=== PATIENT | female | born 1955 | race Caucasian/White ===

== ENCOUNTER → 2020-08-25 08:43 | Outpatient (BNVA) | payer MEDICARE, MEDICAID, SELFPAY | PROVIDERS: PCP Internal Medicine; Referring Provider Internal Medicine; Visit Provider Nurse Practitioner | DX: K27.9 Peptic ulcer, site unspecified, unspecified as acute or chronic, without hemorrhage or perforation (principal); K21.9 Gastro-esophageal reflux disease without esophagitis; I25.2 Old myocardial infarction | CPT/HCPCS: Q3014 ==

== ENCOUNTER → 2020-10-30 09:21 | Outpatient (BNVA) | payer MEDICARE, MEDICAID, SELFPAY | PROVIDERS: PCP Internal Medicine; Visit Provider Nurse Practitioner | DX: Z76.89 Persons encountering health services in other specified circumstances (principal) | CPT/HCPCS: Q3014 ==

== ENCOUNTER 2021-04-25 12:48 | Outpatient (REF) | payer MEDICARE, MEDICAID, SELFPAY ==
--- NOTE | ~2021-04-25 | US_ITS ---
EXAMINATION: US SOFT TISSUE NECK CLINICAL INFORMATION: Facial swelling COMPARISON: None TECHNIQUE: Ultrasound of the soft tissues of the right face/parotid area. Comparison imaging on the left was performed. Performed. FINDINGS: There is a 3 x 3 x 2 mm echogenic density in the right parotid gland with acoustic shadowing suggestive of a stone. This is continuous with and elongation tubular structure probably representing a dilated parotid duct. No fluid collection in or around the right parotid gland is seen. There is adjacent lymph node adjacent to the right parotid gland measuring 5 x 3 x 5 mm. The left parotid gland is unremarkable. US/US soft tiss head and/or neck IMPRESSION: Probable stone in the right parotid gland obstructing the right parotid duct.
== END 2021-04-25 12:49 | disposition home or self-care (01) ==
LOC: HO.US 12:48
PROVIDERS: Visit Provider Internal Medicine
DX: R22.0 Localized swelling, mass and lump, head (principal)
CPT/HCPCS: 76536

== ENCOUNTER → 2021-05-07 12:51 | Outpatient (BNVA) | payer MEDICARE, MEDICAID, SELFPAY | PROVIDERS: PCP Internal Medicine; Referring Provider Internal Medicine; Visit Provider Internal Medicine | DX: I25.10 Atherosclerotic heart disease of native coronary artery without angina pectoris (principal); I73.9 Peripheral vascular disease, unspecified; I10 Essential (primary) hypertension; F17.200 Nicotine dependence, unspecified, uncomplicated | CPT/HCPCS: 93005; 99202 ==

== ENCOUNTER 2021-05-17 09:27 | Outpatient (REF) | payer MEDICARE, MEDICAID, SELFPAY ==
--- NOTE | ~2021-05-17 | US_ITS ---
EXAMINATION: ARTERIAL DUPLEX BILATERAL LEGS CLINICAL INFORMATION: Peripheral vascular disease COMPARISON: None TECHNIQUE: Duplex Doppler of the bilateral lower extremity arterial systems was performed. FINDINGS: RIGHT: Common femoral: PSV 151 cm/s. Biphasic waveform. Deep femoral: PSV 63.8 cm/s. Biphasic waveform. Proximal superficial femoral: PSV 79.9 cm/s. Biphasic waveform. Mid superficial femoral: PSV 71.5 cm/s. Biphasic waveform. Distal superficial femoral: PSV 82.0 cm/s. Biphasic waveform. Popliteal: PSV 44.7 cm/s. Biphasic waveform. Posterior tibial artery: PSV 47.0 cm/s. Biphasic waveform. Calcified atherosclerotic plaque throughout the SFA. LEFT: Common femoral: PSV 82.3 cm/s. Triphasic waveform. Deep femoral: PSV 61.5 cm/s. Biphasic waveform. Proximal superficial femoral: PSV 120 cm/s. Biphasic waveform. Mid superficial femoral: PSV 57.1 cm/s. Biphasic waveform. Distal superficial femoral: PSV 40.0 cm/s. Biphasic waveform. Popliteal: PSV 33.9 cm/s. Biphasic waveform. Posterior tibial artery: PSV 43.4 cm/s. Biphasic waveform. Calcified atherosclerotic plaque throughout the SFA. US/US arterial duplex LE BI IMPRESSION: Normal velocities throughout the bilateral lower extremities, however there is atherosclerotic plaque throughout the bilateral SFAs and biphasic waveforms suggesting mild stenosis.
== END 2021-05-17 09:28 | disposition home or self-care (01) ==
LOC: HO.US 09:27
PROVIDERS: PCP Internal Medicine; Visit Provider Internal Medicine
DX: I73.9 Peripheral vascular disease, unspecified (principal)
CPT/HCPCS: 93925

== ENCOUNTER → 2021-07-12 14:01 | Outpatient (BNVA) | payer MEDICARE, MEDICAID, SELFPAY | PROVIDERS: PCP Internal Medicine; Visit Provider Internal Medicine | DX: J44.9 Chronic obstructive pulmonary disease, unspecified (principal); F17.200 Nicotine dependence, unspecified, uncomplicated | CPT/HCPCS: Q3014 ==

== ENCOUNTER → 2021-07-17 14:04 | Outpatient (REF) | payer MEDICARE, MEDICAID, SELFPAY ==
--- NOTE | 2021-07-17 14:08 | CA_ITS ---
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 Normal LV systolic function with grade 1 diastolic dysfunction 2. Normal cardiac valvular Doppler 3. Normal RV systolic pressure 4. No pericardial effusion Findings Left Ventricle Normal left ventricular size, thickness, and systolic function. The visually estimated ejection fraction is between 60-65%. Spectral Doppler is indicative of an impaired relaxation filling pattern. E/E prime ratio is <8, consistent with normal filling pressures. Evidence suggests grade I (mild) diastolic dysfunction. Right Ventricle Normal right ventricular cavity size and systolic function. Atria Both atria are normal in size. Interatrial shunt cannot be excluded. Aortic Valve Normal aortic valve structure and function. There is no aortic valve stenosis. There is no aortic valve regurgitation. Mitral Valve Normal mitral valve structure and function. There is trace mitral valve regurgitation. There is no mitral valve stenosis. Pulmonic Valve The pulmonic valve is likely normal. There is trace pulmonic valve regurgitation. Tricuspid Valve Normal tricuspid valve structure. The right ventricular systolic pressure is normal. The right ventricular systolic pressure is 30 mmHg. Normal right atrial pressure. There is no evidence of pulmonary hypertension. Great Vessels All visible segments of the aorta are normal in size. The pulmonary artery was not well visualized. Venous The inferior vena cava is normal in size and collapses greater than 50% with inspiration. Pericardium/Pleural There is no evidence of pericardial effusion. Prior Study Comparison No prior study available for comparison. Measurements 2D Linear Measurements IVSd: 0.94 0.6-0.9/0.6-1.0 cm LVIDd: 3.73 3.9-5.3/4.2-5.9 cm LVIDd Index: 2.85 2.4-3.2/2.2-3.1 cm/m2 LVIDs: 1.86 2.0-3.6 cm LVPWd: 0.95 0.7-1.1 cm Ao Root: 2.80 2.1-3.5 cm LA Diam: 2.90 2.7-3.8/3.0-4.0 cm LAIDs Index: 2.21 1.5-2.3 cm/m2 LV Mass: 131.03 67-162/88-224 g LV Mass Index: 100.02 43-95/49-115 g/m2 LVOT Diam: 2.10 3.0+(-)1.3 cm Mitral Valve MV Pk E: 0.46 MV PK A: 0.64 MV Decel Time: 205.00 E/A: 0.70 E'Lateral: 16.40 E'Medial: 6.64 E/E' Med: 6.90 E/E' Lat: 2.80 PHT: 60.00 MVA PHT: 3.67 Decel Coles: 2.24 Aortic Valve AoV Pk Kevin: 1.09 AoV Mn Kevin: 0.70 AoV VTI: 0.22 AoV Pk Grad: 5.00 Aov Mn Grad: 2.00 PELON Cont.VTI: 2.43 LVOT LVOT Pk Kevin: 0.68 LVOT Mn Kevin: 0.41 LVOT VTI: 0.15 LVOT Pk Grad: 2.00 LVOT Mn Grad: 1.00 LVOT Diam: 2.10 LVOT Area: 3.46 Diastolic Function MV Pk E: 0.46 MV Pk A: 0.64 E/A: 0.70 E'Medial: 6.64 E/E' Med: 6.90 E' Laterial: 16.40 E/E' Lat: 2.80 Tricuspid Valve TR Pk Kevin: 2.61 TR Pk Grad: 27.00 RA Press: 3.00 RVSP: 30.00 Great Vessels Aorta Ao Root-2D: 2.80 2.0-3.7 cm Ao Asc: 2.60 2.1-3.4 cm Pulmonary Valve PV Pk Kevin: 0.87 Peak PV Grad: 3.00 Updated in Other Vendor System with Status of Final Steve Su MD electronically signed on 07/19/2021 2:36:36 PM with status of Final
== END ==
LOC: HO.CARD 14:04
PROVIDERS: Visit Provider Internal Medicine
DX: I25.10 Atherosclerotic heart disease of native coronary artery without angina pectoris (principal)
CPT/HCPCS: 93306

== ENCOUNTER 2021-07-26 13:02 | Outpatient (REF) | payer MEDICARE, MEDICAID, SELFPAY | END 2021-07-26 13:03 | disposition home or self-care (01) | LOC: HO.CT 13:02 | PROVIDERS: PCP Internal Medicine; Visit Provider Physician Assistant Medical | DX: F17.210 Nicotine dependence, cigarettes, uncomplicated (principal); I25.10 Atherosclerotic heart disease of native coronary artery without angina pectoris; I10 Essential (primary) hypertension; I73.9 Peripheral vascular disease, unspecified | CPT/HCPCS: 99212 ==

== ENCOUNTER 2021-11-20 13:00 | Outpatient (REF) | payer MEDICARE, MEDICAID, SELFPAY ==
--- NOTE | ~2021-11-20 | MM_ITS ---
EXAMINATION: BONE DENSITOMETRY CLINICAL INDICATION: Menopausal. COMPARISON: Previous BD dated 02/13/2010 and baseline BD dated 10/23/2007. TECHNIQUE: Using a [employer] DXA System (software version: 13.1) manufactured by [employer], dual-energy x-ray absorptiometry was performed of the lumbar spine and left hip. The images are of good technical quality. Summary results are attached. FINDINGS: AP SPINE L1-L4: Current: BMD 0.862 g/cm2, Z-score -0.3, T-score -2.7, osteoporosis, 3.0% decrease from previous, 6.8% decrease from baseline (<5% change is not significant). Prior: BMD 0.889 g/cm2. Baseline: BMD 0.925 g/cm2. LEFT FEMUR, NECK: Current: BMD 0.561 g/cm2, Z-score -1.4, T-score -3.4, osteoporosis. Prior: BMD 0.678 g/cm2. Baseline: BMD 0.726 g/cm2. LEFT FEMUR, TOTAL: Current: BMD 0.550 g/cm2, Z-score -1.8, T-score -3.6, osteoporosis, 19.2% decrease from previous, 29.8% decrease from baseline (<5% change is not significant). Prior: BMD 0.681 g/cm2. Baseline: BMD 0.784 g/cm2. IDENTIFIED RISK FACTORS: Low body weight, tobacco use (current smoker), menopause. HISTORY OF FRACTURE: None listed. MEDICATIONS: Vitamin D. MM/XR DEXA axial skeleton IMPRESSION: 1. DIAGNOSIS: Osteoporosis based on the lowest T-score value of -3.6 in the total femur applying World Health Organization criteria. 2. 10-YEAR FRACTURE RISK PREDICTION, FRAX: According to the guidelines, FRAX calculation should only be performed on patients in the osteopenia bone density category. Therefore, FRAX was not performed on this patient. 3. Treatment Recommendations: NOF guidelines recommend consideration for treatment in postmenopausal women and men age 50 and older presenting with the following: -A hip or vertebral (clinical or morphometric) fracture. -T-score less than or equal to -2.5 at the femoral neck or spine after appropriate evaluation to exclude secondary causes. -Low bone mass at the hip or spine and a 10-year fracture probability by FRAX of greater than or equal to 3% for hip fracture or greater than or equal to 20% for major osteoporotic fracture based on the [place] adapted WHO algorithm. 4. Other Recommendations: All treatment decisions require clinical judgment and consideration of individual patient factors, including patient preferences, comorbidities, previous drug use, risk factors not captured in the FRAX model (e.g. frailty, falls, vitamin D deficiency, increased bone turnover, interval significant decline in bone density) and possible under or overestimation of fracture risk by FRAX. Additional medical evaluation for secondary cause of low bone mineral density may be appropriate. FUTURE SCAN RECOMMENDATION: People with diagnosed cases of osteoporosis or at high risk for fracture should have regular bone mineral density tests. For patients eligible for Medicare, routine testing is allowed once every 2 years. The testing frequency can be increased to one year for patients who have rapidly progressing disease, those who are receiving or discontinuing medical therapy to restore bone mass, or have additional risk factors.
--- NOTE | ~2021-11-20 | MM_ITS ---
EXAMINATION: MM SCREENING DIGITAL BREAST TOMOSYNTHESIS, BILATERAL CLINICAL INFORMATION: Screening. Asymptomatic. The lifetime risk of breast cancer based on the Tyrer-Cuzick Model is 3%. COMPARISON: Mammography: 07/19/2016, 10/19/2011 (baseline). TECHNIQUE: Digital breast tomosynthesis is performed in both the craniocaudal and mediolateral oblique views along with computer-aided detection (CAD). Synthesized 2D images are generated from the tomosynthesis. FINDINGS: The breasts are heterogeneously dense, which may obscure small masses (ACR BI-RADS breast composition Category c). Breast tissue composition borders on extremely dense. There is fibronodular pattern similar to prior studies. No interval significant mass or architectural abnormality. There are scattered benign round and benign grouped coarse calcifications. The axilla and skin contours are unremarkable. The left MLO has new grouped calcifications upper breast 8.5 cm from nipple, beyond field of view on CC projection. Patient will be recalled to further characterize this area. MM/MM tomosynthesis screening BI IMPRESSION: 1. Left: Calcifications upper breast on MLO view 8.5 cm from nipple. 2. Right: No mammographic evidence of malignancy. ASSESSMENT: BI-RADS 0: Incomplete - Need Additional Imaging Evaluation RECOMMENDATION: 1. Additional views of the left breast (magnification ML, magnification exaggerated CC). 2. Radiology department staff will contact the patient for additional imaging. This patient's information was entered into a reminder system with a target due date for their next mammogram.
== END 2021-11-20 13:01 | disposition home or self-care (01) ==
LOC: HO.MAMMO 13:00
PROVIDERS: PCP Internal Medicine; Visit Provider Internal Medicine
DX: Z12.31 Encounter for screening mammogram for malignant neoplasm of breast (principal); Z13.820 Encounter for screening for osteoporosis; Z78.0 Asymptomatic menopausal state; F17.200 Nicotine dependence, unspecified, uncomplicated; M81.0 Age-related osteoporosis without current pathological fracture; Z79.899 Other long term (current) drug therapy
CPT/HCPCS: 77063; 77067; 77080

== ENCOUNTER 2021-11-29 14:29 | Outpatient (REF) | payer MEDICARE, MEDICAID, SELFPAY ==
--- NOTE | ~2021-11-29 | MM_ITS ---
EXAMINATION: MM DIAGNOSTIC DIGITAL MAMMOGRAPHY, LEFT CLINICAL INFORMATION: Recall from screening for calcifications upper breast on MLO view. COMPARISON: Mammography: 11/20/2021, 07/19/2016 TECHNIQUE: Digital mammography is performed in the following views: Magnification exaggerated CC, magnification MLx2, magnification MLO. FINDINGS: The breasts are heterogeneously dense, which may obscure small masses (ACR BI-RADS breast composition Category c). The calcifications anterior upper left breast approximately 8-9 cm from nipple for additional imaging have probable benign appearance. They are relatively coarse, similar to other clearly benign grouped calcifications in the left breast. Appearance suggests early fibroadenomatous calcification. Results are discussed with the patient at time of visit.Patient confirms there are no additional mammographic exams since 2016. MM/MM added views LT IMPRESSION: Probable benign calcifications upper left breast, suspect early fibroadenomatous change. ASSESSMENT: BI-RADS 3: Probably Benign RECOMMENDATION: Diagnostic left mammography in 6 months to include magnification views. This patient's information was entered into a reminder system with a target due date for their next mammogram.
== END 2021-11-29 14:30 | disposition home or self-care (01) ==
LOC: HO.MAMMO 14:29
PROVIDERS: PCP Internal Medicine; Visit Provider Internal Medicine
DX: R92.1 Mammographic calcification found on diagnostic imaging of breast (principal)
CPT/HCPCS: 77065

== ENCOUNTER 2022-02-12 14:00 | Outpatient (RCR) | payer MEDICARE, MEDICAID, SELFPAY | END 2022-03-18 11:51 | disposition home or self-care (01) | LOC: HO.WCC 14:00 | PROVIDERS: Visit Provider Surgery | DX: S81.811D Laceration without foreign body, right lower leg, subsequent encounter (principal) | CPT/HCPCS: 11042; 99212 ==

== ENCOUNTER 2022-04-02 11:33 | Emergency (ER) | payer MEDICARE, MEDICAID, SELFPAY ==
--- NOTE | ~2022-04-02 | XR_ITS ---
EXAMINATION: XR CHEST CLINICAL INFORMATION: Covid positive. Low oxygen saturation. COMPARISON: Most recent chest radiograph dated 06/09/2020. TECHNIQUE: 2 views of the chest were obtained. FINDINGS: Diffuse, patchy bilateral airspace opacities which are new when compared to the prior examination. No large, confluent airspace consolidation. No pleural effusion or pneumothorax. Stable cardiomediastinal silhouette. XR/XR chest 2V IMPRESSION: Mild, diffuse patchy bilateral airspace opacities. Findings can be seen in the setting of an infectious or inflammatory process, including viral pneumonia.
[2022-04-02 11:46] VITALS: BP 130/78; PULSE 105
[2022-04-02 12:01] VITALS: BP 141/79; PULSE 109; RESP 20; TEMP 36.9; O2SAT 96; BMI 17.1
--- NOTE | 2022-04-02 12:07 | PC.NURSE ---
patient a&ox3 monitoring specialist sinus tach, vss, pt speaking in full sentences, pt awaiting provider, will continue to monitor.
--- NOTE | 2022-04-02 12:16 | ED_ITS ---
HPI - URI/Sore Throat General Chief Complaint: General Medical Stated Complaint: LOW O2 88% RA FROM MD OFFICE PER EMS Time Seen by Provider: 04/02/22 12:04 Source: patient Mode of arrival: EMS Limitations: no limitations History of Present Illness HPI Narrative: Patient presents emergency department via EMS coming from her doctor's office. She reports on 03/27/2022 she was diagnosed with COVID-19, has been vaccinated x4 with Pfizer, reports that she took ?a pill? 4 days ago for COVID, it caused her to be delirious and confused. She was at her doctor's office today for a follow-up visit, when she was noted to be hypoxic with room air saturation around 88%. Overall she reports feeling much better since the onset of her symptoms, initially she was having worsening of her shortness of breath, but currently is denying any shortness of breath, wheezing. Denies fevers, chills, dizziness, lightheadedness, chest pain, palpitations, difficulty breathing, dyspnea on exertion, orthopnea, nausea, vomiting, abdominal pain. Related Data Home Medications Medication Instructions Recorded Confirmed aspirin 81 mg tablet,delayed 81 mg PO DAILY 08/25/20 07/26/21 release atorvastatin 80 mg tablet 80 mg PO BEDTIME 08/25/20 07/26/21 cholecalciferol (vitamin D3) 50 50 mcg PO DAILY 08/25/20 07/26/21 mcg (2,000 unit) capsule metoprolol succinate 50 mg 50 mg PO DAILY 08/25/20 07/26/21 tablet,extended release 24 hr oxycodone 10 mg tablet 10 mg PO TID PRN 08/25/20 07/26/21 isosorbide mononitrate 30 mg 30 mg PO DAILY 05/07/21 07/26/21 tablet,extended release 24 hr omeprazole 40 mg capsule,delayed 40 mg PO BID 05/07/21 07/26/21 release albuterol sulfate 90 mcg/actuation 2 puff inhalation .6 HRS PRN PRN 07/12/21 07/26/21 aerosol inhaler (ProAir HFA) budesonide-formoterol HFA 80 2 puff PO 07/12/21 07/26/21 mcg-4.5 mcg/actuation aerosol inhaler (Symbicort) gabapentin 100 mg capsule 200 mg PO BEDTIME 07/12/21 07/26/21 tiotropium bromide 18 mcg capsule 1 cap inhalation DAILY 07/12/21 07/26/21 with inhalation device (Spiriva with HandiHaler) Previous Rx's Medication Instructions Recorded famotidine 20 mg tablet (Pepcid) 20 mg PO BEDTIME 30 days #30 tabs 04/24/21 nicotine 14 mg/24 hr daily 1 patch transdermal DAILY 28 days 07/12/21 transdermal patch #28 ea albuterol sulfate 90 mcg/actuation 2 puff PO Q4-6H PRN shortness of 02/08/22 aerosol inhaler breath or wheezing #8.5 ea Allergies Allergy/AdvReac Type Severity Reaction Status Date / Time No Known Allergies Allergy Verified 04/02/22 12:01 Review of Systems Review of Systems: Constitutional : No Fever, No Chills ENT/Mouth : No sore throat, No Rhinorrhea, No Swallowing Difficulty Eyes: No Eye Pain, No Swelling, No Redness Cardiovascular : No Chest Pain, no SOB, No Orthopnea, positive Edema Respiratory : No Cough, No Sputum, No Wheezing, positive dyspnea Gastrointestinal : No Nausea, No Vomiting, No Diarrhea, No abdominal Pain, No Hematochezia, No Melena Genitourinary : No Dysuria, No Urinary Frequency, No Hematuria Musculoskeletal : No joint pain, No Myalgias Skin : No Skin Lesions, No rash Neuro : No Weakness, No Numbness, No Dizziness, No Headache Psych : No Anxiety/Panic, No Depression Heme/Lymph: No Bruising, No Lymphadenopathy Endocrine : No Polyuria, No Polydipsia Yes all other systems are reviewed and are negative [facility] Past Medical History Attestation statement: The following information was validated with the patient. Source: old records reviewed Medical History History of ARDS Surgical History History of cardiac cath History of exploratory laparotomy (~2019) History of heart artery stent (~2015) Family History Family History Father No problems noted. Mother Diabetes Brother Heart problem Social History Social History Household Members: Spouse Alcohol intake: never Patient Tobacco Use Status: Current everyday Tobacco user Cigarettes Per Day: 10 Use of substances other than those prescribed or required for medical reasons: No Advance Directives: No Advance Directives Information Provided: Yes Physical Exam Vital Signs: Vital Signs: Last Vital Signs Temp 99.1 F 04/02/22 12:20 Pulse 94 04/02/22 12:20 Resp 19 04/02/22 12:20 BP 137/81 04/02/22 12:20 Pulse Ox 95 04/02/22 12:20 O2 Del Method 04/02/22 12:20 O2 Flow Rate 2 04/02/22 12:20 Oxygen Flow Rate 2 04/02/22 12:01 BMI result Body Mass Index 17.1 Vital signs have been reviewed as normal and appeared to be correct. Blood pressure normal.? Mild tachycardia? Respiration rate normal. Temperature normal.? Oxygen saturation normal on O2 via nasal cannula Appearance: Alert.?Oriented to person, place and time. No acute d istress.?Normal affect. Eyes: Pupils equal, round and reactive to light.? ENT: Pharynx normal.?? Neck: Normal inspection.? Neck supple.?? CVS: Heart sounds normal. Normal heart rate and rhythm.? Pulses normal.?? Respiratory: No respiratory distress.? Lung sounds clear to auscultation bilaterally, slightly diminished, no wheezing. Respirations are regular even nonlabored. Managing secretions. No hoarseness. Abdomen: Soft and non-tender. Normoactive bowel sounds. ?? Skin: Skin warm and dry.? Normal skin color.? Extremities: 2+ bilateral pedal edema? No calf ttp? Neuro: Moves all extremities spontaneously. Sensation intact bilaterally. CN II- XII intact. No focal neuro deficits. Ambulates with normal steady gait. Course Course Course Narrative: Patient is a 67-year-old female with a past medical history of ASCVD, myocardial infarction, catheterization with stenting, peripheral vascular disease, ARDS, COPD, hypertension, GERD, peptic ulcer disease, neuropathy. She continues to smoke cigarettes, is taking Spiriva, Symbicort, and albuterol ProAir as needed. Last seen by pulmonology Dr. Cleary 07/26 moderate-severe COPD. At this time patient has no overall complaints, she actually reports feeling much improved since symptom onset with COVID-19. Given her noted room-air hypoxia, history of COPD, ARDS, an ASCVD will obtain basic labs including CBC, CMP, troponin, EKG, chest x-ray. Patient will have ambulatory O2 trial. At time no indication for nebulizer treatment or steroids. Reevaluation(s) Reevaluation #1: CBC is overall unremarkable. BMP unremarkable. Troponin is elevated, 17.4, EKG reveals sinus tachycardia, but no acute ischemic findings, given her history will obtain delta troponin. Chest x-ray is pending at this time. Discussed with patient that if she is able to ambulate without hypoxia or significant tachycardia/tachypnea, her repeat troponin is negative she would be able to be discharged home. Patient at this time declines to have ambulatory O2 trial, declines to have repeat troponin obtained. Discussed patient but cannot completely exclude the possibility of myocardial infarction, or persistnet hypoxia given history of severe COPD with the additional COVID-19 infection. Discussed this with patient that she is leaving against medical advice at this time, she may be a risk for complications or life-threatening events. She verbalizes understanding of this, and states that she would like to leave. Patient to sign against medical advice forms. Time: 13:29 MDM - URI/Sore Throat Medical Records Attestation: I reviewed the patient's medical records. Lab Data Attestation: I reviewed the patient's lab results. Result diagrams: 04/02/22 12:27 04/02/22 12:26 Labs: Lab Results 04/02/22 04/02/22 04/02/22 Range/Units 12:26 12:26 12:27 WBC 7.7 (4.8-10.8) X10*3/uL RBC 5.50 (4.20-5.50) X10*6/uL Hgb 16.0 (12.0-16.0) g/dl Hct 50.7 H (37.0-47.0) % MCV 92.2 (80.0-98.0) fL MCH 29.1 (27.0-33.0) pg MCHC 31.6 (31.0-35.0) g/dl RDW 15.4 (11.0-16.0) % Plt Count 187 (160-400) X10*3/uL MPV 9.8 (9.4-12.3) fL Immature Gran % (Auto) 0.8 H (0.0-0.4) % Neut % (Auto) 81.4 H (45-73) % Lymph % (Auto) 9.4 L (20-40) % Bureau % (Auto) 8.2 (2-11) % Eos % (Auto) 0.1 (0-4) % Baso % (Auto) 0.1 (0-2) % Lymph # (Auto) 0.7 L (1.2-4.9) X10*3/uL Bureau # (Auto) 0.6 (0.1-1.2) X10*3/uL Eos # (Auto) 0.0 (0.0-0.4) X10*3/uL Baso # (Auto) 0.0 (0.0-0.2) X10*3/uL Abs Immat Gran (auto) 0.06 H (0.00-0.03) X10*3/uL Absolute Neuts (auto) 6.3 (2.0-8.3) x10*3/uL Absolute Nucleated RBC 0.000 (0.0-0.012) X10*3/uL Nucleated RBC % (auto) 0.0 (0.0-0.2) /100WBC Sodium 143 (135-145) mmol/L Potassium 4.9 (3.3-5.1) mmol/L Chloride 98 (96-108) mmol/L Carbon Dioxide 39 H (22-29) mmol/L Anion Gap 11 L (12-20) BUN 12 (9-16) mg/dL Creatinine 0.68 (0.5-1.4) mg/dL Estim Creat Clear Calc 48.1 Estimated GFR > 60 Random Glucose 100 (60-115) mg/dL Calcium 8.5 (8.4-10.2) mg/dL Troponin I High Sens (<3.5-17.0) ng/L B-Natriuretic Peptide (<100) pg/mL COVID-19 ([facility]OB[facility]) Positive A (Negative) COVID-19 Clin Com See Note 04/02/22 04/02/22 Range/Units 12:27 12:28 WBC (4.8-10.8) X10*3/uL RBC (4.20-5.50) X10*6/uL Hgb (12.0-16.0) g/dl Hct (37.0-47.0) % MCV (80.0-98.0) fL MCH (27.0-33.0) pg MCHC (31.0-35.0) g/dl RDW (11.0-16.0) % Plt Count (160-400) X10*3/uL MPV (9.4-12.3) fL Immature Gran % (Auto) (0.0-0.4) % Neut % (Auto) (45-73) % Lymph % (Auto) (20-40) % Bureau % (Auto) (2-11) % Eos % (Auto) (0-4) % Baso % (Auto) (0-2) % Lymph # (Auto) (1.2-4.9) X10*3/uL Bureau # (Auto) (0.1-1.2) X10*3/uL Eos # (Auto) (0.0-0.4) X10*3/uL Baso # (Auto) (0.0-0.2) X10*3/uL Abs Immat Gran (auto) (0.00-0.03) X10*3/uL Absolute Neuts (auto) (2.0-8.3) x10*3/uL Absolute Nucleated RBC (0.0-0.012) X10*3/uL Nucleated RBC % (auto) (0.0-0.2) /100WBC Sodium (135-145) mmol/L Potassium (3.3-5.1) mmol/L Chloride (96-108) mmol/L Carbon Dioxide (22-29) mmol/L Anion Gap (12-20) BUN (9-16) mg/dL Creatinine (0.5-1.4) mg/dL Estim Creat Clear Calc Estimated GFR Random Glucose (60-115) mg/dL Calcium (8.4-10.2) mg/dL Troponin I High Sens 17.4 H (<3.5-17.0) ng/L B-Natriuretic Peptide 78 (<100) pg/mL COVID-19 ([facility]) (Negative) COVID-19 Clin Com Discharge Plan Discharge Clinical Impression: COVID-19, Hypoxia, Left against medical advice Patient Disposition: Left Against Medical Advice Additional Instructions: As we discussed, it is recommended that you remain in the hospital to have repeat blood work as well as monitor your oxygen while you are walking, you declined to have either performed. It is possible that you could be dropping your oxygen, which can be life- threatening, it was advised that you have your repeat blood work done to assure that you are not having heart attack but you declined. Please return to emergency department with any new or worsening symptoms or concerns Prescriptions: No Action famotidine [Pepcid] 20 mg tablet 20 mg PO BEDTIME 30 Days Qty: 30 6RF albuterol sulfate 90 mcg/actuation HFA aerosol inhaler 2 puff PO Q4-6H PRN (Reason: shortness of breath or wheezing) Qty: 8.5 5RF omeprazole 40 mg capsule,delayed release(DR/EC) 40 mg PO BID isosorbide mononitrate 30 mg tablet extended release 24 hr 30 mg PO DAILY budesonide-formoterol [Symbicort] 80-4.5 mcg/actuation HFA aerosol inhaler 2 puff PO Spiriva with HandiHaler 18 mcg capsule, w/inhalation device 1 cap inhalation DAILY albuterol sulfate [ProAir HFA] 90 mcg/actuation HFA aerosol inhaler 2 puff inhalation .6 HRS PRN PRN nicotine 14 mg/24 hr patch 24 hour 1 patch transdermal DAILY 28 Days Qty: 28 2RF cholecalciferol (vitamin D3) 50 mcg (2,000 unit) capsule 50 mcg PO DAILY atorvastatin 80 mg tablet 80 mg PO BEDTIME aspirin 81 mg tablet,delayed release (DR/EC) 81 mg PO DAILY oxycodone 10 mg tablet 10 mg PO TID PRN metoprolol succinate 50 mg tablet extended release 24 hr 50 mg PO DAILY gabapentin 100 mg capsule 200 mg PO BEDTIME Interventions: ED Discharge Assessment Last Done: 04/02/22 14:17 Discharge Date/Time: 04/02/22 14:25
--- NOTE | 2022-04-02 12:18 | ECG_ITS ---
Test Reason : Shortness of breath Blood Pressure : / mmHG Vent. Rate : 102 BPM Atrial Rate : 102 BPM P-R Int : 128 ms QRS Dur : 082 ms QT Int : 330 ms P-R-T Axes : 070 101 050 degrees QTc Int : 430 ms Sinus tachycardia Rightward axis Low voltage QRS Septal infarct (cited on or before 09-JUN-2020) Abnormal ECG When compared with ECG of 09-JUN-2020 06:19, Vent. rate has increased BY 37 BPM Referred By: Mary Rivers Electronically Signed By:MACARIO CARSON
[2022-04-02 12:20] VITALS: BP 137/81; PULSE 94; RESP 19; TEMP 37.3; O2SAT 95
[2022-04-02 12:36] LABS: MANUAL DIFF FLAG NO
[2022-04-02 12:40] LABS: Basophils Percent Auto 0.1 % (0-2); Eosinophils Percent Auto 0.1 % (0-4); Hematocrit 50.7 % (37.0-47.0); Imm Gran Abs Auto 0.06 X10*3/uL (0.00-0.03); Imm Gran Pct Auto 0.8 % (0.0-0.4); Lymphocytes Absolute Auto 0.7 X10*3/uL (1.2-4.9); Lymphocytes Percent Auto 9.4 % (20-40); Mean Corpuscular HGB Conc 31.6 g/dl (31.0-35.0); Mean Corpuscular Hemoglobin 29.1 pg (27.0-33.0); Mean Corpuscular Volume 92.2 fL (80.0-98.0); Mean Platelet Volume 9.8 fL (9.4-12.3); Monocytes Absolute Auto 0.6 X10*3/uL (0.1-1.2); Monocytes Percent Auto 8.2 % (2-11); Neutrophils Absolute Auto 6.3 x10*3/uL (2.0-8.3); Neutrophils Percent Auto 81.4 % (45-73); Platelet Count 187 X10*3/uL (160-400); Red Cell Distribution Width 15.4 % (11.0-16.0); White Blood Count 7.7 X10*3/uL (4.8-10.8)
[2022-04-02 12:50] LABS: COVID-19 Test Positive (Negative); IDNOW Serial# 16C4AD1C
[2022-04-02 12:53] LABS: Anion Gap 11 (12-20); Blood Urea Nitrogen 12 mg/dL (9-16); Calcium 8.5 mg/dL (8.4-10.2); Carbon Dioxide 39 mmol/L (22-29); Chloride 98 mmol/L (96-108); Creatinine Clr Calc Pharmacy 48.1; Estimated Glomerular Filt Rate > 60; Glucose Random 100 mg/dL (60-115); Potassium 4.9 mmol/L (3.3-5.1); Sodium 143 mmol/L (135-145)
[2022-04-02 13:01] LABS: B Type Natriuretic Peptide 78 pg/mL (<100)
[2022-04-02 13:02] LABS: Troponin-I High Sensitivity 17.4 ng/L (<3.5-17.0)
--- NOTE | 2022-04-02 14:18 | PC.NURSE ---
pt refusing repeat labs, refusing ambulation trial and now refusing oxygyn and wants to discharge, patient is leaving [facility].
== END 2022-04-02 14:25 | disposition left against medical advice (07) ==
PROVIDERS: Nurse Practitioner Family; Emergency Provider Emergency Medicine
DX: U07.1 COVID-19 (principal); R09.02 Hypoxemia; J44.9 Chronic obstructive pulmonary disease, unspecified; I10 Essential (primary) hypertension; I25.10 Atherosclerotic heart disease of native coronary artery without angina pectoris; F17.210 Nicotine dependence, cigarettes, uncomplicated; I25.2 Old myocardial infarction; Z79.899 Other long term (current) drug therapy; Z95.5 Presence of coronary angioplasty implant and graft
CPT/HCPCS: 36415; 71046; 80048; 83880; 84484; 85025; 87635; 93005; 99283; 99284

== ENCOUNTER → 2022-09-16 13:23 | Outpatient (BNVA) | payer MEDICARE, MEDICAID, SELFPAY | PROVIDERS: PCP Internal Medicine; Referring Provider Internal Medicine; Visit Provider Internal Medicine | DX: I25.10 Atherosclerotic heart disease of native coronary artery without angina pectoris (principal); I10 Essential (primary) hypertension; I73.9 Peripheral vascular disease, unspecified; I65.23 Occlusion and stenosis of bilateral carotid arteries; I71.40 Abdominal aortic aneurysm, without rupture, unspecified; F17.210 Nicotine dependence, cigarettes, uncomplicated; Z79.82 Long term (current) use of aspirin; Z79.899 Other long term (current) drug therapy | CPT/HCPCS: 93005; 99212 ==

== ENCOUNTER 2022-10-16 14:19 | Outpatient (REF) | payer MEDICARE, MEDICAID, SELFPAY ==
--- NOTE | ~2022-10-16 | US_ITS ---
EXAMINATION: US EXTRACRANIAL CAROTID DUPLEX, BILATERAL CLINICAL INFORMATION: Occlusion and stenosis of the bilateral carotid arteries COMPARISON: None TECHNIQUE: Real-time ultrasound and Doppler techniques (integrating B-mode 2-D vascular images, Doppler spectral analysis and color-flow Doppler imaging) were utilized to interrogate the extracranial carotid arteries, the vertebral arteries and proximal subclavian arteries bilaterally. The degree of stenosis is determined by criteria similar to NASCET. FINDINGS: Right Side: 1. There is moderate atherosclerotic plaque seen in the bifurcation/proximal ICA region. 2. The common carotid artery PSV proximally is 80 cm/s and distally 81 cm/s. 3. The proximal internal carotid artery velocities are 81 cm/s systolic and 35 cm/s diastolic. 4. The proximal external carotid artery PSV is 69 cm/s. 5. The vertebral artery shows antegrade flow. 6. The subclavian artery waveforms are normal. Left Side: 1. There is moderate atherosclerotic plaque seen in the bifurcation/proximal ICA region. 2. The common carotid artery PSV proximally is 69 cm/s and distally 70 cm/s. 3. The proximal internal carotid artery velocities are 106 cm/s systolic and 53 cm/s diastolic. 4. The proximal external carotid artery PSV is 168 cm/s. 5. The vertebral artery shows antegrade flow. 6. The subclavian artery waveforms are normal. US/US carotid duplex BI IMPRESSION: 1. RIGHT: Minimal, non-hemodynamically significant stenosis of the proximal right internal carotid artery corresponding to a 0-49% stenosis by velocity criteria. 2. LEFT: Minimal, non-hemodynamically significant stenosis of the proximal left internal carotid artery corresponding to a 0-49% stenosis by velocity criteria.
--- NOTE | ~2022-10-16 | US_ITS ---
EXAMINATION: US RETROPERITONEAL LIMITED (AORTA) CLINICAL INFORMATION: Abdominal aortic aneurysm without rupture, unspecified. COMPARISON: Abdominal ultrasound on 03/12/2016 TECHNIQUE: Grimaldo-scale, color Doppler and spectral Doppler evaluation of the abdominal aorta. FINDINGS: There is atherosclerotic disease. The measurements of the aorta in maximum AP and transverse dimensions respectively are as follows: Proximal: 2.8 x 2.6 cm. Mid: 1.8 x 1.9 cm. Distal: 1.5 x 1.9 cm. PSV: 68.8 cm/s. The measurements of the common iliac arteries in maximum AP and TRV dimensions are as follows: Right Common Iliac Artery: 0.9 x 1.1 cm. Left Common Iliac Artery: 0.9 x 0.9 cm. US/US abdominal aortic aneurysm IMPRESSION: No abdominal aortic or iliac artery aneurysm.
== END 2022-10-16 14:20 | disposition home or self-care (01) ==
LOC: HO.US 14:19
PROVIDERS: Visit Provider Internal Medicine
DX: I71.40 Abdominal aortic aneurysm, without rupture, unspecified (principal); I65.23 Occlusion and stenosis of bilateral carotid arteries
CPT/HCPCS: 76706; 93880

== ENCOUNTER 2023-05-16 12:06 | Outpatient (REF) | payer MEDICARE, MEDICAID, SELFPAY ==
[2023-05-16 13:50] LABS: MANUAL DIFF FLAG NO
[2023-05-16 14:05] LABS: Basophils Absolute Auto 0.1 X10*3/uL (0.0-0.2); Basophils Percent Auto 0.7 % (0-2); Eosinophils Absolute Auto 0.1 X10*3/uL (0.0-0.4); Eosinophils Percent Auto 1.8 % (0-4); Hematocrit 49.4 % (37.0-47.0); Hemoglobin 15.4 g/dl (12.0-16.0); Imm Gran Abs Auto 0.02 X10*3/uL (0.00-0.03); Imm Gran Pct Auto 0.3 % (0.0-0.4); Lymphocytes Absolute Auto 1.7 X10*3/uL (1.2-4.9); Lymphocytes Percent Auto 24.1 % (20-40); Mean Corpuscular HGB Conc 31.2 g/dl (31.0-35.0); Mean Corpuscular Hemoglobin 29.3 pg (27.0-33.0); Mean Corpuscular Volume 93.9 fL (80.0-98.0); Mean Platelet Volume 11.1 fL (9.4-12.3); Monocytes Absolute Auto 0.7 X10*3/uL (0.1-1.2); Monocytes Percent Auto 10.1 % (2-11); Neutrophils Absolute Auto 4.5 x10*3/uL (2.0-8.3); Platelet Count 165 X10*3/uL (160-400); Red Blood Count 5.26 X10*6/uL (4.20-5.50); Red Cell Distribution Width 15.3 % (11.0-16.0); White Blood Count 7.2 X10*3/uL (4.8-10.8)
[2023-05-16 15:11] LABS: Folate 4.2 ng/mL (> or = 4.0); Vitamin B12 1083 pg/mL (200-900)
[2023-05-16 15:20] LABS: Alanine Aminotransferase 16 U/L (0-31); Albumin Level 3.2 g/dL (3.5-5.0); Alkaline Phosphatase 149 U/L (39-117); Anion Gap 11 (12-20); Aspartate Amino Transferase 27 U/L (5-31); Bilirubin Total 0.4 mg/dL (0.0-1.0); Blood Urea Nitrogen 12 mg/dL (9-16); Calcium 9.4 mg/dL (8.4-10.2); Carbon Dioxide 35 mmol/L (22-29); Chloride 98 mmol/L (96-108); Cholesterol 179 mg/dL; Estimated Glomerular Filt Rate > 60; Glucose Random 69 mg/dL (60-115); HDL Cholesterol 54 mg/dL; LDL Cholesterol Calculated 106 mg/dl; Potassium 4.2 mmol/L (3.3-5.1); Sodium 140 mmol/L (135-145); Total Protein 6.3 g/dL (6.5-8.0); Triglycerides 97 mg/dL
[2023-05-16 15:22] LABS: TSH reflex Free T4 2.94 uIU/mL (0.32-4.0)
[2023-05-17 03:26] LABS: Estimated Average Glucose 97 mg/dL
[2023-05-17 03:30] LABS: Syphilis Screen Nonreactive (Nonreactive)
[2023-05-19 17:48] LABS: Lyme Abs Screen <0.90 index
== END 2023-05-16 12:07 | disposition home or self-care (01) ==
LOC: HO.HHCL 12:06
PROVIDERS: Visit Provider Registered Nurse
DX: Z00.00 Encounter for general adult medical examination without abnormal findings (principal); R41.3 Other amnesia; J44.9 Chronic obstructive pulmonary disease, unspecified; E78.5 Hyperlipidemia, unspecified; R63.6 Underweight
CPT/HCPCS: 36415; 80053; 80061; 82607; 82746; 83036; 84443; 85025; 86617; 86618; 86780

== ENCOUNTER 2023-06-17 09:52 | Outpatient (REF) | payer MEDICARE, MEDICAID, SELFPAY ==
--- NOTE | ~2023-06-17 | CT_ITS ---
EXAMINATION: CT CHEST WITHOUT CONTRAST CLINICAL INFORMATION: Lung nodule. COMPARISON: CTA chest 12/21/2018. TECHNIQUE: Multidetector volumetric CT imaging of the chest was done. Axial MIP volume rendering provided. Sagittal and coronal reformatted images were obtained. This CT examination was performed using dose optimization techniques as appropriate, variously including the following: *Automated exposure control *Adjustment of mA and/or kV according to patient size (this includes techniques or standardized protocols for targeted exams where dose is matched to indication/reason for exam; i.e. extremities or head) *Use of iterative reconstruction technique DLP: 63 mGy-cm FINDINGS: LUNGS: Severe emphysematous changes are again seen throughout the lungs. Biapical pleural-parenchymal scarring is again noted. Rounded area of infiltrate in the right upper lobe abutting the major fissure seen previously (6:148) has resolved. Other scattered areas of infiltrate throughout the lungs have also resolved since the prior study. A 3 mm right upper lobe lung nodule is unchanged (5:207, compare prior 6:195). A 3 mm left upper lobe nodule is unchanged (5:226, compare prior 6:228). No new worrisome lung mass is seen. MEDIASTINUM: There is a 1.8 x 1.9 cm precarinal lymph node which was more difficult to see at the time of the prior study but appears unchanged (5:184, compare prior 4:21). Some other smaller lymph nodes are also unchanged. CORONARY ARTERY CALCIFICATION: Present. PLEURA: There is no pleural effusion. No pleural mass or thickening. AXILLA: No lymphadenopathy. UPPER ABDOMEN: Unremarkable. OSSEOUS STRUCTURES: Unremarkable. CT/CT chest wo IV con IMPRESSION: 1. Previously seen areas of multifocal infiltrates have resolved. 2. Small lung micronodules are unchanged. 3. Severe emphysema. 4. Mediastinal lymph nodes are unchanged. 5. A worrisome finding is not present. Fleischner guidelines were followed.
== END 2023-06-17 09:53 | disposition home or self-care (01) ==
LOC: HO.CT 09:52
PROVIDERS: PCP Internal Medicine; Visit Provider Registered Nurse
DX: R91.1 Solitary pulmonary nodule (principal); R63.4 Abnormal weight loss
CPT/HCPCS: 71250

== ENCOUNTER 2023-07-09 09:34 | Emergency (ER) | payer MEDICARE, MEDICAID, SELFPAY ==
[2023-07-09] VITALS (20 sets, daily range): BP systolic 72–113; BP diastolic 31–79; PULSE 68–123; RESP 18–22; TEMP 37.1–38.9; O2SAT 78–95; BMI 16.8
--- NOTE | ~2023-07-09 | XR_ITS ---
EXAMINATION: XR CHEST CLINICAL INFORMATION: Cough COMPARISON: CT of the chest 06/17/2023 TECHNIQUE: Frontal view of the chest was obtained. FINDINGS: Fibrotic changes noted. No acute consolidations. Marked COPD noted. Heart and pulmonary vessels normal. XR/XR chest 1V IMPRESSION: Chronic changes observed. No active disease. COPD.
--- NOTE | 2023-07-09 09:40 | ED_ITS ---
HPI - General Adult General Chief complaint: Weakness Stated complaint: CAT BITE T-1,MARTHAKEY,LETHARGIC,O2 78% 3LPM,HOT Time Seen by Provider: 07/09/23 09:39 Source: patient and EMS Mode of arrival: EMS Limitations: no limitations History of Present Illness HPI narrative: Patient is a 68 year old assigned female at with a history of COPD, CAD, [place], GERD, and HTN presenting to the emergency department today with weakness and a cat bite to her left lower leg. Patient states that she thinks she was bit yesterday and her cat is up to date on all shots. Patient states over the last few days she has been short of breath and feeling generally unwell. Patient denies any dizziness, lightheadedness, abdominal pain, nausea, vomiting, chills, blurry vision, double vision, loss of vision, chest pain, back pain, night sweats, pain with urination, increased urinary frequency, increased urinary urgency, blood in her urine or stool, syncope or a near syncopal episode, recent trauma or falls, bowel incontinence, bladder incontinence, bowel retention, bladder retention, or any other complaints at this time. Onset (ago): day(s) Severity: moderate Severity scale (1-10): 6 Relieving factors: none Exacerbating factors: none Associated symptoms: fever/chills and weakness Treatments prior to arrival: none Related Data Home Medications Medication Instructions Recorded Confirmed aspirin 81 mg tablet,delayed 81 mg PO DAILY 08/25/20 09/16/22 release atorvastatin 80 mg tablet 80 mg PO BEDTIME 08/25/20 09/16/22 cholecalciferol (vitamin D3) 50 50 mcg PO DAILY 08/25/20 09/16/22 mcg (2,000 unit) capsule metoprolol succinate 50 mg 50 mg PO DAILY 08/25/20 09/16/22 tablet,extended release 24 hr oxycodone 10 mg tablet 10 mg PO TID PRN 08/25/20 09/16/22 isosorbide mononitrate 30 mg 30 mg PO DAILY 05/07/21 09/16/22 tablet,extended release 24 hr omeprazole 40 mg capsule,delayed 40 mg PO BID 05/07/21 09/16/22 release albuterol sulfate 90 mcg/actuation 2 puff inhalation .6 HRS PRN PRN 07/12/21 09/16/22 aerosol inhaler (ProAir HFA) budesonide-formoterol HFA 80 2 puff PO 07/12/21 09/16/22 mcg-4.5 mcg/actuation aerosol inhaler (Symbicort) Previous Rx's Medication Instructions Recorded famotidine 20 mg tablet (Pepcid) 20 mg PO BEDTIME 30 days #30 tabs 04/24/21 albuterol sulfate 90 mcg/actuation 2 puff PO Q4-6H PRN shortness of 02/08/22 aerosol inhaler breath or wheezing #8.5 ea Allergies Allergy/AdvReac Type Severity Reaction Status Date / Time No Known Allergies Allergy Verified 09/16/22 13:54 Review of Systems 2 Constitutional: Constitutional: Reports no additional constitutional complaints, Denies chills, Reports fever(s), Denies night sweats and Reports weakness Eyes: Eyes: Reports no additional eye complaints, Denies blurry vision, Denies change in vision, Denies diplopia, Denies eye discharge, Denies loss of vision and Denies eye pain ENT: Denies dizziness Cardiovascular: Cardiovascular: Reports no additional cardiovascular complaints, Denies chest pain, Denies lightheadedness, Denies Loss of Consciousness and Reports dyspnea Respiratory: Respiratory: Reports no additional respiratory complaints and Reports dyspnea Gastrointestinal: Gastrointestinal: Reports no additional gastrointestinal complaints, Denies abdominal pain, Denies melena, Denies hematochezia, Denies change in bowel habits and Denies change in stool character Genitourinary: Genitourinary: Denies hematuria, Denies urinary frequency, Denies dysuria, Denies urinary incontinence, Denies urinary hesitancy and Denies urinary urgency Musculoskeletal: Musculoskeletal: Reports no additional musculoskeletal complaints, Denies numbness and Denies tingling Integumentary/Breasts: Comments: cat bite to left lower extremity Neurologic: Denies dizziness, Denies loss of vision, Denies numbness, Denies tingling and Reports weakness Psychiatric: Psychiatric: Reports no additional psychiatric complaints Endocrine: Endocrine: Reports no additional endocrine complaints Hematologic/Lymphatic: Hematologic/Lymphatic: Reports no additional hematologic/lymphatic complaints Allergic/Immunologic: Allergic/Immunologic: Reports no additional allergic/immunologic complaints PMFSH Past Medical History Attestation statement: The following information was validated with the patient. Source: old records reviewed and nursing notes reviewed Medical History Nicotine dependence, cigarettes, uncomplicated History of COVID-19 History of ARDS Osteoporosis COPD (chronic obstructive pulmonary disease) Essential hypertension Atherosclerotic cardiovascular disease History of [place] (myocardial infarction) (~2015) Coronary artery disease GERD (gastroesophageal reflux disease) Peptic ulcer disease Surgical History History of cardiac cath History of heart artery stent (~2015) History of exploratory laparotomy (~2019) Family History Family History Father No problems noted. Mother Diabetes Brother Heart problem Social History Social History Household Members: Spouse Alcohol intake: never Patient Tobacco Use Status: Current everyday Tobacco user Cigarettes Per Day: 10 Smoked in Last 30 Days: Yes Use of substances other than those prescribed or required for medical reasons: No Advance Directives: No Advance Directives Information Provided: Yes Physical Exam ED Vital Signs: Vital Signs - 24 hr 07/09/23 09:53 07/09/23 10:06 07/09/23 10:10 Temperature 102.1 F H Pulse Rate 117 H 108 H Respiratory Rate 18 20 Blood Pressure 113/61 Pulse Oximetry 90 L 89 L Oxygen Delivery Method Nasal Cannula Nasal Cannula Oxygen Flow Rate 2 07/09/23 10:51 07/09/23 11:01 07/09/23 11:23 Temperature 99.9 F Pulse Rate 123 H 109 H Respiratory Rate 22 H 22 H 20 Blood Pressure 99/79 77/31 L Pulse Oximetry 91 L 93 Oxygen Delivery Method Nasal Cannula Nasal Cannula Oxygen Flow Rate 2 2 07/09/23 12:03 07/09/23 12:49 07/09/23 13:09 Temperature Pulse Rate 107 H 99 100 Respiratory Rate 20 18 Blood Pressure 86/45 L 84/61 L 77/40 L Pulse Oximetry 93 91 L Oxygen Delivery Method Nasal Cannula Nasal Cannula Oxygen Flow Rate 1 1 07/09/23 13:46 07/09/23 13:55 07/09/23 13:56 Temperature Pulse Rate 96 94 94 Respiratory Rate 22 H Blood Pressure 82/46 L 72/41 L 72/41 L Pulse Oximetry 92 Oxygen Delivery Method Nasal Cannula Oxygen Flow Rate 1 BMI result Body Mass Index 16.8 Const General: cooperative, no acute distress, alert and awake Nutritional Appearance: well nourished Orientation/consciousness: patient oriented x3 Limitations: no limitations HENMT Head: Yes normal to inspection and Yes atraumatic Ears: hearing grossly normal bilaterally and external ears normal General nose exam: Normal external nose present, no nasal discharge noted and no epistaxis Face and sinus: Yes normal facial exam, No abrasion and No laceration Mouth: Normal oral and palatal mucosa present, no drooling and no muffled voice Eyes General: appearance normal, both eyes and all related structures Periorbital: periorbital findings normal Eyelids: Yes eyelids normal Conjunctivae: conjunctivae normal Pupils: Equal, round and reactive pupils present EOM: EOMs intact bilaterally Neck Neck: Yes normal visual inspection, Yes full ROM and Yes no lymphadenopathy Chest Chest palpation & inspection: normal inspection of the chest Resp Effort & Inspection: normal respiratory effort and able to speak in complete sentences GI Inspection: Yes normal to inspection Neuro General: patient oriented x3 and moves all extremities Cranial nerves: Yes Equal, round and reactive pupils present Cognition (Neuro): normal cognition Motor exam (neuro): 5/5 motor strength present throughout Sensory Exam: Normal double simultaneous stimulation for sensation Coordination: [id number] test normal Extrem Other: left lower extremity redness, warmth, and swelling present with a small puncture wound General: Yes full ROM and Yes capillary refill normal Psych Appearance: grossly normal Mental Status: mental status grossly normal Affect: normal affect Attitude: cooperative Thought process: Normal thought process present Thought content: Normal thought content present Insight: Good insight present (Psych) Course Reevaluation(s) Reevaluation #1: Sepsis focus exam completed. Patient re-evaluated after finishing fluids. Patient continues to have hypotension. Will order leveophed and admit to ICU. Time: 13:45 Medications Administered Generic Name Dose Route Start Last Admin Trade Name Freq PRN Reason Stop Dose Admin Albumin Human 100 mls @ 100 mls/hr 07/09/23 12:30 07/09/23 13:47 Kedbumin 25 % IV 07/09/23 14:29 100 mls/hr Q1H CHANELLE Administration Norepinephrine Bitartrate 8 mg in 250 mls @ 0 mls/hr 07/09/23 13:30 07/09/23 13:56 Levophed IV 0.1 mcg/kg/min .Q0M CHANELLE 7.07 mls/hr Titration Protocol Per Protocol Discontinued Medications Generic Name Dose Route Start Last Admin Trade Name Rodney PRN Reason Stop Dose Admin Acetaminophen 650 mg 07/09/23 10:31 07/09/23 10:47 Acetaminophen 325 Mg Tablet PO 07/09/23 10:32 Not Given ONCE ONE Acetaminophen 650 mg 07/09/23 10:45 07/09/23 10:48 Acetaminophen Oral Liquid 650 Mg/20.3 Ml Solution PO 07/09/23 10:46 650 mg ONCE ONE Administration Albuterol Sulfate 2.5 mg/ 5 mg 07/09/23 10:03 07/09/23 10:06 Albuterol Sulfate 2.5 mg INHALE 07/09/23 10:04 5 mg ONCE ONE Administration Piperacillin Sod/Tazobactam 50 mls @ 100 mls/hr 07/09/23 09:45 07/09/23 11:11 Sod 3.375 gm/ Sodium Chloride IV 07/09/23 10:14 Infused ONCE ONE Infusion Sodium Chloride 1,131 mls @ 1,131 mls/hr 07/09/23 10:31 07/09/23 11:31 Ns 30 ml/kg infuse over 1 hr (1131 ml) 07/09/23 11:30 Infused IV Infusion .Q1H STA Sodium Chloride 1,000 mls @ 999 mls/hr 07/09/23 11:30 07/09/23 12:24 Ns IV 07/09/23 12:30 Infused .Q1H1M CHANELLE Infusion Sodium Chloride 500 mls @ 500 mls/hr 07/09/23 12:30 07/09/23 13:47 Ns IV 07/09/23 13:29 Infused .Q1H CHANELLE Infusion Medical Decision Making Medical Decision Making MDM Narrative: Patient is a 68 year old assigned female at with a history of COPD, PVD, GERD, [place], and CAD presenting to the emergency department today with weakness and a cat bite to the left lower extremity. Patient's physical exam was as noted in the physical exam portion of this note. Patient's blood work showed an elevated WBC count of 14.3. Patient's urine showed no acute process. Patient's EKG was unremarkable. Patient's chest x-ray showed no acute process. Patient was febrile and tachycardic upon arrival. Patient became hypotensive at 1051. Concern for sepsis at 1051. Patient given IV antibiotics at 0945. Patient given 1,131ml of NS at 1031. Patient given PO Tylenol at 1045. Patient remained hypotensive after initial fluids finished. Patient given an additional liter of NS at 1127. Patient continued to be hypotensive and was given an additional 500ml of NS and albumin. Patient's hypotension persisted. Levophed started. I called and spoke to the seed yeast operator who agreed to admission. I explained my physical exam findings as well as all test results to the patient. I answered all questions asked by the patient. Patient verbalized agreement and understanding with this treatment plan and admission. Differential Diagnosis Differential Diagnoses: The differential diagnosis associated with the presentation includes Septic shock Sepsis Cat bite to the left lower extremity Hypotension Admission/Observation Consideration of admission/observation: Escalation of care including admission/observation considered Patient admitted to the ICU. Consult Healthcare Provider Management of the patient was discussed with: Founder And President (spoke to the seed yeast operator who agreed to admission.) Lab Data [facility] Lab Attestation statement: I reviewed the patient's lab results. My interpretation of these results are in the MDM rationale portion of this note. 07/09/23 10:13 07/09/23 10:13 Labs: Lab Results 07/09/23 07/09/23 07/09/23 Range/Units 10:13 10:43 12:05 WBC 14.3 H (4.8-10.8) X10*3/uL RBC 5.20 (4.20-5.50) X10*6/uL Hgb 15.6 (12.0-16.0) g/dl Hct 47.9 H (37.0-47.0) % MCV 92.1 (80.0-98.0) fL MCH 30.0 (27.0-33.0) pg MCHC 32.6 (31.0-35.0) g/dl RDW 15.2 (11.0-16.0) % Plt Count 187 (160-400) X10*3/uL MPV 10.3 (9.4-12.3) fL Immature Gran % (Auto) 0.5 H (0.0-0.4) % Neut % (Auto) 88.3 H (45-73) % Lymph % (Auto) 4.8 L (20-40) % [place] % (Auto) 5.7 (2-11) % Eos % (Auto) 0.2 (0-4) % Baso % (Auto) 0.5 (0-2) % Lymph # (Auto) 0.7 L (1.2-4.9) X10*3/uL [place] # (Auto) 0.8 (0.1-1.2) X10*3/uL Eos # (Auto) 0.0 (0.0-0.4) X10*3/uL Baso # (Auto) 0.1 (0.0-0.2) X10*3/uL Abs Immat Gran (auto) 0.07 H (0.00-0.03) X10*3/uL Absolute Neuts (auto) 12.6 H (2.0-8.3) x10*3/uL Absolute Nucleated RBC 0.000 (0.0-0.012) X10*3/uL Nucleated RBC % (auto) 0.0 (0.0-0.2) /100WBC PT 11.5 (11.1-13.3) SEC INR 0.9 (0.9-1.1) APTT 29.0 (26.0-36.4) SEC Sodium 137 (135-145) mmol/L Potassium 3.6 (3.3-5.1) mmol/L Chloride 98 (96-108) mmol/L Carbon Dioxide 30 H (22-29) mmol/L Anion Gap 13 (12-20) BUN 12 (9-16) mg/dL Creatinine 0.71 (0.5-1.4) mg/dL Estim Creat Clear Calc 44.5 Estimated GFR > 60 Random Glucose 106 (60-115) mg/dL Lactic Acid 0.9 (0.5-2.0) mmol/L Calcium 9.1 (8.4-10.2) mg/dL Magnesium 1.7 (1.6-2.6) mg/dL Total Bilirubin 0.7 (0.0-1.0) mg/dL AST 25 (5-31) U/L ALT 13 (0-31) U/L Alkaline Phosphatase 149 H (39-117) U/L Troponin I High Sens < 2.7 (<3.5-17.0) ng/L Total Protein 6.0 L (6.5-8.0) g/dL Albumin 3.1 L (3.5-5.0) g/dL Urine Color Yellow Urine Appearance Clear Urine pH 7.0 (5.0-9.0) Ur Specific [place] 1.020 (1.005-1.025) Urine Protein Negative (Neg-Trace) mg/dL Urine Glucose (UA) Negative (Negative) mg/dL Urine Ketones Negative (Negative) mg/dL Urine Blood Negative (Negative) Urine Nitrite Negative (Negative) Ur Leukocyte Esterase Trace H (Negative) Urine RBC 3-5 H (0-2) /HPF Urine WBC 0-5 (0-5) /HPF Ur Squamous Epith Cells 0-2 (0-2) /HPF Urine Bacteria None Seen (None Seen) Hyaline Casts 0-2 (0-2) /LPF Influenza Type A (PCR) NEGATIVE (Negative) Influenza Type B (PCR) NEGATIVE (Negative) RSV RNA Qual (PCR) NEGATIVE (Negative) SARS-CoV-2 RNA (RT-PCR) NEGATIVE (Negative) Independent Interpretation I performed an independent interpretation of an: EKG, Plain X-Ray and CT Scan Interpretation: My interpretation is in agreement with the radiologist's impression of this imaging study. - EXAMINATION: XR CHEST CLINICAL INFORMATION: Cough COMPARISON: CT of the chest 06/17/2023 TECHNIQUE: Frontal view of the chest was obtained. FINDINGS: Fibrotic changes noted. No acute consolidations. Marked COPD noted. Heart and pulmonary vessels normal. XR/XR chest 1V IMPRESSION: Chronic changes observed. No active disease. COPD. Dictated By: Alvino Oliver MD Signed By: Electronically signed by Avlino Oliver MD 07/09/23 1151 - Vent. Rate: 124 BPM Atrial Rate: 124 BPM P-R Int: 132 ms QRS Dur: 072 ms QT Int: 294 ms P-R-T Axes: 074 115 073 degrees QTc Int: 422 ms Sinus tachycardia Right axis deviation Septal infarct (cited on or before 09-JUN-2020) Abnormal ECG When compared with ECG of 02-APR-2022 12:26, No significant change was found DD/ 1025 Radiology Impression Discussion of test interpretation with radiology: I have reviewed the radiologist's reading. Independent Historian Clinical information obtained from an independent historian. History obtained from or confirmed by: EMS (EMS provided additional history and confirmed the history provided by the patient.) Chronic Conditions Patient?s care impacted by: Hypertension and Other (CAD, COPD) Critical Care Time Critical Care Time Critical Care Time: Yes Total Critical Care Time: 60 Attestation: I spent 60 minutes of Critical Care Time with this patient. This does not include time spent on separately reported billable procedures. Discharge Plan Discharge Clinical Impression: Septic shock, Sepsis, Cat bite Patient Disposition: Admitted As Inpatient
--- NOTE | 2023-07-09 09:44 | ECG_ITS ---
Test Reason : WEAKNESS Blood Pressure : / mmHG Vent. Rate : 124 BPM Atrial Rate : 124 BPM P-R Int : 132 ms QRS Dur : 072 ms QT Int : 294 ms P-R-T Axes : 074 115 073 degrees QTc Int : 422 ms Sinus tachycardia Right axis deviation Septal infarct (cited on or before 09-JUN-2020) Abnormal ECG When compared with ECG of 02-APR-2022 12:26, Heart rate has increased Referred By: Shannon Vang Electronically Signed By:DAMIAN MAZA
[2023-07-09] MEDS: Albuterol Sulfate 2.5 MG, Albuterol Sulfate (0.083%) 2.5 MG 5 MG INHALE (10:06)
[2023-07-09 10:19] LABS: MANUAL DIFF FLAG NO
[2023-07-09 10:23] LABS: Basophils Absolute Auto 0.1 X10*3/uL (0.0-0.2); Basophils Percent Auto 0.5 % (0-2); Eosinophils Percent Auto 0.2 % (0-4); Hematocrit 47.9 % (37.0-47.0); Hemoglobin 15.6 g/dl (12.0-16.0); Imm Gran Abs Auto 0.07 X10*3/uL (0.00-0.03); Imm Gran Pct Auto 0.5 % (0.0-0.4); Lymphocytes Absolute Auto 0.7 X10*3/uL (1.2-4.9); Lymphocytes Percent Auto 4.8 % (20-40); Mean Corpuscular HGB Conc 32.6 g/dl (31.0-35.0); Mean Corpuscular Volume 92.1 fL (80.0-98.0); Mean Platelet Volume 10.3 fL (9.4-12.3); Monocytes Absolute Auto 0.8 X10*3/uL (0.1-1.2); Monocytes Percent Auto 5.7 % (2-11); Neutrophils Absolute Auto 12.6 x10*3/uL (2.0-8.3); Neutrophils Percent Auto 88.3 % (45-73); Platelet Count 187 X10*3/uL (160-400); Red Cell Distribution Width 15.2 % (11.0-16.0); White Blood Count 14.3 X10*3/uL (4.8-10.8)
[2023-07-09 10:29] LABS: INTERNATIONAL NORM RATIO 0.9 (0.9-1.1); Prothrombin Time 11.5 SEC (11.1-13.3)
[2023-07-09 10:34] LABS: Lactic Acid 0.9 mmol/L (0.5-2.0)
[2023-07-09 10:39] LABS: Alanine Aminotransferase 13 U/L (0-31); Albumin Level 3.1 g/dL (3.5-5.0); Alkaline Phosphatase 149 U/L (39-117); Anion Gap 13 (12-20); Aspartate Amino Transferase 25 U/L (5-31); Bilirubin Total 0.7 mg/dL (0.0-1.0); Blood Urea Nitrogen 12 mg/dL (9-16); Calcium 9.1 mg/dL (8.4-10.2); Carbon Dioxide 30 mmol/L (22-29); Chloride 98 mmol/L (96-108); Creatinine Clr Calc Pharmacy 44.5; Estimated Glomerular Filt Rate > 60; Glucose Random 106 mg/dL (60-115); Magnesium 1.7 mg/dL (1.6-2.6); Potassium 3.6 mmol/L (3.3-5.1); Sodium 137 mmol/L (135-145)
[2023-07-09] MEDS: Piperacillin Sodium/Tazobactam 3.375 GM in 0.9 % Sodium Chloride 50 ML IV (10:44)
[2023-07-09 10:46] LABS: Troponin-I High Sensitivity < 2.7 ng/L (<3.5-17.0)
[2023-07-09] MEDS: Acetaminophen Oral Liquid 650 MG/20.3 ML SOLUTION PO (10:48)
[2023-07-09] MEDS: 0.9 % Sodium Chloride 1,000 ML 999 ML IV (11:29)
--- NOTE | 2023-07-09 11:29 | PC.NURSE ---
CONNIE singh notified of BP 77/31, 2nd liter hung per order.
[2023-07-09 11:33] LABS: Influenza A PCR NEGATIVE (Negative); Influenza B PCR NEGATIVE (Negative); Resp Syncy Virus RNA Qual PCR NEGATIVE (Negative); SARS COV2 PCR INHOUSE NEGATIVE (Negative)
--- NOTE | 2023-07-09 12:08 | PC.NURSE ---
Pt assisted to commode, urine sample collected. pt states she is feeling better. repositioned in bed for comfort.
[2023-07-09 12:13] LABS: Appearance Urine Clear; Color Urine Yellow; Glucose Urine UA Negative (Negative); Leukocyte Esterase Urine Trace (Negative); Nitrite Urine Negative (Negative); UMIC TRIGGER UACC YES; Urine Blood Negative (Negative); Urine Ketones Negative (Negative); Urine Protein Negative (Neg-Trace)
[2023-07-09 12:15] LABS: Bacteria Urine None Seen (None Seen); Hyaline Casts Urine 0-2 /LPF (0-2); Squamous Epithelial Cell Urine 0-2 /HPF (0-2); WBC Urine 0-5 /HPF (0-5)
[2023-07-09] MEDS: Albumin Human 25 % 100 ML IV ×2 (12:29→13:47)
[2023-07-09] MEDS: 0.9 % Sodium Chloride 500 ML IV (12:30)
[2023-07-09] MEDS: Norepinephrine Bitartrate/D5W 8 MG/250 ML PLAST..BAG 3.53 MG IV (13:46)
--- NOTE | 2023-07-09 16:05 | PHA.MEDREC ---
Pharmacy Consult ? Medication Reconciliation Pharmacy has completed the medication reconciliation. Patient confirmed medications. Yvonne Almaraz, RoselineD
[2023-07-09] MEDS: vancomycin HCL 1,000 MG in 0.9 % Sodium Chloride 250 ML 270 MG IV (16:37)
--- NOTE | 2023-07-09 17:09 | PC.NURSE ---
Report to Thea EMMANUEL at [facility]
--- NOTE | 2023-07-09 17:25 | ED.GENADULT ---
HPI - General Adult General Chief complaint: Weakness Stated complaint: CAT BITE T-1,SHAKEY,LETHARGIC,O2 78% 3LPM,HOT Time Seen by Provider: 07/09/23 09:39 Source: patient and EMS Mode of arrival: EMS Limitations: no limitations History of Present Illness Severity scale (1-10): 6 Relieving factors: none Exacerbating factors: none Associated symptoms: fever/chills and weakness Treatments prior to arrival: none Related Data Home Medications Medication Instructions Recorded Confirmed aspirin 81 mg tablet,delayed 81 mg PO DAILY 08/25/20 07/09/23 release atorvastatin 80 mg tablet 80 mg PO BEDTIME 08/25/20 07/09/23 metoprolol succinate 50 mg 50 mg PO DAILY 08/25/20 07/09/23 tablet,extended release 24 hr oxycodone 10 mg tablet 10 mg PO TID PRN Pain 08/25/20 07/09/23 omeprazole 40 mg capsule,delayed 40 mg PO BID 05/07/21 07/09/23 release budesonide-formoterol HFA 80 2 puff PO BID 07/12/21 07/09/23 mcg-4.5 mcg/actuation aerosol inhaler (Symbicort) bupropion HCl (smoking deter) 150 150 mg PO BID 07/09/23 07/09/23 mg tablet,12 hr sustained-release(smoking deterrent) famotidine 20 mg tablet (Pepcid) 20 mg PO BID 07/09/23 07/09/23 nitroglycerin 0.4 mg sublingual 0.4 mg sublingual Q5M PRN Chest 07/09/23 07/09/23 tablet Pain Previous Rx's Medication Instructions Recorded albuterol sulfate 90 mcg/actuation 2 puff PO Q4-6H PRN shortness of 02/08/22 aerosol inhaler breath or wheezing #8.5 ea Allergies Allergy/AdvReac Type Severity Reaction Status Date / Time No Known Allergies Allergy Verified 09/16/22 13:54 [facility] Past Medical History Medical History Nicotine dependence, cigarettes, uncomplicated History of COVID-19 History of ARDS Osteoporosis COPD (chronic obstructive pulmonary disease) Essential hypertension Atherosclerotic cardiovascular disease History of HI (myocardial infarction) (~2015) Coronary artery disease GERD (gastroesophageal reflux disease) Peptic ulcer disease Surgical History History of cardiac cath History of heart artery stent (~2015) History of exploratory laparotomy (~2019) Family History Family History Father No problems noted. Mother Diabetes Brother Heart problem Social History Social History Household Members: Spouse Alcohol intake: never Patient Tobacco Use Status: Current everyday Tobacco user Cigarettes Per Day: 10 Smoked in Last 30 Days: Yes Use of substances other than those prescribed or required for medical reasons: No Advance Directives: No Advance Directives Information Provided: Yes Physical Exam ED Vital Signs: Vital Signs - 24 hr 07/09/23 09:53 07/09/23 10:06 07/09/23 10:10 Temperature 102.1 F H Pulse Rate 117 H 108 H Respiratory Rate 18 20 Blood Pressure 113/61 Pulse Oximetry 90 L 89 L Oxygen Delivery Method Nasal Cannula Nasal Cannula Oxygen Flow Rate 2 07/09/23 10:51 07/09/23 11:01 07/09/23 11:23 Temperature 99.9 F Pulse Rate 123 H 109 H Respiratory Rate 22 H 22 H 20 Blood Pressure 99/79 77/31 L Pulse Oximetry 91 L 93 Oxygen Delivery Method Nasal Cannula Nasal Cannula Oxygen Flow Rate 2 2 07/09/23 12:03 07/09/23 12:49 07/09/23 13:09 Temperature Pulse Rate 107 H 99 100 Respiratory Rate 20 18 Blood Pressure 86/45 L 84/61 L 77/40 L Pulse Oximetry 93 91 L Oxygen Delivery Method Nasal Cannula Nasal Cannula Oxygen Flow Rate 1 1 07/09/23 13:46 07/09/23 13:55 07/09/23 13:56 Temperature Pulse Rate 96 94 94 Respiratory Rate 22 H Blood Pressure 82/46 L 72/41 L 72/41 L Pulse Oximetry 92 Oxygen Delivery Method Nasal Cannula Oxygen Flow Rate 1 07/09/23 14:12 07/09/23 14:30 07/09/23 15:01 Temperature 98.8 F Pulse Rate 76 89 86 Respiratory Rate 20 18 Blood Pressure 81/39 L 92/46 L 90/47 L Pulse Oximetry 91 L 93 Oxygen Delivery Method Nasal Cannula Nasal Cannula Oxygen Flow Rate 1 1 07/09/23 15:02 07/09/23 15:45 07/09/23 16:43 Temperature Pulse Rate 68 69 69 Respiratory Rate 20 Blood Pressure 90/47 L 89/47 L 106/55 L Pulse Oximetry 95 Oxygen Delivery Method Nasal Cannula Oxygen Flow Rate 1 BMI result Body Mass Index 16.8 Medications Administered Generic Name Dose Route Start Last Admin Trade Name Freq PRN Reason Stop Dose Admin Norepinephrine Bitartrate 8 mg in 250 mls @ 0 mls/hr 07/09/23 13:30 07/09/23 15:45 Levophed IV 0.16 mcg/kg/min .Q0M CHANELLE 11.31 mls/hr Titration Protocol Per Protocol Discontinued Medications Generic Name Dose Route Start Last Admin Trade Name Freq PRN Reason Stop Dose Admin Acetaminophen 650 mg 07/09/23 10:31 07/09/23 10:47 Acetaminophen 325 Mg Tablet PO 07/09/23 10:32 Not Given ONCE ONE Acetaminophen 650 mg 07/09/23 10:45 07/09/23 10:48 Acetaminophen Oral Liquid 650 Mg/20.3 Ml Solution PO 07/09/23 10:46 650 mg ONCE ONE Administration Albuterol Sulfate 2.5 mg/ 5 mg 07/09/23 10:03 07/09/23 10:06 Albuterol Sulfate 2.5 mg INHALE 07/09/23 10:04 5 mg ONCE ONE Administration Piperacillin Sod/Tazobactam 50 mls @ 100 mls/hr 07/09/23 09:45 07/09/23 11:11 Sod 3.375 gm/ Sodium Chloride IV 07/09/23 10:14 Infused ONCE ONE Infusion Sodium Chloride 1,131 mls @ 1,131 mls/hr 07/09/23 10:31 07/09/23 11:31 Ns 30 ml/kg infuse over 1 hr (1131 ml) 07/09/23 11:30 Infused IV Infusion .Q1H STA Sodium Chloride 1,000 mls @ 999 mls/hr 07/09/23 11:30 07/09/23 12:24 Ns IV 07/09/23 12:30 Infused .Q1H1M CHANELLE Infusion Sodium Chloride 500 mls @ 500 mls/hr 07/09/23 12:30 07/09/23 13:47 Ns IV 07/09/23 13:29 Infused .Q1H CHANELLE Infusion Albumin Human 100 mls @ 100 mls/hr 07/09/23 12:30 07/09/23 15:01 Kedbumin 25 % IV 07/09/23 14:29 Infused Q1H CHANELLE Infusion Vancomycin HCl 1,000 mg/ 270 mls @ 270 mls/hr 07/09/23 16:25 07/09/23 16:37 Sodium Chloride IV 07/09/23 17:24 270 mls/hr ONCE ONE Administration Procedures Central Line Placement Right Femoral: Time Out Performed: Yes Patient Placed on Monitor/Pulse Ox: Yes MD Prep: mask, gown and gloves Central Line Prep: Chlorhexidine scrub Local Anesthetic: lidocaine 1% Amount of anesthesia used (mL): 5 Ultrasound Used for Placement: No Central Line Lumen Inserted: triple Post Procedure: sutured in place, good blood return, all ports aspirated, flushed, capped and sterile dressing applied Patient Tolerated Procedure: well Complications: none Medical Decision Making Lab Data 07/09/23 10:13 07/09/23 10:13 Labs: Lab Results 07/09/23 07/09/23 07/09/23 Range/Units 10:13 10:43 12:05 WBC 14.3 H (4.8-10.8) X10*3/uL RBC 5.20 (4.20-5.50) X10*6/uL Hgb 15.6 (12.0-16.0) g/dl Hct 47.9 H (37.0-47.0) % MCV 92.1 (80.0-98.0) fL MCH 30.0 (27.0-33.0) pg MCHC 32.6 (31.0-35.0) g/dl RDW 15.2 (11.0-16.0) % Plt Count 187 (160-400) X10*3/uL MPV 10.3 (9.4-12.3) fL Immature Gran % (Auto) 0.5 H (0.0-0.4) % Neut % (Auto) 88.3 H (45-73) % Lymph % (Auto) 4.8 L (20-40) % [place] % (Auto) 5.7 (2-11) % Eos % (Auto) 0.2 (0-4) % Baso % (Auto) 0.5 (0-2) % Lymph # (Auto) 0.7 L (1.2-4.9) X10*3/uL [place] # (Auto) 0.8 (0.1-1.2) X10*3/uL Eos # (Auto) 0.0 (0.0-0.4) X10*3/uL Baso # (Auto) 0.1 (0.0-0.2) X10*3/uL Abs Immat Gran (auto) 0.07 H (0.00-0.03) X10*3/uL Absolute Neuts (auto) 12.6 H (2.0-8.3) x10*3/uL Absolute Nucleated RBC 0.000 (0.0-0.012) X10*3/uL Nucleated RBC % (auto) 0.0 (0.0-0.2) /100WBC PT 11.5 (11.1-13.3) SEC INR 0.9 (0.9-1.1) APTT 29.0 (26.0-36.4) SEC Sodium 137 (135-145) mmol/L Potassium 3.6 (3.3-5.1) mmol/L Chloride 98 (96-108) mmol/L Carbon Dioxide 30 H (22-29) mmol/L Anion Gap 13 (12-20) BUN 12 (9-16) mg/dL Creatinine 0.71 (0.5-1.4) mg/dL Estim Creat Clear Calc 44.5 Estimated GFR > 60 Random Glucose 106 (60-115) mg/dL Lactic Acid 0.9 (0.5-2.0) mmol/L Calcium 9.1 (8.4-10.2) mg/dL Magnesium 1.7 (1.6-2.6) mg/dL Total Bilirubin 0.7 (0.0-1.0) mg/dL AST 25 (5-31) U/L ALT 13 (0-31) U/L Alkaline Phosphatase 149 H (39-117) U/L Troponin I High Sens < 2.7 (<3.5-17.0) ng/L Total Protein 6.0 L (6.5-8.0) g/dL Albumin 3.1 L (3.5-5.0) g/dL Urine Color Yellow Urine Appearance Clear Urine pH 7.0 (5.0-9.0) Ur Specific [place] 1.020 (1.005-1.025) Urine Protein Negative (Neg-Trace) mg/dL Urine Glucose (UA) Negative (Negative) mg/dL Urine Ketones Negative (Negative) mg/dL Urine Blood Negative (Negative) Urine Nitrite Negative (Negative) Ur Leukocyte Esterase Trace H (Negative) Urine RBC 3-5 H (0-2) /HPF Urine WBC 0-5 (0-5) /HPF Ur Squamous Epith Cells 0-2 (0-2) /HPF Urine Bacteria None Seen (None Seen) Hyaline Casts 0-2 (0-2) /LPF Influenza Type A (PCR) NEGATIVE (Negative) Influenza Type B (PCR) NEGATIVE (Negative) RSV RNA Qual (PCR) NEGATIVE (Negative) SARS-CoV-2 RNA (RT-PCR) NEGATIVE (Negative) Discharge Plan Discharge Clinical Impression: Septic shock, Sepsis, Cat bite Patient Disposition: Xfer Other Transfer Details: To [facility] ICU Prescriptions: No Action albuterol sulfate 90 mcg/actuation HFA aerosol inhaler 2 puff PO Q4-6H PRN (Reason: shortness of breath or wheezing) Qty: 8.5 5RF nitroglycerin 0.4 mg tablet, sublingual 0.4 mg sublingual Q5M PRN (Reason: Chest Pain) bupropion HCl (smoking deter) 150 mg tablet extended release 12 hr 150 mg PO BID famotidine [Pepcid] 20 mg tablet 20 mg PO BID omeprazole 40 mg capsule,delayed release(DR/EC) 40 mg PO BID budesonide-formoterol [Symbicort] 80-4.5 mcg/actuation HFA aerosol inhaler 2 puff PO BID atorvastatin 80 mg tablet 80 mg PO BEDTIME aspirin 81 mg tablet,delayed release (DR/EC) 81 mg PO DAILY oxycodone 10 mg tablet 10 mg PO TID PRN (Reason: Pain) metoprolol succinate 50 mg tablet extended release 24 hr 50 mg PO DAILY
--- NOTE | 2023-07-09 18:31 | PC.NURSE ---
Pt dc'd with [facility], transferred to [facility] ICU verbal report and handover of care to jony Ricardo
== END 2023-07-09 18:38 | disposition other institution (70) ==
PROVIDERS: Physician Assistant Medical; Emergency Provider Emergency Medicine
DX: S81.852A Open bite, left lower leg, initial encounter (principal); A41.9 Sepsis, unspecified organism; R00.0 Tachycardia, unspecified; R05.9 Cough, unspecified; R53.1 Weakness; I25.10 Atherosclerotic heart disease of native coronary artery without angina pectoris; I95.9 Hypotension, unspecified; R50.9 Fever, unspecified; W55.01XA Bitten by cat, initial encounter; Y93.9 Activity, unspecified; Y92.9 Unspecified place or not applicable; Y99.9 Unspecified external cause status; Z20.822 Contact with and (suspected) exposure to COVID-19; Z11.52 Encounter for screening for COVID-19; Z79.899 Other long term (current) drug therapy; F17.210 Nicotine dependence, cigarettes, uncomplicated; Z71.6 Tobacco abuse counseling
CPT/HCPCS: 0241U; 36556; 71045; 80053; 81001; 83605; 83735; 84484; 85025; 85610; 85730; 87040; 93005; 94640; 96361; 96365; 96366; 96367; 96375; 99285; J2543; J3370; P9047

== ENCOUNTER 2023-08-29 16:26 | Outpatient (REF) | payer MEDICARE, MEDICAID, SELFPAY | END 2023-08-29 16:27 | disposition home or self-care (01) | LOC: HO.MRI 16:26 | PROVIDERS: Visit Provider Registered Nurse | DX: Z13.89 Encounter for screening for other disorder (principal) ==

== ENCOUNTER 2023-09-15 10:22 | Outpatient (AMB) | payer MEDICARE, MEDICAID, SELFPAY ==
--- NOTE | 2023-09-15 10:28 | A.OFFVIS_ITS ---
Intake Vital Signs 09/15/23 10:29 Height 4 ft 11 in Weight 80 lb 11.027 oz BMI 16.3 BP 108/66 Blood Pressure Location Lt brachial Position Sitting Pulse 102 H Intake Visit Reasons: 1 year follow up Intake Note: 1 year follow up [employer] Required: No Accompanied by: Family/Other Allergies No Known Allergies Allergy (Verified 09/15/23 10:30) Medication List - Last Reconciled 09/15/23 by Ivan Morton MD albuterol sulfate 90 mcg/actuation 2 puffs PO Q4-6H PRN aspirin 81 mg PO DAILY atorvastatin 80 mg PO BEDTIME budesonide-formoterol 80-4.5 mcg/actuation (Symbicort) 2 puffs PO BID bupropion HCl (smoking deter) 150 mg PO BID famotidine (Pepcid) 20 mg PO BID metoprolol succinate ER 50 mg PO DAILY nitroglycerin 0.4 mg sublingual Q5M PRN omeprazole 40 mg PO BID oxycodone 10 mg PO TID PRN HPI HPI Comments History of Present Illness Details Tammy returns for follow-up regarding coronary artery disease. Patient used to see , but discharged due to noncompliance. Chronic smoker and she continues to smoke. Also has hypertension, dyslipidemia on appropriate medications. According to her, she is generally doing fine. No symptoms like angina or shortness of breath or in fact anything cardiac sounding. She seems to be getting along fine. Unfortunately, she still smoking and states she just cannot stop it. [facility] Medical History Nicotine dependence, cigarettes, uncomplicated History of COVID-19 History of ARDS Osteoporosis COPD (chronic obstructive pulmonary disease) Essential hypertension Atherosclerotic cardiovascular disease History of PR (myocardial infarction) (~2015) Coronary artery disease GERD (gastroesophageal reflux disease) Peptic ulcer disease Surgical History History of cardiac cath History of heart artery stent (~2015) History of exploratory laparotomy (~2019) Family History Father No problems noted. Mother Diabetes Brother Heart problem Social History Household Members: Spouse Alcohol intake: never Patient Tobacco Use Status: Current everyday Tobacco user Cigarettes Per Day: 10 Review of Systems Const Denies weakness ENT Denies dizziness Card Denies chest pain, Denies chest pain with activity, Denies syncope, Denies rapid heart rate, Denies pedal edema, Denies edema, Denies leg edema, Denies lightheadedness, Denies palpitations, Denies dyspnea on exertion and Denies orthopnea Resp Denies cough and Denies dyspnea on exertion GI Denies hematochezia and Denies change in stool character Musc Denies abnormal gait, Denies muscle cramps, Denies muscle weakness, Denies numbness, Denies radiating pain into limb and Denies tingling Neuro Denies abnormal gait, Denies dizziness, Denies syncope, Denies numbness, Denies tingling and Denies weakness Endo Denies palpitations Physical Exam Vital Signs: Last Vital Signs Pulse 102 H 09/15/23 10:29 BP 108/66 09/15/23 10:29 BMI result Body Mass Index 16.3 Const General: comfortable and no acute distress Orientation/consciousness: patient oriented x3 HEENT Other: Unremarkable Head: Yes normal to inspection Neck Neck: Yes normal visual inspection Chest Chest palpation & inspection: normal inspection of the chest Resp Auscultation: clear to auscultation bilaterally Cardio Palpation: normal PMI Heart sounds: S1 normal heart sound present, S2 normal heart sound present, no gallops, no murmurs and no rubs GI Palpation (GI): Soft to palpation Back/Spine/Pelvis Other: unremarkable Skin General skin exam: no rashes or lesions noted Neuro General: patient oriented x3 Extrem General: Yes normal to inspection Psych Mental Status: mental status grossly normal Assessment & Plan Assessment & Plan (1) Atherosclerotic cardiovascular disease: Code(s): I25.10 - Atherosclerotic heart disease of [place] coronary artery without angina pectoris Plan: Cardiac catheterization 2016 showed 95% stenosis in the mid RCA. No significant disease elsewhere. Continue with medical therapy for stable coronary disease including aspirin, beta-blockers, nitrates, statins. LDL cholesterol last year was 37 mg/dL. Most recently 106 mg/dL. She is already on high-dose statins. Her body weight is also quite low. No further changes for now. (2) PVD (peripheral vascular disease): Code(s): I73.9 - Peripheral vascular disease, unspecified Plan: Vascular ultrasound shows atherosclerotic plaque in bilateral SFA, but no significant stenosis. Carotid ultrasound does not show any significant stenosis. No evidence of AAA on abdominal ultrasound. She may continue statins as above. (3) Smoking: Code(s): F17.200 - Nicotine dependence, unspecified, uncomplicated Plan: Discussed last time as well as today. She states she just cannot stop smoking and that is just the way she is. May pursue this further with PCP. Coding Level of Care Code Est Pt Level 4 (15985) Diagnoses Atherosclerotic cardiovascular disease I25.10 PVD (peripheral vascular disease) I73.9 Smoking F17.200
[2023-09-15 10:29] VITALS: BP 108/66; PULSE 102; BMI 16.3
== END 2023-09-15 10:41 | disposition home or self-care (01) ==
PROVIDERS: PCP Internal Medicine; Visit Provider Internal Medicine
DX: I25.10 Atherosclerotic heart disease of native coronary artery without angina pectoris (principal); I73.9 Peripheral vascular disease, unspecified; F17.200 Nicotine dependence, unspecified, uncomplicated
CPT/HCPCS: 99214

== ENCOUNTER → 2023-09-15 10:22 | Outpatient (BNVA) | payer MEDICARE, MEDICAID, SELFPAY | PROVIDERS: PCP Internal Medicine; Visit Provider Internal Medicine | DX: I25.10 Atherosclerotic heart disease of native coronary artery without angina pectoris (principal); I73.9 Peripheral vascular disease, unspecified; F17.210 Nicotine dependence, cigarettes, uncomplicated | CPT/HCPCS: 99212 ==

== ENCOUNTER 2024-01-12 16:16 | Outpatient (REF) | payer MEDICARE, MEDICAID, SELFPAY ==
[2024-01-12 17:43] LABS: Alanine Aminotransferase 17 U/L (0-31); Albumin Level 3.4 g/dL (3.5-5.0); Alkaline Phosphatase 161 U/L (39-117); Anion Gap 11 (12-20); Aspartate Amino Transferase 23 U/L (5-31); Bilirubin Total 0.2 mg/dL (0.0-1.0); Blood Urea Nitrogen 12 mg/dL (9-16); C Reactive Protein 1.06 mg/dL (< or = 0.50); Calcium 9.4 mg/dL (8.4-10.2); Carbon Dioxide 34 mmol/L (22-29); Chloride 102 mmol/L (96-108); Estimated Glomerular Filt Rate > 60; Glucose Random 86 mg/dL (60-115); Lactate Dehydrogenase 226 U/L (122-220); Potassium 4.6 mmol/L (3.3-5.1); Sodium 142 mmol/L (135-145); Total Protein 6.6 g/dL (6.5-8.0)
[2024-01-12 18:16] LABS: Erythrocyte Sedimentation Rate 5 MM/HR (0-20)
== END 2024-01-12 16:17 | disposition home or self-care (01) ==
LOC: HO.HHCL 16:16
PROVIDERS: Visit Provider General Practice
DX: R51.9 Headache, unspecified (principal)
CPT/HCPCS: 36415; 80053; 83615; 85652; 86140

== ENCOUNTER 2024-05-04 13:32 | Inpatient (IN) | payer MEDICARE, MEDICAID, SELFPAY ==
[2024-05-04] VITALS (10 sets, daily range): BP systolic 125–151; BP diastolic 50–73; PULSE 73–84; RESP 20–35; TEMP 36.7–37.3; O2SAT 87–97; BMI 19.6; BMI 16.7
--- NOTE | ~2024-05-04 | CT_ITS ---
EXAMINATION: CT ANGIOGRAM OF THE CHEST WITH AND WITHOUT CONTRAST (CT PULMONARY ANGIOGRAM FOR PE) CLINICAL INFORMATION: Chest pain COMPARISON: Portions of a previous chest CT 06/17/23 TECHNIQUE: Prior to contrast administration, noncontrast localization images were obtained. Subsequently, multidetector volumetric imaging was performed from the thoracic inlet to below the diaphragms following the administration of 85 mL Omnipaque 350 intravenous contrast. No contrast reaction reported Sagittal, coronal, and MIP oblique sagittal reformatted images were obtained on the CT workstation, uploaded to PACS, and reviewed. This CT examination was performed using dose optimization techniques as appropriate, variously including the following: *Automated exposure control *Adjustment of mA and/or kV according to patient size (this includes techniques or standardized protocols for targeted exams where dose is matched to indication/reason for exam; i.e. extremities or head) *Use of iterative reconstruction technique Total exam dose-length product 143 mGy-cm FINDINGS: QUALITY OF STUDY/CONTRAST BOLUS: Satisfactory. PULMONARY ARTERIES: No pulmonary emboli. THORACIC AORTA: The aorta is not optimally opacified. No thoracic aortic aneurysm. There is arterial calcification LUNG: There is no suspicious abnormality of the trachea or mainstem bronchi. There is severe emphysema. There is biapical thickening likely postinflammatory. No new suspicious mass or nodule. There is inspissated material within moderate and small airways. PLEURA: Biapical thickening. No pleural fluid. No pneumothorax. MEDIASTINUM: Limited by high density contrast artifact. No definite enlarged lymph nodes. No suspicious abnormality of the esophagus. No evidence of septal bowing or right heart strain. CORONARY ARTERY CALCIFICATION: There is moderate to marked coronary calcification. CHEST WALL/AXILLA: No axillary or internal mammary lymphadenopathy. OSSEOUS STRUCTURES: No acute or suspicious osseous abnormality. UPPER ABDOMEN: Please see report from same day. There is biliary obstruction. No reflux of contrast into the hepatic veins to suggest elevated right heart pressures. CT/CT angio chest PE protocol IMPRESSION: No pulmonary embolus. Underlying emphysema. Inspissated material within small airways. Biapical thickening consistent with postinflammatory scarring. Biliary obstruction VTE: negative
--- NOTE | ~2024-05-04 | XR_ITS ---
EXAMINATION: XR CHEST CLINICAL INFORMATION: Chest pain COMPARISON: 07/09/2023 TECHNIQUE: Frontal view of the chest was obtained. FINDINGS: Fibrotic changes observed throughout the lungs but this is stable. Lungs hyperaerated, but are otherwise clear. Heart and pulmonary vessels are normal. No congestive change. XR/XR chest 1V IMPRESSION: Chronic changes observed with no active disease.
--- NOTE | ~2024-05-04 | IR_ITS ---
History: Patient with choledocholithiasis. PROCEDURE: 1. Fluoroscopic guided placement of an internal/external biliary drain Physician: Moises Guerrero MD FSIR Anesthesia: IV moderate sedation with intravenous Fentanyl and Versed was administered under my direct supervision for a total of 45 minutes. 8 mL of 1% lidocaine was administered for local anesthesia. Drain: 8.5 Macedonian biliary drain Specimen: None Estimated blood loss: Minimal Complications: None Procedure in detail: Informed and written consent was obtained. The patient was positioned supine on the angiography table with sterile preparation of the right abdomen. 1% lidocaine was injected at an intercostal space at the planned access site. The local anesthesia was extended to the hepatic capsule. A small incision was made in the skin with a #11 blade. Through the incision and under fluoroscopic guidance, a 21-gauge 15 cm Chiba needle was advanced into the liver. The needle was then carefully withdrawn while dilute contrast was injected using magnified views. We identified a left biliary duct. We used the access to opacify the biliary tree. The needle was then fully retracted and directed towards the main right biliary duct. A wire was then threaded centrally to the ampulla over which the transitional dilator was placed. We then navigated a stiff Glidewire through the ampulla and into the duodenum and subsequently the proximal jejunum. Over this wire, an 8.5 Macedonian internal/external biliary drain was placed. A repeat cholangiogram confirmed marked dilatation of the biliary ducts as well as stones in the distal common bile duct. The newly placed drain was secured at the skin with 2-0 Surgipro as well as a Percufix device. An overlying sterile dressing was applied. The drain was connected to gravity drainage. Summary: Successful fluoroscopic guided placement of an 8.5 Macedonian internal/external biliary drain. The patient will be brought back shortly for upsizing and a Spyglass procedure to attempt removal of her stones.
--- NOTE | ~2024-05-04 | CT_ITS ---
EXAMINATION: CT ABDOMEN AND PELVIS WITH CONTRAST CLINICAL INFORMATION: Abdomen pain COMPARISON: Portions of a previous 06/09/20 TECHNIQUE: Multidetector volumetric images were obtained from the superior aspect of the liver through the pubic symphysis following administration 85 mL of Omnipaque 350 intravenous contrast. Sagittal and coronal reformatted images were obtained on the technologist's workstation. Oral contrast: No This CT examination was performed using dose optimization techniques as appropriate, variously including the following: *Automated exposure control *Adjustment of mA and/or kV according to patient size (this includes techniques or standardized protocols for targeted exams where dose is matched to indication/reason for exam; i.e. extremities or head) *Use of iterative reconstruction technique DLP: 285 mGy-cm FINDINGS: LUNG BASES: There is coronary calcification. The lower chest will be reported upon separately. LIVER, GALLBLADDER, AND BILIARY TREE: There is intra and extrahepatic biliary dilation. No suspicious liver mass the gallbladder is distended. There is a calculus likely in or near the cystic duct. There is a 1.4 cm calculus at the ampulla. There is marked biliary dilation. The common duct measures at least 17 mm. Obstructing choledocholithiasis is suspected. PANCREAS: The pancreatic duct is prominent. Tiny droplets of gas near the pancreatic neck are likely within the duodenum. SPLEEN: No suspicious abnormality ADRENAL GLANDS: No suspicious mass KIDNEYS AND URETERS: No significant dilation of the urinary collecting system on either side. There are multiple bilateral varying sized round and oval fluid attenuating masses consistent with cysts. These do not require any specific imaging follow-up. BLADDER: No suspicious abnormality GASTROINTESTINAL TRACT: No evidence of bowel obstruction. No evidence of pneumoperitoneum. The stomach wall is slightly thickened. ABDOMINAL WALL: No significant hernia is appreciated. LYMPH NODES: No measurably enlarged abdominal or pelvic lymph nodes. VASCULAR: Extensive atherosclerotic calcification. The portal vein enhances. PELVIC VISCERA: No suspicious abnormality OSSEOUS STRUCTURES: No suspicious focal lesion CT/CT abdomen pelvis w IV con IMPRESSION: Marked intra and extrahepatic biliary dilation with choledocholithiasis. There is an obstructing calculus at the ampulla. Fleischner guidelines were followed.
--- NOTE | 2024-05-04 13:39 | ECG_ITS ---
Test Reason : CHEST PAIN Blood Pressure : / mmHG Vent. Rate : 082 BPM Atrial Rate : 082 BPM P-R Int : 126 ms QRS Dur : 078 ms QT Int : 340 ms P-R-T Axes : 075 107 047 degrees QTc Int : 397 ms Normal sinus rhythm Rightward axis Pulmonary disease pattern Nonspecific T wave abnormality Abnormal ECG When compared with ECG of 09-JUL-2023 10:25, Vent. rate has decreased BY 42 BPM Nonspecific T wave abnormality now evident in Inferior leads Nonspecific T wave abnormality, worse in Anterior leads Referred By: Generic ED Physician Electronically Signed By:Andry Pak
--- NOTE | 2024-05-04 14:32 | ED_ITS ---
HPI - Chest Pain General Chief Complaint: Chest Pain Stated Complaint: CP X 2 DAYS Time Seen by Provider: 05/04/24 14:19 Source: patient Mode of arrival: ambulatory Limitations: no limitations History of Present Illness HPI narrative: This is a 69-year-old woman with a past medical history of COPD, CAD, [place], hypertension, PVD, GERD, peptic ulcer disease who presents for evaluation of epigastric abdominal pain and chest pain for the last 2 days. She states pain comes and goes. She states pain radiates to her back. She states no specific exacerbating or alleviating factors. She states no trauma or falls. She states myalgias. She states dry cough. She states no sputum production or hemoptysis. She states no fevers. She states associated nausea. She states no changes to bowel habits. She states no dysuria or urinary frequency/urgency. Related Data Home Medications ?Medication ?Instructions ?Recorded ?Confirmed aspirin 81 mg tablet,delayed 81 mg PO DAILY 08/25/20 09/15/23 release atorvastatin 80 mg tablet 80 mg PO BEDTIME 08/25/20 09/15/23 metoprolol succinate 50 mg 50 mg PO DAILY 08/25/20 09/15/23 tablet,extended release 24 hr oxycodone 10 mg tablet 10 mg PO TID PRN Pain 08/25/20 09/15/23 omeprazole 40 mg capsule,delayed 40 mg PO BID 05/07/21 09/15/23 release budesonide-formoterol HFA 80 2 puff PO BID 07/12/21 09/15/23 mcg-4.5 mcg/actuation aerosol inhaler (Symbicort) bupropion HCl (smoking deter) 150 150 mg PO BID 07/09/23 09/15/23 mg tablet,12 hr sustained-release(smoking deterrent) famotidine 20 mg tablet (Pepcid) 20 mg PO BID 07/09/23 09/15/23 nitroglycerin 0.4 mg sublingual 0.4 mg sublingual Q5M PRN Chest 07/09/23 09/15/23 tablet Pain Previous Rx's ?Medication ?Instructions ?Recorded albuterol sulfate 90 mcg/actuation 2 puff PO Q4-6H PRN shortness of 02/08/22 aerosol inhaler breath or wheezing #8.5 ea Allergies Allergy/AdvReac Type Severity Reaction Status Date / Time No Known Allergies Allergy Verified 05/04/24 13:42 Review of Systems 2 Review of Systems: ROS as per HPI [facility] Past Medical History Medical History Nicotine dependence, cigarettes, uncomplicated History of COVID-19 History of ARDS Osteoporosis COPD (chronic obstructive pulmonary disease) Essential hypertension Atherosclerotic cardiovascular disease History of [place] (myocardial infarction) (~2015) Coronary artery disease GERD (gastroesophageal reflux disease) Peptic ulcer disease Surgical History History of cardiac cath History of heart artery stent (~2015) History of exploratory laparotomy (~2019) Family History Family History Father No problems noted. Mother Diabetes Brother Heart problem Social History Social History Household Members: Spouse Alcohol intake: never Patient Tobacco Use Status: Current everyday Tobacco user Cigarettes Per Day: 10 Smoked in Last 30 Days: Yes Use of substances other than those prescribed or required for medical reasons: No Advance Directives: No Advance Directives Information Provided: Yes Do you have a plan to hurt others: No Plan Physical Exam 2 Vital Signs: Vital Signs: Last Vital Signs Temp 98.4 F 05/04/24 17:03 Pulse 84 05/04/24 17:03 Resp 22 H 05/04/24 17:03 BP 127/64 05/04/24 17:03 Pulse Ox 93 05/04/24 17:03 O2 Del Method Nasal Cannula 05/04/24 17:03 O2 Flow Rate 2 05/04/24 17:03 Oxygen Flow Rate 2 05/04/24 13:40 BMI result Body Mass Index 19.6 Gen: NAD, AOx3 HEENT: NCAT, EOMI, + scleral icterus CV: RRR Pulm: CTAB, no increased work of breathing GI: Soft, positive right upper quadrant epigastric tenderness to palpation with voluntary guarding, no peritoneal rigidity Skin: + jaundice Neuro: Grossly non focal Medications Administered Discontinued Medications Generic Name Dose Route Start Last Admin Trade Name Freq PRN Reason Stop Dose Admin Iohexol 100 ml 05/04/24 16:41 05/04/24 16:41 Iohexol 350 Mg/Ml 100 Ml Infus..Btl IV 05/04/24 16:42 85 ml ONCE ONE Administration Morphine Sulfate 2 mg 05/04/24 14:50 05/04/24 14:58 Morphine Sulfate 2 Mg/Ml Cartridge IVPUSH 05/04/24 14:51 2 mg ONCE ONE Administration Protocol Oxycodone HCl 10 mg 05/04/24 15:53 05/04/24 16:01 Oxycodone Hcl Immed Release 5 Mg Tablet PO 05/04/24 15:54 10 mg ONCE ONE Administration Medical Decision Making Medical Decision Making [facility] Narrative: Differential diagnosis includes, but is not limited to pancreatitis, gastritis, choledocholithiasis, cholecystitis, acute coronary syndrome, pulmonary embolism, gallstone pancreatitis, ascending cholangitis. Patient is afebrile and hemodynamically stable on room air. I have low suspicion for sepsis at this time and given hemodynamic stability patient has not provided 30 cc/kilo IV fluid bolus. However, despite lack of fever there is notably elevated leukocytosis, which may be reactive in nature and is certainly nonspecific I will regardless treat empirically with Zosyn. Patient is provided supportive care with morphine oxycodone and IV fluids. Exam is notable for epigastric and right upper quadrant tenderness to palpation. Patient is notably jaundiced. I reviewed and interpreted labs, which are notable for leukocytosis with a white blood cell count 15.2, elevated total bilirubin 8.7, elevated direct bilirubin 7.0, transaminitis with AST 126 and ALT 101 respectively, alkaline phosphatase 518, lipase 422. I reviewed and interpreted EKG, which is unremarkable for any acute findings. CT imaging is obtained and demonstrates no pulmonary embolism, but is notable for obstructing calculus at the ampulla. There are no CT findings to suggest pancreatitis despite elevated lipase. Given the aforementioned diagnostic imaging and laboratory, I discussed case and management with wardrobe consultant injection molder Dr. Diez who agree with current management and plan for admission. I discussed case and management with hospitalist Dr. Bruce/Keyonna. Admission/Observation Consideration of admission/observation: Escalation of care including admission/observation considered Consult Healthcare Provider Management of the patient was discussed with: Hospitalist and Needle Loom Operator Helper Lab Data [facility] Lab Attestation statement: I reviewed the patient's lab results. 05/04/24 14:48 05/04/24 14:48 Labs: Lab Results 05/04/24 05/04/24 05/04/24 Range/Units 14:48 15:01 15:30 WBC 15.2 H (4.8-10.8) X10*3/uL RBC 5.54 H (4.20-5.50) X10*6/uL Hgb 13.9 (12.0-16.0) g/dl Hct 43.4 (37.0-47.0) % MCV 78.3 L (80.0-98.0) fL MCH 25.1 L (27.0-33.0) pg MCHC 32.0 (31.0-35.0) g/dl RDW 21.3 H (11.0-16.0) % Plt Count 271 D (160-400) X10*3/uL MPV 10.2 (9.4-12.3) fL Immature Gran % (Auto) 0.6 H (0.0-0.4) % Neut % (Auto) 95.3 H (45-73) % Lymph % (Auto) 1.2 L (20-40) % [place] % (Auto) 2.6 (2-11) % Eos % (Auto) 0.1 (0-4) % Baso % (Auto) 0.2 (0-2) % Lymph # (Auto) 0.2 L (1.2-4.9) X10*3/uL [place] # (Auto) 0.4 (0.1-1.2) X10*3/uL Eos # (Auto) 0.0 (0.0-0.4) X10*3/uL Baso # (Auto) 0.0 (0.0-0.2) X10*3/uL Abs Immat Gran (auto) 0.09 H (0.00-0.03) X10*3/uL Absolute Neuts (auto) 14.4 H (2.0-8.3) x10*3/uL Absolute Nucleated RBC 0.000 (0.0-0.012) X10*3/uL Nucleated RBC % (auto) 0.0 (0.0-0.2) /100WBC Smear Tech's Comments VERIFIED Sodium 140 (135-145) mmol/L Potassium 3.9 (3.3-5.1) mmol/L Chloride 102 (96-108) mmol/L Carbon Dioxide 27 (22-29) mmol/L Anion Gap 15 (12-20) BUN 19 H (9-16) mg/dL Creatinine 0.73 (0.5-1.4) mg/dL Estim Creat Clear Calc 48.9 Estimated GFR > 60 Random Glucose 95 (60-115) mg/dL Calcium 9.6 (8.4-10.2) mg/dL Total Bilirubin 8.7 H (0.0-1.0) mg/dL Direct Bilirubin 7.0 H (0.0-0.5) mg/dL AST 126 H (5-31) U/L ALT 101 H (0-31) U/L Alkaline Phosphatase 518 H (39-117) U/L Troponin I High Sens 2.7 (<3.5-17.0) ng/L Total Protein 6.2 L (6.5-8.0) g/dL Albumin 3.1 L (3.5-5.0) g/dL Lipase 422 H (8-78) U/L Urine Color Dark Yellow Urine Appearance Cloudy Urine pH 8.0 (5.0-9.0) Ur Specific [place] >= 1.030 H (1.005-1.025) Urine Protein 100 (2+) H (Neg-Trace) mg/dL Urine Glucose (UA) Negative (Negative) mg/dL Urine Ketones Negative (Negative) mg/dL Urine Blood Negative (Negative) Urine Nitrite Negative (Negative) Ur Leukocyte Esterase Trace H (Negative) Urine RBC 0-2 (0-2) /HPF Urine WBC 0-5 (0-5) /HPF Ur Squamous Epith Cells 6-10 (0-2) /HPF Other Crystals Present Urine Bacteria 1+ (None Seen) Hyaline Casts 0-2 (0-2) /LPF Influenza Type A (PCR) NEGATIVE (Negative) Influenza Type B (PCR) NEGATIVE (Negative) RSV RNA Qual (PCR) NEGATIVE (Negative) SARS-CoV-2 RNA (RT-PCR) NEGATIVE (Negative) Independent Interpretation I performed an independent interpretation of an: EKG Interpretation: I reviewed and independently interpreted the patient's EKG was demonstrates sinus rhythm at 82 beats per minute, KS 126, QRS 78, QTC 397, T-wave inversions in the inferolateral leads, no STEMI (compared to prior EKG the T-wave inversions are new) Radiology Impression Discussion of test interpretation with radiology: I have reviewed the radiologist's reading. Radiologist Impression: CT/CT angio chest PE protocol IMPRESSION: No pulmonary embolus. Underlying emphysema. Inspissated material within small airways. Biapical thickening consistent with postinflammatory scarring. Biliary obstruction VTE: negative Dictated By: Pedro Ruiz MD Signed By: <Electronically signed by Pedro Ruiz MD in [place]> 05/04/[address]/CT abdomen pelvis w IV con IMPRESSION: Marked intra and extrahepatic biliary dilation with choledocholithiasis. There is an obstructing calculus at the ampulla. Fleischner guidelines were followed. Dictated By: Pedro Ruiz MD Signed By: <Electronically signed by Pedro Ruiz MD in [place]> 05/04/24 1711 Discharge Plan Discharge Clinical Impression: Choledocholithiasis with obstruction Prescriptions: No Action albuterol sulfate 90 mcg/actuation HFA aerosol inhaler 2 puff PO Q4-6H PRN (Reason: shortness of breath or wheezing) Qty: 8.5 5RF nitroglycerin 0.4 mg tablet, sublingual 0.4 mg sublingual Q5M PRN (Reason: Chest Pain) bupropion HCl (smoking deter) 150 mg tablet extended release 12 hr 150 mg PO BID famotidine [Pepcid] 20 mg tablet 20 mg PO BID omeprazole 40 mg capsule,delayed release(DR/EC) 40 mg PO BID budesonide-formoterol [Symbicort] 80-4.5 mcg/actuation HFA aerosol inhaler 2 puff PO BID atorvastatin 80 mg tablet 80 mg PO BEDTIME aspirin 81 mg tablet,delayed release (DR/EC) 81 mg PO DAILY oxycodone 10 mg tablet 10 mg PO TID PRN (Reason: Pain) metoprolol succinate 50 mg tablet extended release 24 hr 50 mg PO DAILY Print Language: Colombian
--- NOTE | 2024-05-04 14:37 | MHC.EDTECH ---
This tech went to draw blood. Per RN Michelle pauseat this time for RN to place IV.
[2024-05-04 14:58] LABS: Basophils Percent Auto 0.2 % (0-2); Eosinophils Percent Auto 0.1 % (0-4); Hematocrit 43.4 % (37.0-47.0); Hemoglobin 13.9 g/dl (12.0-16.0); Imm Gran Abs Auto 0.09 X10*3/uL (0.00-0.03); Imm Gran Pct Auto 0.6 % (0.0-0.4); Lymphocytes Absolute Auto 0.2 X10*3/uL (1.2-4.9); Lymphocytes Percent Auto 1.2 % (20-40); MANUAL DIFF FLAG SCAN; Mean Corpuscular Hemoglobin 25.1 pg (27.0-33.0); Mean Corpuscular Volume 78.3 fL (80.0-98.0); Mean Platelet Volume 10.2 fL (9.4-12.3); Monocytes Absolute Auto 0.4 X10*3/uL (0.1-1.2); Monocytes Percent Auto 2.6 % (2-11); Neutrophils Absolute Auto 14.4 x10*3/uL (2.0-8.3); Neutrophils Percent Auto 95.3 % (45-73); Platelet Count 271 X10*3/uL (160-400); Red Blood Count 5.54 X10*6/uL (4.20-5.50); Red Cell Distribution Width 21.3 % (11.0-16.0); SCAN SMEAR FLAG 1; White Blood Count 15.2 X10*3/uL (4.8-10.8)
[2024-05-04] MEDS: Morphine Sulfate 2 MG/ML CARTRIDGE IVPUSH (14:58)
[2024-05-04 15:07] LABS: Anion Gap 15 (12-20); Blood Urea Nitrogen 19 mg/dL (9-16); Calcium 9.6 mg/dL (8.4-10.2); Carbon Dioxide 27 mmol/L (22-29); Chloride 102 mmol/L (96-108); Creatinine Clr Calc Pharmacy 48.9; Estimated Glomerular Filt Rate > 60; Glucose Random 95 mg/dL (60-115); Potassium 3.9 mmol/L (3.3-5.1); Sodium 140 mmol/L (135-145)
[2024-05-04 15:12] LABS: Alanine Aminotransferase 101 U/L (0-31); Albumin Level 3.1 g/dL (3.5-5.0); Alkaline Phosphatase 518 U/L (39-117); Aspartate Amino Transferase 126 U/L (5-31); Bilirubin Total 8.7 mg/dL (0.0-1.0); Total Protein 6.2 g/dL (6.5-8.0)
[2024-05-04 15:15] LABS: Troponin-I High Sensitivity 2.7 ng/L (<3.5-17.0)
[2024-05-04 15:19] LABS: Lipase 422 U/L (8-78)
--- NOTE | 2024-05-04 15:34 | MHC.EDTECH ---
This tech responded to call phu. Patient had removed her bed elkins from under her and told me to take it away . This tech collected U/A sample and sent to lab.
--- NOTE | 2024-05-04 15:34 | MHC.EDTECH ---
Patient asked this tech for a drink. Patient relayed information provided by CHOLO Martinez that patient would be having another test and we would have to wait until after those results before we could assess if she could have anything to drink. Patient then asked for pain medicine. This tech relayed the request to CHOLO Martinez.
[2024-05-04 15:37] LABS: Appearance Urine Cloudy; Color Urine Dark Yellow; Glucose Urine UA Negative (Negative); Leukocyte Esterase Urine Trace (Negative); Nitrite Urine Negative (Negative); Specific Gravity - Urine >= 1.030 (1.005-1.025); UMIC TRIGGER UACC YES; Urine Blood Negative (Negative); Urine Ketones Negative (Negative); Urine Protein 100 (2+) mg/dL (Neg-Trace)
--- NOTE | 2024-05-04 15:48 | PC.NURSE ---
Patient very difficult stick, unable to get 20G IV, provider aware, to attempt US line.
[2024-05-04 15:51] LABS: Bacteria Urine 1+ (None Seen); Hyaline Casts Urine 0-2 /LPF (0-2); Other Crystals Urine Present; RBC Urine 0-2 /HPF (0-2); WBC Urine 0-5 /HPF (0-5)
[2024-05-04 15:54] LABS: Influenza A PCR NEGATIVE (Negative); Influenza B PCR NEGATIVE (Negative); Resp Syncy Virus RNA Qual PCR NEGATIVE (Negative); SARS COV2 PCR INHOUSE NEGATIVE (Negative)
[2024-05-04] MEDS: oxyCODONE HCl Immed Release 5 MG TABLET 10 MG PO (16:01)
[2024-05-04] MEDS: iohexoL 350 MG/ML 100 ML INFUS..BTL IV (16:41)
[2024-05-04 16:47] LABS: SLIDE REVIEW VERIFIED
--- NOTE | 2024-05-04 18:14 | PC.NURSE ---
BC to be drawn before abx hung, abx delayed.
[2024-05-04] MEDS: Piperacillin Sodium/Tazobactam 3.375 GM in 0.9 % Sodium Chloride 50 ML IV (18:57)
[2024-05-04] MEDS: Lactated Ringers 1,000 ML 999 ML IV (18:58)
[2024-05-04] MEDS: Morphine Sulfate 4 MG/ML CARTRIDGE IVPUSH ×3 (18:58→22:23)
--- NOTE | 2024-05-04 19:30 | PHA.MEDREC ---
Pharmacy Consult ? Medication Reconciliation Pharmacy has completed the medication reconciliation. Patient and do not know medications, said they gave a list to EMS, however list could not be located. Used pharmacy claims. Patient has not picked up Atorvastatin since 07/18/23
--- NOTE | 2024-05-04 20:11 | PM.IMHP ---
History of Present Illness Date of Service: 05/04/24 Attending physician on admission: Colette Amador Chief Complaint: abd pain 69-year-old female with history of COPD not on home O2, hypertension, coronary artery disease, GERD, peptic ulcer disease, osteoporosis who is a current 1 pack per day cigarette smoker presented to the ED earlier today for evaluation of epigastric pain that started 2 days ago and has been worsening. Denies any radiation of the pain though does reports she felt some chest pain earlier today as well. Denies any fevers but has had chills. No nausea, vomiting, diarrhea, melena, hematochezia. She has experienced anorexia but has been tolerating small sips of clear liquids. Her reported he did note jaundice earlier today prompting representation to the ED. since arrival, has been tachypneic but afebrile and no hypotension. She has a leukocytosis of 15.2. Renal function and electrolyte levels normal. Total bilirubin 8.7, direct bilirubin 7.0, AST 126, ALT 101, alkaline phosphatase 518. Troponin 2.7. Lipase 422 urinalysis unremarkable. Negative for COVID-19, RSV, influenza. CTA of the chest obtained due to reported chest pain which was negative for PE but shows underlying emphysema and inspissated material within the small airways with biapical thickening consistent with both inflammatory scarring. CT of the abdomen/pelvis showed marked intra and extrahepatic biliary dilatation with choledocholithiasis as well as an obstructing calculus at the ampulla. EKG shows NSR, rate 82 with nonspecific T-wave abnormalities in V1, V4 but no ST or depressions. In the ED has received multiple doses of IV morphine, IV Zosyn, oxycodone, and IV LR. Review of Systems Review of Systems: Yes all other systems are reviewed and are negative [facility] Medical History Nicotine dependence, cigarettes, uncomplicated History of COVID-19 History of ARDS Osteoporosis COPD (chronic obstructive pulmonary disease) Essential hypertension Atherosclerotic cardiovascular disease History of [place] (myocardial infarction) (~2016) Coronary artery disease GERD (gastroesophageal reflux disease) Peptic ulcer disease Family History Father No problems noted. Mother Diabetes Brother Heart problem Surgical History History of cardiac cath History of heart artery stent (~2015) History of exploratory laparotomy (~2019) Social History Household Members: Spouse Alcohol intake: never Patient Tobacco Use Status: Current everyday Tobacco user Cigarettes Per Day: 10 Smoked in Last 30 Days: Yes Use of substances other than those prescribed or required for medical reasons: No Advance Directives: No Advance Directives Information Provided: Yes Do you have a plan to hurt others: No Plan Meds Allergies Allergy/AdvReac Type Severity Reaction Status Date / Time No Known Allergies Allergy Verified 05/04/24 13:42 Active Medications: Current Medications Acetaminophen (Acetaminophen 325 Mg Tablet) 650 mg PO Q6H PRN PRN Reason: Pain, Mild (Pain Scale 1-3), fever or headache Albuterol Sulfate (Albuterol Sulfate 90 Mcg 8 Gm Inhaler) 2 puff INHALE Q4-6H PRN PRN Reason: shortness of breath or wheezing Aspirin (Aspirin Enteric Coated 81 Mg Tablet.Dr) 81 mg PO DAILY CHANELLE Calcium Carbonate (Calcium Carbonate 750 Mg Tab.Chew) 750 mg PO Q4H PRN PRN Reason: Heartburn Donepezil HCl (Donepezil Hcl 5 Mg Tablet) 5 mg PO BEDTIME CHANELLE Enoxaparin Sodium (Enoxaparin Sodium 40 Mg/0.4 Ml Syringe) 40 mg SUBCUT Q24H CHANELLE Sodium Chloride (Ns) 1,000 mls @ 100 mls/hr IVCONT .Q10H CHANELLE Piperacillin Sod/Tazobactam (Sod 4.5 gm/ Sodium Chloride) 100 mls @ 200 mls/hr IV Q6H CHANELLE Magnesium Hydroxide (Milk Of Magnesia 30 Ml Oral.Susp) 30 ml PO DAILY PRN PRN Reason: Constipation Melatonin (Melatonin 3 Mg Tablet) 6 mg PO BEDTIME PRN PRN Reason: Insomnia Metoprolol Succinate (Metoprolol Succinate Er 50 Mg Tab.Er.24h) 50 mg PO DAILY CHANELLE; Protocol Morphine Sulfate (Morphine Sulfate 4 Mg/Ml Cartridge) 4 mg IVPUSH Q4H PRN; Protocol PRN Reason: Pain, Severe (Pain Scale 7-10) Nicotine (Nicotine 21 Mg Patch.Td24) 21 mg TRANSDERMA DAILY CHANELLE Nitroglycerin (Nitroglycerin 0.4 Mg Tab.Subl) 0.4 mg SUBLINGUAL Q5M PRN PRN Reason: Chest Pain Non-Formulary Medication (Budesonide-Formoterol [Symbicort]) 2 puff PO BID REPLACED BY [facility] Non-Formulary Medication (Bupropion Hcl (Smoking Deter)) 150 mg PO BID REPLACED BY [facility] Omeprazole (Omeprazole 40 Mg Capsule.Dr) 40 mg PO BID REPLACED BY [facility] Ondansetron HCl (Ondansetron Hcl 4 Mg/2 Ml Vial) 4 mg IVPUSH Q8H PRN PRN Reason: Nausea and Vomiting Oxycodone HCl (Oxycodone Hcl Immed Release 5 Mg Tablet) 5 mg PO Q6H PRN PRN Reason: Pain, Severe (Pain Scale 7-10) Sodium Chloride (0.9 % Sodium Chloride Flush 3 Ml Syringe) 3 ml IVFLUSH QSHIFT REPLACED BY [facility] Home Medications ?Medication ?Instructions ?Recorded ?Confirmed ?Last Taken ?Type aspirin 81 mg tablet,delayed 81 mg PO DAILY 08/25/20 05/04/24 Unknown History release metoprolol succinate 50 mg 50 mg PO DAILY 08/25/20 05/04/24 Unknown History tablet,extended release 24 hr oxycodone 10 mg tablet 10 mg PO TID PRN Pain 08/25/20 05/04/24 Unknown History omeprazole 40 mg capsule,delayed 40 mg PO BID 05/07/21 05/04/24 Unknown History release budesonide-formoterol HFA 80 2 puff PO BID 07/12/21 05/04/24 Unknown History mcg-4.5 mcg/actuation aerosol inhaler (Symbicort) bupropion HCl (smoking deter) 150 150 mg PO BID 07/09/23 05/04/24 Unknown History mg tablet,12 hr sustained-release(smoking deterrent) nitroglycerin 0.4 mg sublingual 0.4 mg sublingual Q5M PRN Chest 07/09/23 05/04/24 Unknown History tablet Pain donepezil 5 mg tablet 5 mg PO BEDTIME 05/04/24 05/04/24 Unknown History Physical Exam Vital Signs and Narrative: Vital Signs: Last Vital Signs Temp 98.1 F 05/04/24 19:18 Pulse 74 05/04/24 19:18 Resp 26 H 05/04/24 19:18 BP 125/59 L 05/04/24 19:18 Pulse Ox 91 L 05/04/24 19:18 O2 Del Method Room Air 05/04/24 19:18 O2 Flow Rate 2 05/04/24 17:03 Oxygen Flow Rate 2 05/04/24 13:40 BMI result Body Mass Index 19.6 Constitutional - lethargic, unwell appearing but No apparent distress Eyes - PERRLA, EOMI Cardiovascular - S1S2, RRR, No edema Respiratory - Normal lung expansion, Normal respiratory effort, No respiratory distress, CTA bilaterally Gastrointestinal - diffuse abd ttp greatest in epigastrium with guarding. ND; +BS; No rebound/peritoneal signs Extremities - no calf tenderness bilaterally, no swelling Skin - Warm/Dry Neurological - Alert & oriented x3 Psychological - Appropriate affect Results Labs 05/04/24 14:48 05/04/24 14:48 Labs: Laboratory Results - last 24 hr 05/04/24 05/04/24 05/04/24 14:48 15:01 15:30 MCV 78.3 L MCH 25.1 L MCHC 32.0 RDW 21.3 H Plt Count 271 D MPV 10.2 Immature Gran % (Auto) 0.6 H Neut % (Auto) 95.3 H Lymph % (Auto) 1.2 L [place] % (Auto) 2.6 Eos % (Auto) 0.1 Baso % (Auto) 0.2 Lymph # (Auto) 0.2 L [place] # (Auto) 0.4 Eos # (Auto) 0.0 Baso # (Auto) 0.0 Abs Immat Gran (auto) 0.09 H Absolute Neuts (auto) 14.4 H Absolute Nucleated RBC 0.000 Nucleated RBC % (auto) 0.0 Smear Tech's Comments VERIFIED Anion Gap 15 Estim Creat Clear Calc 48.9 Estimated GFR > 60 Random Glucose 95 Calcium 9.6 Total Bilirubin 8.7 H Direct Bilirubin 7.0 H AST 126 H ALT 101 H Alkaline Phosphatase 518 H Troponin I High Sens 2.7 Total Protein 6.2 L Albumin 3.1 L Lipase 422 H Urine Color Dark Yellow Urine Appearance Cloudy Urine pH 8.0 Ur Specific [place] >= 1.030 H Urine Protein 100 (2+) H Urine Glucose (UA) Negative Urine Ketones Negative Urine Blood Negative Urine Nitrite Negative Ur Leukocyte Esterase Trace H Urine RBC 0-2 Urine WBC 0-5 Ur Squamous Epith Cells 6-10 Other Crystals Present Urine Bacteria 1+ Hyaline Casts 0-2 Influenza Type A (PCR) NEGATIVE Influenza Type B (PCR) NEGATIVE RSV RNA Qual (PCR) NEGATIVE SARS-CoV-2 RNA (RT-PCR) NEGATIVE Imaging Radiologist's Impressions: Impressions Chest X-Ray 05/04/24 14:57 IMPRESSION: Chronic changes observed with no active disease. Abdomen/Pelvis CT 05/04/24 16:50 IMPRESSION: Marked intra and extrahepatic biliary dilation with choledocholithiasis. There is an obstructing calculus at the ampulla. Fleischner guidelines were followed. Chest CTA 05/04/24 16:50 IMPRESSION: No pulmonary embolus. Underlying emphysema. Inspissated material within small airways. Biapical thickening consistent with postinflammatory scarring. Biliary obstruction VTE: negative Assessment and Plan (1) Choledocholithiasis with obstruction: Status: Acute Plan 69-year-old female with history of COPD not on home O2, hypertension, coronary artery disease, GERD, peptic ulcer disease, osteoporosis who is a current 1 pack per day cigarette smoker admitted for further management of acute choledocolithiasis with possible cholangitis #Acute choledocolithiasis and possible cholangitis with sepsis -leukocytosis 15, tachypneic. Acute hyperbilirubinemia due to choledocholithiasis, not severe sepsis. Lactic acid level pending, blood cultures pending -CT abdomen/pelvis shows marked intra and extrahepatic biliary dilatation with choledocholithiasis and obstructing calculus at the ampulla. -case discussed with Gastroenterology with plan for ERCP tomorrow. Can continue clear liquids for now, NPO after midnight -pain management p.r.n. using pain scale -antiemetics p.r.n. -IV Zosyn to cover empirically for cholangitis (initiated 05/04) -GI consult -follow CBC, cultures. Trend LFTs #COPD -no exacerbation -continue home inhalers, albuterol p.r.n. # CAD -troponin within normal limits, EKG without any acute ischemic changes -continue ASA, beta-deepika # GERD -PPI # cigarette smoking -smoking cessation advised -continue bupropion, nicotine patch for replacement therapy DVT prophylaxis-Lovenox Full code Patient requires inpatient stay at least 2 midnights for management of acute choledocholithiasis with suspected underlying cholangitis and sepsis requiring IV antibiotics, expert consultation and ERCP with close monitoring of hemodynamics to monitor for and prevent decompensation Quality Stroke Does the patient have a stroke diagnosis?: No VTE Prior VTE?: No VTE Risk Level:: Medical - moderate - high VTE Device Contraindication: Treatment Not Indicated VTE Drug Contraindication: N/A - Med Ordered
[2024-05-04 21:59] LABS: Lactic Acid 1.9 mmol/L (0.5-2.0)
[2024-05-04] MEDS: Enoxaparin Sodium 40 MG/0.4 ML SYRINGE SUBCUT (22:23)
[2024-05-04] MEDS: Donepezil HCl 5 MG TABLET PO (22:23)
[2024-05-04] MEDS: Nicotine 21 MG PATCH.TD24 TRANSDERMA (22:24)
[2024-05-04] MEDS: oxyCODONE HCl Immed Release 5 MG TABLET PO (22:24)
[2024-05-04] MEDS: ondansetron HCL 4 MG/2 ML VIAL IVPUSH (22:24)
[2024-05-04] MEDS: 0.9 % Sodium Chloride Flush 3 ML SYRINGE IVFLUSH (22:25)
[2024-05-04] MEDS: 0.9 % Sodium Chloride 1,000 ML 100 ML IVCONT (22:38)
[2024-05-04] MEDS: Piperacillin Sodium/Tazobactam 4.5 GM in 0.9 % Sodium Chloride 100 ML IV (23:04)
[2024-05-05] VITALS (8 sets, daily range): BP systolic 96–118; BP diastolic 53–59; PULSE 63–120; RESP 16–20; TEMP 36.2–37.1; O2SAT 92–98; BMI 19.3
--- NOTE | 2024-05-05 00:04 | P.CNGI_ITS ---
History of Present Illness Data of Consult Service Date: 05/04/24 Requesting physician: Britta Coles Primary Care Provider: Unknown Physician HPI Reason for consult: choledocholithiasis 69-year-old female with history of COPD not on home O2, hypertension, coronary artery disease, GERD, peptic ulcer disease, osteoporosis who I am seeing for bile duct obstruction. Patient noted 10/10 RUq constant pain going into the back, for last 2 days which made her uncomfortable, with nausea and non bloody emesis. sx worse with food, no relieving factors Denies any fevers but has had chills. No diarrhea, melena, hematochezia. noted jaundice. She has poor appetite, denies weight loss. She does admit having on and off attacks over months but not as bad as this. LABS: Total bilirubin 8.7, direct bilirubin 7.0, AST 126, ALT 101, alkaline phosphatase 518. Troponin 2.7. Lipase 422 urinalysis unremarkable. Negative for COVID-19, RSV, influenza. IMAGING: CT of the abdomen/pelvis: marked intra and extrahepatic biliary dilatation with choledocholithiasis as well as an obstructing calculus at the ampulla Review of Systems 2 Review of Systems: Constitutional : No Weight loss, No Fever, + Chills ENT/Mouth : No sore throat, No Rhinorrhea Eyes: No Swelling, No Redness Cardiovascular : No Chest Pain, + SOB, No Edema Respiratory : No Cough, No Sputum, No Wheezing Gastrointestinal : see HPI Genitourinary : NO Dysuria, No Urinary Frequency, No Hematuria, No Urgency Musculoskeletal : No joint pain, No Myalgias, No Joint Swelling Skin : No Skin Lesions, No rash Neuro : No Weakness, No Numbness, No Dizziness, No Headache Psych : No Anxiety/Panic, No Depression Heme/Lymph: No Bruising, No Lymphadenopathy Endocrine : No Polyuria, No Polydipsia All other systems reviewed and are negative. [facility] Past Medical History Medical History Nicotine dependence, cigarettes, uncomplicated History of COVID-19 History of ARDS Osteoporosis COPD (chronic obstructive pulmonary disease) Essential hypertension Atherosclerotic cardiovascular disease History of ND (myocardial infarction) (~2016) Coronary artery disease GERD (gastroesophageal reflux disease) Peptic ulcer disease Family History Family History Father No problems noted. Mother Diabetes Brother Heart problem Surgical History Surgical History History of cardiac cath History of heart artery stent (~2015) History of exploratory laparotomy (~2019) Social History Social History Household Members: Significant Other Household Members Other:: 2 Housing: House Do you presently have visiting nurse or other home services: Yes Alcohol intake: never Patient Tobacco Use Status: Current everyday Tobacco user Tobacco use type: Cigarette Cigarette Packs Per Day: 10 Cigarettes Per Day: 200.0 Second Hand Smoke Exposure: Yes service: No Meds Allergies Allergy/AdvReac Type Severity Reaction Status Date / Time No Known Allergies Allergy Verified 05/04/24 13:42 Active Medications: Current Medications Acetaminophen (Acetaminophen 325 Mg Tablet) 650 mg PO Q6H PRN PRN Reason: Pain, Mild (Pain Scale 1-3), fever or headache Albuterol Sulfate (Albuterol Sulfate 90 Mcg 8 Gm Inhaler) 2 puff INHALE Q4H PRN PRN Reason: shortness of breath or wheezing Aspirin (Aspirin Enteric Coated 81 Mg Tablet.Dr) 81 mg PO DAILY CHANELLE Bupropion HCl (Bupropion Hcl Xl 300 Mg Tab.Er.24h) 300 mg PO DAILY [facility] Calcium Carbonate (Calcium Carbonate 750 Mg Tab.Chew) 750 mg PO Q4H PRN PRN Reason: Heartburn Donepezil HCl (Donepezil Hcl 5 Mg Tablet) 5 mg PO BEDTIME [facility] Last Admin: 05/04/24 22:23 Dose: 5 mg Enoxaparin Sodium (Enoxaparin Sodium 40 Mg/0.4 Ml Syringe) 40 mg SUBCUT Q24H [facility] Last Admin: 05/04/24 22:23 Dose: 40 mg Fluticasone/Vilanterol (Fluticasone/Vilanterol 100/25 Blst.W.Dev) 1 puff INHALE RDAILY [facility] Sodium Chloride (Ns) 1,000 mls @ 100 mls/hr IVCONT .Q10H [facility] Last Admin: 05/04/24 22:38 Dose: 100 mls/hr Piperacillin Sod/Tazobactam (Sod 4.5 gm/ Sodium Chloride) 100 mls @ 200 mls/hr IV Q6H [facility] Last Infusion: 05/04/24 23:40 Dose: Infused Magnesium Hydroxide (Milk Of Magnesia 30 Ml Oral.Susp) 30 ml PO DAILY PRN PRN Reason: Constipation Melatonin (Melatonin 3 Mg Tablet) 6 mg PO BEDTIME PRN PRN Reason: Insomnia Metoprolol Succinate (Metoprolol Succinate Er 50 Mg Tab.Er.24h) 50 mg PO DAILY [facility]; Protocol Morphine Sulfate (Morphine Sulfate 4 Mg/Ml Cartridge) 4 mg IVPUSH Q4H PRN; Protocol PRN Reason: Pain, Severe (Pain Scale 7-10) Last Admin: 05/04/24 22:23 Dose: 4 mg Nicotine (Nicotine 21 Mg Patch.Td24) 21 mg TRANSDERMA DAILY [facility] Last Admin: 05/04/24 22:24 Dose: 21 mg Nitroglycerin (Nitroglycerin 0.4 Mg Tab.Subl) 0.4 mg SUBLINGUAL Q5M PRN PRN Reason: Chest Pain Omeprazole (Omeprazole 40 Mg Capsule.Dr) 40 mg PO BID@0630,1630 [facility] Ondansetron HCl (Ondansetron Hcl 4 Mg/2 Ml Vial) 4 mg IVPUSH Q8H PRN PRN Reason: Nausea and Vomiting Last Admin: 05/04/24 22:24 Dose: 4 mg Oxycodone HCl (Oxycodone Hcl Immed Release 5 Mg Tablet) 5 mg PO Q6H PRN PRN Reason: Pain, Severe (Pain Scale 7-10) Last Admin: 05/04/24 22:24 Dose: 5 mg Sodium Chloride (0.9 % Sodium Chloride Flush 3 Ml Syringe) [facility] Last Admin: 05/04/24 22:25 Dose: 3 ml Home Medications ?Medication ?Instructions ?Recorded ?Confirmed ?Last Taken ?Type aspirin 81 mg tablet,delayed 81 mg PO DAILY 08/25/20 05/04/24 Unknown History release metoprolol succinate 50 mg 50 mg PO DAILY 08/25/20 05/04/24 Unknown History tablet,extended release 24 hr oxycodone 10 mg tablet 10 mg PO TID PRN Pain 08/25/20 05/04/24 Unknown History omeprazole 40 mg capsule,delayed 40 mg PO BID 05/07/21 05/04/24 Unknown History release budesonide-formoterol HFA 80 2 puff PO BID 07/12/21 05/04/24 Unknown History mcg-4.5 mcg/actuation aerosol inhaler (Symbicort) bupropion HCl (smoking deter) 150 150 mg PO BID 07/09/23 05/04/24 Unknown History mg tablet,12 hr sustained-release(smoking deterrent) nitroglycerin 0.4 mg sublingual 0.4 mg sublingual Q5M PRN Chest 07/09/23 05/04/24 Unknown History tablet Pain donepezil 5 mg tablet 5 mg PO BEDTIME 05/04/24 05/04/24 Unknown History Physical Exam 2 Vital Signs: Vital Signs: Last Vital Signs Temp 98.1 F 05/04/24 22:04 Pulse 73 05/04/24 22:04 Resp 20 05/04/24 22:35 BP 151/73 H 05/04/24 22:04 Pulse Ox 92 05/04/24 22:42 O2 Del Method Oxymask 05/04/24 22:42 O2 Flow Rate 3 05/04/24 22:42 Oxygen Flow Rate 2 05/04/24 13:40 BMI result Body Mass Index 16.7 EXAM: GENERAL: The patient is frail, on oxygen VITAL SIGNS:see workflow HEENT: Nonicteric sclerae, PERRLA, EOMI. Oropharynx clear. Moist mucous membranes. Conjunctivae appear well perfused. No thyroid mass. CHEST: Chest wall is nontender. HEART: Regular rate and rhythm without murmurs. LUNGS: Clear to auscultation bilaterally. ABDOMEN: Soft, positive bowel sounds, tender ruq, no organomegaly.no flank tenderness SKIN: No rash, no excessive bruising, petechiae, or purpura. NEUROLOGIC: Cranial nerves II-XII intact without motor/sensory deficit. Psych: normal affect Results Labs 05/05/24 06:06 05/05/24 06:06 Labs: Short CBC 05/04/24 Range/Units 14:48 WBC 15.2 H (4.8-10.8) X10*3/uL Hgb 13.9 (12.0-16.0) g/dl Hct 43.4 (37.0-47.0) % Plt Count 271 D (160-400) X10*3/uL BMP 05/04/24 14:48 Sodium 140 Potassium 3.9 Chloride 102 Carbon Dioxide 27 BUN 19 H Creatinine 0.73 Calcium 9.6 Liver Function 05/04/24 Range/Units 14:48 Total Bilirubin 8.7 H (0.0-1.0) mg/dL Direct Bilirubin 7.0 H (0.0-0.5) mg/dL AST 126 H (5-31) U/L ALT 101 H (0-31) U/L Alkaline Phosphatase 518 H (39-117) U/L Albumin 3.1 L (3.5-5.0) g/dL Urine 05/04/24 Range/Units 15:30 Urine Color Dark Yellow Urine Appearance Cloudy Urine pH 8.0 (5.0-9.0) Ur Specific [place] >= 1.030 H (1.005-1.025) Urine Protein 100 (2+) H (Neg-Trace) mg/dL Urine Glucose (UA) Negative (Negative) mg/dL Imaging CT scan - abdomen: Attestation: I personally reviewed and interpreted this imaging study as follows: (lung scarring, dilated CBD with sludge and stone noted, dilated intra hepatic bile ducts ) Assessment and Plan (1) Choledocholithiasis with obstruction: Qualifiers: Cholangitis acuity: unspecified acuity Status: Acute Plan 1/ CBd obstruction, possible pancreatitis as well, with possible early cholangitis. PLAN: /1- ABx as doing 2/ fluid resus with LR 3/ ERCP for decompression and stone removal. Procedures Date of Service Date of Service: 05/05/24
[2024-05-05] MEDS: Morphine Sulfate 4 MG/ML CARTRIDGE IVPUSH ×2 (02:51→08:07)
[2024-05-05] MEDS: Piperacillin Sodium/Tazobactam 4.5 GM in 0.9 % Sodium Chloride 100 ML IV ×3 (05:14→19:19)
[2024-05-05] MEDS: oxyCODONE HCl Immed Release 5 MG TABLET PO ×2 (05:15→22:07)
[2024-05-05] MEDS: Omeprazole 40 MG CAPSULE.DR PO ×2 (05:15→17:08)
[2024-05-05 06:44] LABS: Hematocrit 36.9 % (37.0-47.0); Hemoglobin 11.4 g/dl (12.0-16.0); Mean Corpuscular HGB Conc 30.9 g/dl (31.0-35.0); Mean Corpuscular Hemoglobin 24.3 pg (27.0-33.0); Mean Corpuscular Volume 78.5 fL (80.0-98.0); Mean Platelet Volume 10.5 fL (9.4-12.3); Platelet Count 167 X10*3/uL (160-400); White Blood Count 6.7 X10*3/uL (4.8-10.8)
[2024-05-05 07:30] LABS: Alanine Aminotransferase 65 U/L (0-31); Albumin Level 2.3 g/dL (3.5-5.0); Alkaline Phosphatase 424 U/L (39-117); Anion Gap 13 (12-20); Aspartate Amino Transferase 69 U/L (5-31); Bilirubin Direct 6.6 mg/dL (0.0-0.5); Blood Urea Nitrogen 14 mg/dL (9-16); Calcium 8.3 mg/dL (8.4-10.2); Carbon Dioxide 23 mmol/L (22-29); Chloride 106 mmol/L (96-108); Creatinine Clr Calc Pharmacy 55.4; Estimated Glomerular Filt Rate > 60; Glucose Random 73 mg/dL (60-115); Potassium 2.8 mmol/L (3.3-5.1); Sodium 139 mmol/L (135-145); Total Protein 4.7 g/dL (6.5-8.0)
[2024-05-05] MEDS: Fluticasone/Vilanterol 100/25 BLST.W.DEV 1 PUFF INHALE (07:34)
[2024-05-05 08:01] LABS: Magnesium 1.5 mg/dL (1.6-2.6)
[2024-05-05] MEDS: buPROPion HCl XL 300 MG TAB.ER.24H PO (08:06)
[2024-05-05] MEDS: Aspirin Enteric Coated 81 MG TABLET.DR PO (08:06)
[2024-05-05] MEDS: Nicotine 21 MG PATCH.TD24 TRANSDERMA (08:06)
[2024-05-05] MEDS: Metoprolol Succinate ER 50 MG TAB.ER.24H PO (08:06)
[2024-05-05] MEDS: 0.9 % Sodium Chloride Flush 3 ML SYRINGE IVFLUSH (08:07)
[2024-05-05] MEDS: ondansetron HCL 4 MG/2 ML VIAL IVPUSH (08:07)
[2024-05-05] MEDS: Potassium Chloride/H20 10 MEQ/100 ML PIGGYBACK 100 MEQ IV ×4 (08:22→15:27)
[2024-05-05 08:31] LABS: Band Neutrophils Percent 7 % (3-5); Lymphocytes Absolute Manual 0.1 X10*3/uL (1.2-4.9); Lymphocytes Percent Manual 2 % (20-40); Metamyelocytes Absolute 0.1 X10*3/uL; Metamyelocytes Percent 2 %; Myelocytes Absolute 0.1 X10*/uL; Myelocytes Percent 1 %; Neutrophils Absolute Manual 6.4 X10*3/uL (2.0-8.3); Neutrophils Percent Manual 88 % (45-73)
[2024-05-05 08:45] LABS: Burr Cells 1+ (0-2) /OIF; Microcytosis 1+ (5-14) /OIF; RBC Morphology NOTED
[2024-05-05 08:46] LABS: Hypochromasia 1+ (5-14) /OIF; Platelet Estimate NORMAL (NORMAL); Platelet Morphology Comment NORMAL
--- NOTE | 2024-05-05 08:48 | MHC.CM.PN ---
CM met with Patient at bedside and addressed IMM with her, providing Patient with the original and a copy loretta been placed on the chart. Patient lives in a house with her /HCP and she required no home O2 nor services [employer]. Patient uses a cane at times. Home vs new [facility] is the tentative plan and CM has initiated and will follow for dc planning. PCP is from [facility].
--- NOTE | 2024-05-05 09:52 | HO.PM.IMPN ---
Subjective Subjective Date of Service: 05/05/24 Interval History: Jaundiced. Abd pain improved. No N/V. K low at 2.8. Coughing up sputum but no wheezing. Review of Systems Review of Systems: Yes all other systems are reviewed and are negative Physical Exam Vital Signs: Vital Signs: Last Vital Signs Temp 98.8 F 05/05/24 06:55 Pulse 102 H 05/05/24 07:35 Resp 17 05/05/24 07:35 BP 108/58 L 05/05/24 06:55 Pulse Ox 92 05/05/24 06:55 O2 Del Method Oxymask 05/05/24 06:55 O2 Flow Rate 3 05/05/24 06:55 Oxygen Flow Rate 2 05/04/24 13:40 BMI result Body Mass Index 16.7 Gen: in no acute distress HEENT: sclera icteric, moist mucus membranes Neck: supple Lungs: wet crackles that clear with coughing Heart: regular rate and rhythm, no murmurs Abd: soft, RUQ tender, non-distended Ext: no edema Skin: warm/well-perfused, jaundiced Neuro: alert and oriented x3, no focal findings Psych: appropriate affect Objective Data Active Medications Acetaminophen (Acetaminophen 325 Mg Tablet) 650 mg PO Q6H PRN PRN Reason: Pain, Mild (Pain Scale 1-3), fever or headache Albuterol Sulfate (Albuterol Sulfate 90 Mcg 8 Gm Inhaler) 2 puff INHALE Q4H PRN PRN Reason: shortness of breath or wheezing Aspirin (Aspirin Enteric Coated 81 Mg Tablet.) 81 mg PO DAILY [facility] Last Admin: 05/05/24 08:06 Dose: 81 mg Documented By: CLARISSA Bupropion HCl (Bupropion Hcl Xl 300 Mg Tab.Er.24h) 300 mg PO DAILY [facility] Last Admin: 05/05/24 08:06 Dose: 300 mg Documented By: CLARISSA Calcium Carbonate (Calcium Carbonate 750 Mg Tab.Chew) 750 mg PO Q4H PRN PRN Reason: Heartburn Donepezil HCl (Donepezil Hcl 5 Mg Tablet) 5 mg PO BEDTIME [facility] Last Admin: 05/04/24 22:23 Dose: 5 mg Documented By: CADY Enoxaparin Sodium (Enoxaparin Sodium 40 Mg/0.4 Ml Syringe) 40 mg SUBCUT Q24H [facility] Last Admin: 05/04/24 22:23 Dose: 40 mg Documented By: CADY Fluticasone/Vilanterol (Fluticasone/Vilanterol 100/25 Blst.W.Dev) 1 puff INHALE RDAILY [facility] Last Admin: 05/05/24 07:34 Dose: 1 puff Documented By: KENNY Sodium Chloride (Ns) 1,000 mls @ 100 mls/hr IVCONT .Q10H [facility] Last Admin: 05/04/24 22:38 Dose: 100 mls/hr Documented By: CADY Piperacillin Sod/Tazobactam (Sod 4.5 gm/ Sodium Chloride) 100 mls @ 200 mls/hr IV Q6H [facility] Last Infusion: 05/05/24 05:46 Dose: Infused Documented By: CADY Potassium Chloride (Potassium Chloride/H20) 10 meq in 100 mls @ 100 mls/hr IV Q1H [facility] Stop: 05/05/24 11:29 Last Admin: 05/05/24 08:22 Dose: 100 mls/hr Documented By: CLARISSA Magnesium Hydroxide (Milk Of Magnesia 30 Ml Oral.Susp) 30 ml PO DAILY PRN PRN Reason: Constipation Melatonin (Melatonin 3 Mg Tablet) 6 mg PO BEDTIME PRN PRN Reason: Insomnia Metoprolol Succinate (Metoprolol Succinate Er 50 Mg Tab.Er.24h) 50 mg PO DAILY [facility]; Protocol Last Admin: 05/05/24 08:06 Dose: 50 mg Documented By: CLARISSA Morphine Sulfate (Morphine Sulfate 4 Mg/Ml Cartridge) 4 mg IVPUSH Q4H PRN; Protocol PRN Reason: Pain, Severe (Pain Scale 7-10) Last Admin: 05/05/24 08:07 Dose: 4 mg Documented By: CLARISSA Nicotine (Nicotine 21 Mg Patch.Td24) 21 mg TRANSDERMA DAILY [facility] Last Admin: 05/05/24 08:06 Dose: 21 mg Documented By: CLARISSA Nitroglycerin (Nitroglycerin 0.4 Mg Tab.Subl) 0.4 mg SUBLINGUAL Q5M PRN PRN Reason: Chest Pain Omeprazole (Omeprazole 40 Mg Capsule.Dr) 40 mg PO BID@0630,1630 [facility] Last Admin: 05/05/24 05:15 Dose: 40 mg Documented By: CADY Ondansetron HCl (Ondansetron Hcl 4 Mg/2 Ml Vial) 4 mg IVPUSH Q8H PRN PRN Reason: Nausea and Vomiting Last Admin: 05/05/24 08:07 Dose: 4 mg Documented By: CLARISSA Oxycodone HCl (Oxycodone Hcl Immed Release 5 Mg Tablet) 5 mg PO Q6H PRN PRN Reason: Pain, Severe (Pain Scale 7-10) Last Admin: 05/05/24 05:15 Dose: 5 mg Documented By: CADY Sodium Chloride (0.9 % Sodium Chloride Flush 3 Ml Syringe) [facility] Last Admin: 05/05/24 08:07 Dose: 3 ml Documented By: CLARISSA Labs 05/05/24 06:06 05/05/24 06:06 Labs: Laboratory Results - last 24 hr 05/04/24 05/04/24 05/04/24 14:48 15:01 15:30 MCV 78.3 L MCH 25.1 L MCHC 32.0 RDW 21.3 H Plt Count 271 D MPV 10.2 Immature Gran % (Auto) 0.6 H Neut % (Auto) 95.3 H Lymph % (Auto) 1.2 L [place] % (Auto) 2.6 Eos % (Auto) 0.1 Baso % (Auto) 0.2 Lymph # (Auto) 0.2 L [place] # (Auto) 0.4 Eos # (Auto) 0.0 Baso # (Auto) 0.0 Abs Immat Gran (auto) 0.09 H Absolute Neuts (auto) 14.4 H Absolute Nucleated RBC 0.000 Nucleated RBC % (auto) 0.0 Neutrophils % (Manual) Band Neutrophils % Lymphocytes % (Manual) Metamyelocytes % Myelocytes % Abs Neuts (Manual) Lymphocytes # (Manual) Metamyelocytes # Myelocytes # Platelet Estimate Plt Morphology Comment RBC Morphology Hypochromasia Microcytosis [place] Cells Smear Tech's Comments VERIFIED Anion Gap 15 Estim Creat Clear Calc 48.9 Estimated GFR > 60 Random Glucose 95 Lactic Acid Calcium 9.6 Magnesium Total Bilirubin 8.7 H Direct Bilirubin 7.0 H AST 126 H ALT 101 H Alkaline Phosphatase 518 H Troponin I High Sens 2.7 Total Protein 6.2 L Albumin 3.1 L Lipase 422 H Urine Color Dark Yellow Urine Appearance Cloudy Urine pH 8.0 Ur Specific [place] >= 1.030 H Urine Protein 100 (2+) H Urine Glucose (UA) Negative Urine Ketones Negative Urine Blood Negative Urine Nitrite Negative Ur Leukocyte Esterase Trace H Urine RBC 0-2 Urine WBC 0-5 Ur Squamous Epith Cells 6-10 Other Crystals Present Urine Bacteria 1+ Hyaline Casts 0-2 Influenza Type A (PCR) NEGATIVE Influenza Type B (PCR) NEGATIVE RSV RNA Qual (PCR) NEGATIVE SARS-CoV-2 RNA (RT-PCR) NEGATIVE 05/04/24 05/05/24 21:36 06:06 MCV 78.5 L MCH 24.3 L MCHC 30.9 L RDW 21.0 H Plt Count 167 D MPV 10.5 Immature Gran % (Auto) Cancelled Neut % (Auto) Cancelled Lymph % (Auto) Cancelled [place] % (Auto) Cancelled Eos % (Auto) Cancelled Baso % (Auto) Cancelled Lymph # (Auto) Cancelled [place] # (Auto) Cancelled Eos # (Auto) Cancelled Baso # (Auto) Cancelled Abs Immat Gran (auto) Cancelled Absolute Neuts (auto) Cancelled Absolute Nucleated RBC 0.000 Nucleated RBC % (auto) 0.0 Neutrophils % (Manual) 88 H Band Neutrophils % 7 H Lymphocytes % (Manual) 2 L Metamyelocytes % 2 Myelocytes % 1 Abs Neuts (Manual) 6.4 Lymphocytes # (Manual) 0.1 L Metamyelocytes # 0.1 Myelocytes # 0.1 Platelet Estimate NORMAL Plt Morphology Comment NORMAL RBC Morphology NOTED Hypochromasia 1+ (5-14) Microcytosis 1+ (5-14) [place]inta Cells 1+ (0-2) Smear Tech's Comments Anion Gap 13 Estim Creat Clear Calc 55.4 Estimated GFR > 60 Random Glucose 73 Lactic Acid 1.9 Calcium 8.3 L D Magnesium 1.5 L Total Bilirubin 8.0 H Direct Bilirubin 6.6 H AST 69 H ALT 65 H Alkaline Phosphatase 424 H Troponin I High Sens Total Protein 4.7 L Albumin 2.3 L Lipase Urine Color Urine Appearance Urine pH Ur Specific [place] Urine Protein Urine Glucose (UA) Urine Ketones Urine Blood Urine Nitrite Ur Leukocyte Esterase Urine RBC Urine WBC Ur Squamous Epith Cells Other Crystals Urine Bacteria Hyaline Casts Influenza Type A (PCR) Influenza Type B (PCR) RSV RNA Qual (PCR) SARS-CoV-2 RNA (RT-PCR) Assessment and Plan (1) Choledocholithiasis with obstruction: Status: Acute Plan d2 69yo F with COPD not home O2, HTN, CAD, GERD, tobacco abuse presenting with d2 of epigastric pain and jaundice and found to have obstructing calculus at ampulla; concern for sepsis with leukocytosis + tachypnea. choledocholithiasis possible cholangitis with sepsis - NPO for ERCP today, continue pip-scarlet 05/04-, follow BCx hypoK - replete IV, recheck level in AM COPD without acute exac - Breo, prn albuterol CAD - ASA + metoprolol succinate GERD - PPI tobacco abuse - NRT + bupropion VTE ppx - hold enoxaparin given planned ERCP dispo - eventually home In my clinical judgment, the patient requires continued inpatient hospitalization for the following reasons: ERCP, IV ABX Total time managing care of this patient today: 45 minutes. Quality Stroke Does the patient have a stroke diagnosis?: No VTE Prior VTE?: No VTE Risk Level:: Medical - moderate - high VTE Device Contraindication: Treatment Not Indicated VTE Drug Contraindication: N/A - Med Ordered
[2024-05-05] MEDS: 0.9 % Sodium Chloride 1,000 ML 100 ML IVCONT ×2 (10:59→17:08)
--- NOTE | 2024-05-05 12:21 | MHC.CLN ---
RE: CONSULT FOR WT LOSS REVIEWED PREVIOUS WT HX CURRENT WT COMPLETED BY THIS [employer] 43.3KG ADMIT WT 37.6KG 09/15/23 36.6KG PT WITH 18% SIGNIFICANT WT GAIN X 6 MONTHS BMI 19 WNL PT APPEARS THIN WITHIN IBW AND NO S/S MALNUTRITION AT THIS TIME CURRENTLY NPO AWAITING PROCEDURE CONTINUE CURRENT CARE PLAN RD TO FOLLOW WEEKLY
--- NOTE | 2024-05-05 12:32 | P.CONAN_ITS ---
HPI - Anesthesia Eval Consult details Narrative: for ERCP [facility] Active Problems Active Problems: All Active Problems Choledocholithiasis with obstruction (Acute) Nicotine dependence, cigarettes, uncomplicated (Acute) Coronary artery disease (Acute) Atherosclerotic cardiovascular disease (Acute) History of MS (myocardial infarction) (Acute ~2016) Essential hypertension (Acute) PVD (peripheral vascular disease) (Acute) Claudication of lower extremity (Acute) COPD (chronic obstructive pulmonary disease) (Acute) GERD (gastroesophageal reflux disease) (Acute) Peptic ulcer disease (Acute) Chronic pain (Acute) Neuropathy (Acute) Osteoporosis (Acute) Past Medical History Medical History Nicotine dependence, cigarettes, uncomplicated History of COVID-19 History of ARDS Osteoporosis COPD (chronic obstructive pulmonary disease) Essential hypertension Atherosclerotic cardiovascular disease History of MS (myocardial infarction) (~2015) Coronary artery disease GERD (gastroesophageal reflux disease) Peptic ulcer disease Family History Family History Father No problems noted. Mother Diabetes Brother Heart problem Surgical History Surgical History History of cardiac cath History of heart artery stent (~2015) History of exploratory laparotomy (~2019) Social History Social History Household Members: Significant Other Household Members Other:: 2 Housing: House Do you presently have visiting nurse or other home services: Yes Alcohol intake: never Patient Tobacco Use Status: Current everyday Tobacco user Tobacco use type: Cigarette Cigarette Packs Per Day: 10 Cigarettes Per Day: 200.0 Second Hand Smoke Exposure: Yes service: No Meds Allergies Allergy/AdvReac Type Severity Reaction Status Date / Time No Known Allergies Allergy Verified 05/04/24 13:42 Active Medications: Current Medications Acetaminophen (Acetaminophen 325 Mg Tablet) 650 mg PO Q6H PRN PRN Reason: Pain, Mild (Pain Scale 1-3), fever or headache Albuterol Sulfate (Albuterol Sulfate 90 Mcg 8 Gm Inhaler) 2 puff INHALE Q4H PRN PRN Reason: shortness of breath or wheezing Aspirin (Aspirin Enteric Coated 81 Mg Tablet.) 81 mg PO DAILY [facility] Last Admin: 05/05/24 08:06 Dose: 81 mg Bupropion HCl (Bupropion Hcl Xl 300 Mg Tab.Er.24h) 300 mg PO DAILY [facility] Last Admin: 05/05/24 08:06 Dose: 300 mg Calcium Carbonate (Calcium Carbonate 750 Mg Tab.Chew) 750 mg PO Q4H PRN PRN Reason: Heartburn Donepezil HCl (Donepezil Hcl 5 Mg Tablet) 5 mg PO BEDTIME [facility] Last Admin: 05/04/24 22:23 Dose: 5 mg Enoxaparin Sodium (Enoxaparin Sodium 40 Mg/0.4 Ml Syringe) 40 mg SUBCUT Q24H [facility] Last Admin: 05/04/24 22:23 Dose: 40 mg Fluticasone/Vilanterol (Fluticasone/Vilanterol 100/25 Blst.W.Dev) 1 puff INHALE RDAILY [facility] Last Admin: 05/05/24 07:34 Dose: 1 puff Sodium Chloride (Ns) 1,000 mls @ 100 mls/hr IVCONT .Q10H [facility] Last Admin: 05/05/24 10:59 Dose: 100 mls/hr Piperacillin Sod/Tazobactam (Sod 4.5 gm/ Sodium Chloride) 100 mls @ 200 mls/hr IV Q6H [facility] Last Infusion: 05/05/24 05:46 Dose: Infused Magnesium Hydroxide (Milk Of Magnesia 30 Ml Oral.Susp) 30 ml PO DAILY PRN PRN Reason: Constipation Melatonin (Melatonin 3 Mg Tablet) 6 mg PO BEDTIME PRN PRN Reason: Insomnia Metoprolol Succinate (Metoprolol Succinate Er 50 Mg Tab.Er.24h) 50 mg PO DAILY [facility]; Protocol Last Admin: 05/05/24 08:06 Dose: 50 mg Morphine Sulfate (Morphine Sulfate 4 Mg/Ml Cartridge) 4 mg IVPUSH Q4H PRN; Protocol PRN Reason: Pain, Severe (Pain Scale 7-10) Last Admin: 05/05/24 08:07 Dose: 4 mg Nicotine (Nicotine 21 Mg Patch.Td24) 21 mg TRANSDERMA DAILY [facility] Last Admin: 05/05/24 08:06 Dose: 21 mg Nitroglycerin (Nitroglycerin 0.4 Mg Tab.Subl) 0.4 mg SUBLINGUAL Q5M PRN PRN Reason: Chest Pain Omeprazole (Omeprazole 40 Mg Capsule.Dr) 40 mg PO BID@0630,1630 [facility] Last Admin: 05/05/24 05:15 Dose: 40 mg Ondansetron HCl (Ondansetron Hcl 4 Mg/2 Ml Vial) 4 mg IVPUSH Q8H PRN PRN Reason: Nausea and Vomiting Last Admin: 05/05/24 08:07 Dose: 4 mg Oxycodone HCl (Oxycodone Hcl Immed Release 5 Mg Tablet) 5 mg PO Q6H PRN PRN Reason: Pain, Severe (Pain Scale 7-10) Last Admin: 05/05/24 05:15 Dose: 5 mg Sodium Chloride (0.9 % Sodium Chloride Flush 3 Ml Syringe) 3 ml IVFLUSH QSHIFT [facility] Last Admin: 05/05/24 08:07 Dose: 3 ml Home Medications ?Medication ?Instructions ?Recorded ?Confirmed ?Last Taken ?Type aspirin 81 mg tablet,delayed 81 mg PO DAILY 08/25/20 05/04/24 Unknown History release metoprolol succinate 50 mg 50 mg PO DAILY 08/25/20 05/04/24 Unknown History tablet,extended release 24 hr oxycodone 10 mg tablet 10 mg PO TID PRN Pain 08/25/20 05/04/24 Unknown History omeprazole 40 mg capsule,delayed 40 mg PO BID 05/07/21 05/04/24 Unknown History release budesonide-formoterol HFA 80 2 puff PO BID 07/12/21 05/04/24 Unknown History mcg-4.5 mcg/actuation aerosol inhaler (Symbicort) bupropion HCl (smoking deter) 150 150 mg PO BID 07/09/23 05/04/24 Unknown History mg tablet,12 hr sustained-release(smoking deterrent) nitroglycerin 0.4 mg sublingual 0.4 mg sublingual Q5M PRN Chest 07/09/23 05/04/24 Unknown History tablet Pain donepezil 5 mg tablet 5 mg PO BEDTIME 05/04/24 05/04/24 Unknown History Exam Height,Weight and Vital Signs: Height 4 ft 11 in Weight 43.3 kg Last Vital Signs Temp 98.7 F 05/05/24 10:50 Pulse 77 05/05/24 10:50 Resp 20 05/05/24 10:50 BP 105/56 L 05/05/24 10:50 Pulse Ox 97 05/05/24 10:50 O2 Del Method Oxymask 05/05/24 10:50 O2 Flow Rate 3 05/05/24 10:50 Oxygen Flow Rate 2 05/04/24 13:40 Pertinent Lab Results Pertinent Lab Results: Laboratory Tests 05/04/24 05/04/24 05/04/24 14:48 15:01 15:30 WBC 15.2 H RBC 5.54 H Hgb 13.9 Hct 43.4 MCV 78.3 L MCH 25.1 L MCHC 32.0 RDW 21.3 H Plt Count 271 D MPV 10.2 Immature Gran % (Auto) 0.6 H Neut % (Auto) 95.3 H Lymph % (Auto) 1.2 L [place] % (Auto) 2.6 Eos % (Auto) 0.1 Baso % (Auto) 0.2 Lymph # (Auto) 0.2 L [place] # (Auto) 0.4 Eos # (Auto) 0.0 Baso # (Auto) 0.0 Abs Immat Gran (auto) 0.09 H Absolute Neuts (auto) 14.4 H Absolute Nucleated RBC 0.000 Nucleated RBC % (auto) 0.0 Neutrophils % (Manual) Band Neutrophils % Lymphocytes % (Manual) Metamyelocytes % Myelocytes % Abs Neuts (Manual) Lymphocytes # (Manual) Metamyelocytes # Myelocytes # Platelet Estimate Plt Morphology Comment RBC Morphology Hypochromasia Microcytosis [place] Cells Smear Tech's Comments VERIFIED Sodium 140 Potassium 3.9 Chloride 102 Carbon Dioxide 27 Anion Gap 15 BUN 19 H Creatinine 0.73 Estim Creat Clear Calc 48.9 Estimated GFR > 60 Random Glucose 95 Lactic Acid Calcium 9.6 Magnesium Total Bilirubin 8.7 H Direct Bilirubin 7.0 H AST 126 H ALT 101 H Alkaline Phosphatase 518 H Troponin I High Sens 2.7 Total Protein 6.2 L Albumin 3.1 L Lipase 422 H Urine Color Dark Yellow Urine Appearance Cloudy Urine pH 8.0 Ur Specific [place] >= 1.030 H Urine Protein 100 (2+) H Urine Glucose (UA) Negative Urine Ketones Negative Urine Blood Negative Urine Nitrite Negative Ur Leukocyte Esterase Trace H Urine RBC 0-2 Urine WBC 0-5 Ur Squamous Epith Cells 6-10 Other Crystals Present Urine Bacteria 1+ Hyaline Casts 0-2 Influenza Type A (PCR) NEGATIVE Influenza Type B (PCR) NEGATIVE RSV RNA Qual (PCR) NEGATIVE SARS-CoV-2 RNA (RT-PCR) NEGATIVE 05/04/24 05/05/24 21:36 06:06 WBC 6.7 RBC 4.70 Hgb 11.4 L Hct 36.9 L MCV 78.5 L MCH 24.3 L MCHC 30.9 L RDW 21.0 H Plt Count 167 D MPV 10.5 Immature Gran % (Auto) Cancelled Neut % (Auto) Cancelled Lymph % (Auto) Cancelled [place] % (Auto) Cancelled Eos % (Auto) Cancelled Baso % (Auto) Cancelled Lymph # (Auto) Cancelled [place] # (Auto) Cancelled Eos # (Auto) Cancelled Baso # (Auto) Cancelled Abs Immat Gran (auto) Cancelled Absolute Neuts (auto) Cancelled Absolute Nucleated RBC 0.000 Nucleated RBC % (auto) 0.0 Neutrophils % (Manual) 88 H Band Neutrophils % 7 H Lymphocytes % (Manual) 2 L Metamyelocytes % 2 Myelocytes % 1 Abs Neuts (Manual) 6.4 Lymphocytes # (Manual) 0.1 L Metamyelocytes # 0.1 Myelocytes # 0.1 Platelet Estimate NORMAL Plt Morphology Comment NORMAL RBC Morphology NOTED Hypochromasia 1+ (5-14) Microcytosis 1+ (5-14) Binta Cells 1+ (0-2) Smear Tech's Comments Sodium 139 Potassium 2.8 L* D Chloride 106 Carbon Dioxide 23 Anion Gap 13 BUN 14 Creatinine 0.56 Estim Creat Clear Calc 55.4 Estimated GFR > 60 Random Glucose 73 Lactic Acid 1.9 Calcium 8.3 L D Magnesium 1.5 L Total Bilirubin 8.0 H Direct Bilirubin 6.6 H AST 69 H ALT 65 H Alkaline Phosphatase 424 H Troponin I High Sens Total Protein 4.7 L Albumin 2.3 L Lipase Urine Color Urine Appearance Urine pH Ur Specific [place] Urine Protein Urine Glucose (UA) Urine Ketones Urine Blood Urine Nitrite Ur Leukocyte Esterase Urine RBC Urine WBC Ur Squamous Epith Cells Other Crystals Urine Bacteria Hyaline Casts Influenza Type A (PCR) Influenza Type B (PCR) RSV RNA Qual (PCR) SARS-CoV-2 RNA (RT-PCR)
--- NOTE | 2024-05-05 12:54 | PM.ANESCN ---
History of Present Illness Consult details Consult date: 05/05/24 Requesting physician: Buffy Diez Narrative: I was asked by Dr. Diez to see Mrs. Davies preop for ERCP. The patient's hx is notable for mod-severe COPD (not on home O2, but not ambulatory at baseline, she uses a wheelchair), and two episodes of ARDS requiring intubation, last in 2019, and CAD. On my exam in her room on the 4th floor, the patient was wearing 3L oxymask with SpO2 98%. According to the bedside nurse, earlier on [place] oxygen, her Sat had dropped below 90%, and on room air, her Sat had been down to 86%. When I saw her, even though her Sat was 98%, she was tachypneic at rest, with mild-mod increased WOB. We took the oxymask off and she dropped to 86% on room air. So the oxymask was replaced. I discussed the situation with the patient, telling her that the ERCP would require general anesthesia with a breathing tube, and that there was a definite chance that we would not be able to take the breathing tube out right away at the end of the procedure, and that she might have to stay intubated in the ICU. In response, she told me in no uncertain terms that she didn't want that. I discussed it with her three times, and each time she told me that she didn't want that. (She has full code status, and I did not explore with her whether if intubation was necessary to save her life, would that be OK with her.) Discussed the above with Dr. Diez and he elected to cancel the procedure, for further d/w IR to see if they could address the patient's problem. [facility] Past Medical History Medical History Nicotine dependence, cigarettes, uncomplicated History of COVID-19 History of ARDS Osteoporosis COPD (chronic obstructive pulmonary disease) Essential hypertension Atherosclerotic cardiovascular disease History of SD (myocardial infarction) (~2016) Coronary artery disease GERD (gastroesophageal reflux disease) Peptic ulcer disease Family History Family History Father No problems noted. Mother Diabetes Brother Heart problem Surgical History Surgical History History of cardiac cath History of heart artery stent (~2015) History of exploratory laparotomy (~2019) Social History Social History Household Members: Significant Other Household Members Other:: 2 Housing: House Do you presently have visiting nurse or other home services: Yes Alcohol intake: never Patient Tobacco Use Status: Current everyday Tobacco user Tobacco use type: Cigarette Cigarette Packs Per Day: 10 Cigarettes Per Day: 200.0 Second Hand Smoke Exposure: Yes service: No Meds Allergies Allergy/AdvReac Type Severity Reaction Status Date / Time No Known Allergies Allergy Verified 05/04/24 13:42 Active Medications: Current Medications Acetaminophen (Acetaminophen 325 Mg Tablet) 650 mg PO Q6H PRN PRN Reason: Pain, Mild (Pain Scale 1-3), fever or headache Albuterol Sulfate (Albuterol Sulfate 90 Mcg 8 Gm Inhaler) 2 puff INHALE Q4H PRN PRN Reason: shortness of breath or wheezing Aspirin (Aspirin Enteric Coated 81 Mg Tablet.Dr) 81 mg PO DAILY [facility] Last Admin: 05/05/24 08:06 Dose: 81 mg Bupropion HCl (Bupropion Hcl Xl 300 Mg Tab.Er.24h) 300 mg PO DAILY [facility] Last Admin: 05/05/24 08:06 Dose: 300 mg Calcium Carbonate (Calcium Carbonate 750 Mg Tab.Chew) 750 mg PO Q4H PRN PRN Reason: Heartburn Donepezil HCl (Donepezil Hcl 5 Mg Tablet) 5 mg PO BEDTIME [facility] Last Admin: 05/04/24 22:23 Dose: 5 mg Enoxaparin Sodium (Enoxaparin Sodium 40 Mg/0.4 Ml Syringe) 40 mg SUBCUT Q24H [facility] Last Admin: 05/04/24 22:23 Dose: 40 mg Fluticasone/Vilanterol (Fluticasone/Vilanterol 100/25 Blst.W.Dev) 1 puff INHALE RDAILY [facility] Last Admin: 05/05/24 07:34 Dose: 1 puff Sodium Chloride (Ns) 1,000 mls @ 100 mls/hr IVCONT .Q10H [facility] Last Admin: 05/05/24 10:59 Dose: 100 mls/hr Piperacillin Sod/Tazobactam (Sod 4.5 gm/ Sodium Chloride) 100 mls @ 200 mls/hr IV Q6H [facility] Last Infusion: 05/05/24 05:46 Dose: Infused Magnesium Hydroxide (Milk Of Magnesia 30 Ml Oral.Susp) 30 ml PO DAILY PRN PRN Reason: Constipation Melatonin (Melatonin 3 Mg Tablet) 6 mg PO BEDTIME PRN PRN Reason: Insomnia Metoprolol Succinate (Metoprolol Succinate Er 50 Mg Tab.Er.24h) 50 mg PO DAILY [facility]; Protocol Last Admin: 05/05/24 08:06 Dose: 50 mg Morphine Sulfate (Morphine Sulfate 4 Mg/Ml Cartridge) 4 mg IVPUSH Q4H PRN; Protocol PRN Reason: Pain, Severe (Pain Scale 7-10) Last Admin: 05/05/24 08:07 Dose: 4 mg Nicotine (Nicotine 21 Mg Patch.Td24) 21 mg TRANSDERMA DAILY [facility] Last Admin: 05/05/24 08:06 Dose: 21 mg Nitroglycerin (Nitroglycerin 0.4 Mg Tab.Subl) 0.4 mg SUBLINGUAL Q5M PRN PRN Reason: Chest Pain Omeprazole (Omeprazole 40 Mg Capsule.Dr) 40 mg PO BID@0630,1630 [facility] Last Admin: 05/05/24 05:15 Dose: 40 mg Ondansetron HCl (Ondansetron Hcl 4 Mg/2 Ml Vial) 4 mg IVPUSH Q8H PRN PRN Reason: Nausea and Vomiting Last Admin: 05/05/24 08:07 Dose: 4 mg Oxycodone HCl (Oxycodone Hcl Immed Release 5 Mg Tablet) 5 mg PO Q6H PRN PRN Reason: Pain, Severe (Pain Scale 7-10) Last Admin: 05/05/24 05:15 Dose: 5 mg Sodium Chloride (0.9 % Sodium Chloride Flush 3 Ml Syringe) 3 ml IVFLUSH QSHIFT [facility] Last Admin: 05/05/24 08:07 Dose: 3 ml Home Medications ?Medication ?Instructions ?Recorded ?Confirmed ?Last Taken ?Type aspirin 81 mg tablet,delayed 81 mg PO DAILY 08/25/20 05/04/24 Unknown History release metoprolol succinate 50 mg 50 mg PO DAILY 08/25/20 05/04/24 Unknown History tablet,extended release 24 hr oxycodone 10 mg tablet 10 mg PO TID PRN Pain 08/25/20 05/04/24 Unknown History omeprazole 40 mg capsule,delayed 40 mg PO BID 05/07/21 05/04/24 Unknown History release budesonide-formoterol HFA 80 2 puff PO BID 07/12/21 05/04/24 Unknown History mcg-4.5 mcg/actuation aerosol inhaler (Symbicort) bupropion HCl (smoking deter) 150 150 mg PO BID 07/09/23 05/04/24 Unknown History mg tablet,12 hr sustained-release(smoking deterrent) nitroglycerin 0.4 mg sublingual 0.4 mg sublingual Q5M PRN Chest 07/09/23 05/04/24 Unknown History tablet Pain donepezil 5 mg tablet 5 mg PO BEDTIME 05/04/24 05/04/24 Unknown History Physical Exam Vital Signs: Vital Signs: Last Vital Signs Temp 98.7 F 05/05/24 10:50 Pulse 77 05/05/24 10:50 Resp 20 05/05/24 10:50 BP 105/56 L 05/05/24 10:50 Pulse Ox 97 05/05/24 10:50 O2 Del Method Oxymask 05/05/24 10:50 O2 Flow Rate 3 05/05/24 10:50 Oxygen Flow Rate 2 05/04/24 13:40 BMI result Body Mass Index 19.3 Results Labs 05/06/24 06:10 05/06/24 06:10 Labs: Abnormal lab results 05/04/24 05/04/24 05/05/24 Range/Units 14:48 15:30 06:06 WBC 15.2 H (4.8-10.8) X10*3/uL RBC 5.54 H (4.20-5.50) X10*6/uL Hgb 11.4 L (12.0-16.0) g/dl Hct 36.9 L (37.0-47.0) % MCV 78.3 L 78.5 L (80.0-98.0) fL MCH 25.1 L 24.3 L (27.0-33.0) pg MCHC 30.9 L (31.0-35.0) g/dl RDW 21.3 H 21.0 H (11.0-16.0) % Immature Gran % (Auto) 0.6 H (0.0-0.4) % Neut % (Auto) 95.3 H (45-73) % Lymph % (Auto) 1.2 L (20-40) % Lymph # (Auto) 0.2 L (1.2-4.9) X10*3/uL Abs Immat Gran (auto) 0.09 H (0.00-0.03) X10*3/uL Absolute Neuts (auto) 14.4 H (2.0-8.3) x10*3/uL Neutrophils % (Manual) 88 H (45-73) % Band Neutrophils % 7 H (3-5) % Lymphocytes % (Manual) 2 L (20-40) % Lymphocytes # (Manual) 0.1 L (1.2-4.9) X10*3/uL Potassium 2.8 L* D (3.3-5.1) mmol/L BUN 19 H (9-16) mg/dL Calcium 8.3 L D (8.4-10.2) mg/dL Magnesium 1.5 L (1.6-2.6) mg/dL Total Bilirubin 8.7 H 8.0 H (0.0-1.0) mg/dL Direct Bilirubin 7.0 H 6.6 H (0.0-0.5) mg/dL AST 126 H 69 H (5-31) U/L ALT 101 H 65 H (0-31) U/L Alkaline Phosphatase 518 H 424 H (39-117) U/L Total Protein 6.2 L 4.7 L (6.5-8.0) g/dL Albumin 3.1 L 2.3 L (3.5-5.0) g/dL Lipase 422 H (8-78) U/L Ur Specific Oriental >= 1.030 H (1.005-1.025) Urine Protein 100 (2+) H (Neg-Trace) mg/dL Ur Leukocyte Esterase Trace H (Negative) Short CBC 05/04/24 05/05/24 Range/Units 14:48 06:06 WBC 15.2 H 6.7 (4.8-10.8) X10*3/uL Hgb 13.9 11.4 L (12.0-16.0) g/dl Hct 43.4 36.9 L (37.0-47.0) % Plt Count 271 D 167 D (160-400) X10*3/uL BMP 05/04/24 05/05/24 14:48 06:06 Sodium 140 139 Potassium 3.9 2.8 L* D Chloride 102 106 Carbon Dioxide 27 23 BUN 19 H 14 Creatinine 0.73 0.56 Calcium 9.6 8.3 L D Liver Function 05/04/24 05/05/24 Range/Units 14:48 06:06 Total Bilirubin 8.7 H 8.0 H (0.0-1.0) mg/dL Direct Bilirubin 7.0 H 6.6 H (0.0-0.5) mg/dL AST 126 H 69 H (5-31) U/L ALT 101 H 65 H (0-31) U/L Alkaline Phosphatase 518 H 424 H (39-117) U/L Albumin 3.1 L 2.3 L (3.5-5.0) g/dL Urine 05/04/24 Range/Units 15:30 Urine Color Dark Yellow Urine Appearance Cloudy Urine pH 8.0 (5.0-9.0) Ur Specific Oriental >= 1.030 H (1.005-1.025) Urine Protein 100 (2+) H (Neg-Trace) mg/dL Urine Glucose (UA) Negative (Negative) mg/dL All other labs normal. Procedures Date of Service Date of Service: 05/06/24
--- NOTE | 2024-05-05 13:13 | P.CDIM_ITS ---
PROVIDER RESPONSE TEXT: To clarify, the appropriate diagnosis supported by the clinical indicators: Malnourished QUERY TEXT: PHYSICIAN'S DOCUMENTATION REQUEST Date of Query: 05/05/2024 11:43 AM EDT Patient Name: Tammy Davies Admit Date: 05/05/2024 Dear Ely Felipe MD, A review of the medical record indicates additional documentation may be needed. Please review below and update the documentation accordingly. Clinical Indicators: Height: 4ft 11in Weight: 37.6kg BMI: 16.7 Other Clinical Notes Supporting Significance of the BMI: Nursing notes Height and Weight: Underweight at 37.6kg If possible, please provide an associated diagnosis related to the abnormal BMI, such as: Underweight Weight loss Malnourished Anorexia Other (explain) Clinically unable to determine (explain) Thank you, Rachael Dudley, CCS, CDIS Use of terms such as suspected, likely, concern for, or probable (associated with a specific diagnosi s that is being evaluated, monitored, or treated as if it exists) are acceptable and can be coded in the inpatient se tting, when documented at the time of discharge. Please use your independent medical judgment in providing your response. THIS QUERY IS PART OF THE PERMANENT MEDICAL RECORD
--- NOTE | 2024-05-05 14:28 | HO.WOUND ---
Wound Consult: Initial 69yr old?female admitted to [facility] on 05/04/24 - See progress notes and H&P for detailed history.? Wound consult placed for sacrum redness - POA.? Patient agreeable to assessment and photo documentation.? Patient reports she has chronic incontinence and that she uses barrier creams at home at times. She reports as far as she is aware she does not have open tissue and there is not pain. She denies open tissue in the past however evidence is noted for scar tissue and irrugular healing - she reports not that she is aware of. Sacrum Etiology: ??MASD (Moisture Associated Skin Damage) Present on Admission Wound Bed: Intact pink blanchable tissue Drainage / Odor: None Edges: irregular [place] wound: ? Intact No Induration, Fluctuance or Warmth noted Pain: denies Goals of Treatment: ? barrier cream to protect from friction and moisture with foam. Recommendations: 1. Turn and Reposition every 2 hours and as needed for patient comfort.? Use pillows or wedges to support off loading positions. 2. Off Load all bony prominences with use of pillows and heel boots if needed.? Apply Preventative foams where needed. ? 3. Monitor for incontinence and moisture control, use barrier creams when needed for prevention and treatment. 4. Provide adequate and supplemental nutrition.? 5. Order low air loss mattress. 6. When applicable maintain blood glucose levels per Providers order. 7. Sacrum and buttock - Off Load Pressure? - Cleanse with PH balance spray or wipes, pat dry. ?Apply foam dressing to aid in off loading and protection from friction. Change every 5 days. May apply barrier cream to exposed skin from incontinence. . Re-consult wound care Nurse for wound deterioration or wound changes.
[2024-05-05] MEDS: Donepezil HCl 5 MG TABLET PO (20:48)
[2024-05-06] VITALS (9 sets, daily range): BP systolic 97–139; BP diastolic 53–70; PULSE 51–76; RESP 16–20; TEMP 36.1–37.2; O2SAT 92–98
[2024-05-06] MEDS: Piperacillin Sodium/Tazobactam 4.5 GM in 0.9 % Sodium Chloride 100 ML IV ×4 (01:01→22:12)
[2024-05-06] MEDS: 0.9 % Sodium Chloride Flush 3 ML SYRINGE IVFLUSH ×2 (01:01→17:22)
[2024-05-06] MEDS: 0.9 % Sodium Chloride 1,000 ML 100 ML IVCONT ×2 (02:33→17:22)
[2024-05-06] MEDS: Morphine Sulfate 4 MG/ML CARTRIDGE IVPUSH ×2 (03:36→19:49)
[2024-05-06] MEDS: Omeprazole 40 MG CAPSULE.DR PO ×2 (06:05→17:22)
[2024-05-06 06:57] LABS: Hematocrit 32.5 % (37.0-47.0); Hemoglobin 10.2 g/dl (12.0-16.0); Mean Corpuscular HGB Conc 31.4 g/dl (31.0-35.0); Mean Corpuscular Volume 79.7 fL (80.0-98.0); Platelet Count 154 X10*3/uL (160-400); Red Blood Count 4.08 X10*6/uL (4.20-5.50); Red Cell Distribution Width 20.7 % (11.0-16.0)
[2024-05-06 07:09] LABS: Alanine Aminotransferase 42 U/L (0-31); Albumin Level 2.1 g/dL (3.5-5.0); Alkaline Phosphatase 334 U/L (39-117); Anion Gap 11 (12-20); Aspartate Amino Transferase 31 U/L (5-31); Bilirubin Total 2.3 mg/dL (0.0-1.0); Blood Urea Nitrogen 15 mg/dL (9-16); Calcium 8.3 mg/dL (8.4-10.2); Carbon Dioxide 24 mmol/L (22-29); Chloride 109 mmol/L (96-108); Creatinine Clr Calc Pharmacy 68.6; Estimated Glomerular Filt Rate > 60; Glucose Random 94 mg/dL (60-115); Magnesium 1.5 mg/dL (1.6-2.6); Potassium 3.2 mmol/L (3.3-5.1); Sodium 141 mmol/L (135-145); Total Protein 4.4 g/dL (6.5-8.0)
[2024-05-06] MEDS: Fluticasone/Vilanterol 100/25 BLST.W.DEV 1 PUFF INHALE (07:16)
[2024-05-06] MEDS: Metoprolol Succinate ER 50 MG TAB.ER.24H PO (08:20)
[2024-05-06] MEDS: Nicotine 21 MG PATCH.TD24 TRANSDERMA (08:21)
[2024-05-06] MEDS: buPROPion HCl XL 300 MG TAB.ER.24H PO (08:21)
[2024-05-06] MEDS: Aspirin Enteric Coated 81 MG TABLET.DR PO (08:21)
[2024-05-06 08:58] LABS: INTERNATIONAL NORM RATIO 1.1 (0.9-1.1); Prothrombin Time 13.1 SEC (11.1-13.3)
--- NOTE | 2024-05-06 12:13 | HO.PM.IMPN ---
Subjective Subjective Date of Service: 05/06/24 Interval History: Essentially no change since admission per patient. No acute issues overnight Review of Systems Denies chest pain Denies shortness of breath Denies nausea vomiting diarrhea Denies fever chills Physical Exam Vital Signs: Vital Signs: Last Vital Signs Temp 98.1 F 05/06/24 11:00 Pulse 75 05/06/24 11:00 Resp 20 05/06/24 11:00 BP 117/57 L 05/06/24 11:00 Pulse Ox 95 05/06/24 11:00 O2 Del Method Oxymask 05/06/24 11:00 O2 Flow Rate 2 05/06/24 11:00 Oxygen Flow Rate 2 05/04/24 13:40 BMI result Body Mass Index 19.3 Const: Other: Awake alert no acute distress Resp: Other: Clear to auscultation bilaterally no rales rhonchi or wheezes Cardio: Other: No S4; positive S1-S2; no S3 murmurs rubs or gallops GI: Other: Soft nontender nondistended normoactive bowel sounds Skin: Other: Jaundice Extrem: Other: No edema bilaterally Objective Data Active Medications Acetaminophen (Acetaminophen 325 Mg Tablet) 650 mg PO Q6H PRN PRN Reason: Pain, Mild (Pain Scale 1-3), fever or headache Albuterol Sulfate (Albuterol Sulfate 90 Mcg 8 Gm Inhaler) 2 puff INHALE Q4H PRN PRN Reason: shortness of breath or wheezing Aspirin (Aspirin Enteric Coated 81 Mg Tablet.) 81 mg PO DAILY [facility] Last Admin: 05/06/24 08:21 Dose: 81 mg Documented By: LIZZY Bupropion HCl (Bupropion Hcl Xl 300 Mg Tab.Er.24h) 300 mg PO DAILY [facility] Last Admin: 05/06/24 08:21 Dose: 300 mg Documented By: LIZZY Calcium Carbonate (Calcium Carbonate 750 Mg Tab.Chew) 750 mg PO Q4H PRN PRN Reason: Heartburn Donepezil HCl (Donepezil Hcl 5 Mg Tablet) 5 mg PO BEDTIME [facility] Last Admin: 05/05/24 20:48 Dose: 5 mg Documented By: MINAL Enoxaparin Sodium (Enoxaparin Sodium 40 Mg/0.4 Ml Syringe) 40 mg SUBCUT Q24H [facility] Last Admin: 05/04/24 22:23 Dose: 40 mg Documented By: KELSEY-RIVBOBO Fluticasone/Vilanterol (Fluticasone/Vilanterol 100/25 Blst.W.Dev) 1 puff INHALE RDAILY [facility] Last Admin: 05/06/24 07:16 Dose: 1 puff Documented By: KENNY Sodium Chloride (Ns) 1,000 mls @ 100 mls/hr IVCONT .Q10H [facility] Last Admin: 05/06/24 02:33 Dose: 100 mls/hr Documented By: MINAL Piperacillin Sod/Tazobactam (Sod 4.5 gm/ Sodium Chloride) 100 mls @ 200 mls/hr IV Q6H [facility] Last Infusion: 05/06/24 06:38 Dose: Infused Documented By: MINAL Magnesium Hydroxide (Milk Of Magnesia 30 Ml Oral.Susp) 30 ml PO DAILY PRN PRN Reason: Constipation Melatonin (Melatonin 3 Mg Tablet) 6 mg PO BEDTIME PRN PRN Reason: Insomnia Metoprolol Succinate (Metoprolol Succinate Er 50 Mg Tab.Er.24h) 50 mg PO DAILY [facility]; Protocol Last Admin: 05/06/24 08:20 Dose: 50 mg Documented By: LIZZY Morphine Sulfate (Morphine Sulfate 4 Mg/Ml Cartridge) 4 mg IVPUSH Q4H PRN; Protocol PRN Reason: Pain, Severe (Pain Scale 7-10) Last Admin: 05/06/24 03:36 Dose: 4 mg Documented By: MINAL Nicotine (Nicotine 21 Mg Patch.Td24) 21 mg TRANSDERMA DAILY [facility] Last Admin: 05/06/24 08:21 Dose: 21 mg Documented By: LIZZY Nitroglycerin (Nitroglycerin 0.4 Mg Tab.Subl) 0.4 mg SUBLINGUAL Q5M PRN PRN Reason: Chest Pain Omeprazole (Omeprazole 40 Mg Capsule.Dr) 40 mg PO BID@0630,1630 [facility] Last Admin: 05/06/24 06:05 Dose: 40 mg Documented By: MINAL Ondansetron HCl (Ondansetron Hcl 4 Mg/2 Ml Vial) 4 mg IVPUSH Q8H PRN PRN Reason: Nausea and Vomiting Last Admin: 05/05/24 08:07 Dose: 4 mg Documented By: CLARISSA Oxycodone HCl (Oxycodone Hcl Immed Release 5 Mg Tablet) 5 mg PO Q6H PRN PRN Reason: Pain, Severe (Pain Scale 7-10) Last Admin: 05/05/24 22:07 Dose: 5 mg Documented By: MINAL Sodium Chloride (0.9 % Sodium Chloride Flush 3 Ml Syringe) 3 ml IVFLUSH QSHIFT [facility] Last Admin: 05/06/24 08:34 Dose: Not Given Documented By: LIZZY Non-Admin Reason: IV Running Labs 05/06/24 06:10 05/06/24 06:10 Labs: Laboratory Results - last 24 hr 05/06/24 05/06/24 06:10 08:33 MCV 79.7 L MCH 25.0 L MCHC 31.4 RDW 20.7 H Plt Count 154 L MPV 11.0 Absolute Nucleated RBC 0.000 Nucleated RBC % (auto) 0.0 PT 13.1 INR 1.1 Anion Gap 11 L Estim Creat Clear Calc 68.6 Estimated GFR > 60 Random Glucose 94 Calcium 8.3 L Magnesium 1.5 L Total Bilirubin 2.3 H AST 31 ALT 42 H Alkaline Phosphatase 334 H Total Protein 4.4 L Albumin 2.1 L Microbiology Microbiology Results: Microbiology 05/04/24 18:35 Blood Culture - Preliminary Blood - Venous No growth after 24 hours. 05/04/24 18:41 Blood Culture - Preliminary Blood - Venous No growth after 24 hours. Assessment and Plan (1) Choledocholithiasis with obstruction: Status: Acute (2) Coronary artery disease: Status: Acute Plan 69yo F with COPD not home O2, HTN, CAD, GERD, tobacco abuse presenting with d2 of epigastric pain and jaundice and found to have obstructing calculus at ampulla; concern for sepsis with leukocytosis + tachypnea. 1.Choledocholithiasis - NPO percutaneous gallbladder drain per IR -Ashley(3) 2. Hypokalemia -repleted -follow renal/divalent 3.COPD -stable and well compensated 4.CAD - ASA + metoprolol succinate Resume Lovenox when appropriate by IR Full code In my clinical judgment, the patient requires continued inpatient hospitalization for the following reasons: ERCP, IV ABX Quality Stroke Does the patient have a stroke diagnosis?: No VTE Prior VTE?: No VTE Risk Level:: Medical - moderate - high VTE Device Contraindication: Treatment Not Indicated VTE Drug Contraindication: N/A - Med Ordered
--- NOTE | 2024-05-06 14:49 | MHC.SHP ---
Pre-Procedural Eval Section A - 24 Hr Update-Section A only Date of Service: 05/06/24 The patient is an INPATIENT: Yes The patient has been examined within 24 hours of the surgical procedure. The History & Physical has been completed within 30 days and I have reviewed it.: Yes Section B - Complete if H&P > 30 days Chief Complaint: choledocolithiasis, cholangitis, sepsis Allergies: Allergies Allergy/AdvReac Type Severity Reaction Status Date / Time No Known Allergies Allergy Verified 05/04/24 13:42 Plan I have reviewed the history and physical and performed a pertinent physical examination on my patient. No changes have occurred unless specified. Time Spent With Patient Time: Total time managing care of this patient today ____ minutes.
[2024-05-06] MEDS: Acetaminophen 325 MG TABLET 650 MG PO (16:48)
[2024-05-06] MEDS: oxyCODONE HCl Immed Release 5 MG TABLET PO (16:49)
[2024-05-06] MEDS: Donepezil HCl 5 MG TABLET PO (19:49)
[2024-05-07] MEDS: oxyCODONE HCl Immed Release 5 MG TABLET PO (01:23)
[2024-05-07 03:30] VITALS: BP 113/58; PULSE 74; RESP 19; TEMP 35.7; O2SAT 94
[2024-05-07] MEDS: Morphine Sulfate 4 MG/ML CARTRIDGE IVPUSH ×2 (03:51→08:59)
[2024-05-07] MEDS: Piperacillin Sodium/Tazobactam 4.5 GM in 0.9 % Sodium Chloride 100 ML IV ×2 (05:33→08:49)
[2024-05-07] MEDS: Omeprazole 40 MG CAPSULE.DR PO (05:33)
[2024-05-07 06:16] LABS: MANUAL DIFF FLAG NO
[2024-05-07 06:26] LABS: Basophils Percent Auto 0.3 % (0-2); Eosinophils Absolute Auto 0.1 X10*3/uL (0.0-0.4); Eosinophils Percent Auto 1.5 % (0-4); Hematocrit 32.6 % (37.0-47.0); Imm Gran Abs Auto 0.03 X10*3/uL (0.00-0.03); Imm Gran Pct Auto 0.5 % (0.0-0.4); Lymphocytes Absolute Auto 0.6 X10*3/uL (1.2-4.9); Lymphocytes Percent Auto 10.3 % (20-40); Mean Corpuscular HGB Conc 30.7 g/dl (31.0-35.0); Mean Corpuscular Hemoglobin 24.3 pg (27.0-33.0); Mean Corpuscular Volume 79.1 fL (80.0-98.0); Mean Platelet Volume 10.3 fL (9.4-12.3); Monocytes Absolute Auto 0.4 X10*3/uL (0.1-1.2); Monocytes Percent Auto 7.4 % (2-11); Neutrophils Absolute Auto 4.8 x10*3/uL (2.0-8.3); Platelet Count 158 X10*3/uL (160-400); Red Blood Count 4.12 X10*6/uL (4.20-5.50); Red Cell Distribution Width 20.4 % (11.0-16.0)
[2024-05-07 06:49] LABS: Alanine Aminotransferase 37 U/L (0-31); Albumin Level 2.2 g/dL (3.5-5.0); Alkaline Phosphatase 299 U/L (39-117); Anion Gap 8 (12-20); Aspartate Amino Transferase 26 U/L (5-31); Bilirubin Total 1.6 mg/dL (0.0-1.0); Blood Urea Nitrogen 15 mg/dL (9-16); Calcium 7.8 mg/dL (8.4-10.2); Carbon Dioxide 29 mmol/L (22-29); Chloride 107 mmol/L (96-108); Creatinine Clr Calc Pharmacy 64.9; Estimated Glomerular Filt Rate > 60; Glucose Fasting 96 mg/dL (60-99); Sodium 141 mmol/L (135-145); Total Protein 4.7 g/dL (6.5-8.0)
[2024-05-07 06:56] LABS: Potassium 2.7 mmol/L (3.3-5.1)
[2024-05-07 07:10] VITALS: BP 109/59; PULSE 57; RESP 20; TEMP 36.8; O2SAT 95
[2024-05-07] MEDS: Fluticasone/Vilanterol 100/25 BLST.W.DEV 1 PUFF INHALE (08:08)
[2024-05-07] MEDS: Nicotine 21 MG PATCH.TD24 TRANSDERMA (08:55)
[2024-05-07] MEDS: buPROPion HCl XL 300 MG TAB.ER.24H PO (08:56)
[2024-05-07] MEDS: Metoprolol Succinate ER 50 MG TAB.ER.24H PO (08:56)
[2024-05-07] MEDS: Aspirin Enteric Coated 81 MG TABLET.DR PO (08:56)
[2024-05-07] MEDS: 0.9 % Sodium Chloride Flush 3 ML SYRINGE IVFLUSH (09:01)
--- NOTE | 2024-05-07 10:25 | MHC.CM.PN ---
Per ROUNDS discussion, Patient has a Biliary Drain and is not yet medically cleared for dc. Home is the goal and CM will continue to follow.
--- NOTE | 2024-05-07 10:35 | P.PNGS_ITS ---
Subjective Subjective Date of Service: 05/07/24 Interval history: Reports soreness at biliary drain site. No nausea or vomiting. No signigicant events overnight Physical Exam 2 Vital Signs: Vital Signs: Last Vital Signs Temp 98.3 F 05/07/24 07:10 Pulse 57 05/07/24 07:10 Resp 20 05/07/24 07:10 BP 109/59 L 05/07/24 07:10 Pulse Ox 95 05/07/24 07:10 O2 Del Method Nasal Cannula 05/07/24 07:10 O2 Flow Rate 3 05/07/24 07:10 Oxygen Flow Rate 2 05/04/24 13:40 BMI result Body Mass Index 19.3 Const: General: no acute distress GI: Other: soft, flat, appropriately ttp at right drain site. Right biliary draining with dark bile and some debri present Skin: Other: Dressing c/d/i Objective Data Active Medications Acetaminophen (Acetaminophen 325 Mg Tablet) 650 mg PO Q6H PRN PRN Reason: Pain, Mild (Pain Scale 1-3), fever or headache Last Admin: 05/06/24 16:48 Dose: 650 mg Documented By: CHERI Albuterol Sulfate (Albuterol Sulfate 90 Mcg 8 Gm Inhaler) 2 puff INHALE Q4H PRN PRN Reason: shortness of breath or wheezing Aspirin (Aspirin Enteric Coated 81 Mg Tablet.Dr) 81 mg PO DAILY [facility] Last Admin: 05/07/24 08:56 Dose: 81 mg Documented By: LIZZY Bupropion HCl (Bupropion Hcl Xl 300 Mg Tab.Er.24h) 300 mg PO DAILY [facility] Last Admin: 05/07/24 08:56 Dose: 300 mg Documented By: LIZZY Calcium Carbonate (Calcium Carbonate 750 Mg Tab.Chew) 750 mg PO Q4H PRN PRN Reason: Heartburn Donepezil HCl (Donepezil Hcl 5 Mg Tablet) 5 mg PO BEDTIME [facility] Last Admin: 05/06/24 19:49 Dose: 5 mg Documented By: SARAH Enoxaparin Sodium (Enoxaparin Sodium 40 Mg/0.4 Ml Syringe) 40 mg SUBCUT Q24H [facility] Last Admin: 05/04/24 22:23 Dose: 40 mg Documented By: KELSEY-EDGAR Fluticasone/Vilanterol (Fluticasone/Vilanterol 100/25 Blst.W.Dev) 1 puff INHALE RDAILY [facility] Last Admin: 05/07/24 08:08 Dose: 1 puff Documented By: EVELIA Piperacillin Sod/Tazobactam (Sod 4.5 gm/ Sodium Chloride) 100 mls @ 200 mls/hr IV Q6H [facility] Last Admin: 05/07/24 08:49 Dose: 200 mls/hr Documented By: LIZZY Magnesium Hydroxide (Milk Of Magnesia 30 Ml Oral.Susp) 30 ml PO DAILY PRN PRN Reason: Constipation Melatonin (Melatonin 3 Mg Tablet) 6 mg PO BEDTIME PRN PRN Reason: Insomnia Metoprolol Succinate (Metoprolol Succinate Er 50 Mg Tab.Er.24h) 50 mg PO DAILY [facility]; Protocol Last Admin: 05/07/24 08:56 Dose: 50 mg Documented By: LIZZY Morphine Sulfate (Morphine Sulfate 4 Mg/Ml Cartridge) 4 mg IVPUSH Q4H PRN; Protocol PRN Reason: Pain, Severe (Pain Scale 7-10) Last Admin: 05/07/24 08:59 Dose: 4 mg Documented By: LIZZY Nicotine (Nicotine 21 Mg Patch.Td24) 21 mg TRANSDERMA DAILY [facility] Last Admin: 05/07/24 08:55 Dose: 21 mg Documented By: LIZZY Nitroglycerin (Nitroglycerin 0.4 Mg Tab.Subl) 0.4 mg SUBLINGUAL Q5M PRN PRN Reason: Chest Pain Omeprazole (Omeprazole 40 Mg Capsule.Dr) 40 mg PO BID@0630,1630 [facility] Last Admin: 05/07/24 05:33 Dose: 40 mg Documented By: SARAH Ondansetron HCl (Ondansetron Hcl 4 Mg/2 Ml Vial) 4 mg IVPUSH Q8H PRN PRN Reason: Nausea and Vomiting Last Admin: 05/05/24 08:07 Dose: 4 mg Documented By: CLARISSA Oxycodone HCl (Oxycodone Hcl Immed Release 5 Mg Tablet) 5 mg PO Q6H PRN PRN Reason: Pain, Severe (Pain Scale 7-10) Last Admin: 05/07/24 01:23 Dose: 5 mg Documented By: HO.KUDRYAD Potassium Chloride (Potassium Chloride Packet 20 Meq Packet) 40 meq PO BID [facility] Stop: 05/07/24 21:01 Last Admin: 05/07/24 09:06 Dose: Not Given Documented By: LIZZY Non-Admin Reason: Patient Refused Sodium Chloride (0.9 % Sodium Chloride Flush 3 Ml Syringe) 3 ml IVFLUSH QSHIFT [facility] Last Admin: 05/07/24 09:01 Dose: 3 ml Documented By: LIZZY Labs 05/07/24 05:32 05/07/24 05:32 Labs: Laboratory Results - last 24 hr 05/07/24 05:32 MCV 79.1 L MCH 24.3 L MCHC 30.7 L RDW 20.4 H Plt Count 158 L MPV 10.3 Immature Gran % (Auto) 0.5 H Neut % (Auto) 80.0 H Lymph % (Auto) 10.3 L [place] % (Auto) 7.4 Eos % (Auto) 1.5 Baso % (Auto) 0.3 Lymph # (Auto) 0.6 L [place] # (Auto) 0.4 Eos # (Auto) 0.1 Baso # (Auto) 0.0 Abs Immat Gran (auto) 0.03 Absolute Neuts (auto) 4.8 Absolute Nucleated RBC 0.000 Nucleated RBC % (auto) 0.0 Anion Gap 8 L Estim Creat Clear Calc 64.9 Estimated GFR > 60 Fasting Glucose 96 Calcium 7.8 L D Total Bilirubin 1.6 H AST 26 ALT 37 H Alkaline Phosphatase 299 H Total Protein 4.7 L Albumin 2.2 L Microbiology Microbiology Results: Microbiology 05/04/24 18:35 Blood Culture - Preliminary Blood - Venous No growth after 48 hours. 05/04/24 18:41 Blood Culture - Preliminary Blood - Venous No growth after 48 hours. Procedures Date of Service Date of Service: 05/07/24 Progress Note: A&P Assessment and plan (1) Choledocholithiasis with obstruction: Status: Acute Plan 69 y/o female with biliary obstruction due to obstructing choledocholithiasis s/p right internal/external biliary drainage on 05/06 -Bilirubins improving -Bile still appears concentrated, will keep to gravity drainage for now -Discussed custodial plan with patient. She can have the biliary drain for the rest of her life with q 3 month maintenance changes. The other option is biliary endoscopy and stone removal, however, this requires general anesthesia. Patient understands she is high risk for general anesthesia and risk for prolonged intubation post procedure from her COPD, as she declined ERCP for this reason. She states she wishes to proceed with biliary endoscopy as she does not want the drain for the rest of her life. Will arrange this as an outpatient procedure in the upcoming weeks. -D/W Dr. Guerrero Time Spent With Patient Time: Total time managing care of this patient today __30__ minutes. Quality Stroke Does the patient have a stroke diagnosis?: No VTE Prior VTE?: No VTE Risk Level:: Medical - moderate - high VTE Device Contraindication: Treatment Not Indicated VTE Drug Contraindication: N/A - Med Ordered
[2024-05-07 11:06] VITALS: BP 121/63; PULSE 79; RESP 18; TEMP 36.8; O2SAT 97
--- NOTE | 2024-05-07 13:57 | PM.DS ---
DS: Providers Provider Date of Service: 05/07/24 Date of admission: 05/04/24 20:05 Date of discharge: 05/07/24 Primary care physician: Unknown Physician Consults: 05/04/24 20:05 Consult to Gastroenterology Routine Consulting Provider: Buffy Diez Reason for consultation: choledocolithiasis, cholangitis 05/04/24 22:51 Consult to Wound Care Routine Reason for consultation: coccyx red DS: Diagnosis Discharge Diagnosis (1) Choledocholithiasis with obstruction: Status: Acute DS: Summary Hospital Course Hospital Course: 69-year-old female with history of COPD not on home O2, hypertension, coronary artery disease, GERD, peptic ulcer disease, osteoporosis who is a current 1 pack per day cigarette smoker presented to the ED earlier today for evaluation of epigastric pain that started 2 days ago and has been worsening. Denies any radiation of the pain though does reports she felt some chest pain earlier today as well. Denies any fevers but has had chills. No nausea, vomiting, diarrhea, melena, hematochezia. She has experienced anorexia but has been tolerating small sips of clear liquids. Her reported he did note jaundice earlier today prompting representation to the ED. since arrival, has been tachypneic but afebrile and no hypotension. She has a leukocytosis of 15.2. Renal function and electrolyte levels normal. Total bilirubin 8.7, direct bilirubin 7.0, AST 126, ALT 101, alkaline phosphatase 518. Troponin 2.7. Lipase 422 urinalysis unremarkable. Negative for COVID-19, RSV, influenza. CTA of the chest obtained due to reported chest pain which was negative for PE but shows underlying emphysema and inspissated material within the small airways with biapical thickening consistent with both inflammatory scarring. CT of the abdomen/pelvis showed marked intra and extrahepatic biliary dilatation with choledocholithiasis as well as an obstructing calculus at the ampulla. EKG shows NSR, rate 82 with nonspecific T-wave abnormalities in V1, V4 but no ST or depressions. In the ED has received multiple doses of IV morphine, IV Zosyn, oxycodone, and IV LR. Hospital course Admitted to general medical floor and started on IV Zosyn. Seen by GI who felt given patient's advanced COPD and tobacco history she was a high risk for ERCP. Interventional Radiology was consulted. On 05/06/2024 patient underwent percutaneous drainage of her gallbladder without issue. Overnight she was well controlled as far as her pain and this a.m. wishes discharge. She was seen in consultation by Interventional who felt she could be sent home to gravity drainage and followed up as an outpatient. Patient is adamant that she wishes to go home today. After examined discussion I feel patient is medically appropriate to do same. She will be sent home on a course of Augmentin and given oxycodone 10 mg 15. She will follow-up with PCP and interventional as scheduled Time Attestation Discharge Coordination Time (in mins): 35 Quality: Safe Use of Opioids Does Pt have an Active Cancer Diagnosis on the Problem List?: No Quality: Stroke Does the patient have a stroke diagnosis?: No Physical Exam Vital Signs: Vital Signs: Last Vital Signs Temp 98.2 F 05/07/24 11:06 Pulse 79 05/07/24 11:06 Resp 18 05/07/24 11:06 BP 121/63 05/07/24 11:06 Pulse Ox 97 05/07/24 11:06 O2 Del Method Nasal Cannula 05/07/24 11:06 O2 Flow Rate 2 05/07/24 11:06 Oxygen Flow Rate 2 05/04/24 13:40 BMI result Body Mass Index 19.3 Const: Other: Awake alert no acute distress Resp: Other: Clear to auscultation bilaterally no rales rhonchi or wheezes Cardio: Other: No S4; positive S1-S2; no S3 murmurs rubs or gallops GI: Other: Soft nontender nondistended normoactive bowel sounds.Right biliary draining with dark bile and some debri present Skin: Other: Jaundice Extrem: Other: No edema bilaterally DS: Data Data Completed and Pending Labs on day of discharge: Laboratory Results - last 24 hr 05/07/24 05:32 WBC 6.0 RBC 4.12 L Hgb 10.0 L Hct 32.6 L MCV 79.1 L MCH 24.3 L MCHC 30.7 L RDW 20.4 H Plt Count 158 L MPV 10.3 Immature Gran % (Auto) 0.5 H Neut % (Auto) 80.0 H Lymph % (Auto) 10.3 L [place] % (Auto) 7.4 Eos % (Auto) 1.5 Baso % (Auto) 0.3 Lymph # (Auto) 0.6 L [place] # (Auto) 0.4 Eos # (Auto) 0.1 Baso # (Auto) 0.0 Abs Immat Gran (auto) 0.03 Absolute Neuts (auto) 4.8 Absolute Nucleated RBC 0.000 Nucleated RBC % (auto) 0.0 Sodium 141 Potassium 2.7 L* Chloride 107 Carbon Dioxide 29 Anion Gap 8 L BUN 15 Creatinine 0.55 Estim Creat Clear Calc 64.9 Estimated GFR > 60 Fasting Glucose 96 Calcium 7.8 L D Total Bilirubin 1.6 H AST 26 ALT 37 H Alkaline Phosphatase 299 H Total Protein 4.7 L Albumin 2.2 L Preliminary micro results at discharge 05/04/24 18:35 Blood Culture - Preliminary Blood - Venous No growth after 48 hours. 05/04/24 18:41 Blood Culture - Preliminary Blood - Venous No growth after 48 hours. Discharge Plan Discharge Anticipated Discharge Date/Time: 05/07/24 13:50 Patient Disposition: Home Health Service Discharge Diagnosis: Choledocholithiasis with obstruction Referrals: Veronica HARRIS [Outside] - 1 Week Physician,Cm J [Primary Care Provider] - 1 Week Discharge Medications: New amoxicillin-pot clavulanate 875-125 mg tablet 1 tab PO BID Qty: 20 0RF oxycodone 10 mg tablet 10 mg PO Q6H MDD 30 PRN (Reason: pain (scale score 4-6)) Qty: 15 0RF Rx Instructions: Partial Fill upon patient request. Continued albuterol sulfate 90 mcg/actuation HFA aerosol inhaler 2 puff PO Q4-6H PRN (Reason: shortness of breath or wheezing) Qty: 8.5 5RF donepezil 5 mg tablet 5 mg PO BEDTIME nitroglycerin 0.4 mg tablet, sublingual 0.4 mg sublingual Q5M PRN (Reason: Chest Pain) bupropion HCl (smoking deter) 150 mg tablet extended release 12 hr 150 mg PO BID omeprazole 40 mg capsule,delayed release(DR/EC) 40 mg PO BID budesonide-formoterol [Symbicort] 80-4.5 mcg/actuation HFA aerosol inhaler 2 puff PO BID aspirin 81 mg tablet,delayed release (DR/EC) 81 mg PO DAILY oxycodone 10 mg tablet 10 mg PO TID PRN (Reason: Pain) metoprolol succinate 50 mg tablet extended release 24 hr 50 mg PO DAILY Discharge Orders: Discharge Order (Routine); Ordered 05/07/24 Ordered By: Dashawn Riddle Diet: Advance to usual diet Activity on Discharge: As tolerated Stand Alone Forms: Patient Portal Discharge page Print Language: American Care Plan Goals: Resume all medicines as taken prior to hospitalization Health Concerns: Interventional radiology will follow up with you to arrange further care of your drainage tube. VNA will visit at home to assist with dressing changes Plan of Treatment: Take Augmentin twice daily for 10 days and use oxycodone as needed for pain Assessment: See discharge summary
--- NOTE | 2024-05-07 14:01 | MHC.CM.PN ---
Patient has been medically cleared for dc to home today, with services. A referral was made to [facility], who has been made aware of today's dc.Last IMM addressed on 05/05/2024.
--- NOTE | 2024-05-07 14:02 | W.MHC.F2F ---
Service Date Service Date: 05/07/24 Encounter Date of encounter: 05/07/24 Encounter: Acute hospitalization Reasons for Services Signs and symptoms assessed: Manage right biliary drainage tube and monitor patient's overall well being Reason for detention: wound care, postoperative assessment and/or care, medication management and teach disease management Homebound: Leaving the home is medically contraindicated at this time without the asist of a device and/or another person due th the listed conditions above and below. Reason homebound: unsteady gait / fall risk and unable to drive Certification: Based on the above findings, I certify that this patient is confined to the home and needs intermittent detention care, physical therapy and/or speech therapy, or continues to need occupational therapy. The patient is under my care, and I have initiated the establishment of the plan of care. The patient will be followed by a physician who will periodically review the plan of care. Time Spent With Patient Time: Total time managing care of this patient today ____ minutes.
--- NOTE | 2024-05-07 14:34 | MHC.CM.PN ---
Per MD, Patient will dc home tomorrow, rather than today; [facility] change.CM will follow.
--- NOTE | 2024-05-18 18:52 | P.CDIM_ITS ---
PROVIDER RESPONSE TEXT: To clarify, the appropriate diagnosis supported by the clinical indicators: Sepsis: suspected QUERY TEXT: PHYSICIAN'S DOCUMENTATION REQUEST Date of Query: 05/12/2024 09:55 AM EDT Patient Name: Tammy Davies Admit Date: 05/05/2024 Dear Dashawn Riddle DO, RETROSPECTIVE QUERY A review of the medical record indicates additional documentation may be needed. Please review below and update the documentation accordingly. Clinical indicators: H&P 05/04 - Obstructing calculus at ampulla, concern for Sepsis with leukocytosis 15 and tachypnea 35, HR 120. Progress notes within the Plan: Choledocolithiasis and possible cholangitis with Sepsis. IV Abx Sepsis Systemic manifestations of infection, with 2 or more SIRS criteria which include: Fever > 100.4?F or hypothermia < 96.8?F Leukocytosis - WBC > 12,000 or leukopenia, WBC < 4,000, or > 10% bands Tachycardia- > 90 beats/minute Tachypnea- RR > 20 breaths/minute or PaCO2 < 32mmHg Based on the above information and the recognized standard for sepsis, could you please clarify if th is diagnoses is still accurate and reflective of the patient's condition to ensure quality of the medical record. Sepsis possible, probable, suspected, resolved, etc. After study (the condition) has been ruled out Other (explain) Clinically unable to determine (explain) Thank you, Rachael Dudley, CCS, CDIS Use of terms such as suspected, likely, concern for, or probable (associated with a specific diagnosi s that is being evaluated, monitored, or treated as if it exists) are acceptable and can be coded in the inpatient se tting, when documented at the time of discharge. Please use your independent medical judgment in providing your response. THIS QUERY IS PART OF THE PERMANENT MEDICAL RECORD
== END 2024-05-07 15:38 | disposition home health service (06) | DRG 872 ==
LOC: HO.ED 15:23 → HO.EDOVER 20:13 → HO.IMC 20:31
PROVIDERS: Family Medicine; Physician Assistant Surgical; Radiology Vascular & Interventional Radiology; Admitting Provider Physician Assistant; Emergency Provider Emergency Medicine; PCP General Practice; Visit Provider Hospitalist
PROC: 0F9530Z Drainage of Right Hepatic Duct with Drainage Device, Percutaneous Approach (ICD-10-PCS; principal; 2024-05-06 15:00)
DX: A41.9 Sepsis, unspecified organism (principal); E46 Unspecified protein-calorie malnutrition; Z68.1 Body mass index [BMI] 19.9 or less, adult; K80.31 Calculus of bile duct with cholangitis, unspecified, with obstruction; E87.6 Hypokalemia; J44.9 Chronic obstructive pulmonary disease, unspecified; K21.9 Gastro-esophageal reflux disease without esophagitis; I25.10 Atherosclerotic heart disease of native coronary artery without angina pectoris; Z95.5 Presence of coronary angioplasty implant and graft; F17.210 Nicotine dependence, cigarettes, uncomplicated; Z20.822 Contact with and (suspected) exposure to COVID-19; Z79.82 Long term (current) use of aspirin; Z79.899 Other long term (current) drug therapy
CPT/HCPCS: 0241U; 36415; 47533; 71045; 71275; 74177; 80048; 80053; 80076; 81001; 83605; 83690; 83735; 84484; 85007; 85025; 85027; 85610; 87040; 93005; 94640; 99152; 99153; 99285; C1729; C1769; C1894; J1610; J1650; J2270; J2405; J2543; J2704; J3010; J3480; J7120; Q9967

== ENCOUNTER → 2024-05-04 13:39 | Outpatient (BNV) | payer MEDICARE, MEDICAID, SELFPAY | PROVIDERS: Admitting Provider Physician Assistant; Emergency Provider Emergency Medicine; Visit Provider Internal Medicine Cardiovascular Disease | DX: R94.31 Abnormal electrocardiogram [ECG] [EKG] (principal) | CPT/HCPCS: 93010 ==

== ENCOUNTER 2024-05-04 20:05 | Outpatient (BNV) | payer MEDICARE, MEDICAID, SELFPAY | END 2024-05-06 14:30 | PROVIDERS: Admitting Provider Physician Assistant; Emergency Provider Emergency Medicine; Visit Provider Radiology Vascular & Interventional Radiology | DX: K80.51 Calculus of bile duct without cholangitis or cholecystitis with obstruction (principal) | CPT/HCPCS: 47533; 99152 ==

== ENCOUNTER → 2024-05-04 20:05 | Outpatient (BNV) | payer MEDICARE, MEDICAID, SELFPAY | PROVIDERS: Admitting Provider Physician Assistant; Emergency Provider Emergency Medicine; Visit Provider Physician Assistant Surgical | DX: K80.51 Calculus of bile duct without cholangitis or cholecystitis with obstruction (principal) | CPT/HCPCS: 99232 ==

== ENCOUNTER → 2024-05-04 20:05 | Outpatient (BNV) | payer MEDICARE, MEDICAID, SELFPAY | PROVIDERS: Admitting Provider Physician Assistant; Emergency Provider Emergency Medicine; Visit Provider Physician Assistant | DX: K80.51 Calculus of bile duct without cholangitis or cholecystitis with obstruction (principal); I25.10 Atherosclerotic heart disease of native coronary artery without angina pectoris | CPT/HCPCS: 99223; 99232; 99239; G0180 ==

== ENCOUNTER → 2024-05-04 20:05 | Outpatient (BNV) | payer MEDICARE, MEDICAID, SELFPAY | PROVIDERS: Admitting Provider Physician Assistant; Emergency Provider Emergency Medicine; Visit Provider Internal Medicine Gastroenterology | DX: K80.51 Calculus of bile duct without cholangitis or cholecystitis with obstruction (principal) | CPT/HCPCS: 99223 ==

== ENCOUNTER 2024-07-15 15:38 | Outpatient (AMB) | payer MEDICARE, MEDICAID, SELFPAY ==
[2024-07-15 15:43] VITALS: BP 120/60; PULSE 99; O2SAT 92; BMI 15.4
--- NOTE | 2024-07-15 15:43 | A.OFFVIS_ITS ---
Vital Signs 07/15/24 15:43 Height 4 ft 11 in Weight 76 lb 0.952 oz BMI 15.4 BP 120/60 Blood Pressure Location Lt brachial Position Sitting Pulse 99 Pulse Source Pulse Oximeter Pulse Oximetry (%) 92 Oxygen Delivery Method Room Air Intake Visit Reasons: Pre Op/Lung Nodule/COPD Intake Note: pt is here for follow up and states she always coughs, some short of breath with stairs/walking. pre-op not scheduled yet. Buffing Machine Tender Required: No Allergies No Known Allergies Allergy (Verified 07/15/24 15:58) Medication List - Last Reconciled 07/15/24 by Flor Cleary MD albuterol sulfate 90 mcg/actuation 2 puffs PO Q4-6H PRN aspirin 81 mg PO DAILY atorvastatin 80 mg PO DAILY bupropion HCl (smoking deter) 150 mg PO BID donepezil 5 mg PO BEDTIME metoprolol succinate ER 50 mg PO DAILY nitroglycerin 0.4 mg sublingual Q5M PRN omeprazole 40 mg PO BID oxycodone 10 mg PO Q6H PRN MDD 30 Do you need a note to return to daycare/school/sports/work: No HPI HPI Pre Op/Lung Nodule/COPD: Details: This 69 years old female was last seen by me in 2020. Today she comes for evaluation because she will be undergoing surgical procedure/ cholecystectomy. She continues to smoke 1 pack of cigarettes a day. Complains of mild intermittent cough. Does get short of breath when she walks up hill or climbs stairs but she denies having any attacks of wheezing or shortness of breath at rest. Patient has cognitive impairment, and her has to correct her statements. She claims that she does not have any lung problem at this time. She is supposed to be having annual lung CT scan, for screening. Last CT scan of the chest on 06/17/2023, showed pulmonary emphysema and multiple micro nodules, but non with any significant size. [facility] Medical History Admission for biliary drainage tube placement Nicotine dependence, cigarettes, uncomplicated History of COVID-19 History of ARDS Osteoporosis COPD (chronic obstructive pulmonary disease) Essential hypertension Atherosclerotic cardiovascular disease History of AK (myocardial infarction) (~2016) Coronary artery disease GERD (gastroesophageal reflux disease) Peptic ulcer disease Surgical History History of heart artery stent (~2015) History of exploratory laparotomy (~2019) Family History Father No problems noted. Mother Diabetes Brother Heart problem Social History Household Members: Significant Other Household Members Other:: 2 Housing: House Housing Other:: 2 family hopuse Do you presently have visiting nurse or other home services: Yes (VNA) Alcohol intake: never Patient Tobacco Use Status: Current everyday Tobacco user Tobacco use type: Cigarette Cigarette Packs Per Day: 1 Cigarettes Per Day: 20.0 Years Smoked: 54 Second Hand Smoke Exposure: Yes Advance Directives Date on File: 11/27/16 service: No Review of Systems Const All systems reviewed & are unremarkable except as noted in HPI and below Physical Exam Vital Signs: Last Vital Signs Pulse 99 07/15/24 15:43 BP 120/60 07/15/24 15:43 Pulse Ox 92 07/15/24 15:43 Oxygen Delivery Method Room Air 07/15/24 15:43 BMI result Body Mass Index 15.4 She is of a thin build, skinny , not in any distress. Const General: comfortable, no acute distress, alert and awake; No healthy appearing (Except for being very skinny.) Orientation/consciousness: patient oriented x3 HEENT Head: Yes normal to inspection General nose exam: No nasal polyps present and No nasal discharge present Face and sinus: Yes sinuses nontender Mouth: oropharynx normal Throat: Yes posterior oropharynx normal Eyes General: appearance normal, both eyes and all related structures Neck Neck: Yes normal visual inspection, Yes no lymphadenopathy, Yes trachea midline and Yes no JVD Thyroid: Thyroid normal Chest Chest palpation & inspection: normal inspection of the chest, normal palpation of entire chest wall and no tenderness Resp Other: Percussion note is hyper-resonant, breath sounds are distant with prolonged expiratory phase but equal on both sides. No wheezes or rhonchi are heard. No crepitations. Cardio Palpation: normal PMI Rate: regular rate Rhythm: regular rhythm Heart sounds: no gallops and no murmurs Peripheral pulses: Peripheral pulses 2+ throughout GI Other: Has biliary drainage tube in place . Palpation (GI): Soft to palpation, nontender, No hepatosplenomegaly present and no masses Auscultation: normal bowel sounds Back/Spine/Pelvis Thoracic/Lumbar Spine: thoracic and lumbar spine normal to inspection Skin General skin exam: no rashes or lesions noted Neuro General: patient oriented x3 and no focal motor deficits Cranial nerves: Yes CN's II-XII intact bilaterally Extrem General: Yes normal to inspection, Yes no clubbing, cyanosis or edema and Yes no calf tenderness Psych Appearance: grossly normal Speech and movement: Normal speech and movement present Results Reviewed Results Reviewed: SPIROMETRY IN THE OFFICE DONE TODAY SHOWS MILD OBSTRUCTIVE AIRWAY DISORDER, IT REMAINS UNCHANGED WHEN COMPARED TO THE RESULTS ON 07/12/2021 Assessment & Plan Assessment & Plan (1) Smoking: Comment: THIS PATIENT IS [employer] SMO[employer], CURRENTLY SMOKING 1 PACK OF CIGARETTES A DAY. NOT MOTIVATED TO QUIT, SAY IS THIS IS THE ONLY PLEASURE THAT SHE HAS IN HER LIFE. Code(s): F17.200 - Nicotine dependence, unspecified, uncomplicated Category: Social Hx Plan: I DID TALKED TO HER ABOUT COPD AND BEING AGGRAVATED BY SMOKING, BUT SHE IS NOT READY TO QUIT I DID ADVISE THAT SHE CAN AT LEAST CUT IT DOWN TO HALF PACK A DAY . SHE SAID SHE WILL TRY. I DID ENCOURAGE HER TO PARTICIPATE IN ANNUAL LUNG SCREENING PROGRAM. (2) COPD (chronic obstructive pulmonary disease): Comment: SHE HAS MILD OBSTRUCTIVE AIRWAY DISORDER, ACTUALLY SOMEWHAT LESS THAN EXPECTED. DENIES ANY SIGNIFICANT SYMPTOMS FROM IT AT PRESENT. SHE IS NOT USING SYMBICORT. Code(s): J44.9 - Chronic obstructive pulmonary disease, unspecified Category: Medical Plan: ALBUTEROL HFA 2 PUFFS Q 4-6 HOURS P.R.N. IF SHE HAS SUSTAINED COUGH OR WHEEZING. Plan * PULMONARY CLEARANCE FOR GENERAL ANESTHESIA AND SURGERY THE PATIENT IS A SMOKER AND DOES HAVE MILD OBSTRUCTIVE AIRWAY DISORDER BUT SHE IS STABLE AND HAS MINIMAL SYMPTOMS AT THIS TIME. THERE IS NO CONTRAINDICATION TO UNDERGOING SURGERY UNDER GENERAL ANESTHESIA. POSTOPERATIVELY SHE WOULD NEED TREATMENT WITH ALBUTEROL SOLUTION IN THE NEBULIZER Q 6 HOURS P.R.N. FOR RESPIRATORY DISTRESS.. TO AVOID NICOTINE WITHDRAWAL SYMPTOMS, SHE MAY BE TREATED WITH NICOTINE PATCH 20 MG A DAY. Coding Level of Care Code Est Pt Level 4 (97743) Diagnoses Smoking F17.200 COPD (chronic obstructive pulmonary disease) J44.9
== END 2024-07-15 16:10 | disposition home or self-care (01) ==
PROVIDERS: PCP General Practice; Visit Provider Internal Medicine
DX: F17.200 Nicotine dependence, unspecified, uncomplicated (principal); J44.9 Chronic obstructive pulmonary disease, unspecified
CPT/HCPCS: 99214

== ENCOUNTER → 2024-07-15 15:38 | Outpatient (BNVA) | payer MEDICARE, MEDICAID, SELFPAY | PROVIDERS: PCP General Practice; Visit Provider Internal Medicine | DX: J44.9 Chronic obstructive pulmonary disease, unspecified (principal); R91.8 Other nonspecific abnormal finding of lung field; F17.210 Nicotine dependence, cigarettes, uncomplicated | CPT/HCPCS: 99212 ==

== ENCOUNTER 2024-07-27 13:24 | Inpatient (IN) | payer MEDICARE, MEDICAID, SELFPAY ==
--- NOTE | ~2024-07-27 | IR_ITS ---
IR biliary drain replacement/size History: Biliary obstruction due to choledocholithiasis status post right internal/external biliary drain. Transverse, partially dislodged and there is leaking around the drain. Procedure: Fluoroscopic replacement and upsize of right internal/external biliary drain MEDICATIONS: - Fentanyl 75 mcg, Lidocaine 1% 10 mL SQ -Antibiotics: None -For additional details, please see nursing flowsheet. Complications: None. Estimated blood loss: <5 ml Specimens: None. Contrast: 20 mL Omnipaque 300 Risks and benefits and possible complications were discussed with the patient and consent form was signed. The abdomen was prepped and draped in usual sterile fashion. The catheter was cut, and a 0.035 Glidewire was advanced through the catheter advanced into the duodenum. The catheter was removed over the wire. The Glidewire was exchanged for an Amplatz wire. [id number], a new 10 Brazilian biliary drain was advanced with the tip coiled in the duodenum. A cholangiogram was performed, demonstrating proper position of drain, as well as the presence of the large common bile duct stone. A permanent fluoroscopic image of the abdomen was saved and sent to PACS.The biliary drain was secured to the skin with a 2-0 nylon suture. A dry sterile dressing was applied. The patient tolerated the procedure well. This procedure was performed by Geo Tiwari PA-C, and directly supervised by Dr. Marie. IR/IR Biliary Drainage Exchange Impression: Fluoroscopic replacement/upsize of right internal/external biliary drain. Patient will be scheduled for biliary endoscopy and stone removal as an outpatient in the upcoming weeks. Electronically signed by: Valentin Guerrero MD 08/02/2024 02:33 PM EDT
--- NOTE | ~2024-07-27 | US_ITS ---
EXAMINATION: US ABDOMEN LIMITED CLINICAL INFORMATION: Right upper quadrant pain. History of percutaneous cholecystostomy tube COMPARISON: Biliary drainage placement 05/06/2024. TECHNIQUE: Real-time imaging of the right upper quadrant abdominal viscera. FINDINGS: PANCREAS: The patient is obscured by bowel gas. The body and tail the pancreas appear normal. LIVER: The liver appears to be normal in size and echotexture. Intrahepatic biliary air is present, consistent with prior instrumentation and procedure. Prominence to the intrahepatic ducts noted. No focal hepatic mass. GALLBLADDER: The gallbladder is distended. The cholecystostomy tube is observed, within the gallbladder and the patient does report some tenderness at the tube site. No discrete gallstones. No gallbladder wall thickening or pericholecystic fluid. COMMON BILE DUCT: Normal in caliber measuring 0.6 cm in diameter. RIGHT KIDNEY: The right kidney is unremarkable at 9.0 cm in length. There is an upper pole cyst at 13 x 8 x 13 mm with intrinsic septation. Nonshadowing echogenic foci are observed adjacent to the cyst and in the right kidney. No hydronephrosis or suspicious mass or perinephric collection. FREE FLUID: None. US/US abdomen limited IMPRESSION: Distended gallbladder. Persistent biliary ductal dilatation with biliary air present. I do not see any drainable collections or fluid around the liver. Electronically signed by: Alvino Oliver MD 07/27/2024 03:49 PM EDT
[2024-07-27 13:30] VITALS: BP 128/82; PULSE 115; O2SAT 97
[2024-07-27 13:36] VITALS: BP 138/77; PULSE 105; RESP 16; TEMP 36.8; O2SAT 93; BMI 15.3
--- NOTE | 2024-07-27 13:40 | ED_ITS ---
HPI - General Adult General Chief complaint: General Medical Stated complaint: ABD PAIN, GALBLADDER CATH UNCHANGED Time Seen by Provider: 07/27/24 13:40 Source: patient and EMS Mode of arrival: EMS Limitations: no limitations History of Present Illness ED Provider: Deniz Frazier PA-C HPI narrative: 69-year-old female with history of severe COPD, HTN, CAD, GERD, PUD, PVD, osteoporosis, active smoker, with history of choledocholithiasis and cholangitis status post percutaneous cholecystostomy tube on 05/06/2024 who presents to the ER via EMS from Urgent Care for evaluation of pain at the perc rashad tube site and vomiting that started today. She states she has been having visiting nurses come to the house and change the dressing. She states she change the bag every day and has not noticed differences in the output. She denies any fever or chills. She reports pain is at the site of the tube insertion. She developed dry heaving today. MD complaint: Right upper quadrant pain at percutaneous cholecystostomy tube site Onset (ago): hour(s) Location: abdomen Radiation: non-radiation Severity: moderate Quality: burning and aching Pain Consistency: constant Relieving factors: none Exacerbating factors: none Associated symptoms: nausea/vomiting Treatments prior to arrival: none Related Data Home Medications ?Medication ?Instructions ?Recorded ?Confirmed aspirin 81 mg tablet,delayed 81 mg PO DAILY 08/25/20 07/15/24 release metoprolol succinate 50 mg 50 mg PO DAILY 08/25/20 07/15/24 tablet,extended release 24 hr omeprazole 40 mg capsule,delayed 40 mg PO BID 05/07/21 07/15/24 release bupropion HCl (smoking deter) 150 150 mg PO BID 07/09/23 07/15/24 mg tablet,12 hr sustained-release(smoking deterrent) nitroglycerin 0.4 mg sublingual 0.4 mg sublingual Q5M PRN Chest 07/09/23 07/15/24 tablet Pain donepezil 5 mg tablet 5 mg PO BEDTIME 05/04/24 07/15/24 atorvastatin 80 mg tablet 80 mg PO DAILY 05/19/24 07/15/24 Previous Rx's ?Medication ?Instructions ?Recorded albuterol sulfate 90 mcg/actuation 2 puff PO Q4-6H PRN shortness of 05/06/22 aerosol inhaler breath or wheezing #8.5 ea oxycodone 10 mg tablet 10 mg PO Q6H PRN pain (scale score 05/07/24 4-6) #15 tabs Allergies Allergy/AdvReac Type Severity Reaction Status Date / Time No Known Allergies Allergy Verified 07/27/24 13:38 Review of Systems 2 Review of Systems: Yes all other systems are reviewed and are negative [facility] Past Medical History Medical History Admission for biliary drainage tube placement Nicotine dependence, cigarettes, uncomplicated History of COVID-19 History of ARDS Osteoporosis COPD (chronic obstructive pulmonary disease) Essential hypertension Atherosclerotic cardiovascular disease History of SC (myocardial infarction) (~2015) Coronary artery disease GERD (gastroesophageal reflux disease) Peptic ulcer disease Surgical History History of heart artery stent (~2015) History of exploratory laparotomy (~2019) Family History Family History Father No problems noted. Mother Diabetes Brother Heart problem Social History Social History Household Members: Significant Other Household Members Other:: 2 Housing: House Housing Other:: 2 family hopuse Do you presently have visiting nurse or other home services: Yes ([facility]) Alcohol intake: never Patient Tobacco Use Status: Current everyday Tobacco user Tobacco use type: Cigarette Cigarette Packs Per Day: 1 Cigarettes Per Day: 20.0 Years Smoked: 54 Second Hand Smoke Exposure: Yes Advance Directives: Yes Advance Directives on File: Yes Advance Directives Date on File: 11/27/16 service: No Physical Exam ED Vital Signs: Vital Signs - 24 hr 07/27/24 13:36 Temperature 98.2 F Pulse Rate 105 H Respiratory Rate 16 Blood Pressure 138/77 Pulse Oximetry 93 Oxygen Delivery Method Room Air BMI result Body Mass Index 15.3 Appearance: Alert, frail, cachectic elderly female. Oriented X3. No acute distress. Head: normocephalic, atraumatic. Eyes: Pupils equal, round and reactive to light. ENT: Pharynx normal. No tonsillar swelling or exudate. Neck: Normal inspection. Neck supple. CVS: Normal heart rate and rhythm. Pulses normal. Respiratory: No respiratory distress. Breath sounds coarse throughout, no wheezing Abdomen: RUQ perc rashad tube in place with moderate surrounding erythema and tenderness, no fluctuance, light brown drainage from the site. Flat, Soft and nontender. +BS x4 Skin: Skin warm and dry. Normal skin color. Normal skin turgor. No rashes. Extremities: No lower extremity edema. No joint swelling. Neuro/psych: Oriented X 3. No motor deficit. No sensory deficit. CN II-XII intact. Normal speech and cognition. Medical Decision Making Medical Decision Making [facility] Narrative: 69-year-old female with a history of choledocholithiasis s/p perc rashad tube on 05/06, history of severe COPD, active smoker who presents via EMS for evaluation of pain at the PTC site and dry heaving that started today. Patient is afebrile on arrival, slightly tachycardic to 105. There is some light brown drainage at the site with some surrounding cellulitic changes, no palpable abscess. There is drainage in the bag it does not appear purulent. Spoke with staff in Radiology who reports patient has been needing to get a procedure done regarding her per rashad tube. Either a spyglass procedure with Interventional Radiology or a tube exchange. The tube has been present for over 2 months and patient has been noncompliant with her follow-up. She has been pending a pulmonary assessment prior to getting anesthesia for these procedures. She just saw her senior web services developer on July 15. Ultrasound today does not show any drainable collection. She has distended gallbladder and biliary duct dilatation. Will plan to admit for IR intervention. Differential Diagnosis Differential Diagnoses: The differential diagnosis associated with the presentation includes Cellulitis, abscess, tube dysfunction, tube dislodgement, ongoing choledocholithiasis, cholangitis, Admission/Observation Consideration of admission/observation: Escalation of care including admission/observation considered Consult Healthcare Provider Management of the patient was discussed with: Hospitalist Lab Data [facility] Lab Attestation statement: I reviewed the patient's lab results. Mild leukocytosis 07/27/24 14:23 07/27/24 14:23 Labs: Lab Results 07/27/24 Range/Units 14:23 WBC 11.3 H (4.8-10.8) X10*3/uL RBC 5.62 H D (4.20-5.50) X10*6/uL Hgb 14.4 D (12.0-16.0) g/dl Hct 45.1 D (37.0-47.0) % MCV 80.2 (80.0-98.0) fL MCH 25.6 L (27.0-33.0) pg MCHC 31.9 (31.0-35.0) g/dl RDW 18.4 H (11.0-16.0) % Plt Count 276 D (160-400) X10*3/uL MPV 9.2 L (9.4-12.3) fL Immature Gran % (Auto) 0.4 (0.0-0.4) % Neut % (Auto) 81.6 H (45-73) % Lymph % (Auto) 8.4 L (20-40) % [place] % (Auto) 9.1 (2-11) % Eos % (Auto) 0.2 (0-4) % Baso % (Auto) 0.3 (0-2) % Lymph # (Auto) 1.0 L (1.2-4.9) X10*3/uL [place] # (Auto) 1.0 (0.1-1.2) X10*3/uL Eos # (Auto) 0.0 (0.0-0.4) X10*3/uL Baso # (Auto) 0.0 (0.0-0.2) X10*3/uL Abs Immat Gran (auto) 0.05 H (0.00-0.03) X10*3/uL Absolute Neuts (auto) 9.3 H (2.0-8.3) x10*3/uL Absolute Nucleated RBC 0.000 (0.0-0.012) X10*3/uL Nucleated RBC % (auto) 0.0 (0.0-0.2) /100WBC Sodium 142 (135-145) mmol/L Potassium 3.9 D (3.3-5.1) mmol/L Chloride 103 (96-108) mmol/L Carbon Dioxide 31 H (22-29) mmol/L Anion Gap 12 (12-20) BUN 15 (9-16) mg/dL Creatinine 0.64 (0.5-1.4) mg/dL Estim Creat Clear Calc 44.4 Estimated GFR > 60 Random Glucose 110 (60-115) mg/dL Calcium 9.7 D (8.4-10.2) mg/dL Magnesium 1.9 (1.6-2.6) mg/dL Total Bilirubin 0.4 (0.0-1.0) mg/dL Direct Bilirubin 0.1 (0.0-0.5) mg/dL AST 41 H (5-31) U/L ALT 29 (0-31) U/L Alkaline Phosphatase 150 H (39-117) U/L Total Protein 6.6 (6.5-8.0) g/dL Albumin 3.5 (3.5-5.0) g/dL Lipase 11 (8-78) U/L Independent Interpretation I performed an independent interpretation of an: Ultrasound Interpretation: no visible GB wall thickening or pericholecystic fluid Radiology Impression Discussion of test interpretation with radiology: I have reviewed the radiologist's reading. Radiologist Impression: US/US abdomen limited IMPRESSION: Distended gallbladder. Persistent biliary ductal dilatation with biliary air present. I do not see any drainable collections or fluid around the liver. Independent Historian Clinical information obtained from an independent historian. History obtained from or confirmed by: EMS External Record Review External record reviewed: Inpatient record, Outpatient record, Prior outpatient labs and Prior outpatient radiology Prescription Management I considered prescription management with: Pain Medication and Antibiotic Chronic Conditions Patient?s care impacted by: Other (Severe COPD) Social Determinants Patient?s care significantly limited by Social Determinants of Health including: Other Social Determinant of Health (noncompliance) Discharge Plan Discharge Clinical Impression: Cellulitis Patient Disposition: Still a Patient Prescriptions: No Action albuterol sulfate 90 mcg/actuation HFA aerosol inhaler 2 puff PO Q4-6H PRN (Reason: shortness of breath or wheezing) Qty: 8.5 5RF donepezil 5 mg tablet 5 mg PO BEDTIME oxycodone 10 mg tablet 10 mg PO Q6H MDD 30 PRN (Reason: pain (scale score 4-6)) Qty: 15 0RF Rx Instructions: Partial Fill upon patient request. atorvastatin 80 mg tablet 80 mg PO DAILY nitroglycerin 0.4 mg tablet, sublingual 0.4 mg sublingual Q5M PRN (Reason: Chest Pain) bupropion HCl (smoking deter) 150 mg tablet extended release 12 hr 150 mg PO BID omeprazole 40 mg capsule,delayed release(DR/EC) 40 mg PO BID aspirin 81 mg tablet,delayed release (DR/EC) 81 mg PO DAILY metoprolol succinate 50 mg tablet extended release 24 hr 50 mg PO DAILY Print Language: Czech
--- NOTE | 2024-07-27 14:02 | PC.NURSE ---
patient gall bladder drain uncovered by this RN, brown pus draining around tube onto dressing. site noted to be red and swollen, provider at bedside to assess. site redressed by this RN.
[2024-07-27 14:27] LABS: MANUAL DIFF FLAG NO
[2024-07-27 14:34] LABS: Basophils Percent Auto 0.3 % (0-2); Eosinophils Percent Auto 0.2 % (0-4); Hematocrit 45.1 % (37.0-47.0); Hemoglobin 14.4 g/dl (12.0-16.0); Imm Gran Abs Auto 0.05 X10*3/uL (0.00-0.03); Imm Gran Pct Auto 0.4 % (0.0-0.4); Lymphocytes Percent Auto 8.4 % (20-40); Mean Corpuscular HGB Conc 31.9 g/dl (31.0-35.0); Mean Corpuscular Hemoglobin 25.6 pg (27.0-33.0); Mean Corpuscular Volume 80.2 fL (80.0-98.0); Mean Platelet Volume 9.2 fL (9.4-12.3); Monocytes Percent Auto 9.1 % (2-11); Neutrophils Absolute Auto 9.3 x10*3/uL (2.0-8.3); Neutrophils Percent Auto 81.6 % (45-73); Platelet Count 276 X10*3/uL (160-400); Red Blood Count 5.62 X10*6/uL (4.20-5.50); Red Cell Distribution Width 18.4 % (11.0-16.0); White Blood Count 11.3 X10*3/uL (4.8-10.8)
[2024-07-27 14:46] LABS: Alanine Aminotransferase 29 U/L (0-31); Albumin Level 3.5 g/dL (3.5-5.0); Alkaline Phosphatase 150 U/L (39-117); Anion Gap 12 (12-20); Aspartate Amino Transferase 41 U/L (5-31); Bilirubin Direct 0.1 mg/dL (0.0-0.5); Bilirubin Total 0.4 mg/dL (0.0-1.0); Blood Urea Nitrogen 15 mg/dL (9-16); Calcium 9.7 mg/dL (8.4-10.2); Carbon Dioxide 31 mmol/L (22-29); Chloride 103 mmol/L (96-108); Creatinine Clr Calc Pharmacy 44.4; Estimated Glomerular Filt Rate > 60; Glucose Random 110 mg/dL (60-115); Lipase 11 U/L (8-78); Magnesium 1.9 mg/dL (1.6-2.6); Potassium 3.9 mmol/L (3.3-5.1); Sodium 142 mmol/L (135-145); Total Protein 6.6 g/dL (6.5-8.0)
--- NOTE | 2024-07-27 16:22 | P.HPHOSP_ITS ---
History of Present Illness Date of Service: 07/27/24 Chief Complaint: Cellulitis around percutaneous drain 69-year-old female presents with pain and redness around percutaneous gallbladder drain. She had been scheduled multiple times removal however failed to make any of these appointments. Was recently admitted 05/04/2024 through 05/07/2024 with acute cholecystitis. Patient's respiratory status precluded surgery and a percutaneous tube was placed. Patient was discharged on antibiotics and the plan was for reversal by Interventional Radiology. This was never accomplished; patient developed redness and pain around the insertion site and returns back to ER. In ER, noted to have an erythematous site painful to touch with white count. Admission requested Review of Systems 2 Review of Systems: Denies chest pain Denies shortness of breath Denies nausea vomiting diarrhea Denies fever chills PMFSH Medical History Admission for biliary drainage tube placement Nicotine dependence, cigarettes, uncomplicated History of COVID-19 History of ARDS Osteoporosis COPD (chronic obstructive pulmonary disease) Essential hypertension Atherosclerotic cardiovascular disease History of [place] (myocardial infarction) (~2015) Coronary artery disease GERD (gastroesophageal reflux disease) Peptic ulcer disease Family History Father No problems noted. Mother Diabetes Brother Heart problem Surgical History History of heart artery stent (~2015) History of exploratory laparotomy (~2019) Social History Household Members: Significant Other Household Members Other:: 2 Housing: House Housing Other:: 2 family hopuse Do you presently have visiting nurse or other home services: Yes ([facility]) Alcohol intake: never Patient Tobacco Use Status: Current everyday Tobacco user Tobacco use type: Cigarette Cigarette Packs Per Day: 1 Cigarettes Per Day: 20.0 Years Smoked: 54 Second Hand Smoke Exposure: Yes Advance Directives: Yes Advance Directives on File: Yes Advance Directives Date on File: 11/27/16 service: No Meds Allergies Allergy/AdvReac Type Severity Reaction Status Date / Time No Known Allergies Allergy Verified 07/27/24 13:38 Active Medications: Current Medications Acetaminophen (Acetaminophen 325 Mg Tablet) 650 mg PO Q6H PRN PRN Reason: Pain, Mild (Pain Scale 1-3), fever or headache Albuterol/Ipratropium (Albuterol/Iprat 2.5/0.5mg 3 Ml Ampul.Neb) 3 ml INHALE Q4H PRN PRN Reason: wheeze Calcium Carbonate (Calcium Carbonate 750 Mg Tab.Chew) 750 mg PO Q4H PRN PRN Reason: Heartburn Magnesium Hydroxide (Milk Of Magnesia 30 Ml Oral.Susp) 30 ml PO DAILY PRN PRN Reason: Constipation Melatonin (Melatonin 3 Mg Tablet) 6 mg PO BEDTIME PRN PRN Reason: Insomnia Oxycodone HCl (Oxycodone Hcl Immed Release 5 Mg Tablet) 5 mg PO Q4H PRN PRN Reason: Pain, Moderate(Pain Scale 4-6) Sodium Chloride (0.9 % Sodium Chloride Flush 3 Ml Syringe) [facility] Medications ?Medication ?Instructions ?Recorded ?Confirmed ?Last Taken ?Type aspirin 81 mg tablet,delayed 81 mg PO DAILY 08/25/20 07/15/24 Unknown History release metoprolol succinate 50 mg 50 mg PO DAILY 08/25/20 07/15/24 Unknown History tablet,extended release 24 hr omeprazole 40 mg capsule,delayed 40 mg PO BID 05/07/21 07/15/24 Unknown History release bupropion HCl (smoking deter) 150 150 mg PO BID 07/09/23 07/15/24 Unknown History mg tablet,12 hr sustained-release(smoking deterrent) nitroglycerin 0.4 mg sublingual 0.4 mg sublingual Q5M PRN Chest 07/09/23 07/15/24 Unknown History tablet Pain donepezil 5 mg tablet 5 mg PO BEDTIME 05/04/24 07/15/24 Unknown History atorvastatin 80 mg tablet 80 mg PO DAILY 05/19/24 07/15/24 Unknown History budesonide-formoterol HFA 80 2 puff inhalation 07/27/24 Unknown History mcg-4.5 mcg/actuation aerosol inhaler (Symbicort) Physical Exam 2 Vital Signs and Narrative: Vital Signs: Last Vital Signs Temp 98.2 F 07/27/24 13:36 Pulse 105 H 07/27/24 13:36 Resp 16 07/27/24 13:36 BP 138/77 07/27/24 13:36 Pulse Ox 93 07/27/24 13:36 O2 Del Method Room Air 07/27/24 13:36 BMI result Body Mass Index 15.3 Const: Other: Cachectic; awake alert no acute distress Resp: Other: Diminished at bases with diffuse coarse rhonchi that clear with cough Cardio: Other: No S4; positive S1-S2; no S3 murmurs rubs or gallops GI: Other: Soft nontender nondistended normoactive bowel sounds Extrem: Other: No edema bilaterally Results Labs 07/27/24 14:23 07/27/24 14:23 Labs: Laboratory Results - last 24 hr 07/27/24 14:23 MCV 80.2 MCH 25.6 L MCHC 31.9 RDW 18.4 H Plt Count 276 D MPV 9.2 L Immature Gran % (Auto) 0.4 Neut % (Auto) 81.6 H Lymph % (Auto) 8.4 L [place] % (Auto) 9.1 Eos % (Auto) 0.2 Baso % (Auto) 0.3 Lymph # (Auto) 1.0 L [place] # (Auto) 1.0 Eos # (Auto) 0.0 Baso # (Auto) 0.0 Abs Immat Gran (auto) 0.05 H Absolute Neuts (auto) 9.3 H Absolute Nucleated RBC 0.000 Nucleated RBC % (auto) 0.0 Anion Gap 12 Estim Creat Clear Calc 44.4 Estimated GFR > 60 Random Glucose 110 Calcium 9.7 D Magnesium 1.9 Total Bilirubin 0.4 Direct Bilirubin 0.1 AST 41 H ALT 29 Alkaline Phosphatase 150 H Total Protein 6.6 Albumin 3.5 Lipase 11 Imaging Radiologist's Impressions: Impressions Abdomen Ultrasound 07/27/24 14:47 IMPRESSION: Distended gallbladder. Persistent biliary ductal dilatation with biliary air present. I do not see any drainable collections or fluid around the liver. Electronically signed by: Alvino Oliver MD 07/27/2024 03:49 PM EDT Assessment and Plan (1) Cellulitis: Qualifiers: Site of cellulitis: trunk Site of cellulitis of trunk: abdominal wall Qualified Code(s): L03.311 - Cellulitis of abdominal wall Status: Acute (2) PVD (peripheral vascular disease): Status: Acute (3) COPD (chronic obstructive pulmonary disease): Qualifiers: COPD type: unspecified COPD Qualified Code(s): J44.9 - Chronic obstructive pulmonary disease, unspecified Status: Acute Plan 69-year-old female admitted May 2024 and diagnosed with cholecystitis. Given poor functional status a T-tube was placed at that time to facilitate biliary drainage. The original plan was to be read seen in IR for removal and/or changing of tube. Patient was not able to make any of these appointments; states she developed pain and redness around the area which prompted her to seek treatment in the emergency room. In the emergency room, she was found to have a white count and an angry-looking tube site 1. Cellulitis (around percutaneous drain) -ceftriaxone (1).. Await formal culture -consult interventional radiology a.m. to assist with plan (spyglass procedure versus change of tube) -follow daily CBC 2. Hypertension -acceptable control on current therapies -adjust as indicated 3. Nicotine dependence -nicotine patch -adamantly refuses to quit cigarettes Full code Pneumatics Requires at least 2 midnights going forward of inpatient stay to treat cellulitis associated with drainage tube insertion site. This can not be achieved a lesser acute setting. High risk for outpatient failure Quality Stroke Does the patient have a stroke diagnosis?: No VTE Prior VTE?: No VTE Risk Level:: Medical - moderate - high VTE Device Contraindication: N/A - Device Ordered VTE Drug Contraindication: Treatment Not Indicated
--- NOTE | 2024-07-27 16:25 | PC.NURSE ---
20# started in patient right wrist
[2024-07-27 16:27] VITALS: BP 136/80; PULSE 92; RESP 16; TEMP 37; O2SAT 92
[2024-07-27 16:35] LABS: Lactic Acid 1.1 mmol/L (0.5-2.0)
--- NOTE | 2024-07-27 16:36 | PHA.MEDREC ---
Addendum entered by Prabhu Aguilar [facility] 07/27/24 17:04: Med rec verified Original Note: Pharmacy Consult ? Medication Reconciliation Pharmacy has completed the medication reconciliation. Confirmed medications with patient and at bedside. They confirmed the patient is not compliant with the medications lately. The patient stated his is not taking the Buproion 150mg tabs BID anymore and states she has not in a long time I asked more on it since it was just filled 07/20 and he exclaimed just because she got it filled and we have it at home does not mean she is taking them. The patient confirmed she is not taking the Omeprazole 40mg tab that much and will take it when she remembers but states she has not taken it in a little bit . The was able to confirm the Oxycodone 10mg tab every 6 hours as needed for pain, he states she took one of those today. The patient and her claims she took all her medications yesterday.
[2024-07-27] MEDS: cefTRIAXone sodium 1 GM VIAL IVPUSH (16:39)
--- NOTE | 2024-07-27 18:56 | PC.NURSE ---
received report from Marybeth Charlton RN, assume care of pt at this time
[2024-07-27] MEDS: oxyCODONE HCl Immed Release 5 MG TABLET PO (19:01)
[2024-07-27 19:21] VITALS: BP 112/65; PULSE 92; RESP 18; TEMP 37; O2SAT 90
[2024-07-27] MEDS: Nicotine 21 MG PATCH.TD24 TRANSDERMA (19:44)
[2024-07-27 20:16] VITALS: BP 123/63; PULSE 98; RESP 18; TEMP 36.2; O2SAT 90
[2024-07-27] MEDS: Acetaminophen 325 MG TABLET 650 MG PO (21:08)
[2024-07-27] MEDS: 0.9 % Sodium Chloride Flush 3 ML SYRINGE IVFLUSH (21:09)
[2024-07-28] MEDS: oxyCODONE HCl Immed Release 5 MG TABLET PO ×2 (02:01→08:03)
[2024-07-28 03:06] VITALS: BP 133/80; PULSE 97; RESP 16; TEMP 36.1; O2SAT 94
[2024-07-28] MEDS: Acetaminophen 325 MG TABLET 650 MG PO (05:03)
[2024-07-28 06:23] LABS: Basophils Percent Auto 0.3 % (0-2); Eosinophils Absolute Auto 0.1 X10*3/uL (0.0-0.4); Eosinophils Percent Auto 1.4 % (0-4); Imm Gran Abs Auto 0.04 X10*3/uL (0.00-0.03); Imm Gran Pct Auto 0.4 % (0.0-0.4); Lymphocytes Absolute Auto 1.3 X10*3/uL (1.2-4.9); Lymphocytes Percent Auto 12.5 % (20-40); Mean Corpuscular HGB Conc 31.7 g/dl (31.0-35.0); Mean Corpuscular Hemoglobin 25.8 pg (27.0-33.0); Mean Corpuscular Volume 81.3 fL (80.0-98.0); Mean Platelet Volume 9.3 fL (9.4-12.3); Monocytes Absolute Auto 1.2 X10*3/uL (0.1-1.2); Monocytes Percent Auto 11.4 % (2-11); Neutrophils Absolute Auto 7.5 x10*3/uL (2.0-8.3); Platelet Count 254 X10*3/uL (160-400); Red Blood Count 5.04 X10*6/uL (4.20-5.50); Red Cell Distribution Width 18.4 % (11.0-16.0); White Blood Count 10.1 X10*3/uL (4.8-10.8)
[2024-07-28 06:33] LABS: INTERNATIONAL NORM RATIO 0.9 (0.9-1.1)
[2024-07-28 07:55] VITALS: BP 121/70; PULSE 90; RESP 18; TEMP 36.6; O2SAT 90
[2024-07-28] MEDS: Nicotine 21 MG PATCH.TD24 TRANSDERMA (08:04)
[2024-07-28] MEDS: Aspirin Enteric Coated 81 MG TABLET.DR PO (08:29)
[2024-07-28] MEDS: Metoprolol Succinate ER 50 MG TAB.ER.24H PO (08:30)
[2024-07-28] MEDS: 0.9 % Sodium Chloride Flush 3 ML SYRINGE IVFLUSH ×3 (08:30→20:48)
[2024-07-28 08:32] LABS: Alanine Aminotransferase 30 U/L (0-31); Albumin Level 3.2 g/dL (3.5-5.0); Alkaline Phosphatase 130 U/L (39-117); Anion Gap 12 (12-20); Aspartate Amino Transferase 37 U/L (5-31); Bilirubin Total 0.4 mg/dL (0.0-1.0); Blood Urea Nitrogen 15 mg/dL (9-16); Calcium 9.1 mg/dL (8.4-10.2); Carbon Dioxide 30 mmol/L (22-29); Chloride 103 mmol/L (96-108); Creatinine Clr Calc Pharmacy 45.1; Estimated Glomerular Filt Rate > 60; Glucose Fasting 102 mg/dL (60-99); Potassium 3.5 mmol/L (3.3-5.1); Sodium 141 mmol/L (135-145); Total Protein 6.1 g/dL (6.5-8.0)
--- NOTE | 2024-07-28 09:17 | MHC.CM.PN ---
pt lives with is active with [facility] has own ride home dc plan home with teresa
[2024-07-28] MEDS: cefTRIAXone sodium 1 GM VIAL IVPUSH (09:55)
--- NOTE | 2024-07-28 11:05 | PCN2_ITS ---
Brief Operative Note Date of procedure: 07/28/24 Pre-op diagnosis: Pain and leakage at biliary drain entry site. Biliary obstru ction Post-op diagnosis: same Procedure: 8.5 fr internal/external biliary drain noted to be partially dislodged with tip located in proximal CBD. Drain was replaced/upsized to an 10 fr internal/external drain with tip positioned in the duodenum. The obstructing CBD stone is still present. Will arrange for outpatient biliary endoscopy with anesthesia given recent pulmonary clearance for anesthesia. Will keep to gravity drainage x 24 hr and then cap drain afterwards.
--- NOTE | 2024-07-28 13:08 | HO.PM.IMPN ---
Subjective Subjective Date of Service: 07/28/24 Interval History: No acute issues overnight. Biliary drainage tube change today. (see IR note) Review of Systems Denies chest pain Denies shortness of breath Denies nausea vomiting diarrhea Denies fever chills Physical Exam Vital Signs: Vital Signs: Last Vital Signs Temp 98 F 07/28/24 07:55 Pulse 90 07/28/24 07:55 Resp 18 07/28/24 07:55 BP 121/70 07/28/24 07:55 Pulse Ox 90 L 07/28/24 07:55 O2 Del Method Room Air 07/28/24 07:55 BMI result Body Mass Index 15.3 Const: Other: Cachectic; awake alert no acute distress Resp: Other: Diminished at bases with diffuse coarse rhonchi that clear with cough Cardio: Other: No S4; positive S1-S2; no S3 murmurs rubs or gallops GI: Other: Soft nontender nondistended normoactive bowel sounds Extrem: Other: No edema bilaterally Objective Data Active Medications Acetaminophen (Acetaminophen 325 Mg Tablet) 650 mg PO Q6H PRN PRN Reason: Pain, Mild (Pain Scale 1-3), fever or headache Last Admin: 07/28/24 05:03 Dose: 650 mg Documented By: CYNTHIA Albuterol Sulfate (Albuterol Sulfate 90 Mcg 8 Gm Inhaler) 2 puff INHALE RQ4H PRN PRN Reason: shortness of breath or wheezing Albuterol/Ipratropium (Albuterol/Iprat 2.5/0.5mg 3 Ml Ampul.Neb) 3 ml INHALE Q4H PRN PRN Reason: wheeze Aspirin (Aspirin Enteric Coated 81 Mg Tablet.) 81 mg PO DAILY [facility] Last Admin: 07/28/24 08:29 Dose: 81 mg Documented By: GARETT Calcium Carbonate (Calcium Carbonate 750 Mg Tab.Chew) 750 mg PO Q4H PRN PRN Reason: Heartburn Ceftriaxone Sodium (Ceftriaxone Sodium 1 Gm Vial) 1 gm IVPUSH Q24H [facility] Last Admin: 07/28/24 09:55 Dose: 1 gm Documented By: GARETT Donepezil HCl (Donepezil Hcl 5 Mg Tablet) 5 mg PO BEDTIME [facility] Fluticasone/Vilanterol (Fluticasone/Vilanterol 100/25 Blst.W.Dev) 1 puff INHALE RDAILY [facility] Last Admin: 07/28/24 11:06 Dose: Not Given Documented By: KENNY Non-Admin Reason: Med Not Available Magnesium Hydroxide (Milk Of Magnesia 30 Ml Oral.Susp) 30 ml PO DAILY PRN PRN Reason: Constipation Melatonin (Melatonin 3 Mg Tablet) 6 mg PO BEDTIME PRN PRN Reason: Insomnia Metoprolol Succinate (Metoprolol Succinate Er 50 Mg Tab.Er.24h) 50 mg PO DAILY [facility]; Protocol Last Admin: 07/28/24 08:30 Dose: 50 mg Documented By: GARETT Nicotine (Nicotine 21 Mg Patch.Td24) 21 mg TRANSDERMA DAILY [facility] Last Admin: 07/28/24 08:04 Dose: 21 mg Documented By: GARETT Omeprazole (Omeprazole 40 Mg Capsule.Dr) 40 mg PO BID PRN PRN Reason: Heart Burn Oxycodone HCl (Oxycodone Hcl Immed Release 5 Mg Tablet) 10 mg PO Q4H PRN PRN Reason: Pain, Moderate(Pain Scale 4-6) Sodium Chloride (0.9 % Sodium Chloride Flush 3 Ml Syringe) 3 ml IVFLUSH QSHIFT [facility] Last Admin: 07/28/24 08:30 Dose: 3 ml Documented By: GARETT Labs 07/28/24 05:46 07/28/24 05:46 Labs: Laboratory Results - last 24 hr 07/27/24 07/27/24 07/27/24 14:23 16:17 16:35 MCV 80.2 MCH 25.6 L MCHC 31.9 RDW 18.4 H Plt Count 276 D MPV 9.2 L Immature Gran % (Auto) 0.4 Neut % (Auto) 81.6 H Lymph % (Auto) 8.4 L [place] % (Auto) 9.1 Eos % (Auto) 0.2 Baso % (Auto) 0.3 Lymph # (Auto) 1.0 L [place] # (Auto) 1.0 Eos # (Auto) 0.0 Baso # (Auto) 0.0 Abs Immat Gran (auto) 0.05 H Absolute Neuts (auto) 9.3 H Absolute Nucleated RBC 0.000 Nucleated RBC % (auto) 0.0 Hold Purple Top SEE NOTE PT INR Hold Blue Top Anion Gap 12 Estim Creat Clear Calc 44.4 Estimated GFR > 60 Random Glucose 110 Fasting Glucose Lactic Acid 1.1 Calcium 9.7 D Magnesium 1.9 Total Bilirubin 0.4 Direct Bilirubin 0.1 AST 41 H ALT 29 Alkaline Phosphatase 150 H Total Protein 6.6 Albumin 3.5 Lipase 11 07/28/24 05:46 MCV 81.3 MCH 25.8 L MCHC 31.7 RDW 18.4 H Plt Count 254 MPV 9.3 L Immature Gran % (Auto) 0.4 Neut % (Auto) 74.0 H Lymph % (Auto) 12.5 L [place] % (Auto) 11.4 H Eos % (Auto) 1.4 Baso % (Auto) 0.3 Lymph # (Auto) 1.3 [place] # (Auto) 1.2 Eos # (Auto) 0.1 Baso # (Auto) 0.0 Abs Immat Gran (auto) 0.04 H Absolute Neuts (auto) 7.5 Absolute Nucleated RBC 0.000 Nucleated RBC % (auto) 0.0 Hold Purple Top PT 11.0 INR 0.9 Hold Blue Top SEE NOTE Anion Gap 12 Estim Creat Clear Calc 45.1 Estimated GFR > 60 Random Glucose Fasting Glucose 102 H Lactic Acid Calcium 9.1 D Magnesium Total Bilirubin 0.4 Direct Bilirubin AST 37 H ALT 30 Alkaline Phosphatase 130 H Total Protein 6.1 L Albumin 3.2 L Lipase Microbiology Microbiology Results: Microbiology 07/27/24 13:56 Gram Stain - Final Abdominal Fluid Routine Culture - Preliminary Culture in progress. Assessment and Plan (1) Cellulitis: Status: Acute Plan 69-year-old female admitted May 2024 and diagnosed with cholecystitis. Given poor functional status a T-tube was placed at that time to facilitate biliary drainage. The original plan was to be read seen in IR for removal and/or changing of tube. Patient was not able to make any of these appointments; states she developed pain and redness around the area which prompted her to seek treatment in the emergency room. In the emergency room, she was found to have a white count and an angry-looking tube site 1. Cellulitis (around percutaneous drain) -ceftriaxone (2) -successful change by IR -follow cultures -follow daily CBC 2. Hypertension -acceptable control on current therapies -adjust as indicated 3. Nicotine dependence -nicotine patch -adamantly refuses to quit cigarettes Full code Pneumatics Patient requires ongoing hospitalization for maintenance and follow-through in change in biliary to Quality Stroke Does the patient have a stroke diagnosis?: No VTE Prior VTE?: No VTE Risk Level:: Medical - moderate - high VTE Device Contraindication: N/A - Device Ordered VTE Drug Contraindication: Treatment Not Indicated
[2024-07-28 13:57] VITALS: BMI 15.3
--- NOTE | 2024-07-28 14:07 | MHC.CLN ---
NUTRITION DIET=REGULAR. MODERATE WEIGHT LOSS X ONE YEAR -8.7%. REPORTS THAT DOES NOT USUALLY EAT A LOT. BMI=15.3. QUALIFIES MODERATELY MALNOURISHED IN THE CONTEXT OF CHRONIC ILLNESS. DOES NOT WANT ENSURE SUPPLEMENT. ENCOURAGE PATIENT TO SELECT FOODS/DESSERTS THAT SHE LIKES. FOLLOW FOR PO INTAKE AND DIET TOLERANCE. SEE CLINICAL NUTRITION ASSESSMENT 07/28/24.
[2024-07-28] MEDS: oxyCODONE HCl Immed Release 5 MG TABLET 10 MG PO ×2 (15:35→22:37)
[2024-07-28 15:48] VITALS: BP 109/58; PULSE 81; RESP 16; TEMP 36.8; O2SAT 91
[2024-07-28 18:18] LABS: Appearance Urine Clear; Color Urine Dark Yellow; Glucose Urine UA Negative (Negative); Leukocyte Esterase Urine Negative (Negative); Nitrite Urine Negative (Negative); PH 6.5 (5.0-9.0); Specific Gravity - Urine >= 1.030 (1.005-1.025); UMIC TRIGGER UACC YES; Urine Blood Negative (Negative); Urine Ketones Negative (Negative); Urine Protein 30 (1+) mg/dL (Neg-Trace)
[2024-07-28 18:29] LABS: Bacteria Urine None Seen (None Seen); Hyaline Casts Urine 0-2 /LPF (0-2); RBC Urine 0-2 /HPF (0-2); WBC Urine 0-5 /HPF (0-5)
[2024-07-28 19:45] VITALS: BP 100/57; PULSE 83; RESP 15; TEMP 36.1; O2SAT 91
[2024-07-28] MEDS: Donepezil HCl 5 MG TABLET PO (20:47)
[2024-07-29 04:00] VITALS: BP 119/69; PULSE 76; RESP 15; TEMP 36.9; O2SAT 91
[2024-07-29] MEDS: oxyCODONE HCl Immed Release 5 MG TABLET 10 MG PO ×2 (05:31→11:33)
[2024-07-29 07:11] VITALS: BP 118/62; PULSE 82; RESP 16; TEMP 36.9; O2SAT 92
[2024-07-29] MEDS: 0.9 % Sodium Chloride Flush 3 ML SYRINGE IVFLUSH (07:40)
[2024-07-29] MEDS: cefTRIAXone sodium 1 GM VIAL IVPUSH (07:40)
[2024-07-29] MEDS: Nicotine 21 MG PATCH.TD24 TRANSDERMA (07:40)
[2024-07-29] MEDS: Metoprolol Succinate ER 50 MG TAB.ER.24H PO (07:40)
[2024-07-29] MEDS: Aspirin Enteric Coated 81 MG TABLET.DR PO (07:40)
[2024-07-29] MEDS: Fluticasone/Vilanterol 100/25 BLST.W.DEV 1 PUFF INHALE (07:41)
[2024-07-29 09:11] LABS: MANUAL DIFF FLAG NO
[2024-07-29 09:13] LABS: Basophils Absolute Auto 0.1 X10*3/uL (0.0-0.2); Basophils Percent Auto 0.8 % (0-2); Eosinophils Absolute Auto 0.2 X10*3/uL (0.0-0.4); Eosinophils Percent Auto 2.8 % (0-4); Hematocrit 43.3 % (37.0-47.0); Hemoglobin 13.7 g/dl (12.0-16.0); Imm Gran Abs Auto 0.04 X10*3/uL (0.00-0.03); Imm Gran Pct Auto 0.5 % (0.0-0.4); Lymphocytes Absolute Auto 1.4 X10*3/uL (1.2-4.9); Lymphocytes Percent Auto 19.4 % (20-40); Mean Corpuscular HGB Conc 31.6 g/dl (31.0-35.0); Mean Corpuscular Hemoglobin 25.7 pg (27.0-33.0); Mean Corpuscular Volume 81.1 fL (80.0-98.0); Monocytes Absolute Auto 0.7 X10*3/uL (0.1-1.2); Monocytes Percent Auto 9.4 % (2-11); Neutrophils Percent Auto 67.1 % (45-73); Platelet Count 237 X10*3/uL (160-400); Red Blood Count 5.34 X10*6/uL (4.20-5.50); White Blood Count 7.4 X10*3/uL (4.8-10.8)
[2024-07-29 09:28] LABS: Alanine Aminotransferase 26 U/L (0-31); Albumin Level 3.2 g/dL (3.5-5.0); Alkaline Phosphatase 120 U/L (39-117); Anion Gap 13 (12-20); Aspartate Amino Transferase 29 U/L (5-31); Bilirubin Total 0.2 mg/dL (0.0-1.0); Blood Urea Nitrogen 13 mg/dL (9-16); Carbon Dioxide 31 mmol/L (22-29); Chloride 102 mmol/L (96-108); Creatinine Clr Calc Pharmacy 49.8; Estimated Glomerular Filt Rate > 60; Glucose Fasting 97 mg/dL (60-99); Potassium 3.6 mmol/L (3.3-5.1); Sodium 142 mmol/L (135-145); Total Protein 5.9 g/dL (6.5-8.0)
--- NOTE | 2024-07-29 10:59 | P.DS_ITS ---
DS: Providers Provider Date of Service: 07/29/24 Date of admission: 07/27/24 16:17 Date of discharge: 07/29/24 Primary care physician: Zoey Colby MD DS: Diagnosis Discharge Diagnosis (1) Cellulitis: Status: Acute (2) Cholecystostomy drain infection: Status: Acute DS: Summary Hospital Course Hospital Course: Admission note HPI 69-year-old female presents with pain and redness around percutaneous gallbladder drain. She had been scheduled multiple times removal however failed to make any of these appointments. Was recently admitted 05/04/2024 through 05/07/2024 with acute cholecystitis. Patient's respiratory status precluded surgery and a percutaneous tube was placed. Patient was discharged on antibiotics and the plan was for reversal by Interventional Radiology. This was never accomplished; patient developed redness and pain around the insertion site and returns back to ER. In ER, noted to have an erythematous site painful to touch with white count. Admission requested Hospital course The patient was admitted and treated for Cellulitis around percutaneous cholecystostomy drain that responded well to IV antibiotic of IV Ceftriaxone as IR changed the tube. blood cultures remained negative as cellulitis improved. she was able to ambulate in room without the need of support or walker. To be followed as outpatient with IR for the new drain and to finish 5 more days of PO Doxycycline. Discharge plan Finish 5 mroe days of antibiotics Zofran as needed for nausea Physical therapy at home Follow with Interventional radiology as outpatient Time Attestation Discharge Coordination Time (in mins): 38 Quality: Safe Use of Opioids Does Pt have an Active Cancer Diagnosis on the Problem List?: No Quality: Stroke Does the patient have a stroke diagnosis?: No Physical Exam Vital Signs: Vital Signs: Last Vital Signs Temp 98.5 F 07/29/24 07:11 Pulse 82 07/29/24 07:11 Resp 16 07/29/24 07:11 BP 118/62 07/29/24 07:11 Pulse Ox 92 07/29/24 07:11 O2 Del Method Room Air 07/29/24 07:11 BMI result Body Mass Index 15.3 Const: Other: Constitutional : Awake, interactive, not in distress Neck : Normal inspection, Supple Cardiovascular : RRR, no JVP, no lower extremity edema Respiratory : good bilateral air entry, no crackles, wheezes or rhonchi Gastrointestinal: soft, lax, Normal bowel sounds, Drain in place with no surrounding erythema or drainage, no tenderness Skin : Warm, Dry Neurological : Alert & oriented x3, No focal deficit DS: Data Data Completed and Pending Completed studies during hospitalization [Text1]: Procedures Drainage of Right Hepatic Duct with Drainage Device, Percutaneous Approach (05/04/24) Labs on day of discharge: Laboratory Results - last 24 hr 07/28/24 07/29/24 Unknown 08:51 WBC 7.4 RBC 5.34 Hgb 13.7 Hct 43.3 MCV 81.1 MCH 25.7 L MCHC 31.6 RDW 18.0 H Plt Count 237 MPV 9.0 L Immature Gran % (Auto) 0.5 H Neut % (Auto) 67.1 Lymph % (Auto) 19.4 L [place] % (Auto) 9.4 Eos % (Auto) 2.8 Baso % (Auto) 0.8 Lymph # (Auto) 1.4 [place] # (Auto) 0.7 Eos # (Auto) 0.2 Baso # (Auto) 0.1 Abs Immat Gran (auto) 0.04 H Absolute Neuts (auto) 5.0 Absolute Nucleated RBC 0.000 Nucleated RBC % (auto) 0.0 Sodium 142 Potassium 3.6 Chloride 102 Carbon Dioxide 31 H Anion Gap 13 BUN 13 Creatinine 0.57 Estim Creat Clear Calc 49.8 Estimated GFR > 60 Fasting Glucose 97 Calcium 9.0 Total Bilirubin 0.2 AST 29 ALT 26 Alkaline Phosphatase 120 H Total Protein 5.9 L Albumin 3.2 L Urine Color Dark Yellow Urine Appearance Clear Urine pH 6.5 Ur Specific [place] >= 1.030 H Urine Protein 30 (1+) H Urine Glucose (UA) Negative Urine Ketones Negative Urine Blood Negative Urine Nitrite Negative Ur Leukocyte Esterase Negative Urine RBC 0-2 Urine WBC 0-5 Ur Squamous Epith Cells 3-5 Urine Bacteria None Seen Hyaline Casts 0-2 Preliminary micro results at discharge 07/27/24 13:56 Routine Culture - Preliminary Abdominal Fluid Gram negative maryana 07/27/24 16:35 Blood Culture - Preliminary Blood - Venous No growth after 24 hours. 07/27/24 16:17 Blood Culture - Preliminary Blood - Venous No growth after 24 hours. Imaging Chest x-ray: Radiologist's impression: ITS Impressions Abdomen Ultrasound 07/27/24 14:47 IMPRESSION: Distended gallbladder. Persistent biliary ductal dilatation with biliary air present. I do not see any drainable collections or fluid around the liver. Electronically signed by: Alvino Oliver MD 07/27/2024 03:49 PM EDT RP Discharge Plan Discharge Anticipated Discharge Date/Time: 07/29/24 10:56 Patient Disposition: Home Health Service Discharge Diagnosis: Cellulitis Referrals: Zoey Colby MD [Primary Care Provider] - 1 Week Discharge Medications: New nicotine 21 mg/24 hr Patch 24 Hour 21 mg transdermal DAILY Qty: 28 0RF doxycycline monohydrate 100 mg capsule 100 mg PO BID Qty: 10 0RF ondansetron 4 mg tablet,disintegrating 4 mg PO Q8H PRN (Reason: nausea and vomiting) Qty: 14 0RF Continued albuterol sulfate 90 mcg/actuation HFA aerosol inhaler 2 puff PO Q4-6H PRN (Reason: shortness of breath or wheezing) Qty: 8.5 5RF donepezil 5 mg tablet 5 mg PO BEDTIME budesonide-formoterol [Symbicort] 80-4.5 mcg/actuation HFA aerosol inhaler 2 puff INHALATION DAILY acetaminophen 500 mg Tablet 1,000 mg PO BID PRN (Reason: Pain/Migraine) omeprazole 40 mg capsule,delayed release(DR/EC) 40 mg PO BID PRN (Reason: Heart Burn) oxycodone 10 mg tablet 10 mg PO Q6H MDD 30 PRN (Reason: pain (scale score 4-6)) Qty: 15 0RF Rx Instructions: Partial Fill upon patient request. nitroglycerin 0.4 mg tablet, sublingual 0.4 mg sublingual Q5M PRN (Reason: Chest Pain) aspirin 81 mg tablet,delayed release (DR/EC) 81 mg PO DAILY metoprolol succinate 50 mg tablet extended release 24 hr 50 mg PO DAILY Discharge Orders: Discharge Order (Routine); Ordered 07/29/24 Ordered By: Vikash Bruce Diet: Advance to usual diet Activity on Discharge: As tolerated Stand Alone Forms: Patient Portal Discharge page Print Language: Hungarian Care Plan Goals: Finish 5 mroe days of antibiotics Zofran as needed for nausea Physical therapy at home Follow with Interventional radiology as outpatient Health Concerns: Cellulitis Plan of Treatment: Antibiotics Assessment: as above
--- NOTE | 2024-07-29 11:19 | MHC.CM.PN ---
PT WILL DC HOME TODAY WITH RESUMPTION OF [facility] SERVICES VIA PRIVATE TRANSPORT
--- NOTE | 2024-07-29 15:04 | P.CDIM_ITS ---
PROVIDER RESPONSE TEXT: To clarify, the appropriate diagnosis supported by the clinical indicators: Moderate Protein Calorie Malnutrition QUERY TEXT: PHYSICIAN'S DOCUMENTATION REQUEST Date of Query: 07/29/2024 10:41 AM EDT Patient Name: Tammy Davies Admit Date: 07/27/2024 Dear Vikash Bruce MD, A review of the medical record indicates additional documentation may be needed. Please review below and update the documentation accordingly. Clinical Indicators: Height: ( ) 4'11 Weight: ( ) 34.4 kg BMI: ( ) 15.3 Other Clinical Notes Supporting Significance of the BMI: Per Clinical Nutrition Assessment 07/28/24: diet regular, moderate weight loss x 1 year, qualifies as moderately malnourished in the context of c hronic illness If possible, please provide an associated diagnosis related to the abnormal BMI, such as: Underweight Weight loss Cachexia Anorexia Moderate Protein Calorie Malnutrition Other (explain) Clinically unable to determine (explain) Thank you, Juana Purcell RN Use of terms such as suspected, likely, concern for, or probable (associated with a specific diagnosi s that is being evaluated, monitored, or treated as if it exists) are acceptable and can be coded in the inpatient se tting, when documented at the time of discharge. Please use your independent medical judgment in providing your response. THIS QUERY IS PART OF THE PERMANENT MEDICAL RECORD
== END 2024-07-29 11:38 | disposition home health service (06) | DRG 920 ==
LOC: HO.ED 14:59 → HO.EDOVER 16:52 → HO.S3 19:11
PROVIDERS: Physician Assistant; Radiology Vascular & Interventional Radiology; Admitting Provider Hospitalist; Emergency Provider Emergency Medicine; PCP General Practice; Visit Provider Student in an Organized Health Care Education/Training Program
DX: T85.79XA Infection and inflammatory reaction due to other internal prosthetic devices, implants and grafts, initial encounter (principal); E44.0 Moderate protein-calorie malnutrition; L03.311 Cellulitis of abdominal wall; Z68.1 Body mass index [BMI] 19.9 or less, adult; R64 Cachexia; Y73.1 Therapeutic (nonsurgical) and rehabilitative gastroenterology and urology devices associated with adverse incidents; I25.10 Atherosclerotic heart disease of native coronary artery without angina pectoris; F17.210 Nicotine dependence, cigarettes, uncomplicated; I10 Essential (primary) hypertension; Z91.199 Patient's noncompliance with other medical treatment and regimen due to unspecified reason; Z71.6 Tobacco abuse counseling; Z79.899 Other long term (current) drug therapy
CPT/HCPCS: 36415; 47536; 76705; 80048; 80053; 80076; 81001; 83605; 83690; 83735; 85025; 85610; 87040; 87070; 87077; 87186; 87205; 99285; C1729; C1769; C1894; J0696

== ENCOUNTER → 2024-07-27 14:27 | Outpatient (BNV) | payer MEDICARE, MEDICAID, SELFPAY | PROVIDERS: Emergency Provider Emergency Medicine; Visit Provider Hospitalist | DX: L03.311 Cellulitis of abdominal wall (principal); T85.79XA Infection and inflammatory reaction due to other internal prosthetic devices, implants and grafts, initial encounter | CPT/HCPCS: 99223; 99233; 99239 ==

== ENCOUNTER → 2024-07-27 16:17 | Outpatient (BNV) | payer MEDICARE, MEDICAID, SELFPAY | PROVIDERS: Admitting Provider Hospitalist; Emergency Provider Emergency Medicine; Visit Provider Physician Assistant Surgical | DX: T85.520A Displacement of bile duct prosthesis, initial encounter (principal) | CPT/HCPCS: 47536 ==

== ENCOUNTER 2024-07-30 14:17 | Emergency (ER) | payer MEDICARE, MEDICAID, SELFPAY ==
--- NOTE | 2024-07-30 14:20 | ED.GENADULT ---
HPI - General Adult General Chief complaint: Abdominal Pain Stated complaint: tube problem Time Seen by Provider: 07/30/24 15:13 Source: patient Mode of arrival: ambulatory Limitations: no limitations History of Present Illness ED Provider: Deniz Frazier PA-C HPI narrative: 69-year-old female with history of severe COPD, HTN, CAD, GERD, PUD, PVD, osteoporosis, active smoker, with history of choledocholithiasis and cholangitis status post percutaneous cholecystostomy tube on 05/06/2024 who had recent tube exchange and upsizing in IR on 07/28/24 presents back to the ER for evaluation for decreased tube output. He was sent in by her visiting nurse for decreased output, concerned that the to be kinked. Patient has had 10-15 cc of yellow, bilious drainage in the bag since 08:00. This is decreased from prior to her last admission. She denies any associated pain at the site or in her abdomen. No nausea or vomiting. No fevers. MD complaint: decreased perc rashad tube output Onset (ago): hour(s) Location: abdomen Relieving factors: none Exacerbating factors: none Associated symptoms: denies other symptoms Treatments prior to arrival: none Related Data Home Medications ?Medication ?Instructions ?Recorded ?Confirmed aspirin 81 mg tablet,delayed 81 mg PO DAILY 08/25/20 07/27/24 release metoprolol succinate 50 mg 50 mg PO DAILY 08/25/20 07/27/24 tablet,extended release 24 hr nitroglycerin 0.4 mg sublingual 0.4 mg sublingual Q5M PRN Chest 07/09/23 07/27/24 tablet Pain donepezil 5 mg tablet 5 mg PO BEDTIME 05/04/24 07/27/24 acetaminophen 500 mg tablet 1,000 mg PO BID PRN Pain/Migraine 07/27/24 07/27/24 budesonide-formoterol HFA 80 2 puff inhalation DAILY 07/27/24 07/27/24 mcg-4.5 mcg/actuation aerosol inhaler (Symbicort) omeprazole 40 mg capsule,delayed 40 mg PO BID PRN Heart Burn 07/27/24 07/27/24 release Previous Rx's ?Medication ?Instructions ?Recorded albuterol sulfate 90 mcg/actuation 2 puff PO Q4-6H PRN shortness of 05/06/22 aerosol inhaler breath or wheezing #8.5 ea doxycycline monohydrate 100 mg 100 mg PO BID #10 caps 07/29/24 capsule nicotine 21 mg/24 hr daily 21 mg transdermal DAILY #28 ea 07/29/24 transdermal patch ondansetron 4 mg disintegrating 4 mg PO Q8H PRN nausea and 07/29/24 tablet vomiting #14 tabs oxycodone 10 mg tablet 10 mg PO Q6H PRN pain (scale score 07/29/24 4-6) #15 tabs Allergies Allergy/AdvReac Type Severity Reaction Status Date / Time No Known Allergies Allergy Verified 07/30/24 14:22 Review of Systems Review of Systems: Yes all other systems are reviewed and are negative [facility] Past Medical History Medical History Admission for biliary drainage tube placement Nicotine dependence, cigarettes, uncomplicated History of COVID-19 History of ARDS Osteoporosis COPD (chronic obstructive pulmonary disease) Essential hypertension Atherosclerotic cardiovascular disease History of [place] (myocardial infarction) (~2015) Coronary artery disease GERD (gastroesophageal reflux disease) Peptic ulcer disease Surgical History History of heart artery stent (~2015) History of exploratory laparotomy (~2019) Family History Family History Father No problems noted. Mother Diabetes Brother Heart problem Social History Social History Household Members: Spouse Household Members Other:: 2 Housing: House Housing Other:: 2 family hopuse Do you presently have visiting nurse or other home services: Yes Alcohol intake: never Patient Tobacco Use Status: Current everyday Tobacco user Tobacco use type: Cigarette Cigarette Packs Per Day: 1 Cigarettes Per Day: 20.0 Years Smoked: 54 Smoked in Last 30 Days: Yes Second Hand Smoke Exposure: Yes Use of substances other than those prescribed or required for medical reasons: No Advance Directives: Yes Advance Directives Information Provided: Yes Advance Directives on File: No Advance Directives Date on File: 11/27/16 service: No Physical Exam ED Vital Signs: Vital Signs - 24 hr 07/30/24 14:21 Pulse Rate 82 Respiratory Rate 18 Blood Pressure 112/89 Pulse Oximetry 91 L Oxygen Delivery Method Room Air BMI result Body Mass Index 15.1 Appearance: Alert, cachectic and frail. Oriented X3. No acute distress. HEENT: Normal inspection Neck: Normal inspection. Respiratory: No respiratory distress. Speaking complete sentences Abdomen: Flat, nontender, dry sterile dressing in place over the percutaneous cholecystostomy tube, small amount of yellow bile in the bag +BS x4 Skin: Skin warm and dry. Normal skin color. Normal skin turgor. No rashes. Extremities: No lower extremity edema. No joint swelling. Neuro/psych: Oriented X 3. Grossly normal, nonfocal CN II-XII intact. Normal speech and cognition. Course Course Course Narrative: This is an RME performed by Moises Rivers, SEISMIC PROSPECTING OBSERVER HELPER: Additional HPI, ROS, PE not included below will be deferred to primary provider. Patient is a 69-year-old female who presents to the emergency department for evaluation. On 07/28/2024 she had an 8.5 [place]ian percutaneous cholecystostomy drain that was partially dislodged with tip located in proximal CBD, was replaced/upsized to a 10 [place]ian drain with tip positioned in the duodenum obstructing CBD stone remaining present and plan for outpatient biliary endoscopy, and IR recommendation to keep with gravity drainage for 24 hours and then cap drain afterwards. She was discharged from the hospital yesterday. She states that today she has been experiencing significant decreased drainage from the bad reports that she emptied it at approximately 08:00, and there is currently only a scant amount of drainage she would typically expect to see the bag about half full at this time and she is having discomfort at the insertion site, is concern that there is a ?kink? Medical Decision Making Medical Decision Making MDM Narrative: 69-year-old female with history of severe COPD, HTN, CAD, GERD, PUD, PVD, osteoporosis, active smoker, with history of choledocholithiasis and cholangitis status post percutaneous cholecystostomy tube on 05/06/2024 who had recent tube exchange and upsizing in IR on 07/28/24 presents back to the ER for evaluation for decreased tube output. Desean Tiwari in IR was contacted who came to the bedside to evaluate the patient. He assess the bag and removed it. the drain is now internalized and decreased output is to be expected. she needs further procedure in the future to take care of the CBD stone. IR will contact her visiting nurse to arrange this. stable for d/c home. no further need for external drainage per IR. Differential Diagnosis Differential Diagnoses: The differential diagnosis associated with the presentation includes kinked biliary drain, dislodged biliary drain, abscess, cellulitis Admission/Observation Consideration of admission/observation: Escalation of care including admission/observation considered Consult Healthcare Provider Management of the patient was discussed with: Advertising Sales Agent Desean Tiwari PA-C in IR Tests considered The following testing was considered but not selected: considered labs and re-imaging but not indicated today Prescription Management I considered prescription management with: Pain Medication and Antibiotic Chronic Conditions Patient?s care impacted by: Other (COPD) Critical Care Time Critical Care Time Critical Care Time: No Discharge Plan Discharge Clinical Impression: Cholecystostomy tube dysfunction Qualifiers: Encounter type: initial encounter Qualified Code(s): T85.518A - Breakdown (mechanical) of other gastrointestinal prosthetic devices, implants and grafts, initial encounter Patient Disposition: Home, Self-Care Additional Instructions: Follow up with Interventional Radiology for further procedure to take care of the stone in your common bile duct Your tube should be flushed once per week by your [facility] If you develop new or worsening symptoms call 911 or come back to the ER for further evaluation. Prescriptions: No Action albuterol sulfate 90 mcg/actuation HFA aerosol inhaler 2 puff PO Q4-6H PRN (Reason: shortness of breath or wheezing) Qty: 8.5 5RF donepezil 5 mg tablet 5 mg PO BEDTIME budesonide-formoterol [Symbicort] 80-4.5 mcg/actuation HFA aerosol inhaler 2 puff INHALATION DAILY acetaminophen 500 mg Tablet 1,000 mg PO BID PRN (Reason: Pain/Migraine) omeprazole 40 mg capsule,delayed release(DR/EC) 40 mg PO BID PRN (Reason: Heart Burn) nicotine 21 mg/24 hr Patch 24 Hour 21 mg transdermal DAILY Qty: 28 0RF doxycycline monohydrate 100 mg capsule 100 mg PO BID Qty: 10 0RF ondansetron 4 mg tablet,disintegrating 4 mg PO Q8H PRN (Reason: nausea and vomiting) Qty: 14 0RF oxycodone 10 mg tablet 10 mg PO Q6H MDD 30 PRN (Reason: pain (scale score 4-6)) Qty: 15 0RF Rx Instructions: Partial Fill upon patient request. nitroglycerin 0.4 mg tablet, sublingual 0.4 mg sublingual Q5M PRN (Reason: Chest Pain) aspirin 81 mg tablet,delayed release (DR/EC) 81 mg PO DAILY metoprolol succinate 50 mg tablet extended release 24 hr 50 mg PO DAILY Print Language: Citizen Of [place]
[2024-07-30 14:21] VITALS: BP 112/89; PULSE 82; RESP 18; O2SAT 91; BMI 15.1
--- NOTE | 2024-07-30 15:39 | PC.NURSE ---
pt a&ox3, pt rashad tube not draining as it should, labs attempted by tech and this nurse, pt tensing up arm and pulling up back while nurse and tech attempted to draw, provider has opted to not draw labs and another provider fixed rashad tube, pt to discharge home
[2024-07-30 16:04] VITALS: BP 114/88; PULSE 86; RESP 18; TEMP 36.8; O2SAT 91
--- NOTE | 2024-08-02 09:56 | PM.EVENT ---
Event Note Date of Service: 07/30/24 Event Note: Contacted by ED regarding patient's biliary drain. She is now 2 days s/p replacement/upsize of her right internal/eternal biliary drain. She was sent to ED by her [facility] due to decreased drainage. She reports of some discomfort at the drainage site. Denies leaking around her drain. Denies fever. Afebrile NAD Abdomen: soft, flat, midly ttp at drain site. Skin: Biliary dressing c/d/i. No leaking at drain site. Suture intact Drain flushed without difficulty and without pain. No leaking around drain. Explained to patient that drainage may fluctuate, however, drain is also allowing internal drainage. Given her normal bilirubin, her drain was capped by myself. She will follow up with IR in the future for biliary endoscopy to remove her obstructing CBD stone, given her pulmonary clearance. Patient and understood plan. Time Spent With Patient Time: Total time managing care of this patient today ____ minutes.
== END 2024-07-30 16:05 | disposition home or self-care (01) ==
PROVIDERS: Emergency Provider Emergency Medicine Emergency Medical Services
DX: R10.9 Unspecified abdominal pain (principal); I10 Essential (primary) hypertension; I25.10 Atherosclerotic heart disease of native coronary artery without angina pectoris; Z79.899 Other long term (current) drug therapy
CPT/HCPCS: 99283

== ENCOUNTER 2024-08-26 11:26 | Day surgery (SDC) | payer MEDICARE, MEDICAID, SELFPAY ==
[2024-08-20 12:17] VITALS: BP 112/58; PULSE 100; RESP 22; O2SAT 96; BMI 15.6
[2024-08-26] VITALS (7 sets, daily range): BP systolic 94–135; BP diastolic 55–75; PULSE 89–110; RESP 17–24; TEMP 36.6–36.9; O2SAT 82–100
--- NOTE | ~2024-08-26 | IR_ITS ---
History: Patient with history of cholangitis secondary to an obstructing common bile duct stone. The patient has an existing internal-external biliary drain and presents today for a Spyglass procedure to remove the stone by lithotripsy. Procedure performed: 1. Antegrade cholangiogram 2. Choledochoscopy 3. Exchange of internal-external biliary drain with repeat antegrade cholangiogram Physician: Moises Guerrero MD FS Anesthesia: General. See anesthesiology note. Specimen: None Drain: 12 [place]an biliary drainage catheter Estimated blood loss: None Complications: None. Procedure in detail: Informed and written consent was obtained and placed in the chart. The patient was positioned supine on the angiography table with sterile preparation of the right lateral abdomen, including the existing biliary tube. An antegrade cholangiogram was performed through the existing tube showing mild biliary dilatation and indistinctness of the common bile duct. The existing drain was removed over a stiff Glidewire. A hockey-stick catheter was used to catheterize the jejunum distally and we exchanged for an Amplatz wire over which a 12 [place]an sheath was placed. Choledochoscopy with the [employer] camera was performed. We made two passes through the common hepatic duct and common bile duct and noted no evidence of a stone. Mild swelling was noted. No abnormalities of the visualized duodenum. The camera was removed. We exchanged for a new 12 [place]an internal-external biliary drain, which was capped. It was sutured to the skin with 2-0 nylon and secured with an overlying sterile dressing. Summary: Choledochoscopy confirms that the previously seen common bile duct stone has passed spontaneously. There is now free drainage of contrast through the common bile duct to the duodenum. We will allow the existing drain to stay in place for one week to allow for any residual swelling or inflammation to subside. The patient will return in one week for a planned removal of her biliary drain. Electronically signed by: Valentin Guerrero MD 08/26/2024 03:04 PM [facility]
--- NOTE | 2024-08-26 12:33 | MHC.SHP ---
Pre-Procedural Eval Section A - 24 Hr Update-Section A only Date of Service: 08/26/24 Section B - Complete if H&P > 30 days Chief Complaint: edoscopic cbd Details of Present Illness: 69 y/o female with choledocholithiasis and biliary obstruction s/p right int/ext biliary drain. She presents for biliary endoscopy and stone removal Relevant Family History (Specify if Yes): No Relevant Social History: Tobacco Use (1 ppd) Present Medications: see Short Stay Collaborative assessment Medical History: Significant History History of Previous Operations: Relevant previous surgery/procedure and date(s) (Right biliary drain and upsize) Allergies: Allergies Allergy/AdvReac Type Severity Reaction Status Date / Time No Known Allergies Allergy Verified 07/30/24 14:22 Review of Systems Sugical H&P ROS: Negative: Constitution, Cardiovascular and Respiratory and Yes, Specify: Psychiatric (anxious) Exam Surgical H&P Exam: Normal: Lungs, Normal: Abdomen (right biliary drain present) and Normal: Skin and Significant Findings: Heart (tachycardic) Plan 69 y/o female choledocholithiasis and biliary obstruction s/p right int/ext biliary drain -Biliary endoscopy with CBD stone extraction with Dr. Guerrero Time Spent With Patient Time: Total time managing care of this patient today ____ minutes.
--- NOTE | 2024-08-26 13:25 | P.CONAN_ITS ---
Documented by User: Odalis Navas NP 08/25/24 10:06 HPI - Anesthesia Eval Consult details Narrative: 69yo F for spyglass case Significant pulmo risk. Optimized per [facility] pulmo 07/2024. At [facility], pt denies any recent illness or change from baseline VILLARREAL . Able to walk from front entrance to SSS without VILLARREAL. Not oxygen dependant. Continues to smoke - encouraged cessation/no smoking DOS. Rare inhaler use - instructed Symbicort as rx'd - 2 puffs BID and Albuterol at least daily every day until DOS. Pt and family verbalized understanding. Follows [facility] cardiology for CAD s/p RI 2015. Follows yearly. Last office visit 09/2023, stable CAD. Stressed smoking cessation Increased frailty risk PMFSH Active Problems Active Problems: All Active Problems Cholecystostomy drain infection (Acute) Claudication of lower extremity (Acute) Chronic pain (Acute) Neuropathy (Acute) Nicotine dependence, cigarettes, uncomplicated (Acute) Atherosclerotic cardiovascular disease (Acute) History of RI (myocardial infarction) (Acute ~2015) Essential hypertension (Acute) GERD (gastroesophageal reflux disease) (Acute) Peptic ulcer disease (Acute) Osteoporosis (Acute) Past Medical History Medical History Admission for biliary drainage tube placement Nicotine dependence, cigarettes, uncomplicated History of COVID-19 History of ARDS Osteoporosis COPD (chronic obstructive pulmonary disease) Essential hypertension Atherosclerotic cardiovascular disease History of [place] (myocardial infarction) (~2015) Coronary artery disease GERD (gastroesophageal reflux disease) Peptic ulcer disease Family History Family History Father No problems noted. Mother Diabetes Brother Heart problem Surgical History Surgical History History of heart artery stent (~2015) History of exploratory laparotomy (~2019) Social History Social History Household Members: Spouse Household Members Other:: 2 Housing: House Housing Other:: 2 family house Are you a primary cardiac care unit nurse to a significant other at home: No Alcohol intake: never Patient Tobacco Use Status: Current everyday Tobacco user Tobacco use type: Cigarette Cigarette Packs Per Day: 1 Cigarettes Per Day: 20.0 Years Smoked: 54 Second Hand Smoke Exposure: Yes Use of substances other than those prescribed or required for medical reasons: No Have you been hit, kicked, punched, or otherwise hurt by someone within the past year? If so, by whom?: No Spiritual Healthcare Practices: none Buddhist Healthcare Practices: Episcopal Cultural Healthcare Practices: none Are you DNR?: No Advance Directives: Yes Advance Directives Information Provided: Yes Advance Directives on File: Yes Advance Directives Date on File: 11/27/16 Recently lost weight without trying: Yes How much weight loss: 14-23 pounds Eating poorly because of decreased appetite: No Nutrition screen score: 4 Nutrition Risks: Gastrointestinal Malabsorption FDLMP: n/a Poor oral hygiene: Yes (upper full denture/edentulous-no lower denture) service: No Meds Allergies Allergy/AdvReac Type Severity Reaction Status Date / Time No Known Allergies Allergy Verified 07/30/24 14:22 Home Medications ?Medication ?Instructions ?Recorded ?Confirmed ?Last Taken ?Type aspirin 81 mg tablet,delayed 81 mg PO DAILY 08/25/20 08/20/24 07/26/24 History release metoprolol succinate 50 mg 50 mg PO DAILY 08/25/20 08/20/24 07/26/24 History tablet,extended release 24 hr nitroglycerin 0.4 mg sublingual 0.4 mg sublingual Q5M PRN Chest 07/09/2308/06 Unknown History tablet Pain donepezil 5 mg tablet 5 mg PO BEDTIME 05/04/24 08/20/24 07/26/24 History acetaminophen 500 mg tablet 1,000 mg PO BID PRN Pain/Migraine 07/27/24 08/20/24 Unknown History budesonide-formoterol HFA 80 2 puff inhalation BID 07/27/24 08/20/24 07/26/24 History mcg-4.5 mcg/actuation aerosol inhaler (Symbicort) omeprazole 40 mg capsule,delayed 40 mg PO QAM 07/27/24 08/20/24 Unknown History release Exam Height,Weight and Vital Signs: Height 4 ft 11 in Weight 35.1 kg Last Vital Signs Pulse 100 08/20/24 12:17 Resp 22 H 08/20/24 12:17 BP 112/58 L 08/20/24 12:17 Pulse Ox 96 08/20/24 12:17 O2 Del Method Room Air 08/20/24 12:17 Pertinent Lab Results Pertinent Lab Results: Laboratory Tests 07/29/24 08:51 WBC 7.4 Hgb 13.7 Hct 43.3 Plt Count 237 Sodium 142 Potassium 3.6 Chloride 102 Carbon Dioxide 31 H BUN 13 Creatinine 0.57 Narrative Narrative: EKG 04/2024 Vent. Rate : 082 BPM Atrial Rate : 082 BPM P-R Int : 126 ms QRS Dur : 078 ms QT Int : 340 ms P-R-T Axes : 075 107 047 degrees QTc Int : 397 ms Normal sinus rhythm Rightward axis Pulmonary disease pattern Nonspecific T wave abnormality Abnormal ECG When compared with ECG of 09-JUL-2023 10:25, Vent. rate has decreased BY 42 BPM Nonspecific T wave abnormality now evident in Inferior leads Nonspecific T wave abnormality, worse in Anterior leads In Office spirometry 07/2024 Results Reviewed: SPIROMETRY IN THE OFFICE DONE TODAY SHOWS MILD OBSTRUCTIVE AIRWAY DISORDER, IT REMAINS UNCHANGED WHEN COMPARED TO THE RESULTS ON 07/12/2021 Per 2022 cardiology office visit: Cardiac catheterization 2015 showed 95% stenosis in the mid RCA. No significant disease elsewhere. Vascular ultrasound shows atherosclerotic plaque in bilateral SFA, but no significant stenosis. Carotid ultrasound does not show any significant stenosis. No evidence of AAA on abdominal ultrasound. Airway Mallampati Class: II TM Dist: >3cm Neck ROM: Full Denture: Upper and Lower (Doesn't wear) Heart: RRR Lungs: Dim throughout. Fine crackles in bases Assessment and Plan Assessment Anesthesia Assessment: Anesthesia Plan Discussed, Smoking Cess. Discussed and PAT Visit Documented by User: Suyapa Herr DO 08/26/24 14:28 [facility] Past Medical History Medical History Admission for biliary drainage tube placement Nicotine dependence, cigarettes, uncomplicated History of COVID-19 History of ARDS Osteoporosis COPD (chronic obstructive pulmonary disease) Essential hypertension Atherosclerotic cardiovascular disease History of [place] (myocardial infarction) (~2015) Coronary artery disease GERD (gastroesophageal reflux disease) Peptic ulcer disease Family History Family History Father No problems noted. Mother Diabetes Brother Heart problem Family history of problems with anesthesia: No Surgical History Surgical History History of heart artery stent (~2015) History of exploratory laparotomy (~2019) History of Problems with Anesthesia: No Social History Social History Household Members: Spouse Household Members Other:: 2 Housing: House Housing Other:: 2 family house Are you a primary cardiac care unit nurse to a significant other at home: No Alcohol intake: never Patient Tobacco Use Status: Current everyday Tobacco user Tobacco use type: Cigarette Cigarette Packs Per Day: 1 Cigarettes Per Day: 20.0 Years Smoked: 54 Second Hand Smoke Exposure: Yes Use of substances other than those prescribed or required for medical reasons: No Have you been hit, kicked, punched, or otherwise hurt by someone within the past year? If so, by whom?: No Spiritual Healthcare Practices: none Buddhist Healthcare Practices: Episcopal Cultural Healthcare Practices: none Are you DNR?: No Advance Directives: Yes Advance Directives Information Provided: Yes Advance Directives on File: Yes Advance Directives Date on File: 11/27/16 Recently lost weight without trying: Yes How much weight loss: 14-23 pounds Eating poorly because of decreased appetite: No Nutrition screen score: 4 Nutrition Risks: Gastrointestinal Malabsorption FDLMP: n/a Poor oral hygiene: Yes (upper full denture/edentulous-no lower denture) service: No Meds Allergies Allergy/AdvReac Type Severity Reaction Status Date / Time No Known Allergies Allergy Verified 07/30/24 14:22 Home Medications ?Medication ?Instructions ?Recorded ?Confirmed ?Last Taken ?Type aspirin 81 mg tablet,delayed 81 mg PO DAILY 08/25/20 08/20/24 07/26/24 History release metoprolol succinate 50 mg 50 mg PO DAILY 08/25/20 08/20/24 07/26/24 History tablet,extended release 24 hr nitroglycerin 0.4 mg sublingual 0.4 mg sublingual Q5M PRN Chest 07/09/23 08/20/24 Unknown History tablet Pain donepezil 5 mg tablet 5 mg PO BEDTIME 05/04/24 08/20/24 07/26/24 History acetaminophen 500 mg tablet 1,000 mg PO BID PRN Pain/Migraine 07/27/24 08/20/24 Unknown History budesonide-formoterol HFA 80 2 puff inhalation BID 07/27/24 08/20/24 07/26/24 History mcg-4.5 mcg/actuation aerosol inhaler (Symbicort) omeprazole 40 mg capsule,delayed 40 mg PO QAM 07/27/24 08/20/24 Unknown History release Exam Exam Date and Time: 08/26/24 1325 Airway Mallampati Class: II TM Dist: >3cm Neck ROM: Full Denture: Upper Heart: S1S2 Lungs: CTA left. Diminished right side Assessment and Plan Assessment Anesthesia Assessment: Anesthesia Plan Discussed and Chart Reviewed Final Anesthetic Review Family History of Problems with Anesthesia: No History of Problems with Anesthesia: No NPO: Yes ASA Class: III Final Preanesthetic Review: No Changes in Pt Med Stat, Meds/Allgs Chart Reviewed, Consent Obtained/Reviewed and Anes Risks/Benef Reviewed (Patient is aware that she is at increased risk of remaining intubated after procedure due to pulmonary status.) Patient Risk: Intermediate Procedure Risk: Low Anesthetic Plan Anesthetic Plan: GA and Agree w/ Assess. and Plan Disposition: Standard PACU
--- NOTE | 2024-08-26 14:07 | PC.NURSE ---
pt is being monitored by Dr Herr.awaiting dr Guerrero
== END 2024-08-26 16:51 | disposition home or self-care (01) ==
PROVIDERS: PCP General Practice; Visit Provider Radiology Vascular & Interventional Radiology
PROC: 0FT44ZZ Resection of Gallbladder, Percutaneous Endoscopic Approach (ICD-10-PCS; CPT 47562; principal; 2024-08-26 13:00)
DX: K80.50 Calculus of bile duct without cholangitis or cholecystitis without obstruction (principal)
CPT/HCPCS: 47536; 47552; 47554; C1726; C1729; C1769; C1894; J0696; J1100; J2003; J2371; J2405; J2704; J3010; Q9967

== ENCOUNTER → 2024-08-26 13:30 | Outpatient (BNV) | payer MEDICARE, MEDICAID, SELFPAY | PROVIDERS: PCP General Practice; Visit Provider Radiology Vascular & Interventional Radiology | DX: K80.30 Calculus of bile duct with cholangitis, unspecified, without obstruction (principal) | CPT/HCPCS: 47536; 47552 ==

== ENCOUNTER 2024-09-06 10:30 | Outpatient (AMB) | payer MEDICARE, MEDICAID, SELFPAY ==
--- NOTE | 2024-09-06 10:33 | A.OFFVIS_ITS ---
Vital Signs 09/06/24 10:36 Height 4 ft 11 in Weight 75 lb BMI 15.1 BP 128/70 Blood Pressure Location Lt brachial Position Sitting Pulse 98 Intake Visit Reasons: G-tube follow up Intake Note: Tammy presents in the office as a follow up G Tube placement. CC: She states that she is not having any concerns at this time. She states that she eats more meals because she is getting full faster. Allergies No Known Allergies Allergy (Verified 09/06/24 10:34) HPI HPI G-tube follow up: Details: 69-year-old female with history of COPD not on home O2, hypertension, coronary artery disease, GERD, peptic ulcer disease, osteoporosis who I am seeing for f/u for bile duct obstruction. RECAP: She had jaundice and choledocholithiasis she refused ERCP and IR placed C tube INTERIM: She saw IR and had further testing showing passage of bile stone she feels well she has no abdominal pain \ No diarrhea, melena, hematochezia. EXAM: GENERAL: The patient is thin VITAL SIGNS:see workflow HEENT: Nonicteric sclerae, PERRLA, EOMI. Oropharynx clear. Moist mucous membranes. Conjunctivae appear well perfused. No thyroid mass. CHEST: Chest wall is nontender. HEART: Regular rate and rhythm without murmurs. LUNGS: Clear to auscultation bilaterally, but air entry is reduced and hyperinflated chest ABDOMEN: Soft, positive bowel sounds, nontender, no organomegaly.no flank tenderness--C tube noted SKIN: No rash, no excessive bruising, petechiae, or purpura. NEUROLOGIC: Cranial nerves II-XII intact without motor/sensory deficit. Psych: normal affect A/P: 1/ Choledocholithiasis, resolved, PLAN: 1/ f/u IR will have stent removed [facility] Medical History PVD (peripheral vascular disease) Admission for biliary drainage tube placement Nicotine dependence, cigarettes, uncomplicated History of COVID-19 History of ARDS Osteoporosis COPD (chronic obstructive pulmonary disease) Essential hypertension Atherosclerotic cardiovascular disease History of [place] (myocardial infarction) (~2015) Coronary artery disease GERD (gastroesophageal reflux disease) Peptic ulcer disease Surgical History History of heart artery stent (~2015) History of exploratory laparotomy (~2019) Family History Father No problems noted. Mother Diabetes Brother Heart problem Social History Household Members: Spouse Household Members Other:: 2 Housing: House Housing Other:: 2 family house Are you a primary customer care team coach to a significant other at home: No Alcohol intake: never Patient Tobacco Use Status: Current everyday Tobacco user Tobacco use type: Cigarette Cigarette Packs Per Day: 1 Cigarettes Per Day: 20.0 Years Smoked: 54 Second Hand Smoke Exposure: Yes Advance Directives Date on File: 11/27/16 service: No Physical Exam Vital Signs: Last Vital Signs Pulse 98 09/06/24 10:36 BP 128/70 09/06/24 10:36 BMI result Body Mass Index 15.1 Assessment & Plan Assessment & Plan (1) Choledocholithiasis: Code(s): K80.50 - Calculus of bile duct without cholangitis or cholecystitis without obstruction Category: Medical Plan: see above Coding Level of Care Code Est Pt Level 3 (25920) Diagnoses Choledocholithiasis K80.50
[2024-09-06 10:36] VITALS: BP 128/70; PULSE 98; BMI 15.1
== END 2024-09-06 11:11 | disposition home or self-care (01) ==
PROVIDERS: PCP General Practice; Visit Provider Internal Medicine Gastroenterology
DX: K80.50 Calculus of bile duct without cholangitis or cholecystitis without obstruction (principal)
CPT/HCPCS: 99213

== ENCOUNTER → 2024-09-06 10:30 | Outpatient (BNVA) | payer MEDICARE, MEDICAID, SELFPAY | PROVIDERS: PCP General Practice; Visit Provider Internal Medicine Gastroenterology | DX: K21.9 Gastro-esophageal reflux disease without esophagitis (principal); K80.50 Calculus of bile duct without cholangitis or cholecystitis without obstruction | CPT/HCPCS: 99212 ==

== ENCOUNTER 2024-09-08 11:18 | Day surgery (SDC) | payer MEDICARE, MEDICAID, SELFPAY ==
[2024-09-08] VITALS (11 sets, daily range): BP systolic 110–160; BP diastolic 71–94; PULSE 97–113; RESP 14–22; TEMP 37.7; O2SAT 91–99
--- NOTE | ~2024-09-08 | IR_ITS ---
IR biliary drain replacement/cholangiogram History: 69-year-old female with biliary obstruction due to choledocholithiasis status post placement of a right internal/external biliary drain in May 2024. Patient underwent biliary endoscopy on August 26, 2024, which demonstrated passage of the obstructing common bile duct stone. Patient presents today for a cholangiogram and possible removal of her biliary drain. Procedure: Fluoroscopic cholangiogram and replacement of the right internal/external biliary drain MEDICATIONS: - Fentanyl 100 mcg, lidocaine 1% 10 mL - Antibiotics: Rocephin - For additional details, please see nursing flowsheet. Complications: None Blood loss: Less than 5 mL Specimens: None Contrast: 30 mL Omnipaque 300 PROCEDURE NOTE: The procedure, risks, benefits, and alternatives were carefully explained to the patient and written informed consent was obtained. The abdomen was prepped and draped in usual sterile fashion. The catheter was cut, and a 0.035 stiff Glidewire was advanced through the catheter and advanced into the duodenum. The catheter was removed over the wire. A 10 Chinese sheath was placed over the wire and a cholangiogram was performed. This demonstrated a high-grade stenosis of the distal common bile duct/ampulla, in which there was minimal flow of contrast into the duodenum observed. No filling defects were seen to suggest a common bile duct stone. Retrograde filling of the gallbladder was observed. The sheath was removed, and a new 12 Fr internal/external biliary drain was advanced over the wire and positioned with the tip in the duodenum. A permanent fluoroscopic image of the abdomen was saved and sent to PACS. The drainage catheter was secured to skin with a 2-0 nylon suture. A dry sterile dressing was applied. Patient tolerated the procedure well. The drainage catheter was capped. IR/IR Biliary Drainage Exchange Impression: Fluoroscopic cholangiogram demonstrates a high grade stenosis of the distal common bile duct/ampulla, possibly due to edema from recent passage of the common bile duct stone. The right internal/external biliary drain was replaced with a 12 Fr catheter. The patient will return in one month for repeat cholangiogram. This procedure was performed by Geo Tiwari PA-C and supervised by Dr. Marie. Electronically signed by: Valentin Guerrero MD 11/05/2024 04:58 PM [facility] Workstation: [id number]
[2024-09-08] MEDS: cefTRIAXone sodium 1 GM VIAL IVPUSH (12:48)
--- NOTE | 2024-09-08 13:06 | MHC.SHP ---
Pre-Procedural Eval Section A - 24 Hr Update-Section A only Date of Service: 09/08/24 Section B - Complete if H&P > 30 days Chief Complaint: BILIARY STENT, CALCULUS OF BILE DUCT W/OBSTRUCTION Details of Present Illness: 69 y/o female with biliary obstruction from choledocholithiasis s/p biliary drain placement and subsequent biliary endoscopy. Patient presents for a cholangiogram with possible removal of the biliary drain. Relevant Family History (Specify if Yes): No Relevant Social History: Tobacco Use Present Medications: see Short Stay Collaborative assessment Medical History: Significant History History of Previous Operations: Relevant previous surgery/procedure and date(s) Allergies: Allergies Allergy/AdvReac Type Severity Reaction Status Date / Time No Known Allergies Allergy Verified 09/06/24 10:34 Review of Systems Sugical H&P ROS: Negative: Constitution, Cardiovascular and Respiratory and Yes, Specify: Psychiatric (anxious) Exam Surgical H&P Exam: Normal: Skin and Normal: Neurological and Significant Findings: Heart (tachycardia) and Significant Findings: Abdomen (right sided biliary drain) Plan 69 y/o female with biliary obstruction from choledocholithiasis s/p biliary drain placement and subsequent biliary endoscopy -Cholangiogram with possible drain removal Time Spent With Patient Time: Total time managing care of this patient today ____ minutes.
[2024-09-08] MEDS: fentaNYL citrate/PF 100 MCG/2 ML VIAL 25 MCG IVPUSH ×2 (13:30→13:42)
== END 2024-09-08 14:14 | disposition home or self-care (01) ==
PROVIDERS: PCP General Practice; Visit Provider Physician Assistant Surgical
DX: K80.51 Calculus of bile duct without cholangitis or cholecystitis with obstruction (principal); K27.9 Peptic ulcer, site unspecified, unspecified as acute or chronic, without hemorrhage or perforation; K21.9 Gastro-esophageal reflux disease without esophagitis; I10 Essential (primary) hypertension; I25.10 Atherosclerotic heart disease of native coronary artery without angina pectoris; Z95.5 Presence of coronary angioplasty implant and graft; I25.2 Old myocardial infarction; I70.219 Atherosclerosis of native arteries of extremities with intermittent claudication, unspecified extremity; G62.9 Polyneuropathy, unspecified; G89.29 Other chronic pain; J44.9 Chronic obstructive pulmonary disease, unspecified; M81.0 Age-related osteoporosis without current pathological fracture; Z79.51 Long term (current) use of inhaled steroids; Z79.82 Long term (current) use of aspirin; Z79.899 Other long term (current) drug therapy; F17.210 Nicotine dependence, cigarettes, uncomplicated
CPT/HCPCS: 47536; C1729; C1769; C1894; J0696; J2003; J2310; J3010; Q9967

== ENCOUNTER 2024-09-26 15:01 | Emergency (ER) | payer MEDICARE, MEDICAID, SELFPAY ==
[2024-09-26 15:17] VITALS: BP 137/68; PULSE 99; RESP 18; TEMP 36.6; O2SAT 98; BMI 32.5
--- NOTE | 2024-09-26 15:18 | ED_ITS ---
HPI - General Adult General Chief complaint: Fall Stated complaint: fall Time Seen by Provider: 09/26/24 16:40 History of Present Illness ED Provider: Dr. Marc Hollis HPI narrative: 69-year-old female with history of severe COPD, HTN, CAD, GERD, PUD, PVD, osteoporosis, active smoker, with history of choledocholithiasis and cholangitis status post percutaneous cholecystostomy tube on 05/06/2024 presenting with 5/10 upper abdominal pain after a trip and fall 5 days prior patient states that she was getting [employer] decorations when she slipped and fell striking her chest and upper abdomen on a table. Patient states that initially she did not have pain but 2 days later she had increased pain in her lower chest and upper abdomen. She states the pain is worse with breathing and with coughing. She denied shortness of breath or dyspnea on exertion. She states she was had nausea with dry heaves. She denied fever, chills, frequency, urgency, dysuria, change in her bowel movements Related Data Home Medications ?Medication ?Instructions ?Recorded ?Confirmed aspirin 81 mg tablet,delayed 81 mg PO DAILY 08/25/20 09/08/24 release metoprolol succinate 50 mg 50 mg PO DAILY 08/25/20 09/08/24 tablet,extended release 24 hr nitroglycerin 0.4 mg sublingual 0.4 mg sublingual Q5M PRN Chest 07/09/23 09/08/24 tablet Pain donepezil 5 mg tablet 5 mg PO BEDTIME 05/04/24 09/08/24 acetaminophen 500 mg tablet 1,000 mg PO BID PRN Pain/Migraine 07/27/24 09/08/24 budesonide-formoterol HFA 80 2 puff inhalation BID 07/27/24 09/08/24 mcg-4.5 mcg/actuation aerosol inhaler (Symbicort) omeprazole 40 mg capsule,delayed 40 mg PO QAM 07/27/24 09/08/24 release morphine 15 mg tablet,extended 15 mg PO BID 09/06/24 09/08/24 release Previous Rx's ?Medication ?Instructions ?Recorded albuterol sulfate 90 mcg/actuation 2 puff PO Q4-6H PRN shortness of 02/08/22 aerosol inhaler breath or wheezing #8.5 ea doxycycline monohydrate 100 mg 100 mg PO BID #10 caps 07/29/24 capsule ondansetron 4 mg disintegrating 4 mg PO Q8H PRN nausea and 07/29/24 tablet vomiting #14 tabs oxycodone 10 mg tablet 10 mg PO Q6H PRN pain (scale score 07/29/24 4-6) #15 tabs Allergies Allergy/AdvReac Type Severity Reaction Status Date / Time No Known Allergies Allergy Verified 09/26/24 15:20 Review of Systems 2 Review of Systems: Yes all other systems are reviewed and are negative [facility] Past Medical History [facility] Narrative: Social history: The patient lives with her . Sean who is her in the emergency department. Her states that the patient was had difficulty and she was being evaluated for dementia. Medical History PVD (peripheral vascular disease) Admission for biliary drainage tube placement Nicotine dependence, cigarettes, uncomplicated History of COVID-19 History of ARDS Osteoporosis COPD (chronic obstructive pulmonary disease) Essential hypertension Atherosclerotic cardiovascular disease History of TN (myocardial infarction) (~2015) Coronary artery disease GERD (gastroesophageal reflux disease) Peptic ulcer disease Surgical History History of heart artery stent (~2015) History of exploratory laparotomy (~2019) Family History Family History Father No problems noted. Mother Diabetes Brother Heart problem Social History Social History Household Members: Spouse Household Members Other:: 2 Housing: House Housing Other:: 2 family house Are you a primary pet care assistant to a significant other at home: No Alcohol intake: never Patient Tobacco Use Status: Current everyday Tobacco user Tobacco use type: Cigarette Cigarette Packs Per Day: 1 Cigarettes Per Day: 20.0 Years Smoked: 54 Smoked in Last 30 Days: Yes Second Hand Smoke Exposure: Yes Use of substances other than those prescribed or required for medical reasons: No Advance Directives: Yes Advance Directives on File: Yes Advance Directives Date on File: 11/27/16 Do you have a plan to hurt others: No Plan service: No Physical Exam ED Vital Signs: Vital Signs - 24 hr 09/26/24 15:17 12/22/24 17:31 Temperature 98 F 98.6 F Pulse Rate 99 110 H Respiratory Rate 18 16 Blood Pressure 137/68 129/75 Pulse Oximetry 98 92 Oxygen Delivery Method Room Air BMI result Body Mass Index 32.5 Vital signs were noted Exam: General: Awake, alert, no distress, very thin, short stature Head: Normocephalic, atraumatic EENT: PERRL, Lids normal, sclera normal, conjunctiva normal, nose normal , ears normal, throat without erythema or exudates Neck: Supple, no adenopathy Lung: breath sounds symmetric, no wheezing, rales or rhonchi Chest: symmetric movement, nontender Heart: regular rate and rhythm, normal S1, S2 no murmurs or rubs Abdomen: soft, non-tender, nondistended, normal bowel sounds, right upper quadrant cholecystostomy tube in place, no drainage Back: no vertebral tenderness, no CVAT Extremities: no deformities, moves all extremities symmetrically Neuro: Awake, alert, oriented, normal speech, cranial nerves intact, moves all extremities symmetrically Psych: Pleasant, cooperative Course Course Course Narrative: This is a rapid medical exam performed by Yovanny Recio NP: Additional HPI, ROS, PE not included below will be deferred to primary provider. Patient is a 69-year-old female with history of severe COPD, HTN, CAD, GERD, PUD, PVD, osteoporosis, active smoker, with history of choledocholithiasis and cholangitis status post percutaneous cholecystostomy tube on 05/06/2024 presenting with 5/10 upper abdominal pain after a trip and fall. Was getting decorations, fell onto a beam onto her upper abdomen. Dressing around drain is CDI, no abdominal ecchymosis. Plan: labs Medical Decision Making Medical Decision Making MDM Narrative: 69-year-old female with history of severe COPD, HTN, CAD, GERD, PUD, PVD, osteoporosis, active smoker, with history of choledocholithiasis and cholangitis status post percutaneous cholecystostomy tube on 05/06/2024 presenting with 5/10 upper abdominal pain after a trip and fall 5 days prior patient states that she was getting [employer] decorations when she slipped and fell striking her chest and upper abdomen on a table. Physical examination revealed no abdominal tenderness or tenderness palpation of her chest. Differential diagnosis: ?Includes but is not limited to sternal fracture, rib fracture, abdominal injury, anemia, electrolyte abnormality Following evaluation was ordered: CBC, CMP, PT/INR, lipase Course: My interpretation patient's laboratory evaluation is as follows: CBC unremarkable except for low MCV of 79.6. PT/INR were normal. CMP revealed an elevated AST of 43 and an elevated alk-phos of 140-these have been elevated in the past. Given the unremarkable laboratory evaluation I do not think that the patient had significant injury to her abdomen/liver. Also, she has no significant tenderness with palpation of her chest so I do not think that she has a sternal fracture or rib fracture. Fortunately, the patient left the emergency department prior to the blood work returning. I did call the patient at home and informed her of these normal tests. I also advised her to follow up with her PCP for re-evaluation in 2 days and to return to the emergency department if her symptoms got worse in any way. Admission/Observation Consideration of admission/observation: Escalation of care including admission/observation considered (Yes) Lab Data MDM Lab Attestation statement: I reviewed the patient's lab results. 09/26/24 15:56 09/26/24 15:56 Labs: Lab Results 09/26/24 Range/Units 15:56 WBC 9.2 (4.8-10.8) X10*3/uL RBC 5.82 H (4.20-5.50) X10*6/uL Hgb 14.1 (12.0-16.0) g/dl Hct 46.3 (37.0-47.0) % MCV 79.6 L (80.0-98.0) fL MCH 24.2 L (27.0-33.0) pg MCHC 30.5 L (31.0-35.0) g/dl RDW 18.1 H (11.0-16.0) % Plt Count 201 (160-400) X10*3/uL MPV 9.6 (9.4-12.3) fL Immature Gran % (Auto) 0.3 (0.0-0.4) % Neut % (Auto) 62.0 (45-73) % Lymph % (Auto) 23.3 (20-40) % Harney % (Auto) 9.9 (2-11) % Eos % (Auto) 3.5 (0-4) % Baso % (Auto) 1.0 (0-2) % Lymph # (Auto) 2.2 (1.2-4.9) X10*3/uL Harney # (Auto) 0.9 (0.1-1.2) X10*3/uL Eos # (Auto) 0.3 (0.0-0.4) X10*3/uL Baso # (Auto) 0.1 (0.0-0.2) X10*3/uL Abs Immat Gran (auto) 0.03 (0.00-0.03) X10*3/uL Absolute Neuts (auto) 5.7 (2.0-8.3) x10*3/uL Absolute Nucleated RBC 0.000 (0.0-0.012) X10*3/uL Nucleated RBC % (auto) 0.0 (0.0-0.2) /100WBC PT 11.6 (10.9-12.4) SEC INR 1.0 (0.9-1.1) Sodium 139 (135-145) mmol/L Potassium 4.6 D (3.3-5.1) mmol/L Chloride 98 (96-108) mmol/L Carbon Dioxide 32 H (22-29) mmol/L Anion Gap 14 (12-20) BUN 9 (9-16) mg/dL Creatinine 0.75 (0.5-1.4) mg/dL Estim Creat Clear Calc 60.7 Estimated GFR > 60 Random Glucose 103 (60-115) mg/dL Calcium 9.2 (8.4-10.2) mg/dL Total Bilirubin 0.4 (0.0-1.0) mg/dL AST 43 H (5-31) U/L ALT 30 (0-31) U/L Alkaline Phosphatase 140 H (39-117) U/L Total Protein 6.8 (6.5-8.0) g/dL Albumin 3.9 (3.5-5.0) g/dL Lipase 18 (8-78) U/L Independent Historian Clinical information obtained from an independent historian. History obtained from or confirmed by: Spouse Chronic Conditions Patient?s care impacted by: Hypertension Discharge Plan Discharge Clinical Impression: Chest wall contusion, Fall on same level from tripping Patient Disposition: Home, Self-Care Additional Instructions: I did contact the patient by phone. She told me that she had to leave patient had 2 care of her dogs. I did review her lab results with her. Patient was advised to continue taking your medications as prescribed and to take Tylenol for pain. Patient verbalized understanding of these instructions. Prescriptions: No Action albuterol sulfate 90 mcg/actuation HFA aerosol inhaler 2 puff PO Q4-6H PRN (Reason: shortness of breath or wheezing) Qty: 8.5 5RF donepezil 5 mg tablet 5 mg PO BEDTIME budesonide-formoterol [Symbicort] 80-4.5 mcg/actuation HFA aerosol inhaler 2 puff INHALATION BID acetaminophen 500 mg Tablet 1,000 mg PO BID PRN (Reason: Pain/Migraine) omeprazole 40 mg capsule,delayed release(DR/EC) 40 mg PO QAM doxycycline monohydrate 100 mg capsule 100 mg PO BID Qty: 10 0RF ondansetron 4 mg tablet,disintegrating 4 mg PO Q8H PRN (Reason: nausea and vomiting) Qty: 14 0RF oxycodone 10 mg tablet 10 mg PO Q6H MDD 30 PRN (Reason: pain (scale score 4-6)) Qty: 15 0RF Rx Instructions: Partial Fill upon patient request. nitroglycerin 0.4 mg tablet, sublingual 0.4 mg sublingual Q5M PRN (Reason: Chest Pain) aspirin 81 mg tablet,delayed release (DR/EC) 81 mg PO DAILY metoprolol succinate 50 mg tablet extended release 24 hr 50 mg PO DAILY morphine 15 mg tablet extended release 15 mg PO BID Discharge Date/Time: 09/26/24 18:16 Print Language: Faroese
[2024-09-26 16:05] LABS: MANUAL DIFF FLAG NO
[2024-09-26 16:08] LABS: Basophils Absolute Auto 0.1 X10*3/uL (0.0-0.2); Eosinophils Absolute Auto 0.3 X10*3/uL (0.0-0.4); Eosinophils Percent Auto 3.5 % (0-4); Hematocrit 46.3 % (37.0-47.0); Hemoglobin 14.1 g/dl (12.0-16.0); Imm Gran Abs Auto 0.03 X10*3/uL (0.00-0.03); Imm Gran Pct Auto 0.3 % (0.0-0.4); Lymphocytes Absolute Auto 2.2 X10*3/uL (1.2-4.9); Lymphocytes Percent Auto 23.3 % (20-40); Mean Corpuscular HGB Conc 30.5 g/dl (31.0-35.0); Mean Corpuscular Hemoglobin 24.2 pg (27.0-33.0); Mean Corpuscular Volume 79.6 fL (80.0-98.0); Mean Platelet Volume 9.6 fL (9.4-12.3); Monocytes Absolute Auto 0.9 X10*3/uL (0.1-1.2); Monocytes Percent Auto 9.9 % (2-11); Neutrophils Absolute Auto 5.7 x10*3/uL (2.0-8.3); Platelet Count 201 X10*3/uL (160-400); Red Blood Count 5.82 X10*6/uL (4.20-5.50); Red Cell Distribution Width 18.1 % (11.0-16.0); White Blood Count 9.2 X10*3/uL (4.8-10.8)
[2024-09-26 16:13] LABS: Prothrombin Time 11.6 SEC (10.9-12.4)
[2024-09-26 16:29] LABS: Albumin Level 3.9 g/dL (3.5-5.0); Anion Gap 14 (12-20); Aspartate Amino Transferase 43 U/L (5-31); Bilirubin Total 0.4 mg/dL (0.0-1.0); Blood Urea Nitrogen 9 mg/dL (9-16); Calcium 9.2 mg/dL (8.4-10.2); Carbon Dioxide 32 mmol/L (22-29); Chloride 98 mmol/L (96-108); Creatinine Clr Calc Pharmacy 60.7; Estimated Glomerular Filt Rate > 60; Glucose Random 103 mg/dL (60-115); Lipase 18 U/L (8-78); Potassium 4.6 mmol/L (3.3-5.1); Sodium 139 mmol/L (135-145); Total Protein 6.8 g/dL (6.5-8.0)
[2024-09-26 17:15] LABS: Alanine Aminotransferase 30 U/L (0-31); Alkaline Phosphatase 140 U/L (39-117)
[2024-09-26 17:31] VITALS: BP 129/75; PULSE 110; RESP 16; TEMP 37; O2SAT 92
--- NOTE | 2024-09-26 18:15 | PC.NURSE ---
informed by PCT that pt reported she was leaving because everything was taking so long
== END 2024-09-26 18:16 | disposition home or self-care (01) ==
PROVIDERS: Registered Nurse Emergency; Emergency Provider Emergency Medicine Emergency Medical Services
DX: S20.213A Contusion of bilateral front wall of thorax, initial encounter (principal); R07.89 Other chest pain; I25.10 Atherosclerotic heart disease of native coronary artery without angina pectoris; J44.9 Chronic obstructive pulmonary disease, unspecified; I10 Essential (primary) hypertension; F17.210 Nicotine dependence, cigarettes, uncomplicated; W01.10XA Fall on same level from slipping, tripping and stumbling with subsequent striking against unspecified object, initial encounter; Y93.9 Activity, unspecified; Y92.098 Other place in other non-institutional residence as the place of occurrence of the external cause; Y99.8 Other external cause status; Z79.899 Other long term (current) drug therapy
CPT/HCPCS: 36415; 80053; 83690; 85025; 85610; 99284

== ENCOUNTER 2024-09-30 14:56 | Outpatient (REF) | payer MEDICARE, MEDICAID, SELFPAY ==
--- NOTE | ~2024-09-30 | XR_ITS ---
EXAMINATION: XR RIBS, LEFT CLINICAL INFORMATION: Pain. Fall. COMPARISON: CTA chest dated 05/04/2024. TECHNIQUE: PA view of the chest as well as 3 views of the left ribs. FINDINGS: Chronic interstitial prominence is redemonstrated without focal airspace consolidation. No pleural effusion or pneumothorax. Stable cardiomediastinal silhouette. Partially visualized right upper quadrant biliary train. No displaced fracture. No concerning lytic or blastic osseous lesion. No abnormal soft tissue calcification. XR/XR ribs LT min 3V w CXR1V IMPRESSION: 1. No displaced fracture. 2. Chronic interstitial prominence without acute cardiopulmonary findings. Electronically signed by: Juan He MD 10/01/2024 08:53 AM ISHMA[facility] GANDHI
== END 2024-09-30 14:57 | disposition home or self-care (01) ==
LOC: HO.HHCX 14:56
PROVIDERS: Visit Provider General Practice
DX: R07.81 Pleurodynia (principal)
CPT/HCPCS: 71101

== ENCOUNTER 2024-11-24 11:39 | Day surgery (SDC) | payer MEDICARE, SELFPAY ==
[2024-11-24] VITALS (13 sets, daily range): BP systolic 90–125; BP diastolic 52–74; PULSE 74–98; RESP 12–21; TEMP 36.7–37.2; O2SAT 94–97; BMI 14.7
--- NOTE | ~2024-11-24 | IR_ITS ---
IR CHOLANGIOGRAM /BILIARY DRAIN REPLACEMENT History: 69-year-old female with biliary obstruction due to choledocholithiasis status post placement of a right internal/external biliary drain in May 2024. Patient underwent biliary endoscopy on August 26, 2024, which demonstrated passage of the obstructing common bile duct stone. Patient presents today for a cholangiogram and possible removal of her biliary drain. Procedure: Fluoroscopic cholangiogram and replacement of the right internal/external biliary drain MEDICATIONS: - Versed 1 mg, Fentanyl 50 mcg, lidocaine 1% 10 mL - Antibiotics: Rocephin - For additional details, please see nursing flowsheet. Complications: None Blood loss: Less than 5 mL Specimens: None Contrast: 30 mL Omnipaque 300 Total fluoroscopy time 5.6 minutes Moderate sedation time: 30 minutes PROCEDURE NOTE: The procedure, risks, benefits, and alternatives were carefully explained to the patient and written informed consent was obtained. The abdomen was prepped and draped in usual sterile fashion. The catheter was cut, and a 0.035 stiff Glidewire was advanced through the catheter and advanced into the duodenum. The catheter was removed over the wire. A 10 Romanian sheath was placed over the wire and a cholangiogram was performed. This demonstrated free flow contrast into the duodenum. There were multiple filling defects in the distal common bile duct, that may represent small stones. The sheath was removed, and a new 12 Fr external drain was advanced over the wire and positioned with the tip in the distal common bile duct. A permanent fluoroscopic image of the abdomen was saved and sent to PACS. The drainage catheter was secured to skin with a 2-0 nylon suture. A dry sterile dressing was applied. Patient tolerated the procedure well. The drainage catheter was capped. The procedure was performed under moderate sedation with a dedicated nurse for monitoring of vital signs. IR/IR Biliary Drainage Exchange Impression: Fluoroscopic cholangiogram demonstrates free flow of contrast into the duodenum. No biliary obstruction is noted. There are multiple filling defects in the distal common bile duct that may represent small stones. A right external biliary drain was placed and capped. A bilirubin will be drawn prior to discharge. The patient will return in 2 weeks for repeat cholangiogram and possible drain removal. This procedure was performed by Geo Tiwari PA-C and Dr. Marie Electronically signed by: Valentin Guerrero MD 12/14/2024 03:09 PM EDT RP
[2024-11-24] MEDS: cefTRIAXone sodium 1 GM VIAL IVPUSH (13:27)
--- NOTE | 2024-11-24 13:30 | MHC.SHP ---
Pre-Procedural Eval Section A - 24 Hr Update-Section A only Date of Service: 11/24/24 Section B - Complete if H&P > 30 days Chief Complaint: BILIARY OBSTURCTION, BILIARY DRAIN REPLACEMENT Details of Present Illness: 69 y/o female with biliary obstruction s/p biliary drain placement. She presents for a cholangiogram with possible removal or upsize. Relevant Family History (Specify if Yes): No Relevant Social History: Tobacco Use Present Medications: see Short Stay Collaborative assessment Medical History: Significant History History of Previous Operations: Relevant previous surgery/procedure and date(s) Allergies: Allergies Allergy/AdvReac Type Severity Reaction Status Date / Time No Known Allergies Allergy Verified 11/24/24 12:21 Review of Systems Sugical H&P ROS: Negative: Constitution and Cardiovascular and Yes, Specify: Respiratory (chronic dyspnea) and Gastrointestinal (discomfort at biliary drain site) Exam Surgical H&P Exam: Normal: Heart, Normal: Lungs (no distress), Normal: Skin and Normal: Neurological and Significant Findings: Abdomen (right biliary drain present) Plan 69 y/o female with right internal/external biliary drain -Cholangiogram, possible removal or upsize. Time Spent With Patient Time: Total time managing care of this patient today ____ minutes.
[2024-11-24] MEDS: Acetaminophen 1,000 MG/100 ML PIGGYBACK 400 MG IV (13:36)
[2024-11-24] MEDS: Midazolam HCl 5 MG/ML VIAL 1 MG IVPUSH (13:45)
[2024-11-24] MEDS: fentaNYL citrate/PF 100 MCG/2 ML VIAL 50 MCG IVPUSH (13:45)
[2024-11-24 15:24] LABS: Bilirubin Direct < 0.2 mg/dL (0.0-0.5); Bilirubin Total 0.2 mg/dL (0.0-1.0)
== END 2024-11-24 15:02 | disposition home or self-care (01) ==
PROVIDERS: Visit Provider Physician Assistant Surgical
DX: Z48.03 Encounter for change or removal of drains (principal); K83.1 Obstruction of bile duct
CPT/HCPCS: 36415; 47536; 82247; 82248; 99152; 99153; C1729; C1769; C1887; C1894; J0131; J0696; J2003; J2250

== ENCOUNTER → 2024-11-24 13:00 | Outpatient (BNV) | payer MEDICARE, SELFPAY | PROVIDERS: Visit Provider Physician Assistant Surgical | DX: K83.1 Obstruction of bile duct (principal) | CPT/HCPCS: 47536 ==

== ENCOUNTER 2024-12-29 11:36 | Day surgery (SDC) | payer MEDICARE, SELFPAY ==
--- OUTSIDE RECORDS SUMMARY | 2024-11-29 15:30 | XMS_ITS | Encounter Summary ---
Author Organization [employer] Address [address] [facility] [address] [place] [address] Care Team Providers Care Bmw Sales Consultant Name Role Phone Zoey Colby MD Primary Care Provider [phone] Reason for Visit * Reason Comments Med Refill Encounter Details Date Type Department Care Team ([facility] Contact Info) Description 11/26/2024 Refill [facility] [address], [place] [phone] Zoey Colby MD [address] [place], [place] [phone] Gastric ulcer, unspecified chronicity, unspecified whether gastric ulcer hemorrhage or perforation present; Mild Alzheimer's dementia, unspecified timing of dementia onset, unspecified whether behavioral, psychotic, or mood disturbance or anxiety (CMS/[facility]) Social History Tobacco Use Types Packs/Day Years Used Date Smoking Tobacco: Every Day Cigarettes Smokeless Tobacco: Never Alcohol Use Standard Drinks/Week Comments Not Currently 0 (1 standard drink = 0.6 oz pur e alcohol) Depression Answer Date Recorded Patient Health Questionnaire-9 Score 0 05/16/2023 Housing Stability Answer Date Recorded What is your housing situation today? I have yolydarrick carreno 07/21/[address] you li ve. Do you have problems with any of the following? None of the above 07/21/2023 Food Insecurity Answer Date Recorded Within the past 12 months, y ou worried that your food would run out before you got money to buy more: Never True 07/21/2023 Within the past 12 months,th e food you bought just didn't last and you didn't have enough money to get more: Never True Transportation Answer Date Recorded In the past 12 months, has l ack of transportation kept you from medical appts, meetings, work or from getting things needed for daily living? No 07/21/2023 Utilities Answer Date Recorded In the past 12 months, has t he electric, gas, oil or water company threatened to shut off services in your home? No 07/21/2023 Depression Answer Date Recorded Patient Health Questionnaire-2 Score 0 05/16/2023 Comments Unknown Sex and Gender Information Value Date Recorded Sex Assigned at Female 08/05/2022 10:16 AM EDT Legal Sex Female 10:16 AM EDT Gender Identity Female 03/28/2023 6:36 PM EDT Sexual Orientation Straight 08/05/2022 10 :16 AM EDT documented as of this encounter Plan of Treatment Upcoming Encounters Date Type Department Care Team (Late st Contact Info) Description 12/02/2024 10:00 AM EST Telemedicine [address] [address] Paris Monzon RN 12/03/2024 11:00 AM EST Office Visit [address] [address] Zoey Colby MD [address] [place] [address] 12/30/2024 10:00 AM EDT Telemedicine [address] [address] Paris Monzon, CHOLO 02/01/2025 10:00 AM EDT Clinical Support [address] [address] Paris Monzon, RN documented as of this encounter Visit Diagnoses Diagnosis Gastric ulcer, unspecified chronicity, unspecified whether gastric ulcer hemorrhage or perforation present Mild Alzheimer's dementia, unspecified timing of dementia onset, unspecified whether behavioral, psychotic, or mood disturbance or anxiety (CMS/HCC) documented in this encounter Additional Health Concerns Assessment Noted Time PHQ-9 Depression Total Score: 0 05/16/20 10:40 AM EDT documented as of this encounter Care Teams Bmw Sales Consultant Relationship Specialty Start Date End Date Zoey Colby MD [address] [place] [id number] PCP - General Family Medicine 06/16/23 Veronica HARRIS 05/09/24 documented as of this encounter
--- OUTSIDE RECORDS SUMMARY | 2024-11-29 15:30 | XMS_ITS | Encounter Summary ---
Author Organization [employer] Address [address] [facility] [address] [place] [address] Care Team Providers Care Brewery Pumper Name Role Phone Zoey Colby MD Primary Care Provider [phone] Encounter Details Date Type Department Care Team (Latest Contact Info) Description 11/04/2024 Travel Social History Tobacco Use Types Packs/Day Years Used Date Smoking Tobacco: Every Day Cigarettes Smokeless Tobacco: Never Alcohol Use Standard Drinks/Week Comments Not Currently 0 (1 standard drink = 0.6 oz pur e alcohol) Depression Answer Date Recorded Patient Health Questionnaire-9 Score 0 05/16/2023 Housing Stability Answer Date Recorded What is your housing situation today? I have yoly wai 07/21/[address] you li [...] Info) Description 12/02/2024 10:00 AM EST Telemedicine [address] [address] Paris Monzon, RN 12/03/2024 11:00 AM EST Office Visit [address] [address] Zoey Colby MD [address] [place] [id number] 12/30/2024 10:00 AM EDT Telemedicine [address] [address] Paris Monzon, CHOLO 02/01/2025 10:00 AM EDT Clinical Support [address] [address] Paris Monzon, RN documented as of this encounter Visit Diagnoses Not on filedocumented in this encounter Additional Health Concerns Assessment Noted Time PHQ-9 Depression Total Score: 0 05/16/20 23 10:40 AM EDT documented as of this encounter Care Teams Brewery Pumper Relationship Specialty Start Date End Date Zoey Colby MD [address] [place] [id number] PCP - General Family Medicine 06/16/23 [facility] [facility] 05/09/24 documented as of this encounter
--- OUTSIDE RECORDS SUMMARY | 2024-11-29 15:30 | XMS_ITS | Encounter Summary ---
Author Organization [employer] Address [address] [facility] [address] [place] [address] Care Team Providers Care Hunter Guide Name Role Phone Zoey Colby MD Primary Care Provider [phone] Reason for Visit * Reason Comments Med Refill Encounter Details Date Type Department Care Team ([facility] st Contact Info) Description 11/27/2024 Refill [facility] [address] [place], [place] [phone] Zoey Colby MD [address] [place] [address] Acute non-ST segment elevation myocardial infarction (CMS/HCC) Social History Tobacco Use Types Packs/Day Years Used Date Smoking Tobacco: Every Day Cigarettes Smokeless Tobacco: Never Alcohol Use Standard Drinks/Week Comments Not Currently 0 (1 standard drink = 0.6 oz pur e alcohol) Depression Answer Date Recorded Patient Health Questionnaire-9 Score 0 05/16/2023 Housing Stability Answer Date Recorded What is your housing situation today? I have yoly carreno 07/21/[address] you [...] Info) Description 12/02/2024 10:00 AM EST Telemedicine [address] [address] Paris Monzon, RN 12/03/2024 11:00 AM EST Office Visit [address] [address] Zoey Colby MD [address] [place] [id number] 12/30/2024 10:00 AM EDT Telemedicine [address] [address] Paris Mnozon, RN 02/01/2025 10:00 AM EDT Clinical Support [address] [address] Paris Monzon, RN documented as of this encounter Visit Diagnoses Diagnosis Acute non-ST segment elevation myocardial infarction (CMS/HCC) documented in this encounter Additional Health Concerns Assessment Noted Time PHQ-9 Depression Total Score: 0 05/16/20 23 10:40 AM EDT documented as of this encounter Care Teams Hunter Guide Relationship Specialty Start Date End Date Zoey [place] [address] PCP - General Family Medicine 06/16/23 [facility] 05/09/24 documented as of this encounter
--- OUTSIDE RECORDS SUMMARY | 2024-11-29 15:30 | XMS_ITS | Encounter Summary ---
Author Organization [employer] Address 75 [facility] 7t [place] [address] Care Team Providers Care Pipe Coremaker Name Role Phone Zoey Colby MD Primary Care Provider [phone] Reason for Visit * Reason Comments Med Refill Encounter Details Date Type Department Care Team ([facility] st Contact Info) Description 11/27/2023 Refill [facility] MED[facility]INE [address] [place], [place] [phone] Zoey Colby MD 230 [place], [place] [phone] Gastric ulcer, unspecified chronicity, unspecified whether gastric ulcer hemorrhage or perforation present Social History Tobacco Use Types Packs/Day Years [...] Info) Description 12/02/2024 10:00 AM EST Telemedicine [address] [address] Paris Monzon, RN 12/03/2024 11:00 AM EST Office Visit [address] [address] Zoey Colby MD [address] [place] [address] 12/30/2024 10:00 AM EDT Telemedicine [address] [address] Paris Monzon, RN 02/01/2025 10:00 AM EDT Clinical Support [address] [address] Paris Monzon, RN documented as of this encounter Visit Diagnoses Diagnosis Gastric ulcer, unspecified chronicity, unspecified whether gastric ulcer hemorrhage or perforation present documented in this encounter Additional Health Concerns Assessment Noted Time PHQ-9 Depression Total Score: 0 05/16/20 10:40 AM EDT documented as of this encounter Care Teams Pipe Coremaker Relationship Specialty Start Date End Date Zoey Colby MD [address] [place] [address] PCP - General Family Medicine 06/16/23 [facility] 05/09/24 documented as of this encounter
--- OUTSIDE RECORDS SUMMARY | 2024-11-29 15:31 | XMS_ITS | Encounter Summary ---
Author Organization [facility] [employer] Address 75 [facility] 7 [place] [address] Care Team Providers Care Supervisor Core Drilling Name Role Phone David Tanner Primary Care Provider Unavail able Zoey Colby MD Primary Care Provider [phone] Encounter Details Date Type Department Care Team (Late st Contact Info) Description 03/04/2023 [facility] Health Information Management [address] [place], [place] [phone] David Tanner AGNP Social History Tobacco Use Types Packs/Day Years Used Date Smoking Tobacco: Every Day Cigarettes Smokeless Tobacco: Never Alcohol Use Standard Drinks/Week Comments Not Currently 0 (1 standard drink = 0.6 oz pur e alcohol) Comments Unknown Sex and Gender Information Value Date Recorded Sex Assigned at Female 08/05/2022 10:16 AM EDT Legal Sex Female 10:16 AM EDT Gender Identity Female 03/28/2023 6:36 PM EDT Sexual Orientation Straight 08/05/2022 10 :16 AM EDT documented as of this encounter Plan of Treatment Upcoming Encounters Date Type Department Care Team (Late st Contact Info) Description 12/02/2024 10:00 AM EST Telemedicine [facility] MED[facility]INE [address] [place] [address] [phone] Paris Monzon, CHOLO 12/03/2024 11:00 AM EST Office Visit [facility] [address] [place] [address] [phone] Zoey Colby MD [address] [place] [address] 12/30/2024 10:00 AM EDT Telemedicine [address] [address] Paris Monzon, RN 02/01/2025 10:00 AM EDT Clinical Support [address] [address] Paris Monzon, RN documented as of this encounter Visit Diagnoses Not on filedocumented in this encounter Care Teams Supervisor Core Drilling Relationship Specialty Start Date End Date David Tanner AGNP PCP - General Family Medicine 09/04/22 06/15/23 Zoey Colby MD [address] [place] [address] PCP - General Family Medicine 06/16/23 [facility] 05/09/24 documented as of this encounter
--- OUTSIDE RECORDS SUMMARY | 2024-11-29 15:31 | XMS_ITS | Encounter Summary ---
Author Organization [facility] [employer] Address 75 [facility] 7[address] [place] [address] Care Team Providers Care Bellman Captain Name Role Phone David Tanner Primary Care Provider Unavail able Zoey Colby MD Primary Care Provider [phone] Encounter Details Date Type Department Care Team (Late Contact Info) Description 10/18/2022 Orders Only [facility] [address] [place] [address] [phone] Mihaela Marquis FNP Social History Tobacco Use Types Packs/Day Years [...] Orientation Straight 08/05/2022 10 :16 AM EDT COVID-19 Exposure Response Date Recorded In the last 10 days, have yo u been in contact with someone who was confirmed or suspected to have Coronavirus/COVID-19? No / Unsure 10/18/2022 3:50 PM EST documented as of this encounter Plan of Treatment Upcoming Encounters Date Type Department Care Team (Late Contact Info) Description 12/02/2024 10:00 AM EST Telemedicine [facility] [address] [place] [address] [phone] Paris Monzon RN 12/03/2024 11:00 AM EST Office Visit [address] [phone] Zoey Colby MD 230 [place] [address] 12/30/2024 10:00 AM EDT Telemedicine [address] [phone] Paris Monzon, RN 02/01/2025 10:00 AM EDT Clinical Support [address] [phone] Paris Monzon, RN documented as of this encounter Procedures Procedure Name Priority Date/Time Associated Diagnosis Comments SYPHILIS SCREEN Routine 05/16/2023 12:10 PM EDT documented in this encounter Results * Syphilis Screen (05/16/2023 12:10 PM EDT) Syphilis Screen Nonreactive Nonreactive [facility] 05/16/2023 12:1 0 PM EDT 05/16/2023 1:48 PM EDT us David [facility] BLOOD ORDERABLES Final Res ult [facility] [address] [place] [address] [phone] documented in this encounter Visit Diagnoses Not on filedocumented in this encounter Care Teams Bellman Captain Relationship Specialty Start Date End Date David Tanner AGNP PCP - General Family Medicine 09/04/22 06/15/23 Zoey Colby MD [address] [place] [phone] PCP - General Family Medicine 06/16/23 [facility] documented as of this encounter
--- OUTSIDE RECORDS SUMMARY | 2024-11-29 15:31 | XMS_ITS | Encounter Summary ---
Author Organization [employer] Address 75 [facility] 7t [place] [address] Care Team Providers Care Roofer Apprentice Name Role Phone Zoey Colby MD Primary Care Provider [phone] Encounter Details Date Type Department Care Team (Late st Contact Info) Description 09/08/2024 Orders Only [facility] [address] [place], [place] [phone] Zoey Colby MD 230 [place], [place] [phone] Social History Tobacco Use Types Packs/Day Years [...] Info) Description 12/02/2024 10:00 AM EST Telemedicine [address] [address] Paris Monzon, CHOLO 12/03/2024 11:00 AM EST Office Visit [address] [address] Zoey Colby MD [address] [place] [address] 12/30/2024 10:00 AM EDT Telemedicine [address] [address] Paris Monzon, RN 02/01/2025 10:00 AM EDT Clinical Support [address] [address] Paris Monzon, RN documented as of this encounter Procedures Procedure Name Priority Date/Time Associated Diagnosis Comments IR BILIARY TUBE EXCHANGE Routine 09/08/2024 1:00 PM EST documented in this encounter Results * IR Biliary Tube Exchange (09/08/2024 1:00 PM EST) Anatomical Region Laterality Modality Body X-Ray Angiograph y 09/08/2024 1:00 PM EST Narrative 11/05/2024 5:01 PM EST ? [facility] ?[address] ?[place] [address] ?Interventional Radiology Rpt ? Signed ? Patient: Samson,Tammy M ?MR#: [id number] ?? 4 ? : 1955 ?Acct:[id number] ? Age/Sex: 69 / F ?ADM Date: 12/04/24 ? Loc: HO.SSS ? Attending Dr: Geo ROSALES ? Ordering Physician: Zoey Colby ?? Date of Service: 09/08/24 ?? Procedure(s): IR Biliary Drainage Exchange ?? Accession Number(s): [id number] ? cc: Zoey Colby ? IR biliary drain replacement/cholangiogram ? History: 69-year-old female with biliary obstruction due to ?? choledocholithiasis status post placement of a right internal/external ?? biliary drain in May 2024. Patient underwent biliary endoscopy on ?? August 26, 2024, which demonstrated passage of the obstructing common ?? bile duct stone. Patient presents today for a cholangiogram and ?? possible removal of her biliary drain. ? Procedure: Fluoroscopic cholangiogram and replacement of the right ?? internal/external biliary drain ? MEDICATIONS: ?? - Fentanyl 100 mcg, lidocaine 1% 10 mL ?? - Antibiotics: Rocephin ?? - For additional details, please see nursing flowsheet. ? Complications: None ?? Blood loss: Less than 5 mL ?? Specimens: None ?? Contrast: 30 mL Omnipaque 300 ? PROCEDURE NOTE: ?? The procedure, risks, benefits, and alternatives were carefully ?? explained to the patient and written informed consent was obtained. The ?? abdomen was prepped and draped in usual sterile fashion. The catheter ?? was cut, and a 0.035 stiff Glidewire was advanced through the catheter ?? and advanced into the duodenum. The catheter was removed over the wire. ?? A 10 Hebrew sheath was placed over the wire and a cholangiogram was ?? performed. This demonstrated a high-grade stenosis of the distal common ?? bile duct/ampulla, in which there was minimal flow of contrast into the ?? duodenum observed. No filling defects were seen to suggest a common ?? bile duct stone. Retrograde filling of the gallbladder was observed. ?? The sheath was removed, and a new 12 Fr internal/external biliary drain ?? was advanced over the wire and positioned with the tip in the duodenum. ?? A permanent fluoroscopic image of the abdomen was saved and sent to ?? PACS. The drainage catheter was secured to skin with a 2-0 nylon ?? suture. A dry sterile dressing was applied. Patient tolerated the ?? procedure well. The drainage catheter was capped. ? IR/IR Biliary Drainage Exchange ?? Impression: Fluoroscopic cholangiogram demonstrates a high grade ?? stenosis of the distal common bile duct/ampulla, possibly due to edema ?? from recent passage of the common bile duct stone. The right ?? internal/external biliary drain was replaced with a 12 Fr catheter. The ?? patient will return in one month for repeat cholangiogram. ? This procedure was performed by Geo Tiwari PA-C and supervised by ?? Frank. ? Electronically signed by: ??Valentin Guerrero MD ??11/05/2024 04:58 PM EST RP ?? Workstation: [id number] ? Dictated By: ?Geo Tiwari ? Signed By: ?<Electronically signed by Geo Tiwari in OV> ? 11/05/241657 ?<Electronically signed by Valentin Guerrero MD in OV> ?11/05/24 1700 ? DD/ 1300 ? TD/TT: 09/08/24 1348 ? Community Educator: ? Procedure Note Chani, Dilcia - 11/05/2024 [place] [address] Interventional Radiology Rpt Signed Patient: Tammy Davies [facility]#: [id number] 4 : 4Acct:[id number] Age/Sex: 69 / FADM Date: 09/08/24 Loc: HO.SSS Attending Dr: Geo ROSALES Ordering Physician: Zoey Colby Date of Service: 09/08/24 Procedure(s): IR Biliary Drainage Exchange Accession Number(s): [id number] cc: Zoey Colby IR biliary drain replacement/cholangiogram History: 69-year-old female with biliary obstruction due to choledocholithiasis status post placement of a right internal/external biliary drain in May 2024. Patient underwent biliary endoscopy on August 26, 2024, which demonstrated passage of the obstructing common bile duct stone. Patient presents today for a cholangiogram and possible removal of her biliary drain. Procedure: Fluoroscopic cholangiogram and replacement of the right internal/external biliary drain MEDICATIONS: - Fentanyl 100 mcg, lidocaine 1% 10 mL - Antibiotics: Rocephin - For additional details, please see nursing flowsheet. Complications: None Blood loss: Less than 5 mL Specimens: None Contrast: 30 mL Omnipaque 300 PROCEDURE NOTE: The procedure, risks, benefits, and alternatives were carefully explained to the patient and written informed consent was obtained. The abdomen was prepped and draped in usual sterile fashion. The catheter was cut, and a 0.035 stiff Glidewire was advanced through the catheter and advanced into the duodenum. The catheter was removed over the wire. A 10 Hebrew sheath was placed over the wire and a cholangiogram was performed. This demonstrated a high-grade stenosis of the distal common bile duct/ampulla, in which there was minimal flow of contrast into the duodenum observed. No filling defects were seen to suggest a common bile duct stone. Retrograde filling of the gallbladder was observed. The sheath was removed, and a new 12 Fr internal/external biliary drain was advanced over the wire and positioned with the tip in the duodenum. A permanent fluoroscopic image of the abdomen was saved and sent to PACS. The drainage catheter was secured to skin with a 2-0 nylon suture. A dry sterile dressing was applied. Patient tolerated the procedure well. The drainage catheter was capped. IR/IR Biliary Drainage Exchange Impression: Fluoroscopic cholangiogram demonstrates a high grade stenosis of the distal common bile duct/ampulla, possibly due to edema from recent passage of the common bile duct stone. The right internal/external biliary drain was replaced with a 12 Fr catheter. The patient will return in one month for repeat cholangiogram. This procedure was performed by Geo Tiwari PA-C and supervised by Dr. Marie. Electronically signed by: Valentin Guerrero MD 11/05/2024 04:58 PM [facility] Workstation: [id number] Dictated By: Geo Tiwari Signed By: <Electronically signed by Geo Tiwari in OV> 11/05/24 1658 <Electronically signed by Valentin Guerrero MD in OV> 11/05/24 1700 DD/ 1300 TD/TT: 09/08/24 1348 Community Educator: us Zoey Colby MD IMG IR PROCEDURES Final Result documented in this encounter Visit Diagnoses Not on filedocumented in this encounter Additional Health Concerns Assessment Noted Time PHQ-9 Depression Total Score: 0 05/16/20 23 10:40 AM EDT documented as of this encounter Care Teams Roofer Apprentice Relationship Specialty Start Date End Date Zoey Colby MD 230 [facility] [place] [address] PCP - General Family Medicine 06/16/23 [place] [facility] 05/09/24 documented as of this encounter
--- OUTSIDE RECORDS SUMMARY | 2024-11-29 15:31 | XMS_ITS | Encounter Summary ---
Author Organization [employer] Address 75 [facility] 7t [place] [address] Care Team Providers Care Oven Loader Name Role Phone Zoey Colby MD Primary Care Provider [phone] Reason for Visit * Reason Onset Date Comments Med Refill 11/25/2024 Encounter Details Date Type Department Care Team (Late st Contact Info) Description 11/25/2024 Refill [facility] MEDICINE 230 [place], [place] [phone] Zoey Colby MD 230 [place], [place] [phone] half-way (current) use of opiate analgesic; Chronic bilateral low back pain with left-sided sciatica Social History Tobacco Use Types Packs/Day Years [...] AM EDT documented as of this encounter Miscellaneous Notes * Telephone Encounter - Sarah Casillas - 11/25/2024 9:37 AM EST TC from pt requesting medication refill. Medications needing refill : oxyCODONE (Roxicodone) 10 MG immediate release tablet To be sent to: [facility]/pharmacy #[id number] [place] [address] documented in this encounter Plan of Treatment Upcoming Encounters Date Type Department Care Team (Late st Contact Info) Description 12/02/2024 10:00 AM EST Telemedicine [address] [address] Paris Monzon RN 12/03/2024 11:00 AM EST Office Visit [facility] MEDICINE [address] [place] [address] Zoey Colby MD [address] [place] [address] 12/30/2024 10:00 AM EDT Telemedicine [facility] [address] [place] [address] Paris Monzon, CHOLO 02/01/2025 10:00 AM EDT Clinical Support [address] [address] Paris Monzon, RN documented as of this encounter Visit Diagnoses Diagnosis half-way (current) use of opiate analgesic Chronic bilateral low back pain with left-sided sciatica documented in this encounter Additional Health Concerns Assessment Noted Time PHQ-9 Depression Total Score: 0 05/16/20 23 10:40 AM EDT documented as of this encounter Care Teams Oven Loader Relationship Specialty Start Date End Date Zoey Colby MD 230 [place] [address] PCP - General Family Medicine 06/16/23 [place] 05/09/24 documented as of this encounter
--- OUTSIDE RECORDS SUMMARY | 2024-11-29 15:31 | XMS_ITS | Encounter Summary ---
Author Organization [employer] Address 75 [facility] 7t [place] [address] Care Team Providers Care Boiler Plant Worker Name Role Phone Zoey Colby MD Primary Care Provider Reason for Visit * Reason Onset Date Comments Medication Question 09/23/2024 Encounter Details Date Type Department Care Team ([facility] Contact Info) Description 09/23/2024 Telephone [facility] MEDICINE [address] [place], [place] [phone] Zoey Colby MD [address] [place] [address] Medication Question Social History Tobacco Use Types Packs/Day Years [...] encounter Miscellaneous Notes * Telephone Encounter - Josué Shan - 09/23/2024 2:10 PM EST Tc from pt stating she doesn't want to take Med morphine CR (MS Contin) 30 MG 12 hr tablet . Pt says it only makes her sleepy and it doesn't help. If any questions contact pt at [phone] documented in this encounter Plan of Treatment Upcoming Encounters Date Type Department Care Team (Late st Contact Info) Description 12/02/2024 10:00 AM EST Telemedicine [facility] MEDICINE [address] [place] [address] Paris Monzon RN 12/03/2024 11:00 AM EST Office Visit [facility] [address] [place] [phone] Zoey Colby MD [address] [place] [address] 12/30/2024 10:00 AM EDT Telemedicine [facility] [address] [place] [address] Paris Monzon, RN 02/01/2025 10:00 AM EDT Clinical Support [facility] [address] [place] [address] Paris Monzon, RN documented as of this encounter Visit Diagnoses Not on filedocumented in this encounter Additional Health Concerns Assessment Noted Time PHQ-9 Depression Total Score: 0 05/16/20 10:40 AM EDT documented as of this encounter Care Teams Boiler Plant Worker Relationship Specialty Start Date End Date Zoey Colby MD 230 [place] [address] PCP - General Family Medicine 06/16/23 [place] [facility] 05/09/24 documented as of this encounter
--- OUTSIDE RECORDS SUMMARY | 2024-11-29 15:31 | XMS_ITS | Encounter Summary ---
Author Organization [employer] Address 75 [facility] 7t [place] [address] Care Team Providers Care Loom Changeover Operator Name Role Phone Zoey Colby MD Primary Care Provider [phone] Reason for Visit * Reason Onset Date Comments [facility] regarding Tube 11/09/2024 Encounter Details Date Type Department Care Team ([facility] st Contact Info) Description 11/09/2024 Telephone [facility] MEDICINE [address] [place] [address] Paris Monzon RN [facility] Gastro regarding Tube Social History Tobacco Use Types Packs/Day Years [...] encounter Miscellaneous Notes * Telephone Encounter - Paris Monzon RN - 11/15/2024 12:08 PM EST Received message from Rosio @ [facility] Gastroenterology, They will changing her tube not removing itd/t a stricture in the bile duct and are awaiting new tube delivery. * Telephone Encounter - Paris Monzon RN - 11/11/2024 9:59 AM EST TC to [facility] Gastroenterology, spoke with Rosio. She stated she didn't get a response to the previous message regarding patients tube. Rosio to f/u with Dr White and call this insurance underwriter sales back. * Telephone Encounter - Paris Monzon RN - 11/09/2024 3:19 PM EST Return TC to [facility], spoke with Rosio, reviewed issues from call note 11/04/24. Rosio will send a message to Dr Diez clearly explaining that the patient still has cholecystomy tube in and that [facility] IR / Desean Tiwari PA said she is to have a tube change and not removal as Dr Urrutia note indicates. Requested clarification of providers plan. Rosio states she will get back to me with an answer. documented in this encounter Plan of Treatment Upcoming Encounters Date Type Department Care Team (Late st Contact Info) Description 12/02/2024 10:00 AM EST Telemedicine [facility] [address] [place] [address] Paris Monzon, RN 12/03/2024 11:00 AM EST Office [facility] [place] [address] [place] [address] 12/30/2024 10:00 AM EDT Telemedicine [facility] [place] [address] Paris Monzon, CHOLO 02/01/2025 10:00 AM EDT Clinical Support [facility] [place] [address] Paris Monzon, RN documented as of this encounter Visit Diagnoses Not on filedocumented in this encounter Additional Health Concerns Assessment Noted Time PHQ-9 Depression Total Score: 0 05/16/20 10:40 AM EDT documented as of this encounter Care Teams Loom Changeover Operator Relationship Specialty Start Date End Date [place] [address] PCP - General Family Medicine 06/16/23 [place] [facility] 05/09/24 documented as of this encounter
--- OUTSIDE RECORDS SUMMARY | 2024-11-29 15:31 | XMS_ITS | Clinical Summary ---
Author Organization [employer] Address [address] [place] [address] Care Team Providers Care Draw Machine Operator Name Role Phone Zoey Colby MD Primary Care Provider [phone] Allergies No known active allergies Medications * This document contains information received from the source organization and may not represent a complete record from that organization. atorvastatin (Lipitor) 80 MG tablet take 1 tablet by oral route every day 07/08/20 22 Active Rimegepant Sulfate (Nurtec) 75 MG tablet dispersible Take 75 mg by mouth if needed each day (migraine). 30 tablet 3 04/01/20 23 Active albuterol 108 (90 Base) MCG/ACT inhalerIndicat ions:Chronic obstructive pulmonary disease, unspecified COPD type (CMS/HCC) Inhale 2 puffs every 4 (four) hours if needed for shortness of breath or wheezing. 18 g 3 06/23/20 23 Active budesonide-for moterol (Symbicort) 80-4.5 MCG/ACT inhalerIndicat ions:Chronic obstructive pulmonary disease, unspecified COPD type (CMS/HCC) TAKE 2 PUFFS BY MOUTH TWICE A DAY IN THE MORNING AND IN THE EVENING 1 each 11 04/23/20 24 Active naloxone (Narcan) 4 mg/0.1 mL nasal sprayIndicatio ns:Chronic, continuous use of opioids Administer 1 spray (4 mg) into affected nostril(s) if needed for opioid reversal. May repeat every 2-3 minutes if needed, alternating nostrils, until medical assistance becomes available. 2 each 3 05/11/20 24 025 Active metoprolol succinate XL (Toprol-XL) 50 MG 24 hr tabletIndicati ons:Acute non-ST segment elevation myocardial infarction (CMS/HCC) TAKE 1 TABLET BY MOUTH EVERY MORNING. DO NOT CRUSH OR CHEW. 90 tablet 3 06/22/20 24 Active nitroglycerin (Nitrostat) 0.[address] 1 tablet (0.4 mg) under the tongue every 5 (five) minutes if needed for chest pain. 30 tablet 3 09/30/20 24 025 Active oxyCODONE (Roxicodone) 10 MG immediate release tabletIndicati ons:superintendent container terminal (current) use of opiate analgesic,It Business Analyst mary bilateral low back pain with left-sided sciatica Take 1 tablet (10 mg) by mouth every 8 (eight) hours for 28 days. Do not start before November 27, 2024. 84 tablet 11/27/19 25 025 Active omeprazole (PriLOSEC) [address] capsuleIndicat ions:Gastric ulcer, unspecified chronicity, unspecified whether gastric ulcer hemorrhage or perforation present TAKE 1 CAPSULE (40 MG) BY MOUTH 2 TIMES DAILY. DO NOT CRUSH OR CHEW. 180 capsule 1 11/26/19 25 Active donepezil (Aricept) 5 MG tabletIndicati ons:Mild Alzheimer's dementia, unspecified timing of dementia onset, unspecified whether behavioral, psychotic, or mood disturbance or anxiety (CMS/HCC) TAKE 1 TABLET BY MOUTH AT BEDTIME 90 tablet 3 11/26/19 25 Active buPROPion (Zyban) 150 MG 12 hr tablet TAKE 1 TABLET BY MOUTH TWICE A DAY 180 tablet 3 11/26/19 25 Active aspirin (Aspirin Low Dose) 81 MG EC tabletIndicati ons:Acute non-ST segment elevation myocardial infarction (CMS/HCC) TAKE 1 TABLET BY MOUTH EVERY DAY 90 tablet 3 11/29/19 25 Active donepezil (Aricept) 5 MG tabletIndicati ons:Mild Alzheimer's dementia, unspecified timing of dementia onset, unspecified whether behavioral, psychotic, or mood disturbance or anxiety (CMS/HCC) Take 1 tablet (5 mg) by mouth at bedtime. 30 tablet 11 10/10/19 24 025 Discontinued aspirin (Victor Manuel Low Dose) 81 MG EC tabletIndicati ons:Acute non-ST segment elevation myocardial infarction (CMS/HCC) TAKE 1 TABLET BY MOUTH EVERY DAY 90 tablet 3 03/03/20 24 025 Discontinued buPROPion (Zyban) 150 MG 12 hr tablet TAKE 1 TABLET BY MOUTH TWICE A DAY 60 tablet 3 04/21/20 24 025 Discontinued omeprazole (PriLOSEC) [address] capsuleIndicat ions:Gastric ulcer, unspecified chronicity, unspecified whether gastric ulcer hemorrhage or perforation present TAKE 1 CAPSULE (40 MG) BY MOUTH 2 TIMES DAILY. DO NOT CRUSH OR CHEW. 180 capsule 1 04/23/20 24 025 Discontinued oxyCODONE (Roxicodone) 10 MG immediate release tabletIndicati ons:superintendent container terminal (current) use of opiate analgesic,It Business Analyst mary bilateral low back pain with left-sided sciatica Take 1 tablet (10 mg) by mouth every 8 (eight) hours for 28 days. Do not start before October 30, 2024. 84 tablet 10/30/19 25 025 Discontinued(R eorder (will not trigger notification to Pharmacy)) Active Problems Problem Noted Date Diagnosed Date Abnormal CXR (chest x-ray) 10/03/2024 Overview (10/03/2024): Prominent insterstitial lung markings Assessment & Plan (10/03/2024 9:17 AM EST): Refer to pulm for potential ILD, also needs assistance with management of severe COPD jail (current) use of opiate analgesic 08/07 Overview (10/03/2024): Dx: chronic low back pain with radiation to legs Rx: MS Contin 15mg in AM and MS Contin 30mg at night, stopped. Resume oxycodone 10mg three times daily Last [employer] agreement: 06/16/24 Tier II (visit every 3 months) Additional considerations: increased risk of resp depression due to COPD and smoking Timeline: 08/24/24 converted oxycodone 10mg TID to MS Contin 15mg BID 09/30/24 Resume oxycodone 10mg TID due to side effects of dry heaving and gait instability with morphone Assessment & Plan (08/27/2024 6:24 AM EST): F/u in 1-2 months to evaluate effectiveness of medication change Calculus of gallbladder with biliary obstruction but without cholecystitis 05/11/2024 Assessment & Plan (09/12/2024 6:11 AM EST): C tube in place, apparently will be removed after the holidays Assessment & Plan (08/27/2024 6:25 AM EST): Stressed importance of attending visit tomorrow to switch IR tubes, and also future visits to remove tube so that this nidus of infection can be safely discontinued when stones are all removed Assessment & Plan (05/12/2024 12:35 PM EDT): Again recommend ER evaluation for potential worsening blockage, pancreatitis (gas bubbles seen on CT scan), cholecystitis and further assistance with pain control. Patient declines citing wait times in ER. Offered to call expect to [facility]. She says that she will plan to attend her GI followup in two days, understands that she may be referred to the ER then. Assessment & Plan (05/11/2024 10:00 AM EDT): Patient here for a HDF, admitted to [facility] from 05/04/2024 until 05/07/2024 when she presented for evaluation of epigastric pain x 2 days. Admitted with choledocholithiasis as well as obstructing calculus at the ampulla. Started on IV Zosyn. Evaluated by GI who deemed patient to be high risk for ERCP due to her multiple medical conditions. IR consulted and patient underwent percutaneous drainage of gallbladder w/o issues. Pain was well controlled and IR felt patient could be sent home to gravity drainage and be followed up as outpatient. Patient discharged home to complete 10 days of Augmentin and oxycodone for pain. Today with c/o 9/10 RUQ abdominal pain, on exam tender to palpation, drain seems to be working Plan: Pt needs to be re-evaluated in the ER given severity of pain for repeat imaging and basic blood work as well as pain med titration under monitoring given her severe COPD patient agreeable family will transport to ER. Hospital discharge follow-up 05/11/2024 Assessment & Plan (05/11/2024 10:00 AM EDT): Patient here for a HDF, admitted to [facility] from 05/04/2024 until 05/07/2024 when she presented for evaluation of epigastric pain x 2 days. Admitted with choledocholithiasis as well as obstructing calculus at the ampulla. Started on IV Zosyn. Evaluated by GI who deemed patient to be high risk for ERCP due to her multiple medical conditions. IR consulted and patient underwent percutaneous drainage of gallbladder w/o issues. Pain was well controlled and IR felt patient could be sent home to gravity drainage and be followed up as outpatient. Patient discharged home to complete 10 days of Augmentin and oxycodone for pain. Today with c/o 9/10 RUQ abdominal pain, on exam tender to palpation, drain seems to be working Plan: Pt needs to be re-evaluated in the ER given severity of pain for repeat imaging and basic blood work as well as pain med titration under monitoring given her severe COPD patient agreeable family will transport to ER. Acute nonintractable headache 01/14/2024 Assessment & Plan (01/14/2024 9:19 AM EDT): ESR negative More concern for metastasis other primary brain tumor MRI brain with and without contrast re-ordered, sent to [facility] She picked up Lorazepam for prior to MRI Claustrophobia 10/10/2023 Assessment & Plan (10/10/2023 4:15 PM EST): Prior to PET Immunocompromised due to corticosteroids 023 09/05/2023 Lung nodule, multiple 09/05/2023 09/05/2023 Assessment & Plan (05/12/2024 12:36 PM EDT): No worsening nodules on CTPA of 05/04/24 Pt has no showed [facility] thoracic surgery x 2, will continue to image every year due to high risk smoker Assessment & Plan (02/25/2024 12:04 PM EDT): Reviewed the phone numbers to call and book appointments for CT lung ([facility]) and for brain MRI ([facility]), patient will call and try to rebook - she has had a NCM in the past, not sure if that would be helpful at this point - she declines going to the ER for worsening pain - she also declines Pulmonology consult for severe COPD - followup in one month via tele to review scans Assessment & Plan (01/14/2024 9:19 AM EDT): High suspicion for lung cancer, due to smoking history and weight loss Needs CT chest WITH contrast, ordered Needs help with appointments, will sign for care management Assessment & Plan (10/15/2023 10:55 AM EST): This is the most pressing concern, need to rule in or out lung cancer and complete staging if she has lung cancer I prescribed her Ativan to take 20 minutes before PET scan and to call [facility] to reschedule Then alert thoracic surgery when PET scan complete - after that we will work on pain mgmt and functional status Assessment & Plan (09/05/2023 12:53 PM EST): This is most concerning that patient has no-showed twice to thoracic surgery Gave number to book again Will also have my [place] call to rebook appointment with me to be seen in person Myocardial infarction, old 09/05/202309/05 S/P drug eluting coronary stent placement 202209/05/2023 Protein-calorie malnutrition, unspecified severi ty 09/05/2023 Assessment & Plan (09/12/2024 6:12 AM EST): She is eating a bit better now that she is over the infection, continue to eat high protein/high fat foods with also vegetables and grains to gain weight healthfully CAD (coronary artery disease) 08/25/2023 Diastolic HF (heart failure) 08/25/2023 History of percutaneous coronary intervention Pulmonary edema 08/25/2023 Overview (05/11/2024): WITH SMALL BILATERAL PLEURAL EFFUSION AND ADJACENT ATELECTASIS SOB (shortness of breath) 08/25/2023 Underweight 05/21/2023 Assessment & Plan (07/25/2023 3:08 PM EDT): Unclear if related to recent condition/hospitalization vs malignancy. Pleural effusion aspirate from 07/11/23 was neg for malignancy. Needs fu with CT surgery at [facility] for an abnormal LDCT lungs on 05/21/23 (LungRad Cat 4B). Information handed to patient to rs appt. Declined prescription for Ensure, she doesn't want to take any supplements Needs to FU with PCP for malignancy work up. Assessment & Plan (05/21/2023 8:56 AM EDT): Patients CMP came back showing low protein. The gap between her total protein and albumin is not greater than 4 though so this is more than likely nutrition based. Her BMI is also low. So I will be placing a referral to our flight dispatcher here at [facility]. Healthcare maintenance 05/16/2023 Assessment & Plan (05/20/2023 8:59 AM EDT): PHQ: 0 Substance use: 1 pack a day cigarettes. Denies drug, etoh, marijuan. Denied low dose CT scan. Lipids: labs ordered. Mammo: mammo ordered Colonoscopy: denied GI referral for colorectal cancer screening, she also denied cologard. She is not interested in doing either. DEXA: denies bone scan Vacc.: Advise [facility] pharm for 2nd zoster vaccination. Eye exam: Referral to eye care sent. Dental home: Advised [facility] dental. Memory loss 05/16/2023 Assessment & Plan (10/15/2023 10:55 AM EST): Trial Donepezil 5mg for possible Alzheimers Assessment & Plan (05/16/2023 12:53 PM EDT): Mini-cog = 3, possible memory impairment. MR brain ordered and referral to neurology sent. She appeared alert and oriented today. She had no issues keeping up with general banter. Stiffness of other specified joint, not elsewhere classified 09/05/2022 Chronic low back pain 12/29/2017 Assessment & Plan (08/27/2024 6:22 AM EST): Will switch to MS Contin 15mg every 12 hours at 08/24/24 fill Essential hypertension 12/29/2017 Assessment & Plan (05/16/2023 12:47 PM EDT): JI=930/86, no medication changes advised today, continue current therapies. ED precautions advised. Patient states that she is supposed to follow up with cardiology annually. She did not see them last year due to the cardiology office moving. They said they would call her to reschedule but never did. I sent a new referral for cardiology. Patient requested refill of nitrostat. ED precautions advised. Low vision right eye category 1, normal vision l eft eye 09/23/2017 Hyperlipidemia 11/02/2012 Tobacco dependence 09/07/2012 Assessment & Plan (07/25/2023 12:05 PM EDT): Counseled to quit smoking, I told her to use nicotine patch daily Fu PCP in 4-6 wks and she may need to fu CT Assessment & Plan (03/28/2023 7:11 PM EDT): ?? Encouraged smoking cessation resources such as pharmacomtherapy, [facility] smoking cessation group, and [facility] pharmacy smoking cessation clinic ?? Planning to start nicotrol inhalers Osteoporosis 06/30/2012 Stage 2 moderate COPD by GOLD classification Assessment & Plan (05/12/2024 12:57 PM EDT): On Symbicort BID and VANESA prn Could benefit from triple therapy? Smoking cessation encouraged Pulmonology consult ordered due to not being seen since 2018 Assessment & Plan (07/25/2023 12:04 PM EDT): S/p PNA treated and completed PRD. Counseled to quit smoking and uses nicotine patches daily Cont Symbicort and albuterol PRN only Fu with PCP Assessment & Plan (05/16/2023 11:25 AM EDT): Well appearing in clinic today. Not interested in further COPD treatment. She did agree to restart her Symbicort. O2=85% when presenting to clinic today. O2=92% before leaving. Patient states her baseline at home is 89% unless she walks up stairs or a long distance which it will normal drop to around 85%. Depression 03/31/2012 Restless leg syndrome 03/31/2012 Calf pain 03/21/2008 Arthralgia of hand 03/21/2008 09/05/2023 Knee pain 03/21/2008 09/05/2023 Resolved Problems Problem Noted Date Diagnosed Date Resolved Date Acute hypoxemic respiratory failure 08/25/2023 07/27/2024 Septic shock 08/25/2023 07/27/2024 Chronic, continuous use of opioids 11/29/2022 08/27/2024 Assessment & Plan (05/12/2024 12:41 PM EDT): Pt taking oxycodone 10mg TID for many years for leg pain and back pain, not efficacious even prior to choledocholithiasis drainage - after GI situation is more stable, will re-evaluate medications and consider switching to long acting opioid such as Butrans, fentanyl Assessment & Plan (09/05/2023 12:54 PM EST): Emphasized with patient that she must come to appointments with me and with [employer] for continued prescription of opioid medications Dysuria 10/11/2013 07/27/2024 Encounters Date Type Department Care Team Description 11/27/2024 Refill [facility] MED & PEDS [address] [place] [address] Zoey Colby MD Acute non-ST segment elevation myocardial infarction ([facility]/HCC) 11/26/2024 Refill [facility] MEDICINE [address] [place] [address] Zoey Colby MD Gastric ulcer, unspecified chronicity, unspecified whether gastric ulcer hemorrhage or perforation present; Mild Alzheimer's dementia, unspecified timing of dementia onset, unspecified whether behavioral, psychotic, or mood disturbance or anxiety ([facility]) 11/25/2024 Refill [facility] MEDICINE [address] [place] [address] Zoey Colby MD 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 Gastro regarding Tube 11/04/2024 9:30 AM EST Clinical Support [place] [address] Paris Monzon, technical inspector bilateral low back pain with left-sided sciatica (Primary Dx) 11/04/2024 Telephone [facility] [address] Paris Monzon, RN Oxycodone increase; BPI Scoring; Cholecystostomy Tube; [facility] Interventional Radiology; [facility] Gastroenterology 11/04/2024 Travel 11/04/2024 Telephone [place] [address] Paris Monzon RN Recommend [employer] Tier 2 10/28/2024 [place] [address] Zoey Colby MD superintendent container terminal (current) use of opiate analgesic; Chronic bilateral low back pain with left-sided sciatica 10/04/2024 Telephone [place] [address] [place] RN 09/30/2024 2:15 PM EST Office Visit [facility] [place] [address] Zoey Colby MD superintendent container terminal (current) use of opiate analgesic (Primary Dx); Chronic bilateral low back pain with left-sided sciatica; Rib pain on left side; Abnormal CXR (chest x-ray); Stage 2 moderate COPD by GOLD classification (CMS/[facility]) 09/30/2024 Travel 09/27/2024 Telephone [facility] [place] [address] Zoey Colby MD Medication Question 09/26/2024 Orders Only GENERIC EXTERNAL DATA DEPARTMENT Provider, Generic External Data 09/23/2024 Telephone [facility] [place] [address] Zoey Colby MD Medication Question 09/23/[address] [address] Zoey Colby MD Med Refill 09/20/[address] [address] Paris Monzon, CHOLO telephone call 09/10/2024 3:45 PM EST Office Visit [address] [address] Zoey Colby MD Calculus of gallbladder with biliary obstruction but without cholecystitis (Primary Dx); superintendent container terminal (current) use of opiate analgesic; Dietary counseling; Exercise counseling; Restless leg syndrome; Lung nodule, multiple; Stage 2 moderate COPD by GOLD classification ([facility]/HCC); Coronary artery disease involving ekuk heart, unspecified vessel or lesion type, unspecified whether angina present; Essential hypertension; Protein-calorie malnutrition, unspecified severity (CMS/[facility]); Underweight; Chronic bilateral low back pain with left-sided sciatica 09/10/2024 Travel 09/08/2024 Orders Only [address] [address] Zoey Colby MD from Last 3 Months Immunizations Name Administration Dates Next Due Influenza High-dose Quadriva lent Preservative Free 07/25/2023,07/08/2022,06/27/2021,07/11 Influenza injectable quadriv alent IIV4 with preservative 08/18/2017,07/30/2016,09/15/2015 Influenza injectable quadriv alent preservative free 08/31/2019,09/08/2018 Influenza, IIV3, injectable 10/04/2014, 1 Influenza, Split (incl. samson fied surface antigen) 10/11/2013,06/30/2012 Pfizer Covid-19 Vaccine 12+ 07/05/2021, 1,10/31/2020 Pfizer Covid-19 Vaccine 12+ Bivalent 10/18/2022 Pneumococcal Conjugate PCV 13 06/15/2021 Pneumococcal Polysaccharide PPSV23 08/31/2019, TD (adult), 2 Lf tetanus tox oid, preservative free, adsorbed 01/08/2001 Tdap 06/27/2021 Zoster, Recombinant 09/25/2021 Social History Tobacco Use Types Packs/Day Years Used Date Smoking Tobacco: Every Day Cigarettes Smokeless Tobacco: Never Tobacco Cessation:Ready to Q uit: Not Asked; Counseling Given: Not Answered Alcohol Use Standard Drinks/Week Comments Not Currently [...] Orientation Straight 08/05/2022 10 :16 AM EDT Last Filed Vital Signs Vital Sign Reading Time Taken Comments Blood Pressure 124/68 09/30/2024 2:21 PM EST Pulse 80 09/30/2024 2:21 PM EST Temperature 36.1 ??C (97 ??F) 09/30/2024 2:21 PM EST Respiratory Rate 20 09/30/2024 2:21 PM EST Oxygen Saturation 99% 09/10/2024 3:37 PM EST Inhaled Oxygen Concentration - - Weight 36.7 kg (81 lb) 09/30/2024 2:21 PM EST Height 149.9 cm (4' 11 ) 09/30/2024 2:21 PM EST Body Mass Index 16.36 09/30/2024 2:21 PM EST Plan of Treatment Upcoming Encounters Date Type Department Care Team (Late st Contact Info) Description 12/02/2024 10:00 AM EST Telemedicine [address] [address] Paris Monzon, CHOLO 12/03/2024 11:00 AM EST Office Visit [address] [address] Zoey Colby MD [address] [place] [id number] 12/30/2024 10:00 AM EDT Telemedicine [address] [address] Paris Monzon RN 02/01/2025 10:00 AM EDT Clinical Support [address] [address] Paris Monzon, RN Health Maintenance Due Date Last Done Comments CT Colonography 1954 Colonoscopy 1954 Colorectal Cancer Screening 1954 FIT DNA/Cologuard 1954 FIT 1954 FOBT 1954 Sigmoidoscopy 1954 Alcohol/Substance Use Screening 1966 Hepatitis C Screening 02/11/1972 Hepatitis A Vaccines (1 of 2 - Risk 2-dose series) 1973 RSV Patients and Patients Aged 60 years or older (1 - Risk 60-74 years 1-dose series) 2014 Zoster Vaccines (2 of 2) 11/20/2021 09/25/2021 Mammogram 05/29/2022 11/29/2021, 11/06, 11/20/2021 Depression Screening 05/16/2024 05/16/2023, 05/16/20 23 SDOH Screening 05/16/2024 05/16/2023 COVID-19 Vaccine ( season) 2024 10/18/2022, 07/05/2021, 11/21/2020, Additional history exists Influenza Vaccine (#1) 2024 3, 07/08/2022, 06/27/2021, Additional history exists Tobacco Screening 09/30/2025 09/30/2024 Lipid Panel 05/16/2028 05/16/2023, 04/23/2021 DTaP/Tdap/Td Vaccines (2 - Td or Tdap) 06/27/2031 06/27/2021, 01/08/2001 Pneumococcal Vaccine: 50+ Years Completed 06/15/2021, 08/31/2019, 01/08/2001 HIB Vaccines Aged Out No longer eligi ble based on patient's age to complete this topic HPV Vaccines Aged Out No longer eligi ble based on patient's age to complete this topic Hepatitis B Vaccines Aged Out No long er eligible based on patient's age to complete this topic IPV Vaccines Aged Out No longer eligi ble based on patient's age to complete this topic Meningococcal Vaccine Aged Out No ranulfo lois eligible based on patient's age to complete this topic RSV under 20 months Aged Out No longe r eligible based on patient's age to complete this topic Rotavirus Vaccines Aged Out No longer eligible based on patient's age to complete this topic Procedures Procedure Name Priority Date/Time Associated Diagnosis Comments BILIRUBIN, DIRECT Routine 11/24/2024 2:5 9 PM EST BILIRUBIN, TOTAL Routine 11/24/2024 2:59 PM EST POCT DAILY-14 URINE DRUG SCREEN Routine 11/04/2024 10:11 AM EST Chronic bilateral low back pain with left-sided sciatica XR RIBS 3 VIEWS LEFT W CHEST Routine 09/30/2024 2:59 PM EST LIPASE Routine 09/26/2024 3:56 PM EST COMPREHENSIVE METABOLIC PANEL Routine 09/26/2024 3:56 PM EST PROTHROMBIN TIME-INR Routine 09/26/2024 3:56 PM EST CBC WITH AUTO DIFFERENTIAL Routine 09/26/2024 3:56 PM EST IR BILIARY TUBE EXCHANGE Routine 09/08/2024 1:00 PM EST LIPID PANEL, STANDARD Routine 05/16/2023 12:10 PM EDT Healthcare maintenance MAMMOGRAM GENERIC Routine 11/29/2021 3:5 0 PM EST from Last 3 Months or Most Recently Relevant to Health Maintenance Results * Bilirubin, Direct (11/24/2024 2:59 PM EST) Bilirubin, Direct <0.2 0.0 - 0.5 mg/dL [facility] 11/24/2024 2:59 PM EST 11/24/2024 3:03 PM EST Generic External Data Provider LAB BLOOD ORDERAB LES Final Result Performing Organization Address City/[facility]/ZIP Co de Phone Number [facility] 20 [place] [phone] * Bilirubin, Total (11/24/2024 2:59 PM EST) Bilirubin, Total 0.2 0.0 - 1.0 mg/dL [facility] 11/24/2024 2:59 PM EST 11/24/2024 3:03 PM EST Generic External Data Provider LAB BLOOD ORDERAB LES Final Result Performing Organization Address City/[facility]/ZIP Co de Phone Number [facility] [address] [place] [phone] * POCT DAILY-14 Urine Drug Screen (11/04/2024 10:11 AM EST) Oxycodone Screen, Urine Positive Urine Urine specimen obtained by clean catch procedure / Unknown 11/04/2024 10:11 AM EST Narrative Paris Monzon, RN - 11/04/2024 10:11 AM EST UTOX cup Lot#[id number] Exp. 06/30/26 Internal Pass Control us Zoey Colby MD POINT OF CARE TEST ENTER/EDIT ORDERABLES Final Result * XR Ribs 3 Views Left w/ Chest (09/30/2024 2:59 PM EST) Anatomical Region Laterality Modality Radiographic Nina ging 09/30/2024 2:59 PM EST Narrative 10/01/2024 8:56 AM EST ?[facility] ?[address] ?[place] [address] ?XRay Report ? Signed ? Patient: Samson,Tammy M ?MR#: [id number] ?? 4 ? : 1955 ?Acct:[id number] ? Age/Sex: 69 / F ?ADM Date: 09/30/24 ? Loc: HO.HHCX ? Attending Dr: Zoey Colby MD ? Ordering Physician: Zoey Colby ?? Date of Service: 09/30/24 ?? Procedure(s): XR ribs LT min 3V w CXR1V ?? Accession Number(s): [id number] ? cc: Zoey Colby ? EXAMINATION: ?? XR RIBS, LEFT ? CLINICAL INFORMATION: ?? Pain. Fall. ? COMPARISON: ?? CTA chest dated 05/04/2024. ? TECHNIQUE: ?? PA view of the chest as well as 3 views of the left ribs. ? FINDINGS: ?? Chronic interstitial prominence is redemonstrated without focal ?? airspace consolidation. No pleural effusion or pneumothorax. Stable ?? cardiomediastinal silhouette. Partially visualized right upper quadrant ?? biliary train. ? No displaced fracture. No concerning lytic or blastic osseous lesion. ?? No abnormal soft tissue calcification. ? XR/XR ribs LT min 3V w CXR1V ?? IMPRESSION: ?? 1. No displaced fracture. ?? 2. Chronic interstitial prominence without acute cardiopulmonary ?? findings. ? Electronically signed by: ??Juan He MD ??10/01/2024 08:53 AM EST ?? RP ? Dictated By: ?Juan He MD ? Signed By: ?<Electronically signed by Juan He MD in OV> ?10/01/24 0853 ? DD/ 145 ? TD/TT: 09/30/24 1500 ? Activated Sludge Attendant: SR ? Procedure Note Donotuseinterpreter, Image - 10/01/2024 [facility] [address] [place] [address] XRay Report Signed Patient: Tammy Davies MMR#: [id number] 4 : 4Acct:[id number] Age/Sex: 69 / FADM Date: 09/30/24 Loc: HO.HHCX Attending Dr: Zoey Colby MD Ordering Physician: Zoey Colby Date of Service: 09/30/24 Procedure(s): XR ribs LT min 3V w CXR1V Accession Number(s): [id number] cc: Zoey Colby EXAMINATION: XR RIBS, LEFT CLINICAL INFORMATION: Pain. Fall. COMPARISON: CTA chest dated 05/04/2024. TECHNIQUE: PA view of the chest as well as 3 views of the left ribs. FINDINGS: Chronic interstitial prominence is redemonstrated without focal airspace consolidation. No pleural effusion or pneumothorax. Stable cardiomediastinal silhouette. Partially visualized right upper quadrant biliary train. No displaced fracture. No concerning lytic or blastic osseous lesion. No abnormal soft tissue calcification. XR/XR ribs LT min 3V w CXR1V IMPRESSION: 1. No displaced fracture. 2. Chronic interstitial prominence without acute cardiopulmonary findings. Electronically signed by: Juan He MD 10/01/2024 08:53 AM EST Dictated By: Juan He MD Signed By: <Electronically signed by Juan He MD in OV> 10/01/24 0853 DD/ 1459 TD/TT: 09/30/24 1500 Activated Sludge Attendant: Zoey Colby MD IMG XR PROCEDURES Final Result * (ABNORMAL) CBC auto differential (09/26/2024 3:56 PM EST) White Blood Count 9.2 4.8 - 10.8 X10*3/uL [facility] Red Blood Count 5.82(H) 4.20 - 5.50 X10*6/uL [facility] Hemoglobin 14.1 12.0 - 16.0 g/dl [facility] Hematocrit 46.3 37.0 - 47.0 % [facility] Mean Corpuscular Volume 79.6(L) 80.0 - 98.0 fL [facility] Mean Corpuscular Hemoglobin 24.2(L) 27.0 - 33.0 pg [facility] Mean Corpuscular HGB Conc 30.5(L) 31.0 - 35.0 g/dl [facility] Red Cell Distribution Width 18.1(H) 11.0 - 16.0 % [facility] Platelet Count 201 160 - 400 X10*3/uL [facility] Mean Platelet Volume 9.6 9.4 - 12.3 fL [facility] Neutrophils Percent Auto 62.0 45 - 73 % [facility] Imm Gran Pct Auto 0.3 0.0 - 0.4 % [facility] Lymphocytes Percent Auto 23.3 20 - 40 % [facility] Monocytes Percent Auto 9.9 2 - 11 % [facility] Eosinophils Percent Auto 3.5 0 - 4 % [facility] Basophils Percent Auto 1.0 0 - 2 % [facility] NRBC Pct Auto 0.0 0.0 - 0.2 /100WBC [facility] Neutrophils Absolute Auto 5.7 2.0 - 8.3 x10*3/uL [facility] Imm Gran Abs Auto 0.03 0.00 - 0.03 X10*3/uL [facility] Lymphocytes Absolute Auto 2.2 1.2 - 4.9 X10*3/uL [facility] Monocytes Absolute Auto 0.9 0.1 - 1.2 X10*3/uL [facility] Eosinophils Absolute Auto 0.3 0.0 - 0.4 X10*3/uL [facility] Basophils Absolute Auto 0.1 0.0 - 0.2 X10*3/uL [facility] NRBC Abs Auto 0.000 0.0 - 0.012 X10*3/uL [facility] 09/26/2024 3:56 PM EST 09/26/2024 4:03 PM EST us Generic External Data Provider LAB BLOOD ORDERAB LES Final Result Performing Organization Address [facility] Co de Phone Number [facility] [address] [place] [phone] * Prothrombin Time-INR (09/26/2024 3:56 PM EST) Prothrombin Time 11.6 10.9 - 12.4 SEC [facility] INTERNATIONAL NORM RATIO 1.0 0.9 - 1.1 [facility] Comment:INTERNATIONAL NORMAL IZED RATIO (INR) REFERENCE RANGES Reference RangeFor patients not on anticoagulant therapy: 0.9 - 1.1INR ranges for oral anticoagulanttherapy:For prevention and treatment of venous thrombosis and pulmonary embolism: 2.0 - 3.0For acute myocardial infarction with aspirin therapy: 2.0 - 3.0For acute myocardial infarction without aspirin therapy: 3.0 - 4.0For patients with mechanical prosthetic heart valves: 2.5 - 3.5 09/26/2024 3:56 PM EST 09/26/2024 4:03 PM EST us Generic External Data Provider LAB BLOOD ORDERAB LES Final Result Performing Organization Address [facility] Co de Phone Number [facility] [address] [place] [phone] * Lipase (09/26/2024 3:56 PM EST) Lipase 18 8 - 78 U/L [facility] 09/26/2024 3:56 PM EST 09/26/2024 4:03 PM EST us Generic External Data Provider LAB BLOOD ORDERAB LES Final Result Performing Organization Address City/[facility]/ZIP Co de Phone Number [facility] [address] [place] [address] [phone] * (ABNORMAL) Comprehensive Metabolic Panel (09/26/2024 3:56 PM EST) Sodium 139 135 - 145 mmol/L [facility] Potassium 4.6 3.3 - 5.1 mmol/L [facility] Chloride 98 96 - 108 mmol/L [facility] Carbon Dioxide 32(H) 22 - 29 mmol/L [facility] Anion Gap 14 12 - 20 [facility] Urea Nitrogen (BUN) 9 9 - 16 mg/dL [facility] Creatinine, Serum 0.75 0.5 - 1.4 mg/dL [facility] Creatinine Clr Calc Pharmacy 60.7 [facility] Comment:Provided height and weight: 149.86 cm,73 kg.eGFR (calculated from the MDRD study equation) and eCrCl(calculated from the Cockcroft-Gault equation) are based ondifferent parameters and may not yield comparable results.If eCrCl result is absurd, please check patient'sheight/weight. Estimated Glomerular Filt Rate >60 [facility] Comment:Chronic Kidney Disea se: Estimated GFR < 60 mL/min/1.07b0Lhtvyk Kidney Disease: Estimated GFR < 15 mL/min/1.73m2 Glucose 103 60 - 115 mg/dL [facility] Calcium 9.2 8.4 - 10.2 mg/dL [facility] Bilirubin, Total 0.4 0.0 - 1.0 mg/dL [facility] Aspartate Amino Transferase 43(H) 5 - 31 U/L [facility] Alanine Aminotransferase 30 0 - 31 U/L [facility] Total Protein 6.8 6.5 - 8.0 g/dL [facility] Albumin Level 3.9 3.5 - 5.0 g/dL [facility] Alkaline Phosphatase 140(H) 39 - 117 U/L [facility] 09/26/2024 3:56 PM EST 09/26/2024 4:03 PM EST us Generic External Data Provider LAB BLOOD ORDERAB LES Final Result [facility] [address] [place] [phone] * IR Biliary Tube Exchange (09/08/2024 1:00 PM EST) Anatomical Region Laterality Modality Body X-Ray Angiograph y 09/08/2024 1:00 PM EST Narrative 11/05/2024 5:01 PM EST ? [facility] ?[address] ?[place] [address] ?Interventional Radiology Rpt ? Signed ? Patient: Samson,Tammy M ?MR#: [id number] ?? 4 ? : 1955 ?Acct:[id number] ? Age/Sex: 69 / F ?ADM Date: 09/08/24 ? Loc: HO.SSS ? Attending Dr: Geo ROSALES ? Ordering Physician: Zoey Colby ?? Date of Service: 09/08/24 ?? Procedure(s): IR Biliary Drainage Exchange ?? Accession Number(s): [id number] ? cc: Zoey Colby ? IR biliary [...] removed over the wire. ?? A 10 Martiniquais sheath was placed over the wire and [...] ??11/05/2024 04:58 PM EST RP ?? Workstation: [id number] ? Dictated By: ?Geo Tiwari ? Signed By: ?<Electronically signed by Geo Tiwari in OV> ? 11/05/24 1658 ?<Electronically signed by Valentin Guerrero MD in OV> ?11/05/24 1700 ? DD/ 1300 ? TD/TT: 09/08/24 1348 ? Activated Sludge Attendant: ? Procedure Note Chani, Dilcia - 11/05/[address] [address] Interventional Radiology Rpt Signed Patient: Tammy Davies MMR#: [id number] 4 : 4Acct:[id number] Age/Sex: 69 / FADM Date: 09/08/24 Loc: HO.SSS Attending Dr: Geo ROSALES Ordering Physician: Zoey Colby Date of Service: 09/08/24 Procedure(s): IR Biliary Drainage Exchange Accession Number(s): [id number] cc: Zoey Colby IR biliary drain replacement/cholangiogram [...] was removed over the wire. A 10 Martiniquais sheath was placed over the wire and [...] by: Valentin Guerrero MD 11/05/2024 04:58 PM [facility] Workstation: [id number] Dictated By: Geo Tiwari Signed By: <Electronically signed by Geo Tiwari in OV> 11/05/24 1658 <Electronically signed by Valentin Guerrero MD in OV> 11/05/24 1700 DD/ 1300 TD/TT: 09/08/24 1348 Activated Sludge Attendant: us Zoey Colby MD IMG IR PROCEDURES Final Result * Lipid Panel, Standard (05/16/2023 12:10 PM EDT) Triglycerides 97 mg/dL [facility] Comment:Desirable Triglyceri de: less than 150 mg/dLBorderline High Triglyceride 150-199 mg/dLHigh Triglyceride: 200-499 mg/dLVery High Triglyceride: greater than or equal to 5OO mg/dL Cholesterol 179 mg/dL [facility] Comment:Desirable Cholestero l: less than 200 mg/dLBorderline High Cholesterol: 200-239 mg/dLHigh Cholesterol: greater than 239 mg/dL LDL Cholesterol Calculated 106 mg/dl [facility] Comment:Desirable LDL: less than 100 mg/dLNear Optimal/Above Optimal LDL: 110- 129 mg/dLBorderline High LDL: 130-159 mg/dLHigh LDL: 160-189 mg/dLVery High LDL: greater than or equal to 190 mg/dL HDL Cholesterol 54 mg/dL [facility] Comment:Desirable HDL: great er than 40 mg/dL Note: This HDL assay may give artificially low results in patients with liver disease. Blood Venous blood specimen / Unknown 05/16/2023 12:10 PM EDT 05/16/2023 1:48 PM EDT us David Tanner AGN LAB BLOOD ORDERABLES Final Res ult [facility] [address] [place] [phone] * Mammography Report 1 (11/29/2021 3:50 PM EST) Anatomical Region Laterality Modality Breast Bilateral Mammography 11/29/2021 3:50 PM EST Narrative 11/29/2021 5:07 PM EST Refer to the Notes tab for result details [facility] Procedure: Mammography Report 1 Procedure Note Provider, MD Griselda - 12/29/2022 Refer to the Notes tab for result details [facility] Procedure: Mammography Report 1 us Stephan Martin MD IMG BI PROCEDURES Final Resu lt from Last 3 Months or Most Recently Relevant to Health Maintenance Insurance MEDICARE Care Teams Draw Machine Operator Relationship Specialty Start Date End Date Zoey Colby MD [address] [place] [address] PCP - General Family Medicine 06/16/23 Veronica HARRIS 05/09/24
--- OUTSIDE RECORDS SUMMARY | 2024-11-29 15:31 | XMS_ITS | Encounter Summary ---
Author Organization [employer] Address [address] [facility] 7t [place] [address] Care Team Providers Care Property Appraiser Name Role Phone Zoey Colby MD Primary Care Provider [phone] Reason for Visit * Reason Comments IT HELP DESK ASSOCIATE RV IT HELP DESK ASSOCIATE RV Encounter Details Date Type Department Care Team (Latest Contact Info) Description 11/04/2024 9:30 AM EST Clinical Support [facility] [address] [place] [address] Paris Monzon RN Chronic bilateral low back pain with left-sided sciatica (Primary Dx) Social History Tobacco Use Types Packs/Day Years [...] AM EDT documented as of this encounter Progress Notes * Paris Monzon RN - 11/04/2024 9:30 AM EST S: Pt here for IT HELP DESK ASSOCIATE Revisit, accompanied by her . Prescribed Oxycodone 10mg Q8hr PRN. States she has been taking 3-4 doses a day, last dose taken was this morning. Continues to smoke 1ppd of cigarettes. Denies ETOH use, Illicit drug use and marijuana use. Currently rates her pain a 8 and states medication is 25% effective at alleviating her pain. Current pain site is her legs. reports she doesn't get out of bed, except to use the bathroom d/t her pain. 08/19/24 PCP had trialed patient on MS Contin 15mg Q12hr, unsuccessful, pt c/o intolerable side effects. Pt has started with [employer] at home to monitor her Cholecystostomy tube. Pt cancelled IT HELP DESK ASSOCIATE visit 09/09/24. O: IT HELP DESK ASSOCIATE Tele Tier 1. Pt currently prescribed Oxycodone 10mg Q8hr PRN. JUNIOR HIGH MATH TEACHER verified today. Rx last filled on 10/30/24. Pill count performed. Pt has 68 pills at this time, 68 at least expected. Medication is not over used by patient. UTOX completed. Positive for OXY, Negative for AMP, BAR, BUP, BZO, HANS, FTY, MDMA, MET, MOP, MTD, PCP, TCA, THC. UTOX as expected. BPI updated, see scanned documents from this date. Pain severity score of 6.5, activity interference score of 7. Previous BPI completed 06/16/24, with pain severity score of 5.6, activity interference score of 7.3. PCP evaluated patients Cholecystostomy tube during this visit. PCP verbally ordered patients oxycodone to be increased to 15mg Q8hr PRN. Educated patient and on splitting her 10mg tablets and providing 1.5 tablets Q8hr as needed. Strongly advised against taking any additional doses d/t dose increase. [place] [facility] [place] about plan for Cholecystostomy tube removal. Last PCP visit was 09/30/24, scheduled next 12/03/24. A: IT HELP DESK ASSOCIATE Revisit: Chronic Opioid use related to pain. P: Pt to continue taking medication only as prescribed; Next Tele IT HELP DESK ASSOCIATE RV appointment scheduled for 12/02/24 @ 10a, F/U sooner PRN. Appointment reminder given. Pt verbalized understanding and agreed toplan. documented in this encounter Plan of Treatment Upcoming Encounters Date Type Department Care Team (Late st Contact Info) Description 12/02/2024 10:00 AM EST Telemedicine [address] [address] Paris Monzon RN 12/03/2024 11:00 AM EST Office Visit [address] [address] Zoey Colby MD [address] [place] [address] 12/30/2024 10:00 AM EDT Telemedicine [address] [address] Paris Monzon RN 02/01/2025 10:00 AM EDT Clinical Support [address] [address] Paris Monzon RN documented as of this encounter Procedures Procedure Name Priority Date/Time Associated Diagnosis Comments POCT DAILY-14 URINE DRUG SCREEN Routine 11/04/2024 10:11 AM EST Chronic bilateral low back pain with left-sided sciatica documented in this encounter Results * POCT DAILY-14 Urine Drug Screen (11/04/2024 10:11 AM EST) Oxycodone Screen, Urine Positive Urine Urine specimen obtained by clean catch procedure / Unknown 11/04/2024 10:11 AM EST Paris Boudreaux, RN - 11/04/2024 10:11 AM EST UTOX cup Lot#[id number] Exp. 06/30/26 Internal Pass Control Zoey Colby MD POINT OF CARE TEST ENTER/EDIT ORDERABLES Final Result documented in this encounter Visit Diagnoses Diagnosis Chronic bilateral low back pain with left-sided sciatica- Primary documented in this encounter Additional Health Concerns Assessment Noted Time PHQ-9 Depression Total Score: 0 05/16/20 23 10:40 AM EDT documented as of this encounter Care Teams Property Appraiser Relationship Specialty Start Date End Date Zoey Colby MD [address] [place] [phone] PCP - General Family Medicine 06/16/23 Veronica HARRIS 05/09/24 documented as of this encounter
--- OUTSIDE RECORDS SUMMARY | 2024-11-29 15:31 | XMS_ITS | Encounter Summary ---
Author Organization [employer] Address [address] [facility] 7t [place] [address] Care Team Providers Care Propellant Assembler Name Role Phone Zoey Colby MD Primary Care Provider [phone] Encounter Details Date Type Department Care Team (Late st Contact Info) Description 11/24/2024 Orders Only GENERIC EXTERNAL DATA DEPARTMENT Provider, Generic External Data Social History Tobacco Use Types Packs/Day Years [...] Description 12/02/2024 10:00 AM EST Telemedicine [address] [address] Paris Monzon, CHOLO 12/03/2024 11:00 AM EST Office Visit [address] [address] Zoey Colby MD [address] [place] [phone] 12/30/2024 10:00 AM EDT Telemedicine [address] [address] Paris Monzon RN 02/01/2025 10:00 AM EDT Clinical Support [address] [address] Paris Monzon, CHOLO documented as of this encounter Procedures Procedure Name Priority Date/Time Associated Diagnosis Comments BILIRUBIN, DIRECT Routine 11/24/2024 2:5 9 PM EST BILIRUBIN, TOTAL Routine 11/24/2024 2:59 PM EST documented in this encounter Results * Bilirubin, Direct (11/24/2024 2:59 PM EST) Bilirubin, Direct <0.2 0.0 - 0.5 mg/dL [facility] 11/24/2024 2:59 PM EST 11/24/2024 3:03 PM EST us Generic External Data Provider LAB BLOOD ORDERAB LES Final Result [facility] [address] [place] [phone] [phone] * Bilirubin, Total (11/24/2024 2:59 PM EST) Bilirubin, Total 0.2 0.0 - 1.0 mg/dL [facility] 11/24/2024 2:59 PM EST 11/24/2024 3:03 PM EST us Generic External Data Provider LAB BLOOD ORDERAB LES Final Result [facility] [address] [place] [phone] [phone] documented in this encounter Visit Diagnoses Not on filedocumented in this encounter Additional Health Concerns Assessment Noted Time PHQ-9 Depression Total Score: 0 05/16/20 23 10:40 AM EDT documented as of this encounter Care Teams Propellant Assembler Relationship Specialty Start Date End Date Zoey Colby MD [address] [place] [phone] PCP - General Family Medicine [facility] documented as of this encounter
--- OUTSIDE RECORDS SUMMARY | 2024-11-29 15:31 | XMS_ITS | Encounter Summary ---
Author Organization [employer] Address [address] [facility] [address] [place] [address] Care Team Providers Care Energy Trading Analyst Name Role Phone David Tanner Primary Care Provider Unavail able Zoey Colby MD Primary Care Provider [phone] Reason for Visit * Reason Comments Med Refill Encounter Details Date Type Department Care Team (Late st Contact Info) Description 03/28/2023 Refill [facility] [address] [place] [address] David Tanner AGNP Gastric ulcer, unspecified chronicity, unspecified whether gastric [...] suspected to have Coronavirus/COVID-19? No / Unsure 03/28/2023 2:25 PM EDT documented as of this encounter Plan of Treatment Upcoming Encounters Date Type Department Care Team (Late Contact Info) Description 12/02/2024 10:00 AM EST Telemedicine [facility] [address] [place], [place] [phone] Paris Monzon RN 12/03/2024 11:00 AM EST Office Visit [address] [address] Zoey Colby MD [address] [place] [phone] 12/30/2024 10:00 AM EDT Telemedicine [address] [address] Paris Monzon, RN 02/01/2025 10:00 AM EDT Clinical Support [address] [address] Paris Monzon, RN documented as of this encounter Visit Diagnoses Diagnosis Gastric ulcer, unspecified chronicity, unspecified whether gastric ulcer hemorrhage or perforation present documented in this encounter Care Teams Energy Trading Analyst Relationship Specialty Start Date End Date David Tanner AGNP PCP - General Family Medicine 09/04/22 06/15/23 Zoey Colby MD [address] [place] [phone] PCP - General Family Medicine 06/16/23 [facility] 05/09/24 documented as of this encounter
--- OUTSIDE RECORDS SUMMARY | 2024-11-29 15:31 | XMS_ITS | Encounter Summary ---
Author Organization [employer] Address [address] [facility] 7[address] [place] [address] Care Team Providers Care Commercial Account Manager Name Role Phone Zoey Colby MD Primary Care Provider Reason for Visit * Reason Comments Med Refill Encounter Details Date Type Department Care Team ([facility] Contact Info) Description 07/28/2024 Refill [facility] [address] [place], [place] [phone] Zoey Colby MD [address] [place] [address] Gastric ulcer, unspecified chronicity, unspecified whether gastric ulcer hemorrhage or perforation present; Mild Alzheimer's dementia, unspecified timing of dementia onset, unspecified whether behavioral, psychotic, or mood disturbance or anxiety (CMS/[facility]) Social History Tobacco Use Types Packs/Day Years [...] Info) Description 12/02/2024 10:00 AM EST Telemedicine [address] [address] Paris Monzon RN 12/03/2024 11:00 AM EST Office Visit [address] [address] Zoey Colby MD [address] [place] [address] 12/30/2024 10:00 AM EDT Telemedicine [address] [address] Paris Monzon, CHOLO 02/01/2025 10:00 AM EDT Clinical Support [address] [address] Paris Monzon, RN documented as of this [...] documented as of this encounter Care Teams Commercial Account Manager Relationship Specialty Start Date End Date Zoey Colby MD [address] [place] [phone] PCP - General Family Medicine 06/16/23 Veronica HARRIS 05/09/24 documented as of this encounter
--- OUTSIDE RECORDS SUMMARY | 2024-11-29 15:31 | XMS_ITS | Encounter Summary ---
Author Organization [employer] Address [address] [facility] 7t [place] [address] Care Team Providers Care Habilitative Interventionist Name Role Phone Zoey Colby MD Primary Care Provider [phone] Reason for Visit * Reason Onset Date Comments Oxycodone increase 11/04/2024 BPI Scoring 11/04/2024 Cholecystostomy Tube 11/04/2024 [facility] [place] 11/04/2024 [facility] [place] 11/04/2024 Encounter Details Date Type Department Care Team (Late st Contact Info) Description 11/04/2024 Telephone [facility] [address] [place] [address] Paris Monzon RN Oxycodone increase; BPI Scoring; Cholecystostomy Tube; [facility] [place]; [facility] [place] Social History Tobacco Use Types Packs/Day Years [...] Telephone Encounter - Paris Monzon RN - 11/04/2024 12:44 PM EST TC to [facility] [place], spoke with Sanaz. Sanaz notes there is no further documentation from their office after 09/06/24. She is sending message to Dr Diez to return my call after he gets out of surgery today at 3pm. * Telephone Encounter - Paris Monzon RN - 11/04/2024 10:19 AM EST Pt had MMD UNIT TEACHER RV appt today Pt and were instructed to increase her Oxycodone to 15mg Q8hr PRN as PCP had verbally instructed today. Reviewed with patient and how to break current oxycodone 10mg tablets in half using score line. said he is well experienced with cutting tablets and has no concerns about doing it. Reviewed patient is to receive 1.5 pills Q8hr as needed for her pain. Advised strongly not to use any additional doses d/t in crease in dosing. BPI updated Pain severity score of 6.5, activity interference score of 7. Previous BPI completed 06/16/24, with pain severity score of 5.6, activity interference score of 7.3. TC to [facility] [place], spoke with Mable. Illuminator stated that they are awaiting delivery of her 'replacement tube' before they can complete her procedure. Requested she clarify procedure needed. Explained the patient, her and the patients PCP were all under impression she is to have her tube removed. Mable to clarify and get back to this writer editor. Received call back from Desean Gordon who explained that patient is not having a tube removal, she needs a tube change. He further stated if they remove the tube at this time she is a candidate to have the same issue occur. He stated getting her the next size up in tubing has been delayed d/t production issues since COVID. Provider faxing his most recent notes to [facility] at this time. documented in this encounter Plan of Treatment Upcoming Encounters Date Type Department Care Team (Late st Contact Info) Description 12/02/2024 10:00 AM EST Telemedicine [address] [address] Paris Monzon, RN 12/03/2024 11:00 AM EST Office Visit [address] [address] Zoey Colby MD [address] [place] [address] 12/30/2024 10:00 AM EDT Telemedicine [address] [address] Paris Monzon, RN 02/01/2025 10:00 AM EDT Clinical Support [address] [address] Paris Monzon, RN documented as of this encounter Visit Diagnoses Not on filedocumented in this encounter Additional Health Concerns Assessment Noted Time PHQ-9 Depression Total Score: 0 05/16/20 10:40 AM EDT documented as of this encounter Care Teams Habilitative Interventionist Relationship Specialty Start Date End Date Zoey Colby MD [address] [place] [address] PCP - General Family Medicine 06/16/23 [place] A 05/09/24 documented as of this encounter
--- OUTSIDE RECORDS SUMMARY | 2024-11-29 15:31 | XMS_ITS | Clinical Summary ---
Author Organization [facility] Address [address] [place] [address] Care Team Providers Care Field Coordinator Name Role Phone ChristyFarzana higginbotham Primary Care Provider [phone] Social History Tobacco Use Types Packs/Day Years Used Date Smoking Tobacco: Never Assessed Comments Unknown Sex and Gender Information Value Date Recorded Sex Assigned at Not on file Legal Sex Female 8:42 PM EST Gender Identity Not on file Sexual Orientation Not on file Plan of Treatment Health Maintenance Due Date Last Done Comments Breast Cancer Screening 1955 DTaP,Tdap,and Td Vaccines (1 - Tdap) 1973 Pneumococcal Vaccine: 50+ Ye ars (1 of 2 - PCV) 1973 Zoster Vaccines (1 of 2) 02/11/2004 RSV Immunization Patients 60 + Years Old (1 - Risk 60-74 years 1-dose series) 2014 Cholesterol Screening (Lipid Panel) 10/31/2023 Colorectal Cancer Screening: Colonoscopy 10/31/2023 Depression Screening 10/31/2023 Falls Risk Assessment 10/31/2023 Hepatitis C Screening 10/31/2023 Osteoporosis Screening (Bone Density Screening) 10/31/2023 Social Influencers of Health Screening 10/31/2023 Hypertension/CHF/CAD Annual BMP Blood Test 11/18/2023 COVID-19 Vaccine ( - 2023-2 5 season) 2024 Influenza Vaccine (#1) 2024 HIB Vaccines Aged Out No longer eligi ble based on patient's age to complete this topic HPV Vaccines Aged Out No longer eligi ble based on patient's age to complete this topic Hepatitis A Vaccines Aged Out No long er eligible based on patient's age to complete this topic Hepatitis B Vaccines Aged Out No long er eligible based on patient's age to complete this topic IPV Vaccines Aged Out No longer eligi ble based on patient's age to complete this topic MMR Vaccines Aged Out No longer eligi ble based on patient's age to complete this topic Meningococcal ACWY Vaccine Aged Out N o longer eligible based on patient's age to complete this topic Meningococcal B Vacine Aged Out No lo nger eligible based on patient's age to complete this topic RSV Immunization Patients Un ricky 20 months Aged Out No longer eligible b ased on patient's age to complete this topic Varicella Vaccines Aged Out No longer eligible based on patient's age to complete this topic Care Teams Field Coordinator Relationship Specialty Start Date End Date Farzana Garza DO [address] [place] [address], [place] PCP - General 05/27/12
--- OUTSIDE RECORDS SUMMARY | 2024-11-29 15:31 | XMS_ITS | Encounter Summary ---
Author Organization [employer] Address [address] [facility] 7t [place] [address] Care Team Providers Care Cut Off Operator Scorer Name Role Phone Zoey Colby MD Primary Care Provider [phone] Reason for Visit * Reason Onset Date Comments Medication Question 09/27/2024 Encounter Details Date Type Department Care Team ([facility] Contact Info) Description 09/27/2024 Telephone [facility] [address] [place], [place] [phone] Zoey Colby MD [address] [place] [address] Medication Question Social History Tobacco Use Types [...] encounter Miscellaneous Notes * Telephone Encounter - Sami Stoutarez - 09/27/2024 1:01 PM EST TC from pt states Morphine medication is too strong and doesn't like the way it makes her feel. Pt is requesting to be put back on Oxycodone 10mg documented in this encounter Plan of Treatment Upcoming Encounters Date Type Department Care Team (Late st Contact Info) Description 12/02/2024 10:00 AM EST Telemedicine [facility] [address] [place] [address] Paris Monzon, RN 12/03/2024 11:00 AM EST Office Visit [address] [address] Zoey Colby MD [address] [place] [address] 12/30/2024 10:00 AM EDT Telemedicine [facility] [address] [place] [address] Pairs Monzon, RN 02/01/2025 10:00 AM EDT Clinical Support [address] [address] Paris Monzon, RN documented as of this encounter Visit Diagnoses Not on filedocumented in this encounter Additional Health Concerns Assessment Noted Time PHQ-9 Depression Total Score: 0 05/16/20 10:40 AM EDT documented as of this encounter Care Teams Cut Off Operator Scorer Relationship Specialty Start Date End Date Zoey Colby MD [address] [place] [address] PCP - General Family Medicine 06/16/23 [place] HARRIS 05/09/24 documented as of this encounter
--- OUTSIDE RECORDS SUMMARY | 2024-11-29 15:31 | XMS_ITS | Encounter Summary ---
Author Organization [facility] [employer] Address [address] [facility] 7t [place] [address] Care Team Providers Care Stapler Hand Name Role Phone Zoey Colby MD Primary Care Provider [phone] Reason for Referral * Imaging (Urgent) - Closed Specialty Diagnoses / Procedures Referred By Contac t Referred To Contact Radiology Diagnoses Lung nodule, multiple Tobacco dependence Procedures CT Chest w/o Contrast Zoey Colby MD [address] [place] [address] Phone: tel: fax: [facility] [address] [facility], [address] [place] [address] Phone: tel: fax: Referral ID Status Reason Start Date Expiration Date Visits Re quested Visits Authorized [id number] Closed 04/21/2024 04/21/2025 1 1 Encounter Details Date Type Department Care Team (Late st Contact Info) Description 04/21/2024 Orders Only [facility] MED[facility]INE [address] [place], [place] [phone] Zoey Colby MD [address] [place], [place] [phone] Lung nodule, multiple (Primary Dx); Tobacco dependence Social History Tobacco Use Types Packs/Day Years [...] Info) Description 12/02/2024 10:00 AM EST Telemedicine [facility] [address] [place] [address] Paris Monzon RN 12/03/2024 11:00 AM EST Office Visit [address] [address] Zoey Colby MD [address] [place] [address] 12/30/2024 10:00 AM EDT Telemedicine [facility] [address] [place] [address] Paris Monzon RN 02/01/2025 10:00 AM EDT Clinical Support [address] [address] Paris Monzon, CHOLO Scheduled Orders Name Type Priority Associated Diagnoses Orde r Schedule CT Chest w/o Contrast Imaging Urgent Lung nodule, multiple Tobacco dependence Expected: 04/21/2024, Expires: 04/21/2025 documented as of this encounter Procedures Procedure Name Priority Date/Time Associated Diagnosis Comments CBC WITH AUTO DIFFERENTIAL Routine 07/27/2024 2:23 PM EDT Lung nodule, multiple MAGNESIUM Routine 07/27/2024 2:23 PM EDT Lung nodule, multiple LIPASE Routine 07/27/2024 2:23 PM EDT Lung nodule, multiple HEPATIC FUNCTION PANEL Routine 07/27/2024 2:23 PM EDT Lung nodule, multiple BASIC METABOLIC PANEL Routine 07/27/2024 2:23 PM EDT Lung nodule, multiple GRAM STAIN Routine 07/27/2024 1:56 PM EDT Lung nodule, multiple documented in this encounter Results * Lipase (07/27/2024 2:23 PM EDT) Lipase 11 8 - 78 U/L [facility] 07/27/2024 2:23 PM EDT 07/27/2024 2:26 PM EDT Generic External Data Provider LAB BLOOD ORDERAB LES Final Result [facility] [address] [place] [phone] * Magnesium (07/27/2024 2:23 PM EDT) Magnesium 1.9 1.6 - 2.6 mg/dL [facility] 07/27/2024 2:23 PM EDT 07/27/2024 2:26 PM EDT Generic External Data Provider LAB BLOOD ORDERAB LES Final Result Performing Organization Address [facility]/ZIP Co de Phone Number [facility] [address] [place] [address] [phone] * (ABNORMAL) Basic Metabolic Panel (07/27/2024 2:23 PM EDT) Sodium 142 135 - 145 mmol/L [facility] Potassium 3.9 3.3 - 5.1 mmol/L [facility] Chloride 103 96 - 108 mmol/L [facility] Carbon Dioxide 31(H) 22 - 29 mmol/L [facility] Anion Gap 12 12 - 20 [facility] Urea Nitrogen (BUN) 15 9 - 16 mg/dL [facility] Creatinine, Serum 0.64 0.5 - 1.4 mg/dL [facility] Creatinine Clr Calc Pharmacy 44.4 [facility] Comment:Provided height and weight: 149.86 cm,34.4 kg.eGFR (calculated from the MDRD study equation) and eCrCl(calculated from the Cockcroft-Gault equation) are based ondifferent parameters and may not yield comparable results.If eCrCl result is absurd, please check patient'sheight/weight. Estimated Glomerular Filt Rate >60 [facility] Comment:NOTE: For -Am erican individuals, multiply the result by 1.210.Chronic Kidney Disease: Estimated GFR < 60 mL/min/1.34q3Khbbbz Kidney Disease: Estimated GFR < 15 mL/min/1.73m2 Glucose 110 60 - 115 mg/dL [facility] Calcium 9.7 8.4 - 10.2 mg/dL [facility] 07/27/2024 2:23 PM EDT 07/27/2024 2:26 PM EDT Generic External Data Provider LAB BLOOD ORDERAB LES Final Result Performing Organization Address City/[facility]/ZIP Co de Phone Number [facility] [address] [place] [address] [phone] * (ABNORMAL) Hepatic Function Panel (07/27/2024 2:23 PM EDT) [facility] Bilirubin, Total 0.4 0.0 - 1.0 mg/dL [facility] Bilirubin, Direct 0.1 0.0 - 0.5 mg/dL [facility] Aspartate Amino Transferase 41(H) 5 - 31 U/L [facility] Alanine Aminotransferase 29 0 - 31 U/L [facility] Total Protein 6.6 6.5 - 8.0 g/dL [facility] Albumin Level 3.5 3.5 - 5.0 g/dL [facility] Alkaline Phosphatase 150(H) 39 - 117 U/L [facility] 07/27/2024 2:23 PM EDT 07/27/2024 2:26 PM EDT us Generic External Data Provider LAB BLOOD ORDERAB LES Final Result Performing Organization Address City/State/[facility] Co de Phone Number [facility] [address] [place] [phone] * (ABNORMAL) CBC auto differential (07/27/2024 2:23 PM EDT) [facility] White Blood Count 11.3(H) 4.8 - 10.8 X10*3/uL [facility] Red Blood Count 5.62(H) 4.20 - 5.50 X10*6/uL [facility] Hemoglobin 14.4 12.0 - 16.0 g/dl [facility] Hematocrit 45.1 37.0 - 47.0 % [facility] Mean Corpuscular Volume 80.2 80.0 - 98.0 fL [facility] Mean Corpuscular Hemoglobin 25.6(L) 27.0 - 33.0 pg [facility] Mean Corpuscular HGB Conc 31.9 31.0 - 35.0 g/dl [facility] Red Cell Distribution Width 18.4(H) 11.0 - 16.0 % [facility] Platelet Count 276 160 - 400 X10*3/uL [facility] Mean Platelet Volume 9.2(L) 9.4 - 12.3 fL [facility] Neutrophils Percent Auto 81.6(H) 45 - 73 % [facility] Imm Gran Pct Auto 0.4 0.0 - 0.4 % [facility] Lymphocytes Percent Auto 8.4(L) 20 - 40 % [facility] Monocytes Percent Auto 9.1 2 - 11 % [facility] Eosinophils Percent Auto 0.2 0 - 4 % [facility] Basophils Percent Auto 0.3 0 - 2 % [facility] NRBC Pct Auto 0.0 0.0 - 0.2 /100WBC [facility] Neutrophils Absolute Auto 9.3(H) 2.0 - 8.3 x10*3/uL [facility] Imm Gran Abs Auto 0.05(H) 0.00 - 0.03 X10*3/uL [facility] Lymphocytes Absolute Auto 1.0(L) 1.2 - 4.9 X10*3/uL [facility] Monocytes Absolute Auto 1.0 0.1 - 1.2 X10*3/uL [facility] Eosinophils Absolute Auto 0.0 0.0 - 0.4 X10*3/uL [facility] Basophils Absolute Auto 0.0 0.0 - 0.2 X10*3/uL [facility] NRBC Abs Auto 0.000 0.0 - 0.012 X10*3/uL [facility] 07/27/2024 2:23 PM EDT 07/27/2024 2:26 PM EDT us Generic External Data Provider LAB BLOOD ORDERAB LES Final Result [facility] [address] [place] [phone] * Gram stain (07/27/2024 1:56 PM EDT) 07/27/2024 1:56 PM EDT 07/27/2024 2:01 PM EDT Comment:Abdom Fld Narrative [facility] - 07/27/2024 3:02 PM EDT Fluid from galbladder drain per HO.PROVENC Gram stain results: 3+ polys No organisms seen Specimen received on a swab. Results may be compromised. Specimen of choice is aspirate. Specimen Source: Abdominal Fluid us Generic External Data Provider LAB MICROBIOLOGY - GENERAL ORDERABLES Final Result Performing Organization Address City/State/[facility] Co de Phone Number [facility] [address] [place] [address] [phone] documented in this encounter Visit Diagnoses Diagnosis Lung nodule, multiple- Primary Tobacco dependence Tobacco use disorder documented in this encounter Additional Health Concerns Assessment Noted Time PHQ-9 Depression Total Score: 0 05/16/20 23 10:40 AM EDT documented as of this encounter Care Teams Stapler Hand Relationship Specialty Start Date End Date Zoey Colby MD [address] [place] [phone] PCP - General Family Medicine 06/16/23 [facility] 05/09/24 documented as of this encounter
--- OUTSIDE RECORDS SUMMARY | 2024-11-29 15:31 | XMS_ITS | Encounter Summary ---
Author Organization [employer] Address [address] [facility] 7t [place] [address] Care Team Providers Care Last Repairer Name Role Phone Zoey Colby MD Primary Care Provider [phone] Reason for Visit * Reason Onset Date Comments Recommend PARAFFIN MACHINE OPERATOR Tier 2 11/04/2024 Encounter Details Date Type Department Care Team ([facility] st Contact Info) Description 11/04/2024 Telephone [facility] [address] [place] [address] Paris Monzon, CHOLO Recommend PARAFFIN MACHINE OPERATOR Tier 2 Social History Tobacco Use Types Packs/Day Years [...] Encounter - Paris Monzon RN - 11/04/2024 7:29 AM EST What PARAFFIN MACHINE OPERATOR Tier would you like this patient to be? I recommend Tier 2, please let me know if you agree or would rather patient be in another PARAFFIN MACHINE OPERATOR Tier. Tier 1 = HIGH RISK, Monthly PARAFFIN MACHINE OPERATOR visits Tier 2 = MODerate RISK, Q3 Month visits Tier 3 = LOW RISK = Q4-6 month visits documented in this encounter Plan of Treatment Upcoming Encounters Date Type Department Care Team (Late st Contact Info) Description 12/02/2024 10:00 AM EST Telemedicine [address] [address] Paris Monzon, RN 12/03/2024 11:00 AM EST Office Visit [address] [address] Zoey Colby MD [address] [place] [address] 12/30/2024 10:00 AM EDT Telemedicine [address] [address] Paris Monzon, RN 02/01/2025 10:00 AM EDT Clinical Support [address] [address] Paris Monzon, RN documented as of this encounter Visit Diagnoses Not on filedocumented in this encounter Additional Health Concerns Assessment Noted Time PHQ-9 Depression Total Score: 0 05/16/20 23 10:40 AM EDT documented as of this encounter Care Teams Last Repairer Relationship Specialty Start Date End Date Zoey Colby MD [address] [place] [address] PCP - General Family Medicine 06/16/23 [place] HARRIS 05/09/24 documented as of this encounter
--- NOTE | ~2024-12-29 | IR_ITS ---
History: 69-year-old female with history of choledocholithiasis status post Spyglass endoscopy and internal/external biliary drainage. The patient's symptoms have since resolved. Prior cholangiography showed a few filling defects in the distal common bile duct, but ready drainage of contrast through the common bile duct into the duodenum. As a consequence, as of her last visit, an external drain was placed and capped to secure the access, but to determine whether or not she is draining properly on her own. She presents today for a check. Procedures performed: 1. Antegrade cholangiography through the external biliary drain. 2. Removal of the biliary drain. Physician: Moises Guerrero MD Anesthesia: None. Specimen: None Drain: Removed Estimated blood loss: Minimal Complications: None Procedure in detail: Informed and written consent was obtained. The patient was positioned supine on the angiography table. Contrast was injected through the existing biliary drain, which again showed ill-defined subtle filling defects in the distal common bile duct, but this did not appear to impede drainage into the duodenum. There is no dilatation of biliary structures. Based upon this, we elected to remove the drain. A sterile dressing was applied. Summary: Unobstructed drainage of bile through the common bile duct as described despite the presence of a few ill-defined filling defects, which may represent stones. The biliary drain was removed as the patient has tolerated having an external biliary drain capped for over a month. Electronically signed by: Valentin Guerrero MD 12/29/2024 02:19 PM EDT
[2024-12-29 12:10] VITALS: BMI 14.4
[2024-12-29 12:22] VITALS: BP 136/73; PULSE 100; RESP 20; TEMP 37.2; O2SAT 92
[2024-12-29 12:48] LABS: MANUAL DIFF FLAG NO
[2024-12-29 12:54] LABS: Basophils Absolute Auto 0.1 X10*3/uL (0.0-0.2); Eosinophils Absolute Auto 0.1 X10*3/uL (0.0-0.4); Eosinophils Percent Auto 1.8 % (0-4); Hemoglobin 13.7 g/dl (12.0-16.0); Imm Gran Abs Auto 0.02 X10*3/uL (0.00-0.03); Imm Gran Pct Auto 0.3 % (0.0-0.4); Lymphocytes Absolute Auto 1.5 X10*3/uL (1.2-4.9); Lymphocytes Percent Auto 21.1 % (20-40); Mean Corpuscular HGB Conc 30.4 g/dl (31.0-35.0); Mean Corpuscular Hemoglobin 22.6 pg (27.0-33.0); Mean Corpuscular Volume 74.1 fL (80.0-98.0); Monocytes Absolute Auto 0.7 X10*3/uL (0.1-1.2); Monocytes Percent Auto 9.1 % (2-11); Neutrophils Absolute Auto 4.9 x10*3/uL (2.0-8.3); Neutrophils Percent Auto 66.7 % (45-73); Platelet Count 208 X10*3/uL (160-400); Red Blood Count 6.07 X10*6/uL (4.20-5.50); Red Cell Distribution Width 22.9 % (11.0-16.0); White Blood Count 7.3 X10*3/uL (4.8-10.8)
[2024-12-29 12:56] LABS: Prothrombin Time 11.4 SEC (10.9-12.4)
[2024-12-29 13:05] VITALS: BP 130/75; PULSE 105; RESP 24
[2024-12-29 13:07] LABS: Anion Gap 12 (12-20); Blood Urea Nitrogen 8 mg/dL (9-16); Calcium 9.1 mg/dL (8.4-10.2); Carbon Dioxide 31 mmol/L (22-29); Chloride 101 mmol/L (96-108); Creatinine Clr Calc Pharmacy 38.7; Estimated Glomerular Filt Rate > 60; Glucose Random 105 mg/dL (60-115); Potassium 4.5 mmol/L (3.3-5.1); Sodium 139 mmol/L (135-145)
[2024-12-29 13:35] VITALS: BP 127/76; PULSE 102; RESP 16; O2SAT 92
[2024-12-29 13:50] VITALS: BP 111/67; PULSE 93; RESP 20; TEMP 36.6; O2SAT 90
[2024-12-29 14:05] VITALS: BP 122/73; PULSE 97; RESP 20; O2SAT 91
[2024-12-29 14:20] VITALS: BP 120/70; PULSE 93; RESP 20; TEMP 36.7; O2SAT 91
== END 2024-12-29 14:35 | disposition home or self-care (01) ==
PROVIDERS: Radiology Diagnostic Radiology; Radiology Vascular & Interventional Radiology; Visit Provider Physician Assistant Surgical
DX: Z48.03 Encounter for change or removal of drains (principal); K83.1 Obstruction of bile duct
CPT/HCPCS: 36415; 47537; 76000; 80048; 85025; 85610; J1644; J2003; J2250; J3010; Q9967

== ENCOUNTER → 2024-12-29 13:00 | Outpatient (BNV) | payer MEDICARE, SELFPAY | PROVIDERS: Visit Provider Radiology Vascular & Interventional Radiology | DX: Z48.03 Encounter for change or removal of drains (principal) | CPT/HCPCS: 76000 ==

== ENCOUNTER 2025-07-04 16:54 | Outpatient (RCR) | payer MEDICARE, SELFPAY | END 2025-07-04 17:34 | disposition home or self-care (01) | LOC: HO.WCC 16:54 | PROVIDERS: PCP General Practice; Visit Provider Surgery Surgical Oncology | DX: I89.0 Lymphedema, not elsewhere classified (principal) | CPT/HCPCS: 99202 ==

== ENCOUNTER 2025-07-12 09:47 | Outpatient (AMB) | payer MEDICARE, SELFPAY ==
[2025-07-12 09:57] VITALS: BP 110/50; PULSE 91; O2SAT 89; BMI 17.6
--- NOTE | 2025-07-12 09:57 | MHC.OFFVIS ---
Vital Signs 07/12/25 09:57 Height 4 ft 11 in Weight 87 lb 1.321 oz BMI 17.6 BP 110/50 L Blood Pressure Location Lt brachial Position Sitting Pulse 91 Pulse Source Pulse Oximeter Pulse Oximetry (%) 89 L Oxygen Delivery Method Room Air Intake Visit Reasons: COPD Intake Note: pt is here for follow up, she does not move around much, she does get short of breath but will sit down and it will come back. Manager Oncology Required: No Glass Carrier: Glass Carrier offered & declined Allergies No Known Allergies Allergy (Verified 07/12/25 10:21) Medication List - Last Reconciled 07/12/25 by Flor Cleary MD acetaminophen 1,000 mg PO BID PRN albuterol sulfate 90 mcg/actuation 2 puffs PO Q4-6H PRN aspirin 81 mg PO DAILY budesonide-formoterol 80-4.5 mcg/actuation (Symbicort) 2 puffs inhalation BID donepezil 5 mg PO BEDTIME metoprolol succinate ER 50 mg PO DAILY nitroglycerin 0.4 mg sublingual Q5M PRN omeprazole 40 mg PO QAM ondansetron 4 mg PO Q8H PRN oxycodone 10 mg PO Q6H PRN MDD 30 Do you need a note to return to daycare/school/sports/work: No HPI HPI COPD: Details: Tammy is 70 years old female, with mild to moderate degree of chronic obstructive pulmonary disease. Continues to smoke currently 1 pack of cigarettes a day. Denies cough or expectoration. She say is she gets short of breath on walking 1 or 2 blocks then has to stop and take some rest. But she can climb 1 flight of stairs without any problem . She has some dementia, is easily forgetful. Her supervises her medications , but he can not make her stop smoking. When she walked into the office the O2 sat is 89%, she say is she is not interested in the oxygen. [facility] Medical History (Updated 07/12/25 @ 10:28 by Flor Cleary MD) COPD (chronic obstructive pulmonary disease) Exercise hypoxemia PVD (peripheral vascular disease) Admission for biliary drainage tube placement Nicotine dependence, cigarettes, uncomplicated History of COVID-19 History of ARDS Osteoporosis Essential hypertension Atherosclerotic cardiovascular disease History of [place] (myocardial infarction) (~2016) Coronary artery disease GERD (gastroesophageal reflux disease) Peptic ulcer disease Surgical History History of heart artery stent (~2015) History of exploratory laparotomy (~2019) Family History Father No problems noted. Mother Diabetes Brother Heart problem Social History Household Members: Spouse Household Members Other:: 2 Housing: House Housing Other:: 2 family house Are you a primary caregivers non medical to a significant other at home: No Alcohol intake: never Patient Tobacco Use Status: Current everyday Tobacco user Tobacco use type: Cigarette Cigarette Packs Per Day: 1 Cigarettes Per Day: 20.0 Years Smoked: 54 Second Hand Smoke Exposure: Yes Advance Directives Date on File: 11/27/16 service: No Review of Systems Const All systems reviewed & are unremarkable except as noted in HPI and below Physical Exam Vital Signs: Last Vital Signs Pulse 91 07/12/25 09:57 BP 110/50 L 07/12/25 09:57 Pulse Ox 89 L 07/12/25 09:57 Oxygen Delivery Method Room Air 07/12/25 09:57 BMI result Body Mass Index 17.6 She is of a thin build, skinny , not in any distress. Const General: comfortable, no acute distress, alert and awake; No healthy appearing (Except for being very skinny.) Orientation/consciousness: patient oriented x3 HEENT Head: Yes normal to inspection General nose exam: No nasal polyps present and No nasal discharge present Face and sinus: Yes sinuses nontender Mouth: oropharynx normal Throat: Yes posterior oropharynx normal Eyes General: appearance normal, both eyes and all related structures Neck Neck: Yes normal visual inspection, Yes no lymphadenopathy, Yes trachea midline and Yes no JVD Thyroid: Thyroid normal Chest Chest palpation & inspection: normal inspection of the chest, normal palpation of entire chest wall and no tenderness Resp Other: Percussion note is hyper-resonant, breath sounds are distant with prolonged expiratory phase but equal on both sides. No wheezes or rhonchi are heard. No crepitations. Cardio Palpation: normal PMI Rate: regular rate Rhythm: regular rhythm Heart sounds: no gallops and no murmurs Peripheral pulses: Peripheral pulses 2+ throughout GI Other: Has biliary drainage tube in place . Palpation (GI): Soft to palpation, nontender, No hepatosplenomegaly present and no masses Auscultation: normal bowel sounds Back/Spine/Pelvis Thoracic/Lumbar Spine: thoracic and lumbar spine normal to inspection Skin General skin exam: no rashes or lesions noted Neuro General: patient oriented x3 and no focal motor deficits Cranial nerves: Yes CN's II-XII intact bilaterally Extrem General: Yes normal to inspection, Yes no clubbing, cyanosis or edema and Yes no calf tenderness Psych Appearance: grossly normal Speech and movement: Normal speech and movement present Results Reviewed Results Reviewed: Spirometry was done in the office in July 2024, and showed mild to moderate degree of obstructive airway disorder. Assessment & Plan Assessment & Plan (1) Nicotine dependence, cigarettes, uncomplicated: Comment: Long-time history of smoking (current smoker 1 pk a day) Has no interest in quitting smoking. Code(s): F17.210 - Nicotine dependence, cigarettes, uncomplicated Category: Medical Plan: Talked to her and her , Does not want to use nicotine patch Chantix. Advised to cut down the number of cigarettes to 15 and then to 10 . Also referred for ANNUAL LUNG SCREENING. (2) Exercise hypoxemia: Comment: When she walked into the office O2 sat was 89%, I checked again it was 88%. Code(s): R09.02 - Hypoxemia Category: Medical Plan: I talked to her about oxygen and if we can do 6 minutes walk. She declined and does not want to use oxygen (3) COPD (chronic obstructive pulmonary disease): Comment: SHE HAS MILD OBSTRUCTIVE AIRWAY DISORDER, ACTUALLY SOMEWHAT LESS THAN EXPECTED. DENIES ANY SIGNIFICANT SYMPTOMS FROM IT AT PRESENT. SHE IS NOT USING SYMBICORT. Code(s): J44.9 - Chronic obstructive pulmonary disease, unspecified Category: Medical Qualifiers: COPD type: unspecified COPD Qualified Code(s): J44.9 - Chronic obstructive pulmonary disease, unspecified Plan: Patient obviously has chronic obstructive pulmonary disease secondary to her smoking, spirometry in the office in July 2024 showed mild to moderate obstructive airway disorder. Complete pulmonary function test has not been done, .due to her poor understanding Plan Continue to use Symbicort 80-4.52 puffs. B.i.d. regularly Use albuterol HFA 2 puffs Q 4-6 hours only p.r.n.. Orders: Referrals Lung Cancer Screening Referral F17.210 - Nicotine dependence, cigarettes, uncomplicated, J44.9 - Chronic obstructive pulmonary disease, unspecified Coding Level of Care Code Est Pt Level 3 (55114) Diagnoses Nicotine dependence, cigarettes, uncomplicated F17.210 Exercise hypoxemia R09.02 Chronic obstructive pulmonary disease, unspecified COPD type J44.9 COPD type: unspecified COPD
--- OUTSIDE RECORDS SUMMARY | 2025-07-12 11:16 | XMS_ITS | Encounter Summary ---
Author Organization [employer] Address [address] [facility] [address] [place] [address] Care Team Providers Care Cigar Patcher Name Role Phone Zoey Colby MD Primary Care Provider [phone] Reason for Visit * Reason Onset Date Comments Medication Question 09/23/2024 Encounter Details Date Type Department Care Team ([facility] st Contact Info) Description 09/23/2024 Telephone [facility] [address] [place] [address] Zoey Colby MD [address] [place] [address] Medication Question Social History Tobacco Use Types [...] Miscellaneous Notes * Telephone Encounter - Josué Torrez - 09/23/2024 2:10 PM EST Tc from pt stating she doesn't want to take Med morphine CR (MS Contin) 30 MG 12 hr tablet . Pt says it only makes her sleepy and it doesn't help. If any questions contact pt at [phone] documented in this encounter Plan of Treatment Upcoming Encounters Date Type Department Care Team (Late st Contact Info) Description 07/28/2025 10:30 AM EDT Clinical Support [facility] [address] [place] [address] Paris Monzon, RN documented as of this encounter Visit Diagnoses Not on filedocumented in this encounter Additional Health Concerns Assessment Noted Time PHQ-9 Depression Total Score: 0 05/16/20 10:40 AM EDT documented as of this encounter Care Teams Cigar Patcher Relationship Specialty Start Date End Date Zoey Colby MD [address] [place] [address] PCP - General Family Medicine 06/16/23 [facility] 05/09/24 documented as of this encounter
--- OUTSIDE RECORDS SUMMARY | 2025-07-12 11:16 | XMS_ITS | Encounter Summary ---
Author Organization [employer] Address [address] [place] [address] [place] [address] Care Team Providers Care Roving Department End Finder Name Role Phone David Tanner Primary Care Provider Unavail able Zoey Colby MD Primary Care Provider [phone] Reason for Visit * Reason Comments Med Refill Encounter Details Date Type Department Care Team ([facility] Contact Info) Description 03/28/2023 Refill [facility] [address] [place], [place] [phone] David Tanner AGNP Gastric ulcer, unspecified chronicity, [...] Department Care Team (Late Contact Info) Description 07/28/2025 10:30 AM EDT Clinical Support [facility] [address] [place], [place] [phone] Paris Monzon RN documented as of this encounter Visit Diagnoses Diagnosis Gastric ulcer, unspecified chronicity, unspecified whether gastric ulcer hemorrhage or perforation present documented in this encounter Care Teams Roving Department End Finder Relationship Specialty Start Date End Date David Tanner AGNP PCP - General Family Medicine 09/04/22 06/15/23 Zoey Colby MD [address] [place] [address] PCP - General Family Medicine 06/16/23 [facility] 05/09/24 documented as of this encounter
--- OUTSIDE RECORDS SUMMARY | 2025-07-12 11:16 | XMS_ITS | Encounter Summary ---
Author Organization [employer] Address [address] [place] [address] [address] [place] [address] Care Team Providers Care Solar Electric/Photovoltaic Installer Name Role Phone David Tanner Primary Care Provider Unavail able Zoey Colby MD Primary Care Provider [phone] Encounter Details Date Type Department Care Team (Late st Contact Info) Description 10/18/2022 Orders Only [facility] [address] [place] [address] Mihaela Marquis FNP Social History Tobacco Use [...] Description 07/28/2025 10:30 AM EDT Clinical Support [facility] [address] [place] [phone] Paris Monzon RN documented as of this encounter Procedures Procedure Name Priority Date/Time Associated Diagnosis Comments SYPHILIS SCREEN Routine 05/16/2023 12:10 PM EDT documented in this encounter Results * Syphilis Screen (05/16/2023 12:10 PM EDT) Syphilis Screen Nonreactive Nonreactive [facility] 05/16/2023 12:1 0 PM EDT 05/16/2023 1:48 PM EDT David MOELLER LAB BLOOD ORDERABLES Final Res ult [facility] [address] [place] [address] [phone] documented in this encounter Visit Diagnoses Not on filedocumented in this encounter Care Teams Solar Electric/Photovoltaic Installer Relationship Specialty Start Date End Date David Tanner AGNP PCP - General Family Medicine 09/04/22 06/15/23 Zoey Colby MD [address] [place] [id number] PCP - General Family Medicine [facility] documented as of this encounter
--- OUTSIDE RECORDS SUMMARY | 2025-07-12 11:16 | XMS_ITS | Encounter Summary ---
Author Organization [employer] Address [address] [place] [address] Care Team Providers Care Window Shade Cloth Sewer Name Role Phone David Tanner Primary Care Provider Unavail able Zoey Colby MD Primary Care Provider [phone] Encounter Details Date Type Department Care Team (Late st Contact Info) Description 03/04/[address] [facility] [employer] Information Management [address] [place] [address] David Tanner AGNP Social History Tobacco Use [...] Description 07/28/2025 10:30 AM EDT Clinical Support [facility] [address] [place] [address] Paris Monzon RN documented as of this encounter Visit Diagnoses Not on filedocumented in this encounter Care Teams Window Shade Cloth Sewer Relationship Specialty Start Date End Date David Tanner AGNP PCP - General Family Medicine 09/04/22 06/15/23 Zoey Colby MD [address] [place] [address] PCP - General Family Medicine 06/16/23 [place] 05/09/24 documented as of this encounter
--- OUTSIDE RECORDS SUMMARY | 2025-07-12 11:16 | XMS_ITS | Clinical Summary ---
Author Organization [facility] Address [address] [place] [address] Care Team Providers Care Correctional Therapy Teacher Name Role Phone ChristyFarzana higginbotham Primary Care Provider [phone] Social History Tobacco Use Types Packs/Day Years Used Date Smoking Tobacco: Never Assessed Comments Unknown Sex and Gender Information Value Date Recorded Sex Assigned at Not on file Legal Sex Female 8:42 PM EST Gender Identity Not on file Sexual Orientation Not on file Plan of Treatment Health Maintenance Due Date Last Done Comments Breast Cancer Screening 1955 Colorectal Cancer Screening: Colonoscopy 1955 DTaP,Tdap,and Td Vaccines (1 - Tdap) 1973 Pneumococcal Vaccine: 50+ Ye ars (1 of 2 - PCV) 1973 Zoster Vaccines (1 of 2) 02/11/2004 RSV Immunization Adult Patie nts (1 - Risk 60-74 years 1-dose series) 2014 Cholesterol Screening (Lipid Panel) 10/31/2023 Falls Risk Assessment 10/31/2023 Hepatitis C Screening 10/31/2023 Osteoporosis Screening (Bone Density Screening) 10/31/2023 Social Influencers of Health Screening 10/31/2023 Hypertension/CHF/CAD Annual BMP Blood Test 11/18/2023 Depression Screening 10/06/2024 COVID-19 Vaccine (1 - 2023-2 5 season) 2025 Influenza Vaccine (#1) 2025 HIB Vaccines Aged Out No longer eligi [...] age to complete this topic Meningococcal B Vaccine Aged Out No l onger eligible based on patient's age to complete this topic RSV Immunization Patients Un ricky 20 months Aged Out No longer eligible b ased on patient's age to complete this topic Varicella Vaccines Aged Out No longer eligible based on patient's age to complete this topic Care Teams Correctional Therapy Teacher Relationship Specialty Start Date End Date Farzana Garza DO [address] [place] [address], [place] PCP - General 05/27/12
--- OUTSIDE RECORDS SUMMARY | 2025-07-12 11:16 | XMS_ITS | Encounter Summary ---
Author Organization [employer] Address [address] [facility] 7 [place] [address] Care Team Providers Care Financial Services Auditor Name Role Phone Zoey Colby MD Primary Care Provider [phone] Reason for Visit * Reason Comments Med Refill Encounter Details Date Type Department Care Team ([facility] st Contact Info) Description 11/27/2023 Refill [facility] [address] [place], [place] [phone] Zoey Colby MD [address] [place] [address] Gastric ulcer, unspecified chronicity, unspecified whether gastric [...] Description 07/28/2025 10:30 AM EDT Clinical Support [facility] [address] [place] [phone] Paris Monzon, RN documented as of this encounter Visit Diagnoses Diagnosis Gastric ulcer, unspecified chronicity, unspecified whether gastric ulcer hemorrhage or perforation present documented in this encounter Additional Health Concerns Assessment Noted Time PHQ-9 Depression Total Score: 0 05/16/20 10:40 AM EDT documented as of this encounter Care Teams Financial Services Auditor Relationship Specialty Start Date End Date Zoey Colby MD [address] [place] [phone] PCP - General Family Medicine 06/16/23 [facility] 05/09/24 documented as of this encounter
--- OUTSIDE RECORDS SUMMARY | 2025-07-12 11:16 | XMS_ITS | Encounter Summary ---
Author Organization [employer] Address [address] [facility] [address] [place] [address] Care Team Providers Care Acetylene Gas Compressor Name Role Phone Zoey Colby MD Primary Care Provider [phone] Reason for Referral * Imaging (Routine) - Closed Specialty Diagnoses / Procedures Referred By Contac t Referred To Contact Radiology Diagnoses Abnormal CXR (chest x-ray) Procedures CT Chest w/o Contrast Zoey Colby MD [address] [place] [address] Phone: tel: fax: [facility] [address] [place] [address] Phone: tel: fax: Referral ID Status Reason Start Date Expiration Date Visits Re quested Visits Authorized [id number] Closed 12/22/2024 12/22/2025 1 1 Encounter Details Date Type Department Care Team (Late st Contact Info) Description 12/22/2024 Orders Only [facility] [address] [place], [place] [phone] Zoey Colby MD [address] [place], [place] [phone] Abnormal CXR (chest x-ray) (Primary Dx) Social History Tobacco Use Types [...] Description 07/28/2025 10:30 AM EDT Clinical Support [address] [address] Paris Monzon, RN Scheduled Orders Name Type Priority Associated Diagnoses Orde r Schedule CT Chest w/o Contrast Imaging Routine Abnormal CXR (chest x-ray) Expected: 12/22/2024, Expires: 12/22/2025 documented as of this encounter Visit Diagnoses Diagnosis Abnormal CXR (chest x-ray)- Primary Nonspecific (abnormal) findings on radiological and other examination of lung field documented in this encounter Additional Health Concerns Assessment Noted Time PHQ-9 Depression Total Score: 0 05/16/20 23 10:40 AM EDT documented as of this encounter Care Teams Acetylene Gas Compressor Relationship Specialty Start Date End Date Zoey Colby MD [address] [place] [address] PCP - General Family Medicine 06/16/23 [place] [facility] 05/09/24 documented as of this encounter
--- OUTSIDE RECORDS SUMMARY | 2025-07-12 11:16 | XMS_ITS | Encounter Summary ---
Author Organization [employer] Address [address] [place] [address] 7 [place] [address] Care Team Providers Care Hall Director Name Role Phone Zoey Colby MD Primary Care Provider [phone] Reason for Referral * Imaging (Urgent) - Closed Specialty Diagnoses / Procedures Referred By Contac t Referred To Contact Radiology Diagnoses Lung nodule, multiple Tobacco dependence Procedures CT Chest w/o Contrast Zoey Colby MD [address] [place] [address] Phone: tel: fax: [facility] [address] [facility], [address] [place] [phone] Phone: tel: fax: Referral ID Status Reason Start Date Expiration Date Visits Re quested Visits Authorized [id number] Closed 04/21/2024 04/21/2025 1 1 Encounter Details Date Type Department Care Team (Late st Contact Info) Description 04/21/2024 Orders Only [facility] [address] [place] [address] Zoey Colby MD [address] [place] [address] Lung nodule, multiple (Primary Dx); Tobacco dependence [...] Description 07/28/2025 10:30 AM EDT Clinical Support [address] [address] Paris Monzon, RN Scheduled Orders Name Type [...] Results * Lipase (07/27/2024 2:23 PM EDT) Pathologist [facility] Lipase 11 8 - 78 U/L [facility] 07/27/2024 2:23 PM EDT 07/27/2024 2:26 PM EDT Generic External Data Provider LAB BLOOD ORDERAB LES Final Result Performing Organization Address [facility]/ZIP Co de Phone Number [facility] [address] [place] [phone] * Magnesium (07/27/2024 2:23 PM EDT) [facility] Magnesium 1.9 1.6 - 2.6 mg/dL [facility] 07/27/2024 2:23 PM EDT 07/27/2024 2:26 PM EDT Generic External Data Provider LAB BLOOD ORDERAB LES Final Result Performing Organization Address [facility] Co de Phone Number [facility] [address] [place] [phone] * (ABNORMAL) Basic Metabolic Panel (07/27/2024 2:23 PM EDT) Pathologist [facility] Sodium 142 135 - 145 mmol/L [facility] Potassium 3.9 3.3 - 5.1 mmol/L [facility] Chloride 103 96 - 108 mmol/L [facility] Carbon Dioxide 31(H) 22 - 29 mmol/L [facility] Anion Gap 12 12 - 20 [facility] Urea Nitrogen (BUN) 15 9 - 16 mg/dL [facility] Creatinine, Serum 0.64 0.5 - 1.4 mg/dL [facility] Creatinine Clr Calc Pharmacy 44.4 [facility] Comment:Provided height and weight: 149.86 cm,34.4 kg.eGFR (calculated from the MDRD study equation) and eCrCl(calculated from the Cockcroft-Gault equation) are based ondifferent parameters and may not yield comparable results.If eCrCl result is absurd, please check patient'sheight/weight. Estimated Glomerular Filt Rate >60 [facility] Comment:NOTE: For -Am erican individuals, multiply the result by 1.210.Chronic Kidney Disease: Estimated GFR < 60 mL/min/[id number] Kidney Disease: Estimated GFR < 15 mL/min/1.73m2 Glucose 110 60 - 115 mg/dL [facility] Calcium 9.7 8.4 - 10.2 mg/dL [facility] 07/27/2024 2:23 PM EDT 07/27/2024 2:26 PM EDT us Generic External Data Provider LAB BLOOD ORDERAB LES Final Result [facility] [address] [place] [phone] * (ABNORMAL) Hepatic Function Panel (07/27/2024 2:23 PM EDT) Bilirubin, Total 0.4 0.0 - 1.0 mg/dL [facility] Bilirubin, Direct 0.1 0.0 - 0.5 mg/dL [facility] Aspartate Amino Transferase 41(H) 5 - 31 U/L [facility] Alanine Aminotransferase 29 0 - 31 U/L [facility] Total Protein 6.6 6.5 - 8.0 g/dL [facility] Albumin Level 3.5 3.5 - 5.0 g/dL [facility] Alkaline Phosphatase 150(H) 39 - 117 U/L [facility] 07/27/2024 2:23 PM EDT 07/27/2024 2:26 PM EDT us Generic External Data Provider LAB BLOOD ORDERAB LES Final Result [facility] [address] [place], [place] [phone] * (ABNORMAL) CBC auto differential (07/27/2024 2:23 PM EDT) White Blood Count 11.3(H) 4.8 - 10.8 X10*3/uL [facility] Red Blood Count 5.62(H) 4.20 - 5.50 X10*6/uL [facility] Hemoglobin 14.4 12.0 - 16.0 g/dl [facility] Hematocrit 45.1 37.0 - 47.0 % [facility] Mean Corpuscular Volume 80.2 80.0 - 98.0 fL [facility] Mean Corpuscular Hemoglobin 25.6(L) 27.0 - 33.0 pg [facility] Mean Corpuscular HGB Conc 31.9 31.0 - 35.0 g/dl [facility] Red Cell Distribution Width 18.4(H) 11.0 - 16.0 % [facility] Platelet Count 276 160 - 400 X10*3/uL [facility] Mean Platelet Volume 9.2(L) 9.4 - 12.3 fL [facility] Neutrophils Percent Auto 81.6(H) 45 - 73 % [facility] Imm Gran Pct Auto 0.4 0.0 - 0.4 % [facility] Lymphocytes Percent Auto 8.4(L) 20 - 40 % [facility] Monocytes Percent Auto 9.1 2 - 11 % [facility] Eosinophils Percent Auto 0.2 0 - 4 % [facility] Basophils Percent Auto 0.3 0 - 2 % [facility] NRBC Pct Auto 0.0 0.0 - 0.2 /100WBC [facility] Neutrophils Absolute Auto 9.3(H) 2.0 - 8.3 x10*3/uL [facility] Imm Gran Abs Auto 0.05(H) 0.00 - 0.03 X10*3/uL [facility] Lymphocytes Absolute Auto 1.0(L) 1.2 - 4.9 X10*3/uL [facility] Monocytes Absolute Auto 1.0 0.1 - 1.2 X10*3/uL [facility] Eosinophils Absolute Auto 0.0 0.0 - 0.4 X10*3/uL [facility] Basophils Absolute Auto 0.0 0.0 - 0.2 X10*3/uL [facility] NRBC Abs Auto 0.000 0.0 - 0.012 X10*3/uL [facility] 07/27/2024 2:23 PM EDT 07/27/2024 2:26 PM EDT Generic External Data Provider LAB BLOOD ORDERAB LES Final Result Performing Organization Address [facility] de Phone Number [facility] [address] [place] [phone] * Gram stain (07/27/2024 1:56 PM EDT) 07/27/2024 1:56 PM EDT 07/27/2024 2:01 PM EDT Comment:Abdom Fld Narrative [facility] - 07/27/2024 3:02 PM EDT Fluid from galbladder drain per [facility] Gram stain results: 3+ polys No organisms seen Specimen received on a swab. Results may be compromised. Specimen of choice is aspirate. Specimen Source: Abdominal Fluid Generic External Data Provider LAB MICROBIOLOGY - GENERAL ORDERABLES Final Result Performing Organization Address [facility] Co de Phone Number [facility] [address] [place] [phone] documented in this encounter Visit Diagnoses Diagnosis Lung nodule, multiple- Primary Tobacco dependence Tobacco use disorder documented in this encounter Additional Health Concerns Assessment Noted Time PHQ-9 Depression Total Score: 0 05/16/20 23 10:40 AM EDT documented as of this encounter Care Teams Hall Director Relationship Specialty Start Date End Date Zoey Colby MD [address] [place] [address] PCP - General Family Medicine 06/16/23 Veronica [facility] 05/09/24 documented as of this encounter
--- OUTSIDE RECORDS SUMMARY | 2025-07-12 11:16 | XMS_ITS | Encounter Summary ---
Author Organization [employer] Address [address] [place] [address] Care Team Providers Care Software Licensing Executive Name Role Phone Zoey Colby MD Primary Care Provider [phone] Reason for Visit * Reason Comments Med Refill Encounter Details Date Type Department Care Team ([facility] st Contact Info) Description 07/28/2024 Refill [facility] [address] [place], [place] [phone] Zoey Colby MD [address] [place] [address] Gastric ulcer, unspecified chronicity, unspecified whether gastric ulcer hemorrhage or perforation present; Mild Alzheimer's dementia, unspecified timing of dementia onset, unspecified whether behavioral, psychotic, or mood disturbance or anxiety ([facility]) Social History Tobacco Use Types Packs/Day [...] 10:30 AM EDT Clinical Support [facility] [address] [place] [address] Paris Monzon RN documented as of this encounter Visit Diagnoses Diagnosis Gastric ulcer, unspecified chronicity, unspecified whether gastric ulcer hemorrhage or perforation present Mild Alzheimer's dementia, unspecified timing of dementia onset, unspecified whether behavioral, psychotic, or mood disturbance or anxiety (CMS/HCC) (HCC) documented in this encounter Additional Health Concerns Assessment Noted Time PHQ-9 Depression Total Score: 0 05/16/20 23 10:40 AM EDT documented as of this encounter Care Teams Software Licensing Executive Relationship Specialty Start Date End Date Zoey Colby MD [address] [place] [address] PCP - General Family Medicine 06/16/23 [facility] 05/09/24 documented as of this encounter
--- OUTSIDE RECORDS SUMMARY | 2025-07-12 11:16 | XMS_ITS | Clinical Summary ---
Author Organization [employer] Address [address] [place] [address] 7 [place] [address] Care Team Providers Care [employer] Anchor Name Role Phone Zoey Colby MD Primary Care Provider [phone] Allergies No known active allergies Medications * This document contains information received from the source organization and may not represent a complete record from that organization. albuterol 108 (90 Base) MCG/ACT inhalerIndicati ons:Chronic obstructive pulmonary disease, unspecified COPD type (CMS/HCC) (HCC) Inhale 2 puffs every 4 (four) hours if needed for shortness of breath or wheezing. 18 g 3 06/23/20 23 Active budesonide-form oterol (Symbicort) 80-4.5 MCG/ACT inhalerIndicati ons:Chronic obstructive pulmonary disease, unspecified COPD type (CMS/HCC) (HCC) TAKE 2 PUFFS BY MOUTH TWICE A DAY IN THE MORNING AND IN THE EVENING 1 each 04/23/20 24 Active nitroglycerin (Nitrostat) 0.[address] 1 tablet (0.4 mg) under the tongue every 5 (five) minutes if needed for chest pain. 30 tablet 3 09/30/20 24 025 Active omeprazole (PriLOSEC) [address] capsuleIndicati ons:Gastric ulcer, unspecified chronicity, unspecified whether gastric ulcer hemorrhage or perforation present Take 1 capsule (40 mg) by mouth 2 times daily. Do not crush or chew. 180 capsule 2 06/27/20 25 Active metoprolol succinate XL (Toprol-XL) 50 MG 24 hr tabletIndicatio ns:Chronic diastolic heart failure (HCC) TAKE 1 TABLET BY MOUTH EVERY MORNING. DO NOT CRUSH OR CHEW. 90 tablet 3 06/27/20 25 Active donepezil (Aricept) 5 MG tabletIndicatio ns:Mild Alzheimer's dementia, unspecified timing of dementia onset, unspecified whether behavioral, psychotic, or mood disturbance or anxiety (CMS/HCC) (HCC) Take 1 tablet (5 mg) by mouth at bedtime. 90 tablet 3 06/27/20 25 Active aspirin (Aspirin Low Dose) 81 MG EC tabletIndicatio ns:Chronic diastolic heart failure (HCC) TAKE 1 TABLET BY MOUTH EVERY DAY 90 tablet 3 06/27/20 25 Active oxyCODONE (Roxicodone) 10 MG immediate release tabletIndicatio ns:Chronic bilateral low back pain with left-sided sciatica Take 1 tablet (10 mg) by mouth every 6 (six) hours if needed for severe pain for up to 28 days. Do not start before June 29, 2025. 112 tablet 06/29/20 25 025 Active Rimegepant Sulfate (Nurtec) 75 MG tablet dispersible Take 75 mg by mouth if needed each day (migraine). 30 tablet 3 04/01/20 23 025 Discontinued(Th erapy completed) metoprolol succinate XL (Toprol-XL) 50 MG 24 hr tabletIndicatio ns:Acute non-ST segment elevation myocardial infarction (HCC) TAKE 1 TABLET BY MOUTH EVERY MORNING. DO NOT CRUSH OR CHEW. 90 tablet 3 06/22/20 025 Discontinued(Re order (will not trigger notification to Pharmacy)) omeprazole (PriLOSEC) [address] capsuleIndicati ons:Gastric ulcer, unspecified chronicity, unspecified whether gastric ulcer hemorrhage or perforation present TAKE 1 CAPSULE (40 MG) BY MOUTH 2 TIMES DAILY. DO NOT CRUSH OR CHEW. 180 capsule 1 11/26/19 025 Discontinued(Re order (will not trigger notification to Pharmacy)) donepezil (Aricept) 5 MG tabletIndicatio ns:Mild Alzheimer's dementia, unspecified timing of dementia onset, unspecified whether behavioral, psychotic, or mood disturbance or anxiety (CMS/HCC) (HCC) TAKE 1 TABLET BY MOUTH AT BEDTIME 90 tablet 3 02 025 Discontinued(Re order (will not trigger notification to Pharmacy)) aspirin (Aspirin Low Dose) 81 MG EC tabletIndicatio ns:Acute non-ST segment elevation myocardial infarction (HCC) TAKE 1 TABLET BY MOUTH EVERY DAY 90 tablet 3 11/29/19 25 025 Discontinued(Re order (will not trigger notification to Pharmacy)) oxyCODONE (Roxicodone) 10 MG immediate release tabletIndicatio ns:Chronic bilateral low back pain with left-sided sciatica Take 1 tablet (10 mg) by mouth every 6 (six) hours if needed for severe pain for up to 28 days. Do not start before June 02, 2025. 112 tablet 06/02/20 025 Discontinued(Re order (will not trigger notification to Pharmacy)) Active Problems Problem Noted Date Diagnosed Date Medication nonadherence due to psychosocial prob shira 06/29/2025 Assessment & Plan (06/29/2025 10:47 AM EDT): How to ensure she is taking her medications safely: - VNA referral for medication management (she is not taking any of her medications except for oxycodone, per her partner). This did not work out because VNA could only come once a week - now referred to [facility] (06/28/25) and we placed all of her medications in a pill pack today for the next week (06/28/25- 07/05/25) - will offer to simplify her regimen from oxycodone to Butrans patch Localized swelling of both lower legs 06/03/2025 Overview (06/03/2025): Secondary to venous stasis Assessment & Plan (06/29/2025 10:48 AM EDT): - wound care referral placed 06/28/25 for care of of bilateral venous stasis ulcers and LE swelling (would benefit from application of ointment and gauze daily) Assessment & Plan (06/03/2025 10:49 AM EDT): VNA referral for wound care of bilateral venous stasis ulcers and LE swelling (would benefit from application of ointment and gauze daily) and PT for ambulation/strengthening Mild Alzheimer's dementia, u nspecified timing of dementia onset, unspecified whether behavioral, psychotic, or mood disturbance or anxiety ([facility]) 12/03/2024 Abnormal CXR (chest x-ray) 10/03/2024 Overview (10/03/2024): Prominent insterstitial lung markings Assessment & Plan (10/03/2024 9:17 AM EST): Refer to pulm for potential ILD, also needs assistance with management of severe COPD oysterman (current) use of opiate analgesic 08/07 Overview (06/03/2025): Dx: chronic low back pain with radiation to legs Rx: Oxycodone to 10mg every 6 hours Last [facility] [employer] [facility] agreement: 06/16/24 Tier II (visit every 3 months) Additional considerations: increased risk of resp depression due to COPD and smoking Timeline: 08/24/24 converted oxycodone 10mg TID to MS Contin 15mg BID 09/30/24 Resume oxycodone 10mg TID due to side effects of dry heaving and gait instability with morphine 11/19/24 increase Oxycodone to 15mg TID 05/04/25 Oxycodone to 10mg every 6 hours Assessment & Plan (06/03/2025 10:50 AM EDT): VNA referral for medication management, is not taking any medications except for her oxycodone Assessment & Plan (08/27/2024 6:24 AM EST): [...] in ER. Offered to call expect to [facility]. She says that she will plan to attend her GI followup in two days, understands that she may be referred to the ER then. Assessment & Plan (05/11/2024 10:00 AM EDT): Patient here for a HDF, admitted to [facility] from 05/04/2024 until 05/07/2024 when she presented [...] patient agreeable family will transport to ER. Claustrophobia 10/10/2023 Assessment & Plan (10/10/2023 4:15 PM EST): Prior to PET Lung nodule, multiple 09/05/2023 09/05/2023 Assessment & Plan (05/12/2024 12:36 PM EDT): No worsening nodules on CTPA of 05/04/24 Pt has no showed [facility] thoracic surgery x 2, will continue to image every year due to high risk smoker Assessment & Plan (02/25/2024 12:04 PM EDT): Reviewed the phone numbers to call and book appointments for CT lung ([facility]) and for brain MRI ([facility]), patient will [...] minutes before PET scan and to call [facility] to reschedule Then alert thoracic surgery when [...] SMALL BILATERAL PLEURAL EFFUSION AND ADJACENT ATELECTASIS Underweight 05/21/2023 Assessment & Plan (07/25/2023 3:08 PM EDT): Unclear if related to recent condition/hospitalization vs malignancy. Pleural effusion aspirate from 07/11/23 was neg for malignancy. Needs fu with CT surgery at [facility] for an abnormal LDCT lungs on 05/21/23 [...] will be placing a referral to our furnace charger here at [facility]. Memory loss 05/16/2023 Assessment & Plan (10/15/2023 [...] Assessment & Plan (05/16/2023 12:47 PM EDT): LD=402/86, no medication changes advised today, continue current [...] Assessment & Plan (03/28/2023 7:11 PM EDT): Encouraged smoking cessation resources such as pharmacomtherapy, [facility] smoking cessation group, and [facility] pharmacy smoking cessation clinic Planning to start nicotrol inhalers Osteoporosis 06/30/2012 Stage 2 moderate COPD by GOLD classification (CM S/HCC) 03/31/2012 Assessment & Plan (05/12/2024 12:57 PM EDT): [...] Problem Noted Date Diagnosed Date Resolved Date Hospital discharge follow-up 05/11/2024 02/25/2025 Assessment & Plan (05/11/2024 10:00 AM EDT): Patient here for a HDF, admitted to [facility] from 05/04/2024 until 05/07/2024 when she presented [...] transport to ER. Acute nonintractable headache 01/14/2024 02/25/2025 Assessment & Plan (01/14/2024 9:19 AM EDT): ESR negative More concern for metastasis other primary brain tumor MRI brain with and without contrast re-ordered, sent to [facility] She picked up Lorazepam for prior to MRI Immunocompromised due to corticosteroids 09/05/2023 09/05/2023 06/03/2025 Acute hypoxemic respiratory failure (CMS/HCC) 08/25/2007/27/2024 SOB (shortness of breath) 08/25/2023 Septic shock (CMS/HCC) 08/25/202307/27 Healthcare maintenance 05/16/202302/25 Assessment & Plan (05/20/2023 8:59 AM EDT): PHQ: 0 Substance use: 1 pack a day cigarettes. Denies drug, etoh, marijuan. Denied low dose CT scan. Lipids: labs ordered. Mammo: mammo ordered Colonoscopy: denied GI referral for colorectal cancer screening, she also denied cologard. She is not interested in doing either. DEXA: denies bone scan Vacc.: Advise [facility] pharm for 2nd zoster vaccination. Eye exam: Referral to eye care sent. Dental home: Advised [facility] dental. Chronic, continuous use of opioids 11/29/2022 08/27/2024 [...] come to appointments with me and with [facility] [employer] [facility] for continued prescription of opioid medications Dysuria 10/11/2013 07/27/2024 Encounters Date Type Department Care Team Description 06/27/2025 3:30 PM EDT Office Visit [facility] [address] [place] [phone] Zoey Colby MD nursing home (current) use of opiate analgesic (Primary Dx); Gastric ulcer, unspecified chronicity, unspecified whether gastric ulcer hemorrhage or perforation present; Mild Alzheimer's dementia, unspecified timing of dementia onset, unspecified whether behavioral, psychotic, or mood disturbance or anxiety (CMS/HCC); Chronic bilateral low back pain with left-sided sciatica; Chronic diastolic heart failure (CMS/HCC); Coronary artery disease involving [place] heart, unspecified vessel or lesion type, unspecified whether angina present; Localized swelling of both lower legs; Medication nonadherence due to psychosocial problem 06/27/2025 Travel 06/20/2025 Telephone [facility] [address] [place] [phone] Paris Monzon RN VNA services 06/03/2025 9:30 AM EDT Office Visit [facility] [address] [place] [phone] Zoey Colby MD Recurrent major depressive disorder, in partial remission (CMS/HCC) (Primary Dx); Low vision right eye category 1, normal vision left eye; nursing home (current) use of opiate analgesic; Tobacco dependence; Stage 2 moderate COPD by GOLD classification ([facility]); Mild Alzheimer's dementia, unspecified timing of dementia onset, unspecified whether behavioral, psychotic, or mood disturbance or anxiety ([facility]); Chronic bilateral low back pain with left-sided sciatica; Localized swelling of both lower legs; Essential hypertension; Myocardial infarction, old 06/03/2025 Telephone [facility] [address] [place] [phone] Jazmin Ratliff RN VNA REFERRAL 06/03/2025 Travel 06/01/2025 10:30 AM EDT Telemedicine [address] [phone] Paris Monzon RN nursing home (current) use of opiate analgesic 06/01/[address] [phone] Zoey Colby MD chart prep 06/01/2025 Travel 05/31/[address] [phone] Zoey Colby MD Chronic bilateral low back pain with left-sided sciatica 05/26/2025 1:30 PM EDT Office Visit [facility] [address] [place] [address] Easton, Vandana, OD Macular atrophy, retinal (Primary Dx); Nuclear senile cataract of both eyes; 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; Presbyopia 05/26/2025 Travel 05/24/[address] [phone] Paris Monzon RN Schedule appt w/PCP for VNA 05/04/[address] [phone] Paris Monzon RN Chronic bilateral low back pain with left-sided sciatica (Primary Dx) 05/03/2025 10:30 AM EDT Clinical Support [address] [phone] Paris Monzon RN oysterman (current) use of opiate analgesic (Primary Dx) 05/03/2025 Telephone [facility] [address] [place] [address] Paris Monzon, RN VNA services 05/03/2025 Refill [facility] [address] [place] [address] Paris Monzon, allied health professional, continuous use of opioids; nursing home (current) use of opiate analgesic; Chronic bilateral low back pain with left-sided sciatica 05/03/2025 Travel from Last 3 Months Immunizations Immunization Administration Dates Next Due Influenza High-dose Quadriva [...] adsorbed 01/08/2001 Tdap 06/27/2021 Zoster, Recombinant 09/25/2021 Family History Medical History Relation Name Comments No Known Problems Brother 1 Kevin No Known Problems Brother 2 Ulisses No Known Problems Brother 3 Lev Brain Aneurysm Father Kidney disease Mother Brain Aneurysm Sister 1 Lia No Known Problems Sister 2 Thalia sepsis Sister 3 Natividad Relation Name Status Comments Brother 1 Kevin Brother 2 Ulisses Brother 3 Lev Father Unknown Mother Sister 1 Lia Sister 2 Thalia Sister 3 Natividad Social History Tobacco Use Types Packs/Day Years Used Date Smoking Tobacco: Every Day Cigarettes Smokeless Tobacco: Never Tobacco Cessation:Ready to Q uit: Not Asked; Counseling Given: Not Answered Alcohol Use Standard Drinks/Week Comments Not Currently 0 (1 standard drink = 0.6 oz pur e alcohol) Alcohol Answer Date Recorded How often do you have a drink containing alcohol ? 0 06/03/2025 How many drinks containing a lcohol do you have on a typical day when you are drinking? 0 06/03/2025 How often do you have six or more drinks on one occasion? 0 06/03/2025 Depression Answer Date Recorded Patient Health Questionnaire-9 Score 0 05/16/2023 Housing Stability Answer Date Recorded What is your housing situation today? I have yoly carreno 01/17/[address] you li ve. Do you have problems with any of the following? None of the above 01/17/2025 Food Insecurity Answer Date Recorded Within the past 12 months, y ou worried that your food would run out before you got money to buy more: Sometimes True 2024 Within the past 12 months,th e food you bought just didn't last and you didn't have enough money to get more: Sometimes True 01/17/2025 Transportation Answer Date Recorded In the past 12 months, has l ack of transportation kept you from medical appts, meetings, work or from getting things needed for daily living? No 01/17/2025 Intimate Partner Violence Answer Date R ecorded Within the last year, have y ou been afraid of your partner or ex-partner? 2 06/03/2025 Within the last year, have y ou been humiliated or emotionally abused in other ways by your partner or ex-partner? 2 Within the last year, have y ou been kicked, hit, slapped, or otherwise physically hurt by your partner or ex-partner? 2 06/03/2025 Within the last year, have y ou been raped or forced to have any kind of sexual activity by your partner or ex-partner? 2 06/03/2025 Utilities Answer Date Recorded In the past 12 months, has t he electric, gas, oil or water company threatened to shut off services in your home? No 01/17/2025 Depression Answer Date Recorded Patient Health Questionnaire-2 Score 2 01/17/2025 Internet Access Answer Date Recorded Internet Access Q1 Yes 01/17/2025 Internet Access Q2 Not on file 01/17/2025 Comments Unknown Sex and Gender Information Value Date Recorded Sex Assigned at Female 08/05/2022 10:16 AM EDT Legal Sex Female 10:16 AM EDT Gender Identity Female 03/28/2023 6:36 PM EDT Sexual Orientation Straight 08/05/2022 10 :16 AM EDT Last Filed Vital Signs Vital Sign Reading Time Taken Comments Blood Pressure 120/64 06/27/2025 3:30 PM EDT Pulse 97 06/27/2025 3:30 PM EDT Temperature 36.1 C (97 F) 06/27/2025 3:30 PM EDT Respiratory Rate 13 06/27/2025 3:30 PM EDT Oxygen Saturation 87% 06/27/2025 3:30 PM EDT Inhaled Oxygen Concentration - - Weight 39.5 kg (87 lb) 06/27/2025 3:30 PM EDT Height 149.9 cm (4' 11 ) 06/27/2025 3:30 PM EDT Body Mass Index 17.57 06/27/2025 3:30 PM EDT Plan of Treatment Upcoming Encounters Date Type Department Care Team (Late st Contact Info) Description 07/28/2025 10:30 AM EDT Clinical Support [facility] [address] [place] [phone] Paris Monzon, RN Health Maintenance Due Date Last Done Comments CT Colonography 1954 Colonoscopy 1954 FIT DNA/Cologuard 1954 FIT 1954 FOBT 1955 Sigmoidoscopy 1955 Hepatitis C Screening 02/11/1972 RSV Patients and Patients Aged 60 years or older (1 - Risk 60-74 years 1-dose series) 2014 Zoster Vaccines (2 of 2) 11/20/2021 09/25/2021 Mammogram 05/29/2022 11/29/2021, 11/06, 11/20/2021 COVID-19 Vaccine (2024- season) 2025 10/18/2022, 07/05/2021, 11/21/2020, Additional history exists Influenza Vaccine (#1) 2025 , 07/08/2022, 06/27/2021, Additional history exists Alcohol/Substance Use Screening 01/17/2026 01/17/2025 Depression Screening 01/17/2026 01/17/2025, 05/16/20 SDOH Screening 01/17/2026 01/17/2025 Colorectal Cancer Screening 02/22/2026 Postponed from 1955 (Patient Refused) Tobacco Screening 06/27/2026 06/27/2025 Lipid Panel 05/16/2028 05/16/2023, 04/23/2021 DTaP/Tdap/Td Vaccines [...] Procedure Name Priority Date/Time Associated Diagnosis Comments OCT, RETINA - OU - BOTH EYES Routine 05/26/2025 1:30 PM EDT Macular atrophy, retinal POCT DAILY-14 URINE DRUG SCREEN Routine 05/03/2025 10:51 AM EDT oysterman (current) use of opiate analgesic LIPID PANEL, STANDARD Routine 05/16/2023 12:10 PM EDT Healthcare maintenance MAMMOGRAM GENERIC Routine 11/29/2021 3:5 0 PM EST from Last 3 Months or Most Recently Relevant to Health Maintenance Results * OCT, Retina - OU - Both Eyes (05/26/2025 1:30 PM EDT) Vandana Benitez, OD - 05/27/2025 10:15 AM EDT Images from the original result were not included. OCT [facility] [employer] Optical Coherence Tomography Interpretation Report Measurements: OD OS Macula Thickness 92 microns 228 microns Test findings: OD: Loss of fovea secondary to scarring, schisis of all layers between the fovea and ONH OS: Normal foveal contour, no cystoid macular edema, no retinal pigment epithelium disruption, no subretinal fluid Impression and Plan: Atrophy throughout right macula, normal left macula. Will monitor at her next exam. Vandana Mccormack OD OPHTH TOMOGRAPHY Final Result * POCT DAILY-14 Urine Drug Screen (05/03/2025 10:51 AM EDT) THC Negative Negative Cocaine Screen, Urine Negative Negative Opiate Screen, Urine Positive Negative Methamphetamine Screen Urine Negative Negative Amphetamine Screen, Urine Negative Negative Benzodiazepines Screen, Urine Negative Negative Barbiturate Screen, Urine Negative Negative Methadone Screen, Urine Negative Negative Buprenophine Screen, Urine Negative Negative TCA, Urine Negative Negative MDMA Urine Negative Negative ng/mL Oxycodone Screen, Urine Positive Negative Phencyclidine (PCP), Urine Negative Negative Propoxyphene, Urine Negative Negative Fentanyl, Urine Negative Negative Urine Urine specimen obtained by clean catch procedure / Unknown 05/03/2025 10:51 AM EDT Paris Boudreaux RN - 05/03/2025 10:51 AM EDT UTOX cup Lot#[id number] Exp. 07/12/26 Internal Pass Control Zoey Colby MD POINT OF CARE TEST ENTER/EDIT ORDERABLES Final Result * Lipid Panel, Standard (05/16/2023 12:10 PM EDT) Triglycerides 97 mg/dL [facility] Comment:Desirable Triglyceri de: less than 150 mg/dLBorderline High Triglyceride 150-199 mg/dLHigh Triglyceride: 200-499 mg/dLVery High Triglyceride: greater than or equal to 5OO mg/dL Cholesterol 179 mg/dL [facility] Comment:Desirable Cholestero l: less than 200 mg/dLBorderline High Cholesterol: 200-239 mg/dLHigh Cholesterol: greater than 239 mg/dL LDL Cholesterol Calculated 106 mg/dl [facility] Comment:Desirable LDL: less than 100 mg/dLNear Optimal/Above Optimal LDL: 110- 129 mg/dLBorderline High LDL: 130-159 mg/dLHigh LDL: 160-189 mg/dLVery High LDL: greater than or equal to 190 mg/dL HDL Cholesterol 54 mg/dL [facility] Comment:Desirable HDL: great er than 40 mg/dL Note: This HDL assay may give artificially low results in patients with liver disease. Blood Venous blood specimen / Unknown 05/16/2023 12:10 PM EDT 05/16/2023 1:48 PM EDT us David Tanner AGNP LAB BLOOD ORDERABLES Final Res ult [facility] [address] [place] [address] [phone] * Mammography Report 1 (11/29/2021 3:50 PM EST) Anatomical Region Laterality Modality Breast Bilateral Mammography 11/29/2021 3:50 PM EST Narrative 11/29/2021 5:07 PM EST Refer to the Notes tab for result details [facility] Procedure: Mammography Report 1 Procedure Note Provider, MD Griselda - 12/29/2022 Refer to the Notes tab for result details [facility] Procedure: Mammography Report 1 Stephan Martin MD IMG BI PROCEDURES Final Resu lt from Last 3 Months or Most Recently Relevant to Health Maintenance Insurance MEDICARE Care Teams [employer] Relationship Specialty Start Date End Date Zoey Colby MD [address] [place] [phone] PCP - [facility]
== END 2025-07-12 10:21 | disposition home or self-care (01) ==
LOC: HO.HPS 09:48
PROVIDERS: PCP General Practice; Visit Provider Internal Medicine
DX: F17.210 Nicotine dependence, cigarettes, uncomplicated (principal); R09.02 Hypoxemia; J44.9 Chronic obstructive pulmonary disease, unspecified
CPT/HCPCS: 99213

== ENCOUNTER → 2025-07-12 09:47 | Outpatient (BNVA) | payer MEDICARE, SELFPAY | PROVIDERS: PCP General Practice; Visit Provider Internal Medicine | DX: J44.9 Chronic obstructive pulmonary disease, unspecified (principal); R09.02 Hypoxemia; F17.210 Nicotine dependence, cigarettes, uncomplicated | CPT/HCPCS: 99212 ==